=== PATIENT | female | born 1945 | race Caucasian/White ===

== ENCOUNTER 2023-07-07 13:54 | Outpatient (OUT) | payer MEDICARE, SELFPAY ==
--- NOTE | 2023-07-07 14:02 | CT_ITS ---
The [address] [address] Patient Name: DESTINEY TAN MRN: [id number] date: 1945 Sex: F Assigned Patient Location: CT Current Patient Location: CT Accession/Order Number: [id number] Exam Date: 07/07/2023 14:10 Report Date: 07/09/2023 14:25 At the request of: EMILY BERMEO Procedure: CT chest wo con Study: Unenhanced CT of the chest dated 07/07/2023 2:10 PM EST. Indication: Pulmonary nodule. Comparison: CT chest 07/06/2022 and 10/20/2021 . Technique: Axial CT of the chest was performed from the lung apices to the hemidiaphragms without intravenous contrast. 2-D reformats were obtained. Automatic exposure control radiation dose reduction technology was utilized. Findings: Chest: Lack of intravenous contrast limits assessment in the thorax. Stable 0.8 cm solid ovoid nodule in the superior segment right lower lobe (series 3, image 36). No new/enlarging or suspicious pulmonary nodules, areas of airspace disease, pleural effusions, pericardial effusions or enlarged lymph nodes in the thorax. No pneumothorax. No thoracic aortic aneurysm. Moderate coronary artery calcifications. Visualized portion of the upper abdomen is unremarkable. CT/CT chest wo con IMPRESSION: 1. Stable 0.8 cm discoid nodule in the superior segment right lower lobe, favored benign. Recommend additional follow-up noncontrast CT chest in 12 months. Electronically authenticated by: GEORGE AGARWAL Date: 07/09/2023 14:25
== END 2023-07-07 13:55 | disposition home or self-care (01) ==
PROVIDERS: Visit Provider Internal Medicine
DX: R91.1 Solitary pulmonary nodule (principal)
CPT/HCPCS: 71250

== ENCOUNTER 2023-07-27 13:03 | Outpatient (OUT) | payer MEDICARE, SELFPAY ==
--- OUTSIDE RECORDS SUMMARY | 2023-07-27 13:09 | XMS_ITS | CCD ---
Author Name Unknown Address [address] [facility] [address] [place] [address] Organization [facility] Care Team Providers Care Commercial Attorney Name Role Phone HARLANSA, EMILY Attending Unavailable ZIEBREMY, DR RAFAELA Hartman Consulting Unavailable SAMSA, EMILY Admitting Unavailable SAMSA, EMILY Consulting Unavailable AVERY, JOSE GUADALUPE Admitting Unavailable AVERY, JOSE GUADALUPE Attending Unavailable AVERY, JOSE GUADALUPE Consulting Unavailable SAMSA, EMILY Attending Unavailable ZIEBER, DR RAFAELA Hartman Consulting Unavailable SAMSA, EMILY Admitting Unavailable SAMSA, EMILY Consulting Unavailable AVERY, JOSE GUADALUPE Admitting Unavailable AVERY, JOSE GUADALUPE Attending Unavailable AVERY, JOSE GUADALUPE Consulting Unavailable AVERY, JOSE GUADALUPE Attending Unavailable MANDY MARQUEZ ROBERT F Referring ANTHONY Rowe Primary Care Unavailable Musa RAM, Karrie Torres Referring Anna Mckinley MD, Anthony Roth Primary Care Unavailab Lauren RAM, Giana Gutierrez Attending Sharron Arias III, MD Attending Efren Mckinley MD, Anthony Roth Primary Care Unavailab Lauren RAM, Giana Gutierrez Attending Unavailab Marilia SYKES, Anthony Roth Primary Care UnavailSharron Bateman III, MD Attending Efren Mckinley MD, Anthony Roth Primary Care Unavailab Marilia SYKES, Anthony Suarez Primary Care Provider Allergies Allergy Classification Reported Allergen(s) Allergy Type Date of Onset Reaction(s) Facility (1 source) No Known Medication Allergies; Translations: [No Known Medication Allergies] Propensity to adverse reactions to drug (disorder) [facility] Repository Medications Current Medications Medication Drug Class(es) Dates Sig (Normalized) Sig (Original) albuterol 0.83 mg/ml inhalation solution (2 sources) beta2-Adrenergic Agonist take 3 mL by inhalation four times daily albuterol (PROVENTIL,VENTOL IN) 2.5 mg /3 mL (0.083 %) nebulizer solution Inhale 3 mL (2.5 mg total) by nebulization 4 (four) times a day. 0 Active antiox.mv no.10/omeg3s/lut/alexandra (I-CAPS ORAL) (2 sources) antiox.mv no.10/omeg3s/lut/ laexandra (I-CAPS ORAL) Take by mouth daily. 0 Active apixaban 5 mg oral tablet (2 sources) Factor Xa Inhibitor Start: 11-09-2020 take 1 tablet by mouth twice daily apixaban (ELIQUIS) 5 mg tablet Take 1 tablet (5 mg total) by mouth 2 (two) times a day. 180 tablet 3 11/09/2020 Active aspirin 81 mg delayed release oral tablet (2 sources) Platelet Aggregation Inhibitor, Nonsteroidal Anti-inflammatory Drug take 1 tablet by mouth in the morning aspirin 81 mg Take 1 tablet (81 mg total) by mouth in the morning. 0 Active hydroCHLOROthiazide 12.5 mg / lisinopril 10 mg oral tablet (2 sources) Thiazide Diuretic, Angiotensin Converting Enzyme Inhibitor take 10-12.5 mg by mouth once in the morning lisinopril-hydroC HLOROthiazide (PRINZIDE,ZESTORE TIC) 10-12.5 mg per tablet Take 1 tablet by mouth in the morning. 0 Active metoprolol tartrate 25 mg oral tablet (2 sources) beta-Adrenergic Moni take 0.5 tablet by mouth twice daily METOPROLOL SUCCINATE ORAL Take 25 mg by mouth. HALF TAB BID 0 Active multivitamin capsule (2 sources) take 1 capsule by mouth in the morning multivitamin capsule Take 1 capsule by mouth in the morning. 0 Active omeprazole 20 mg delayed release oral capsule (2 sources) Proton Pump Inhibitor take 1 capsule by mouth in the morning omeprazole (PriLOSEC) 20 mg capsule Take 1 capsule (20 mg total) by mouth in the morning. 0 Active pravastatin sodium 40 mg oral tablet (2 sources) HMG-CoA Reductase Inhibitor take 1 tablet by mouth in the morning pravastatin (PRAVACHOL) 40 mg tablet Take 1 tablet (40 mg total) by mouth in the morning. 0 Active zolpidem tartrate 10 mg oral tablet (2 sources) gamma-Aminobutyri c Acid-ergic Agonist take 1 tablet by mouth in the morning zolpidem (AMBIEN) 10 mg tablet Take 1 tablet (10 mg total) by mouth in the morning. 0 Active Problems Active Problems Problem Classification Problem Date Documented Date Episodic/Chronic Cardiac dysrhythmias (10 sources) Unspecified atrial fibrillation; Translations: [Paroxysmal atrial fibrillation] Onset: 05-13-2018 Resolved: 12-06-2018 Chronic Coronary atherosclerosis and other heart disease (4 sources) Atherosclerotic heart disease of [place] coronary artery without angina pectoris; Translations: [Coronary arteriosclerosis] Onset: 01-15-2018 Chronic Disorders of lipid metabolism (2 sources) Dyslipidemia; Translations: [Hyperlipidemia, unspecified] Onset: 01-15-2018 01-15-2018 Chronic Esophageal disorders (2 sources) Gastroesophageal reflux disease; Translations: [Gastro-esophageal reflux disease without esophagitis] Onset: 01-15-2018 01-15-2018 Chronic Essential hypertension (4 sources) Essential (primary) hypertension; Translations: [Hypertensive disorder] Onset: 01-15-2018 Chronic Genitourinary symptoms and ill-defined conditions (1 source) Incontinence; Translations: [Mixed incontinence] 07-26-2023 Chronic Osteoarthritis (2 sources) Arthritis; Translations: [Unspecified osteoarthritis, unspecified site] Onset: 01-15-2018 01-15-2018 Chronic Other lower respiratory disease (4 sources) Solitary pulmonary nodule; Translations: [SOLITARY PULMONARY NODULE] Onset: 07-06-2022 Episodic Other nutritional; endocrine; and metabolic disorders (4 sources) Body mass index 30+ - obesity; Translations: [Obesity, unspecified] Onset: 11-09-2020 11-09-2020 Chronic Residual codes; unclassified (1 source) Asymptomatic menopausal state; Translations: [Asymptomatic menopausal state] Onset: 06-28-2023 Episodic Spondylosis; intervertebral disc disorders; other back problems (4 sources) Lumbar spondylosis; Translations: [Spondylosis without myelopathy or radiculopathy, lumbar region] Onset: 03-08-2023 04-17-2023 Chronic Unclassified (1 source) CONTACT W/AND (SUSP) EXPOS COVID-19; Translations: [CONTACT W/AND (SUSP) EXPOS COVID-19] Onset: 03-22-2022 Urinary tract infections (1 source) Recurrent urinary tract infection; Translations: [Urinary tract infection, site not specified] 07-26-2023 Episodic Past or Other Problems Problem Classification Problem Date Documented Da te Episodic/Chronic Other lower respiratory disease (4 sources) Other forms of dyspnea; Translations: [OTHER FORMS OF DYSPNEA] Onset: 10-08-2021 Episodic Residual codes; unclassified (2 sources) Insomnia; Translations: [Insomnia, unspecified] Onset: 01-15-2018 01-15-2018 Episodic Screening and history of mental health and substance abuse codes (4 sources) Personal history of nicotine dependence; Translations: [PERSONAL HISTORY OF NICOTINE DEPEND] Onset: 10-20-2021 Episodic Spondylosis; intervertebral disc disorders; other back problems (2 sources) Spinal stenosis of lumbar region; Translations: [Spinal stenosis, lumbar region with neurogenic claudication] Onset: 04-05-2023 04-17-2023 Episodic Results Test Name Value Interpretation Reference Range Facility Neurosurgery Office/Clinic N irinaon 07-05-2023 Neurosurgery Office/Clinic Note Objective Vitals & Measurements HR: 65 (Peripheral) BP: 155/73 HT: 155 cm WT: 95.4 kg WT: 95.4 kg (Dosing) BMI: 39.71 Additional Vitals BP Position/Location: Sitting, Left arm Lab Results No qualifying data available Microbiology - Current Encounter No qualifying data available. Medications Inpatient No active inpatient medications Assessment/Plan 1. Stroke 2. Hypertension 3. Hyperlipidemia 4. Low back pain Ordered: CT Spine Lumbar w/o Contrast 5. Lumbar degenerative disc disease Ordered: CT Spine Lumbar w/o Contrast 6. Atrial fibrillation 7. Spondylolisthesis, lumbar region Ordered: CT Spine Lumbar w/o Contrast 8. Claudication 9. COPD with emphysema Ordered: Referral to Pulmonology 10. Smoker 11. Chronic anticoagulation Orders: External Referral MRI Spine Cervical w/o Contrast Primary provider: anthony mckinley Referring provider: [] Other providers: [] Current history: 77-year-old patient with a multitude of medical difficulties including hypertension, stroke,morbid obesity with body mass index of 40 chronic nicotine abuse, hypercholesterolemia, COPD, atrial fibrillation with chronic anticoagulation who presents with greater than 1 year of low back pain without significant lower extremity syndrome. She states that she is relatively comfortable at rest but when she stands or mobilizes, she immediately begins to develop severe low back pain at the lumbosacral junction. She intermittently has neck pain and has had physical therapy in the past and has been told she has degenerative disc disease but denies cervical radicular syndrome or paresthesias in her hands. The patient intermittently notes paresthesias in her left leg. Denies bowel or bladder incontinence or saddle paresthesias. 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 States that she becomes short of breath cleaning her home.. The patient denies paresthesias or numbness in her toes as a general rule. Only intermittently develops pain into her hamstrings and gluteal region. For her pain, she has engaged chiropractic, physical therapy and pain management x 2 with no benefit, even transient. She states that something must be done . Indicates that she had to have cardiac clearance in order to have anesthetic for steroid injections Constitutional: [No fevers, chills, sweats] Eye: [No recent visual problems] ENMT: [No ear pain, nasal congestion, sore throat] Respiratory: [No shortness of breath, cough] Cardiovascular: [No Chest pain, palpitations, syncope] Gastrointestinal: [No nausea, vomiting, diarrhea] Genitourinary: [No hematuria] General: Pleasant and cooperative but has audible breathing with any exertion Straight leg raise: Negative Hip exam: Negative Fabere sign and López's sign Cervical range of motion: [] Shoulder exam: Negative Lumbar range of motion: Modestly restricted in extension Neuro: mental status: awake, alert, appropriate with normal mental status exam cranial nerves: No ophthalmoplegia, facial palsy or lower cranial neuropathy motor: 5/5 power all groups with normal tone Deep tendon reflexes: Hyperreflexic, particular in the upper extremities at 3-4+ with bilateral Jason's and 2 beats of clonus and equivocal Babinski gait: No spasticity or motor neuropathy identified with hunched posture Assessment/plan: Elderly female with an assembly edge of medical difficulties that challenge consideration of lumbar spinal surgery. That said, patient is quite debilitated by her low back pain and imaging reveals grade 1 lumbar spondylolisthesis which is degenerative in nature. She has undergone a bevy of workup which includes: Flexion extension radiographs which demonstrate instability at L4-5 and vacuum disc phenomenon at L5-S1 Bone density testing which has normal bone density for age Scoliosis flatplate Long cassette standing x-rays which revealed minimal levoscoliosis and approximately 5 cm of positive sagittal imbalance Sacroiliac imaging which reveals minimal sacroiliac disease The patient may benefit from surgical consideration given the failure of conservative management. That said, multiple further diagnostic tests are required including: CT scan lumbar spine for surgical planning to ensure adequate radicular anatomy as well as better assessment of pain generators such as vacuum disc phenomenon vacuum facet phenomenon for identifying how many levels may require intervention MRI cervical spine on behalf of hyperreflexia which could be indicative of cervical spondylotic myelopathy/cord compression Pulmonology assessment. 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 Normal [facility] Provider Letteron 07-05-2023 Provider Letter Anthony Mckinley MD [address] [place] [address] Re: Gretchen Tan Date of Visit: 07/04/2023 Dear Anthony Mckinley MD, Let me know if you have any questions or concerns. Sincerely, MANDY Monae MD C Providers: The following document(s) were included in the letter: July 05, 2023 16:28:59 EST - (07/05/2023) Neurosurgery Progress/SOAP Note Normal [facility] DEXA SCAN CENTRAL SKELETALon 06-29-2023 DEXA SCAN CENTRAL SKELETAL DEXA SCAN CENTRAL SKELETAL DEXA SCAN CENTRAL SKELETAL: 06/28/2023 1:46 PM CLINICAL: Post menopausal. Exam/Technique: DEXA Scan (Dual Energy X-ray Absorptiometry) Findings: PA Lumbar Spine: BMD: 1.299 g/cm2. T-score: 1.0 Left Femoral neck: BMD 1.034 g/cm2. T-score: 0 Right Femoral neck: BMD 0.951 g/cm2. T-score: -0.6 Fracture Risk: According to FRAX, 10 year probability of any major osteoporosis-related fracture is 8.1%, 10 year probability of hip fracture is 1.6 % IMPRESSION: * Normal exam. ___ PLEASE NOTE * T-score compares patient BMD to a reference of young normal controls. World Health Organization Classification: Osteoporosis: T-score=-2.5 or below. Osteopenia (low bone mass): T-score between -1.0 and -2.5. Normal: T-score -1.0 or above. Secondary causes of bone loss should be evaluated if clinically indicated since the etiology of low BMD cannot be determined by BMD measurement alone. Finalized by Francisco J Finney MD on 06/29/2023 6:[address] [facility] XR Sacroiliac Joints Minimum 3 Viewson 06-09-2023 XR Sacroiliac Joints Minimum 3 Views EXAM: XR Sacroiliac Joints Minimum 3 Views HISTORY: The patient is a 77-year-old female with Back pain COMPARISON: None. IMPRESSION: The sacroiliac joints are radiographically negative with no evidence of bony ankylosis, cortical erosions, or subcortical sclerosis. Final Dictated by: Carlos Ridley MD Dictated DT/TM: 06/09/2023 0:15 am Signed by: Carlos Ridley MD Signed (Electronic Signature): 06/09/2023 0:16 am (If Report Is Signed, Electronically Signed in Other Vendor System) Normal [facility] XR Scoliosis Study 2 or 3 Vi ewson 06-09-2023 XR Scoliosis Study 2 or 3 Views CLINICAL HISTORY: Scoliosis. Sagittal imbalance. EXAMINATION: Frontal and lateral images of the entire spine were obtained. FINDINGS: There is mild anterolisthesis of L4 with respect to L5. There is increased kyphosis in the thoracic spine. There is diffuse osseous demineralization. There is loss of disc space height with endplate bone spurring throughout the spine. There is no suspicious osseous lesion. There are 12 rib-bearing, thoracic type vertebral bodies. There are 5 nonrib-bearing, lumbar-type vertebral bodies. There is no hemivertebra or vertebral anomaly. There is approximately 12 degrees of levoscoliosis of the lumbar spine is measured from the superior endplate of L5 and superior endplate of T10. There is approximately 2 degrees pelvic tilt to the left. The lungs are clear. There is calcification in the aortic arch. There is a nonobstructive bowel gas pattern. There is no organomegaly, discrete soft tissue mass or pathologic calcification. IMPRESSION: Moderate degenerative change and mild levoscoliosis of the thoracolumbar spine as detailed above. Final Dictated by: Daniel Staton MD Dictated DT/TM: 06/09/2023 10:48 am Signed by: Daniel Staton MD Signed (Electronic Signature): 06/09/2023 10:50 am (If Report Is Signed, Electronically Signed in Other Vendor System) Normal [facility] XR Spine Lumbosacral Bending 2-3 Viewson 06-09-2023 XR Spine Lumbosacral Bending 2-3 Views EXAMINATION: XR Spine Lumbosacral Bending 2-3 Views, , 06/07/2023 4:29 PM EST INDICATION: Pain, lumbar HISTORY: Ordering Provider Reason for Exam: Technologist Note: Additional: COMPARISON: None. TECHNIQUE: Lumbar spine x-ray: 3 view(s). FINDINGS: BONES/DISCS: Vertebral bodies are normal in height. There is widespread disc space narrowing, most marked at L5-S1. FACETS: Facet arthropathy at L4-5 and L5-S1. There is an associated degenerative anterolisthesis of L4 on L5. Anterior offset measures 6 mm on neutral and extension views and 7 mm on the flexion view. PARASPINOUS: Aortoiliac calcification is noted. OTHER: Negative. IMPRESSION: Multilevel lumbar spondylosis. No acute fracture or traumatic malalignment. Final Dictated by: Alda Ortiz MD Dictated DT/TM: 06/09/2023 0:38 am Signed by: Alda Ortiz MD Signed (Electronic Signature): 06/09/2023 0:40 am (If Report Is Signed, Electronically Signed in Other Vendor System) Normal [facility] Neurosurgery Office/Clinic N oteon 06-07-2023 Neurosurgery Office/Clinic Note Chief Complaint Back consult History of Present Illness The patient is a pleasant 77-year-old right-handed female with history of hypertension, hyperlipidemia, prior CVA currently anticoagulated on Eliquis, prediabetes, coronary artery disease and obesity with BMI 39 who presents to the neurosurgical office on behalf of referral from Karrie Vigil PA-C (pain management) regarding chronic low back pain. The patient reports back pain initiating more significantly in May 2022 without specific trauma or injury. This is present constantly though increases with activity. She is generally comfortable when laying in bed and can get comfortable sitting for a short period though often times has to change positions due to low back pain. She finds that if she is shopping, a cart allows her to walk farther though ultimately her back pain is the main limiting factor. She denies any lower extremity radicular pain, numbness, paresthesia or overt weakness. She does report a recent fall last week landing on her left side which has led to not only midline low back pain but increased left-sided low back pain. She denies any other falls prior to this. She denies bowel or bladder incontinence; no saddle paresthesia. She denies cervicalgia or upper extremity radicular pain or weakness. She reports rare numbness in the bilateral hands typically at bedtime or if sitting in a certain position. She denies thoracic spine pain nor thoracic radicular symptoms. Conservative measures: Traditional physical therapy summer 2022 with aqua therapy in fall 2022 which did provide some temporary benefit. Pain management injection modalities including bilateral L4-5, L5-S1 DMR 03/24/2022 with approximately 1 week of benefit. Caudal epidural 05/05/2023 provided no benefit. Chiropractic manipulation without benefit. Oral Tylenol which does provide mild temporary benefit. Topical agents including heat and lidocaine patches with mild temporary benefit. Patient unable to take NSAIDs due to current use of Eliquis. Recent imaging (provider interpretation): MRI lumbar spine 02/02/2023 [facility] reveals multilevel degenerative disc disease. Anterior listhesis noted L4-5. Multilevel facet arthropathy, particularly left greater than right L4-5, L5-S1. L4-5 reveals broad-based disc bulge, ligamentum flavum hypertrophy, facet arthropathy and epidural lipomatosis leading to moderate central stenosis and left greater than right lateral recess constriction. No significant neuroforaminal stenosis. X-ray lumbar spine 09/22/2022 reveals diffuse photopenia. Mild levoscoliosis throughout the lumbar spine. There is anterior listhesis L4-5. Multilevel degenerative disc disease throughout with question of vacuum disc phenomenon L5-S1. Unfortunately these do not contain flexion/extension x-rays. PAST MEDICAL HISTORY: Nicotine use Hypertension Hyperlipidemia Insomnia History of CVA, currently on Eliquis GERD Prediabetes Coronary artery disease per chart review PAST SURGICAL HISTORY: Cyst resection from left thumb many years ago Cardiac catheterization with left ventricular puncture, 2016 ALLERGIES: No known drug allergies MEDICATIONS: See medication list SOCIAL HISTORY: The patient is . She has 3 children, 5 grandchildren and 1 great grandchild. She reports nicotine use of 1 pack/day. She reports rare alcohol use and denies recreational drug use or medical marijuana use. Patient states retired. 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 FAMILY HISTORY: Prostate cancer: Paternal grandfather Diabetes mellitus: Mother Hypertension: Mother Heart failure: Mother Breast cancer: Paternal aunt Review of Systems Constitutional: [No fevers, chills, sweats] Eye: [No recent visual problems] ENMT: [No ear pain, nasal congestion, sore throat] Respiratory: [No shortness of breath, cough] Cardiovascular: [No Chest pain, palpitations, syncope] Gastrointestinal: [No nausea, vomiting, diarrhea, bowel incontinence] Genitourinary: [No hematuria, bladder incontinence] Physical Exam Vitals & Measurements HR: 71 (Peripheral) BP: 127/70 HT: 155 cm WT: 95.3 kg WT: 95.3 kg (Dosing) BMI: 39.67 Additional Vitals BP Position/Location: Sitting, Right arm GENERAL PHYSICAL EXAM: GENERAL: well developed, well nourished, mild distress secondary to low back pain HEAD: normocephalic, atraumatic EYES: anicteric, atraumatic MUCOUS MEMBRANES: Moist, no evidence of dehydration NECK: supple, soimewhat limited range of motion without significant discomfort, no deformity noted; no cervical adenopathy; no carotid bruits; no tracheal deviation; no winging of the scapula; no drooping of the shoulder; no evidence of neurotension signs such as Lhermitte's or Spurling sign CHEST: clear CARDIAC: normal heart sounds no murmurs or extra sounds SHOULDER: Full range of motion on active and passive evaluation; no evidence of impingement or rotator cuff tendinopathy, negative empt (more content not included)... Normal [facility] Provider Letteron 06-07-2023 Provider Letter Karrie Vigil PA-C [address] [place] [address] Re: Gretchen Tan Date of Visit: 06/07/2023 Dear Karrie Vigil PA-C, This patient was recently seen in the neurosurgical office. Please see attached note for further details. Let me know if you have any questions or concerns. Sincerely, LEANNA Pederson Providers: Anthony Mckinley; Javi Weems-C The following document(s) were included in the letter: June 07, 2023 16:10:45 EST - (06/07/2023) Neurosurgery Office Visit Note Normal [facility] Office Visiton 04-14-2023 Follow-up visit [id number] Gretchen Tan 1945 F Date Provider Department Center 04/14/2023 JOSE GUADALUPE [facility]INSON [facility] Family History Problem Relation Age of Onset Diabetes Mother Stroke Mother Family Status - Relation Status Age at Mother Level of Service:[address] [place] OFFICE/OUTPATIENT ESTABLISHED MOD MDM 30-39 MIN Normal [facility] CT CHEST WO CONon 07-07-2022 CT CHEST WO CON EXAMINATION: CT CHES T WO CON HISTORY: Solitary nodule of lung , follow-up COMPARISON: CT chest 10/20/2021 TECHNIQUE: Axial, Coronal, and Sagittal images were created without the administration of IV contrast material. Dose reduction techniques were achieved by using automated exposure control and/or adjustment of mA and/or kV according to patient size and/or use of iterative reconstruction technique. FINDINGS: LUNGS: Stable 8 x 6 x 3 mm discoid opacity within lateral aspect of the right lower lobe superior segment. Mild emphysematous changes. PLEURA: No mass, effusion, or pneumothorax. VASCULATURE: No abnormality. CONNIE: No mass or adenopathy. MEDIASTINUM: No mass or adenopathy. CARDIAC: No enlargement or pericardial thickening. AORTA: No aneurysm or dissection. CHEST WALL: No mass or axillary adenopathy. BONES: No bone lesion or fracture. LIMITED ABDOMEN: No suspicious findings. Limited images of the upper abdomen. OTHER: Negative. IMPRESSION: 1. Stable thin discoid shaped density within right lower lobe superior segment; scarring versus nodule. If patient is at increased risk for lung cancer consider additional follow-up in one year to document stability over a two-year period. Electronically authenticated by: RAFAELA DSOUZA Date: 2022-07-07 07:32 Normal [facility] CBC AUTO DIFFon 03-18-2022 BASO # 0.0 103/ul Normal 0.0-0.1 [facility] Comment on above: Performed By: #### C BC #### [facility] [address] [place] [address] Dr. Marlene Walton Basophils/100 WBC (Bld) 0.4 % Normal 0.2-2.0 [facility] Comment on above: Performed By: #### C BC #### [facility] [address] [place] [address] Dr. Marlene Walton EO # 0.1 103/ul Normal 0.0-0.7 [facility] Comment on above: Performed By: #### C BC #### [facility] [address] [address] [address] Marlene Walton Eosinophils/100 WBC (Bld) 1.4 % Normal 0.9-7.0 [facility] Comment on above: Performed By: #### C BC #### [facility] [address] [place] [address] Dr. Marlene Walton Erythrocyte distribution width (RBC) [Ratio] 13.5 % Normal 11.0-15.0 [facility] Comment on above: Performed By: #### C BC #### [facility] [address] [place] [address] Dr. Marlene Walton Hematocrit (Bld) [Volume fraction] 39.1 % Normal 36.0-48.0 [facility] Comment on above: Performed By: #### C BC #### [facility] [address] [place] [address] Dr. Marlene Walton Hemoglobin (Bld) [Mass/Vol] 12.5 g/dL Normal 12.0-16.0 [facility] Comment on above: Performed By: #### C BC #### [facility] [address] [place] [address] Dr. Marlene Walton IG # 0.02 10e3/ul Normal 0.00-0.03 [facility] Comment on above: Performed By: #### C BC #### [facility] [address] [place] [address] Dr. Marlene Walton IG % 0.3 % Normal 0.0-0.5 [facility] Comment on above: Performed By: #### C BC #### [facility] [address] [place] [address] Dr. Marlene Walton LYMPH # 3.0 103/ul Normal 1.2-3.8 [facility] Comment on above: Performed By: #### C BC #### [facility] [address] [place] [address] Dr. Marlene Walton Lymphocytes/100 WBC (Bld) 38.2 % Normal 20.5-60.0 [facility] Comment on above: Performed By: #### C BC #### [facility] [address] [place] [address] Dr. Marlene Walton MANUAL DIFF REQ NO Normal [facility] Comment on above: Performed By: #### C BC #### [facility] [address] [place] [address] Dr. Marlene Walton MCH (RBC) [Entitic mass] 30.2 pg Normal 26.7-34.0 [facility] Comment on above: Performed By: #### C BC #### [facility] [address] [place] [address] Dr. Marlene Walton MCHC (RBC) [Mass/Vol] 32.0 g/dL Normal 29.9-35.2 [facility] Comment on above: Performed By: #### C BC #### [facility] [address] [place] [address] Dr. Marlene Walton MCV (RBC) [Entitic vol] 94.4 fL Normal 81.0-99.0 [facility] Comment on above: Performed By: #### C BC #### [facility] [address] [address] [address] Marlene Walton MONO # 1.0 103/ul Critically high 0.3-0.8 [facility] Comment on above: Performed By: #### C BC #### [facility] [address] [address] [address] Marlene Walton Monocytes/100 WBC (Bld) 13.3 % Critically high 1.7-12.0 [facility] Comment on above: Performed By: #### C BC #### [facility] [address] [place] [address] Dr. Marlene Walton NEUT # 3.6 103/ul Normal 1.4-6.5 [facility] Comment on above: Performed By: #### C BC #### [facility] [address] [place] [address] Dr. Marlene Walton Neutrophils/100 WBC (Bld) 46.4 % Normal 43.0-75.0 [facility] Comment on above: Performed By: #### C BC #### [facility] [address] [place] [address] Dr. Marlene Walton Platelet mean volume (Bld) [Entitic vol] 9.9 fL Normal 9.5-13.5 [facility] Comment on above: Performed By: #### C BC #### [facility] [address] [place] [address] Dr. Marlene Walton PLT 198 103/ul Normal 150-450 [facility] Comment on above: Performed By: #### C BC #### [facility] [address] [place] [address] Dr. Marlene Walton RBC 4.14 106/ul Critically low 4.20-5.40 [facility] Comment on above: Performed By: #### C BC #### [facility] [address] [place] [address] Dr. Marlene Walton WBC 7.8 103/ul Normal 4.0-11.0 [facility] Comment on above: Performed By: #### C BC #### [facility] [address] [place] [address] Dr. Marlene Walton Covid-19 PCR (CVDTB)on 02-25 SARS-CoV-2 (COVID-19) RNA DEBBI+probe Ql (Unsp spec) Not detected Normal NOT DETECTED [facility] Comment on above: Result Comment: This test is not yet approved or cleared by the [place] FDA. When there are no FDA-approved or cleared tests available, and other criteria are met, FDA can make tests available under an emergency access mechanism called an Emergency Use Authorization (EUA). The EUA for this test is supported by the [place] of Health and Human Service's (HHS's) declaration that circumstances exist to justify the emergency use of in vitro diagnostics for the detection and/or diagnosis of the virus that causes COVID-19. This EUA will remain in effect (meaning this test can be used) for the duration of the COVID-19 declaration justifying emergency of IVDs, unless it is terminated or revoked by FDA (after which the test may no longer be used). When diagnostic testing is negative, the possibility of a false negative should be considered in the context of a patient's recent exposures and the presence of clinical signs and symptoms consistent with SARS-CoV-2. Performed By: #### C VDTBH #### [facility] [address] [place] [address] Dr. Marlene Walton PROF CHEM 8 (BAS METB)on Anion gap [Moles/Vol] 8.1 mmol/L Normal [facility] Comment on above: Performed By: #### B MP #### [facility] [address] [place] [address] Dr. Marlene Walton Calcium [Mass/Vol] 9.1 mg/dL Normal 8.5-10.1 [facility] Comment on above: Performed By: #### B MP #### [facility] [address] [place] [address] Dr. Marlene Walton Chloride [Moles/Vol] 107 mmol/L Normal 98-107 [facility] Comment on above: Performed By: #### B MP #### [facility] [address] [place] [address] Dr. Marlene Walton CO2 [Moles/Vol] 30.1 mmol/L Normal 21.0-32.0 [facility] Comment on above: Performed By: #### B MP #### [facility] [address] [address] [address] Marlene Walton Creatinine [Mass/Vol] 0.80 mg/dL Normal 0.55-1.02 [facility] Comment on above: Performed By: #### B MP #### [facility] [address] [address] [address] Marlene Walton EGFR-AF [place] ISLANDER >60 Normal >=60 [facility] Comment on above: Performed By: #### B MP #### [facility] [address] [address] [address] Marlene Walton EGFR-NON AF [place]ER >60 Normal >=60 [facility] Comment on above: Performed By: #### B MP #### [facility] [address] [address] [address] Marlene Walton Glucose [Mass/Vol] 111 mg/dL Critically high 74-106 [facility] Comment on above: Performed By: #### B MP #### [facility] [address] [address] [address] Marlene Walton Potassium [Moles/Vol] 4.2 mmol/L Normal 3.5-5.1 [facility] Comment on above: Performed By: #### B MP #### [facility] [address] [address] [address] Marlene Walton Sodium [Moles/Vol] 141 mmol/L Normal 136-145 [facility] Comment on above: Performed By: #### B MP #### [facility] [address] [address] [address] Marlene Walton Urea nitrogen [Mass/Vol] 9.0 mg/dL Normal 7.0-18.0 [facility] Comment on above: Performed By: #### B MP #### [facility] [address] [address] [address] Marlene Walton Urea nitrogen/Creatinine [Mass ratio] 11.2 mg/mg Normal [facility] Comment on above: Performed By: #### B MP #### [facility] [address] [place], [place] [address] LUNG CANCER SCREENINGon 0 10-20-2021 CT LUNG CANCER SCREENING EXAMINATION: CT LUNG CANCER SCREENING HISTORY: Nicotine dependence COMPARISON: No relevant comparison available. TECHNIQUE: Axial, Coronal, and Sagittal images were created without the administration of IV contrast material. Dose reduction techniques were achieved by using automated exposure control and/or adjustment of mA and/or kV according to patient size and/or use of iterative reconstruction technique. FINDINGS: LUNGS: 8 x 6 x 3 mm discoid shaped density within the right lower lobe superior segment; nodule versus scarring. No acute infiltrates or significant chronic interstitial changes. PLEURA: No mass, effusion, or pneumothorax. VASCULATURE: No abnormality. CONNIE: No mass or pathologic adenopathy. MEDIASTINUM: No mass or pathologic adenopathy. CARDIAC: No enlargement or pericardial effusion. AORTA: No aneurysm or dissection. CHEST WALL: No mass or axillary adenopathy BONES: No bone lesion or fracture. LIMITED ABDOMEN: No suspicious findings. Limited images of the upper abdomen. OTHER: Negative. IMPRESSION: 1. LUNG SCREENING: Lung-RADS Category 3- Probably benign. Probably benign finding(s)- short term follow up suggested; includes nodules with a low likelihood of becoming a clinically active cancer. Six month LDCT. Electronically authenticated by: RAFAELA DSOUZA Date: 2021-10-20 09:28 Normal [facility] HEMOGLOBINon 10-08-2021 Hemoglobin (Bld) [Mass/Vol] 12.8 g/dL Normal 12.0-16.0 [facility] Comment on above: Performed By: #### H GB #### [facility] [address] [place] [address] [address] [address] Marlene Walton Dermatopathologyon 0 Dermatopathology [facility] [address] [place] [id number] DERMATOPATHOLOGY REPORT Name:GRETCHEN TANViri Dueñas. Rec #. [id number] Location: [facility] Date of Procedure: 05/04/2020 Race: Date Received: 05/06/2020 /Sex: 1945 (Age: 74) / F Date Reported: 05/07/2020 Other: Submitting Physician:DEMETRI SHELTON MD FINAL DIAGNOSIS SKIN, L UPPER ARM, 3MM PUNCH BIOPSY: ACTINIC DAMAGE WITH A MINIMAL SUPERFICIAL PERIVASCULAR LYMPHOCYTIC INFILTRATE, SEE NOTE. Note: Microscopic examination reveals a specimen that extends into the deep reticular dermis. There is mild epidermal atrophy and mild to moderate solar elastosis of the epidermis. There is a minimal superficial perivascular lymphocytic infiltrate. These findings are not specific. The findings of dermatomyositis are not present. Electronically Signed Out by STEFANIE TRIPP M.D. Electronically Signed Out By STEFANIE TRIPP MD/[facility] By the signature on this report, the individual or group listed as making the Final Interpretation/Diagno sis certifies that they have reviewed this case. Clinical History: Drug eruption vs. dermatomyositis vs. SCLE. 0.3 x 0.3 cm. 3 mm biopsy. Specimens Submitted As: A: SKIN, L UPPER ARM Gross Description: Received in formalin is a anderson-brown, cylindrical piece of skin measuring 3 x 3 x 3 mm. Inked and embedded in toto. mlz/05/06/2020 Normal [facility] Comment on above: Performed By: #### D #### Dermatopathology Vital Signs Date Time Vital Sign Value Performing Clinician Penny bhatt 07-26-2023 14:53-0500 Body height 157.5 cm Kiera HAYES Work Phone: [facility] 07-26-2023 14:53-0500 Body mass index (BMI) [Ratio] 38.96 kg/m2 Kiera HAYES Work Phone: [facility] 07-26-2023 14:53-0500 Body weight 96.62 kg Kiera HAYES Work Phone: [facility] [employer] [facility] 07-26-2023 14:53-0500 Diastolic blood pressure 67 mm[Hg] Kiera HAYES Work Phone: [facility] [employer] [facility] 07-26-2023 14:53-0500 Heart rate 55 /min Kiera HAYES Work Phone: [facility] [employer] [facility] 07-26-2023 14:53-0500 Systolic blood pressure 127 mm[Hg] Kiera HAYES Work Phone: [facility] Encounters Encounter Date Encounter Type Care Provider Facility Start: 07-26-2023 End: 07-26-2023 Office outpatient new 30 minutes Kiera HAYES Work Phone: [facility] Comment on above: Mixed incontinence ( Primary Dx); Frequent urinary tract infections Start: 07-14-2023 Telephone encounter Valarie LUDWIG [facility] Start: 07-05-2023 ambulatory Sharron Marquez III, MD Facility:[facility] Start: 07-05-2023 End: 07-06-2023 ambulatory Sharron Marquez III, MD [facility] Start: 06-28-2023 End: 06-29-[address] [facility] Start: 06-07-2023 End: 06-08-2023 ambulatory Giana De León PA-C Facility:[facility] Start: 04-14-2023 End: 04-14-2023 ambulatory [facility] Start: 04-14-2023 End: 04-14-2023 Encounter for other preprocedural examination [facility] Start: 07-06-2022 End: 07-07-2022 ambulatory [facility] Facility:[facility]1 Start: 03-18-2022 End: 03-19-2022 [facility] Start: 10-20-2021 End: 10-21-2021 ambulatory [facility] Facility:[facility] Start: 10-08-2021 End: 10-09-2021 [facility] Facility: Procedures Date Procedure Procedure Detail Performing Clinician Start: 02-15-2018 Colonoscopy Valarie LUDWIG Plan of Treatment Date Care Activity Detail Author Start: 04-26-2033 DTaP,Tdap and Td Vaccines (2 - Td or Tdap) DTaP,Tdap and Td Vaccines (2 - Td or Tdap) [facility] Start: 07-26-2024 Adult BMI Screening Adult BMI Screening [facility] Start: 07-26-2024 Tobacco Screening Tobacco Screening [facility] Start: 05-24-2024 Tobacco Screening Tobacco Screening [facility] Start: 03-08-2024 Adult BMI Screening Adult BMI Screening [facility] Start: 07-26-2023 End: 07-26-2023 Patient encounter procedure [facility] Start: 06-21-2023 Administration of varicella zoster vaccine Zoster (Shingles) Vaccine (2 of 2) [facility] Start: 02-15-2021 Screening for malignant neoplasm of colon Colonoscopy [facility] Start: 10-10-2012 Fall Risk Screening Fall Risk Screening [facility] Start: 10-10-1965 Adult BMI Follow Up Plan Adult BMI Follow Up Plan [facility] Start: 1959 Depression Screening Depression Screening [facility] Start: 1945 Medicare Annual Wellness Visit Medicare Annual Wellness Visit [facility] Start: 1945 Tobacco Counseling Tobacco Counseling [facility] Immunizations Immunization Date Immunization Notes Care Provider Fa cilidewey 04-26-2023 zoster vaccine, unspecified formulation Valarie HERNANDEZA [facility] Payers Date Payer Category Payer Unknown 2017 Medicare AN[employer]M MEDICARE [facility]AGE [id number] 2017-Present [phone] [address] [place] [address] [id number] 1959 Unknown [id number] 1945 Unknown [id number] 1945 Unknown [id number] 1945 Unknown [id number] 1945 Unknown [id number] 1945 Unknown [id number] 1945 Unknown [id number] 1945 Unknown [id number] 1945 Unknown [id number] 1945 Unknown [id number] Social History Date Type Detail Facility Start: 03-08-2023 Tobacco smoking stat [facility] Smokes tobacco daily [facility] History of tobacco use Cigarette Smoker P [facility] Start: 08-06-2020 End: 03-08-2023 Cigarettes smoked current (pack per day) - Reported 1 [facility] Start: 03-08-2023 Tobacco use and exposure Smoke less tobacco non-user [facility] Start: 05-24-2023 End: 07-26-2023 Alcohol intake Current drinker of alcohol (finding) [facility] Start: 08-06-2020 End: 05-24-2023 Tobacco use panel [facility] Housing Instability Unknown [facility] Start: 01-15-2018 Alcohol Comment OCCASIONAL [facility] Start: 1945 Sex Assigned At Not on file P [facility] Goals Date Patient Goal Desired Activity /State Personal health goal Comment on above: Formatting of this n ote might be different from the original. Evaluation of progress towards goal: discharge home with spouse's support. Clinical Notes 04-14-2023 to 07-26-2023 ABIGAIL Carey - 07/26/2023 3:00 PM ESTTelephone Encounter - Valarie Harmon, [facility] - 07/14/2023 2:43 PM ESTTelephone Encounter - Valarie Harmon, [facility] - 07/14/2023 2:43 PM EST Note Date & Type Note Facility 07-26-2023 History of Presen t illness Narrative Images from the original note were not included. [address] [place] [address] [address] [facility] [id number] Patient: Gretchen Tan Date of : 1945 Encounter Date: 07/26/2023 History of Present Illness: The patient is a 77 y.o. female, a new patient, and is here for frequent UTIs. She has a constant vaginal burning and itching. Recently her symptoms were worse. She saw her PCP I do not have her records, but it looks like she was treated for UTI and a yeast infection with Bactrim, Diflucan, and Nystatin. Her symptoms are somewhat improved but not completely resolved. She has also had issues with incontinence since forever. This appears to be mixed in nature. She goes through 3-4 pads a day. She thinks that the vaginal itching and burning would improve if she did not have to wear a pad. She has issues with back pain but states that the incontinence present prior to the pain. She denies any gross hematuria or fever. For further evaluation of her persistent symptoms and frequent Urinary tract infections, we discussed going forward with a renal/bladder ultrasound with PVR and cystoscopy. We could also consider urodynamics testing for the incontinence. She is not interested in pursuing additional diagnostics. We discussed trying an anticholinergic to see if it helps with her incontinence. She is not interested in that either. I told her that there are quite a few options able to help with incontinence. She said she does not think I will be able to help her. She does not want to return to the office. She will call if she changes her mind. She was not able to leave a urine specimen today. Urinalysis today: No results for input(s): EXTPOCURCO , EXTPOCURCH , EXTPOCAPP , EXTPOCURBS , EXTPOCURBIL , EXTPOCUKET , EXTPOCUSPG , EXTPOCUHGB , EXTPOCUPRO , EXTPOCUURO , EXTPOCULEU , EXTPOCUNIT , EXTPOCUWBC , EXTPOCUBLD , EXTPOCURBC , EXTPOCUCRY , EXTPOCUBAC , EXTPOCUTREP , EXTPOCUPH , EXTPOCULEE in the last 72 hours. Last BUN and creatinine: Lab Results Component Value Date BUN 14 05/16/2018 Lab Results Component Value Date CREATININE 0.89 05/16/2018 Past Medical, Family, and Social History Update: The following portions of the patient's history were reviewed and updated as appropriate: allergies, current medications, past family history, past medical history, past social history, past surgical history and problem list. Past Medical History: Diagnosis Date Arthritis Dyslipidemia GERD (gastroesophageal reflux disease) Hematuria Hyperlipidemia Hypertension Insomnia Low back pain Past Surgical History: Procedure Laterality Date CARDIAC CATHETERIZATION 2012 LEFT VENTRICULAR PUNCTURE COLONOSCOPY 2012 COLONOSCOPY N/A 02/15/2018 Performed by Mathew Alcazar DO at [facility] INJECTION BLOCK EPIDURAL CAUDAL STEROID N/A 05/05/2023 Performed by Sp Alonzo MD at [facility] INJECTION BLOCK NERVE MEDIAL BRANCH Bilat L 4,10/24 Bilateral 03/24/2023 Performed by Sp Alonzo MD at [facility] Family History Problem Relation Age of Onset Diabetes Mother Heart failure Mother Appendicitis Father Arthritis Sister Arthritis Sister Breast cancer Paternal Aunt 81 Mason Breast Cancer Neg Hx Current Outpatient Medications Medication Sig Dispense Refill albuterol (PROVENTIL,VENTOLIN) 2.5 mg /3 mL (0.083 %) nebulizer solution Inhale 3 mL (2.5 mg total) by nebulization 4 (four) times a day. antiox.mv no.10/omeg3s/lut/alexandra (I-CAPS ORAL) Take by mouth daily. apixaban (ELIQUIS) 5 mg tablet Take 1 tablet (5 mg total) by mouth 2 (two) times a day. 180 tablet 3 aspirin 81 mg Take 1 tablet (81 mg total) by mouth in the morning. lisinopril-hydroCHLOROthiazide (PRINZIDE,ZESTORETIC) 10-12.5 mg per tablet Take 1 tablet by mouth in the morning. METOPROLOL SUCCINATE ORAL Take 25 mg by mouth. HALF TAB BID multivitamin capsule Take 1 capsule by mouth in the morning. omeprazole (PriLOSEC) 20 mg capsule Take 1 capsule (20 mg total) by mouth in the morning. pravastatin (PRAVACHOL) 40 mg tablet Take 1 tablet (40 mg total) by mouth in the morning. zolpidem (AMBIEN) 10 mg tablet Take 1 tablet (10 mg total) by mouth in the morning. No current facility-administered medications for this visit. (All medications reviewed and updated by provider since last office visit or hospitalization) Allergies: Patient has no known allergies. Tobacco History: Social History Tobacco Use Smoking Status Every Day Packs/day: 1 Types: Cigarettes Smokeless Tobacco Never (If patient a smoker, smoking cessation counseling offered) Social History: Social History Substance and Sexual Activity Alcohol Use Yes Comment: OCCASIONAL Review of Systems: Constitutional: Normal activity and energy. Patient denies change in appetite, weight loss or gain, malaise (depression), chills, fever, or diaphoresis (sweating). Eyes: Patient denies vision changes or diplopia (double vision). Ears, Nose, Nose and Throat: Patient denies tinnitus (ringing in ears), hearing loss, epistaxis (nose bleed), hoarseness, and dysphagia (hard to swallow). Respiratory: Patient denies dyspnea (shortness of breath), cough, hemotypsis (blood in sputum), and wheezing. Cardiovascular: Patient denies chest pain, palpitations, and shortness of breath. Gastrointestinal: Patient denies abdominal pain, nausea, vomiting, bloating, diarrhea (chronic), constipation (chronic), melena (black stool), hematochezia (blood in stool). Musculoskeletal: Backache Neurologic: Patient denies weakness, dizziness, loss of consciousness, transient ischemic symptoms, and seizures. Integument: Patient denies rashes and non-healing lesions. Psychiatric: Patient denies increased nervousness, mood changes, or depression. Endocrine: Patient denies thyroid trouble, heat or cold intolerance, diabetes, excessive thirst, hunger, and excessive urination. Blood Disorders: Patient denies anemia, easy bruising, and easy bleeding. Physical Exam: BP 127/67 Pulse 55 Ht 157.5 cm (5' 2 ) Wt 96.6 kg (213 lb) BMI 38.96 kg/m Constitutional: She appears well-developed. No distress. HENT: Head: Atraumatic. Nose: Nose normal. Eyes: Conjunctivae are normal. Pulmonary/Chest: Effort normal. No respiratory distress. Neurological: She is alert and oriented for age. Gait normal. Psychiatric: She has a normal mood and affect. Her speech is normal. Nursing note and vitals reviewed. Assessment and Plan: Gretchen was seen today for recurring uti. Diagnoses and all orders for this visit: Mixed incontinence Frequent urinary tract infections Problem List None For further evaluation of her persistent symptoms and frequent Urinary tract infections, we discussed going forward with a renal/bladder ultrasound with PVR and cystoscopy. We could also consider urodynamics testing for the incontinence. She is not interested in pursuing additional diagnostics. We discussed trying an anticholinergic to see if it helps with her incontinence. She is not interested in that either. I told her that there are quite a few options able to help with incontinence. She said she does not think I will be able to help her. She does not want to return to the office. She will call if she changes her mind. She was not able to leave a urine specimen today. ABIGAIL CAREY This note was created with the assistance of a speech recognition program. While intending to generate a timely document that accurately reflects the content of the visit, no guarantee can be provided that every grammatical or spelling mistake has been or will be identified or corrected. Thank you for your understanding. ABIGAIL Carey 07/26/23 [id number] documented in this encounter Beeminder 07-14-2023 Miscellaneous Notes Called and spoke to patient in regards to needing information for patient assistance for Eliquis. We have not seen the patient since 01/08/2021. Patient states she sees cardiology in [place] not here. [facility]'s name was listed on the patient assistance application and patient was asked to contact them in regards to addressing the correct receiving distribution station operator from that group.OZIEL Morillo documented in this encounter [facility]em[facility] 07-14-2023 Telephone encounter Note Called and spoke to patient in regards to needing information for patient assistance for Eliquis. We have not seen the patient since 01/08/2021. Patient states she sees cardiology in [place] not here. RDG's name was listed on the patient assistance application and patient was asked to contact them in regards to addressing the correct receiving distribution station operator from that group.OZIEL Morillo [facility] 04-14-2023 Note [id number]= 5 Age, female, HTN, CAD continue eliquis anticoagulation and metoprolol 25 mg bid. Monitor for s/s of bleeding [facility] 04-14-2023 Note Hypertension is stab le. Continue lisinopriil, metoprolol [facility] 04-14-2023 Note Coronary artery dise ase is stable Continue GDMT- ASA, crestor, metoprolol andn lisinopril continue risk factor modifications- heart healthy diet, regular exercise as tolerated and continue all medications. [facility] 04-14-2023 Note RCRI= 1???points Cla ss II Risk 6.0???% 30-day risk of , [place], or cardiac arrest From a cardiac perspective pt may proceed with epidural injection, she is a low to moderate risk for a low risk procedure. She may hold eliquis for 2-3 days prior and resume post op, with the knowledge that there is a risk for stroke with holding anticoagulation. Please monitor hemodynamics carefully and prevent any major fluid shifts. [facility] 04-14-2023 Note [facility] CARDIOLOGY PROGR ESS NOTE HPI: Gretchen Tan is a 77 y.o. female here for pre op evaluation, Parox a fib, CAD. Patient here for 1 year follow up and surgery clearance. Pain Management at [facility] is requesting she hold Eliquis 2 days prior to epidural steroid injection. She denies chest pain, SOB, palpitations, lightheadedness/falls, and bleeding on Eliquis. Overall from a heart perspective she states she is doing ok. Denied lightheadedness/dizziness or syncope. Review of Systems Musculoskeletal: Positive for arthritis and back pain. All other systems reviewed and are negative. Visit Vitals BP 135/68 (BP Location: Right arm, Patient Position: Sitting) Pulse 53 Ht 1.575 m (5' 2 ) Wt 93.9 kg (207 lb) SpO2 98% BMI 37.86 kg/m??? OB Status Postmenopausal Smoking Status Former BSA 2.03 m??? No Known Allergies Medications: Current Outpatient Medications on File Prior to Visit Medication Sig Dispense Refill apixaban (Eliquis) 5 mg tablet Take 1 tablet (5 mg) by mouth in the morning and at bedtime. 14 tablet 0 aspirin 81 mg chewable tablet Chew 1 tablet every day by oral route. lisinopril 10 mg tablet Take 1 tablet by mouth in the morning. metoprolol tartrate (Lopressor) 25 mg tablet Take 25 mg by mouth in the morning and at bedtime. omeprazole (PriLOSEC) [address] capsule Take 1 capsule by mouth in the morning. rosuvastatin (Crestor) 10 mg tablet Take 1 tablet by mouth in the morning. zolpidem (Ambien) 10 mg tablet TAKE 1 TABLET BY MOUTH ONCE DAILY AT BEDTIME NEEDED No current facility-administered medications on file prior to visit. Physical Exam: Constitutional: Appearance: Normal appearance. Without apparent distress, obese HENT: Head: Normocephalic and atraumatic. Nose: Nose normal. Mouth/Throat: Mouth: Mucous membranes are moist. Eyes: Extraocular Movements: Extraocular movements intact. Conjunctiva/sclera: Conjunctivae normal. Neck: Vascular: No JVD. Cardiovascular: Rate and Rhythm: Bradycardia and regular rhythm. Pulses: Dorsalis pedis pulses are 3 on the right side and 3on the left side. Posterior tibial pulses are 3 on the right side and 3 on the left side. Heart sounds: Normal heart sounds, S1 normal and S2 normal. Pulmonary: Effort: Pulmonary effort is normal. Breath sounds: Normal breath sounds. Abdominal: General: Bowel sounds are normal. Palpations: Abdomen is soft. Musculoskeletal: General: Normal range of motion. Right lower leg: No edema. Left lower leg: No edema. Skin: General: Skin is warm and dry. Capillary Refill: Capillary refill takes less than 2 seconds. Neurological: General: No focal deficit present. Mental Status: She is alert and oriented to person, place, and time. Psychiatric: Mood and Affect: Mood normal. Behavior: Behavior normal. Thought Content: Thought content normal. Judgment: Judgment normal. Labs: Component 1 yr ago Sodium 141 Potassium, Bld 4.2 Chloride 107 Glucose, Bld 111 BUN, Bld 9 Creatinine 0.80 Last lab values have been reviewed CV Testin01/08/21 LVSF normal EF 60-65% Mild TV regurg Stress test: Lexiscan 01/08/21 No ischemia, LV function defect inferior - probable artificat EKG Coronary angiogram: @CATH@ Diagnostic Imaging: No images are attached to the encounter. CT of the chest showed 8 x 6 x 3 mm size nodule that was suggestive be likely benign in the right lower lobe in the superior aspect. 6-month follow-up suggested No echocardiogram results found for the past 12 months Assessment/Plan: Pre-operative cardiovascular examination RCRI= 1 points Class II Risk 6.0 % 30-day risk of , [place], or cardiac arrest From a cardiac perspective pt may proceed with epidural injection, she is a low to moderate risk for a low risk procedure. She may hold eliquis for 2-3 days prior and resume post op, with the knowledge that there is a risk for stroke with holding anticoagulation. Please monitor hemodynamics carefully and prevent any major fluid shifts. Coronary arteriosclerosis Coronary artery disease is stable Continue GDMT- ASA, crestor, metoprolol andn lisinopril continue risk factor modifications- heart healthy diet, regular exercise as tolerated and continue all medications. Hypertensive disorder Hypertension is stable. Continue lisinopriil, metoprolol Paroxysmal atrial fibrillation (CMS/HCC) [id number]= 5 Age, female, HTN, CAD continue eliquis anticoagulation and metoprolol 25 mg bid. Monitor for s/s of bleeding RTC 6 months [facility] 04-14-2023 Note Patient here for 1 y ear follow up and surgery clearance. Pain Management at [facility] is requesting she hold Eliquis 2 days prior to epidural steroid injection. She denies chest pain, SOB, palpitations, lightheadedness/falls, and bleeding on Eliquis. Review of Systems Musculoskeletal: Positive for arthritis and back pain. All other systems reviewed and are negative. [facility] Evaluation note Diagnosis Mixed incontinence- Primary Mixed incontinence urge and stress (male)(female) Frequent urinary tract infections documented in this encounter [facility] Health Outcomes Worldwide SystemInstructionsNot on filedocumented in this encounter [facility] Health Outcomes Worldwide SystemInstructionsNot on filedocumented in this encounter [facility] System Summary Purpose Family History No Family History Records FoundNo Family History Records FoundNo Family History Records FoundNo Family History Records FoundNo Family History Records Found Advance Directives No Advanced Directives Records FoundNo Advanced Directives Records FoundNo Advanced Directives Records FoundNo Advanced Directives Records FoundNo Advanced Directives Records Found Additional Source Comments INFORMATION SOURCE (unrecogn ized section and content) DATE CREATED AUTHOR 05/07/2020 [facility] DATE CREATED AUTHOR AUTHOR'S ORGANIZ ATION 07/09/2022 [facility] [place] [facility] DATE CREATED AUTHOR AUTHOR'S ORGANIZ ATION 04/16/2023 [facility] DATE CREATED AUTHOR AUTHOR'S ORGANIZ ATION 07/02/2023 [facility] DATE CREATED AUTHOR AUTHOR'S ORGANIZ ATION 07/11/2023 [facility] Care Teams (unrecognized sec tion and content) Commercial Attorney Relationship Specialty Start Date End Date Anthony Mckinley MD [address] [place] [id number] PCP - General Family Medicine 01/04/18 Commercial Attorney Relationship Specialty Start Date End Date Anthony Mckinley MD [address] [place] [address] [id number] PCP - General Family Medicine 01/04/18 Reason for Visit (unrecogniz ed section and content) Reason Comments Recurring UTI FOR RECORDS PERTAINING TO PATIENTS WHO ARE OR HAVE BEEN ENROLLED IN A CHEMICAL DEPENDENCY/SUBSTANCEABUSE PROGRAM, SOME INFORMATION MAY BE OMITTED. This clinical summary was aggregated from multiple sources. Caution should be exercised in using it in the provision of clinical care. This summary normalizes information from multiple sources, and as a consequence, information in this document may materially change the coding, format and clinical context of patient data. In addition, data may be omitted in some cases. CLINICAL DECISIONS SHOULD BE BASED ON THE PRIMARY CLINICAL RECORDS. [employer] provides no warranty or guarantee of the accuracy or completeness of information in this document.
[2023-07-27 13:22] LABS: Hemoglobin 12.9 g/dL (12.0-16.0)
--- NOTE | 2023-07-27 14:11 | RT_ITS ---
[facility] Test Date: 2023-07-27 Pat Name: DESTINEY TAN Department: Room: - Gender: Female Manager Of Housekeeping: Alan Neff RRT : 1945 Requested By: Satish Roa Order Number: [id number] Reading MD: Satish Roa Interpretive Statements Pulmonary function testing was completed according to ATS criteria. Findings were considered accurate and reproducible. Both pre- and post-bronchodilator values utilized for spirometry. Spirometry (based on pre-bronchodilator values): -FEV1/FVC: Normal @ 79% -FEV1: Low normal @ 83% -FVC: Mildly reduced @ 79% -There is no significant bronchodilator response. Lung volumes by plethysmography (based on pre-bronchodilator values): -RV: Normal @ 98% -TLC: Normal @ 89% Diffusion capacity: -DLCO: Very mild reduction @ 79% when corrected for Hb 12.9g/dL Flow-volume loop: -Mild restrictive pattern Impressions: -Though technically normal, spirometry trends towards mild restriction without bronchodilator response. No restrictive process is confirmed with normal lung volumes. Very mild diffusion impairment. This pattern can be seen in, but not restricted to, cardiopulmonary vascular disorders, early interstitial lung disease, early emphysema, or smoking prior to testing (from carbon monoxide). Clinical correlation required. Electronically Signed On 08-02-2023 17:11:22 EST by Satish Roa
[2023-07-27] MEDS: ALBUTEROL SULFATE 2.5 MG/3 ML VIAL NEB IH (14:23)
== END 2023-07-27 13:04 | disposition home or self-care (01) ==
LOC: CARD 13:03
PROVIDERS: Visit Provider Internal Medicine
DX: J43.2 Centrilobular emphysema (principal); Z01.811 Encounter for preprocedural respiratory examination
CPT/HCPCS: 36415; 85018; 94060; 94726; 94729; 99406

== ENCOUNTER 2024-09-16 13:19 | Outpatient (OUT) | payer MEDICARE, SELFPAY ==
[2024-09-16 13:41] LABS: Hemoglobin 12.5 g/dL (12.0-16.0)
[2024-09-16 13:51] LABS: pH ABG 7.411 (7.350-7.450)
[2024-09-16 13:52] LABS: ABG PCO2 42.6 mmHg (35.0-45.0); Allen Test POSITIVE (POSITIVE); Base Excess ABG 2.4 mmol/L (-2.0-2.0); Fractionated Inspired Oxygen 21 %; O2 Mode RA; Oxygen Saturation ABG 95.3 %; PO2 ABG 70.7 mmHg (80.0-100.0); Puncture Site RR
--- NOTE | 2024-09-16 14:27 | RT_ITS ---
[facility] Test Date: 2024-09-16 Pat Name: DESTINEY TAN Department: Room: - Gender: Female Professional Fee Coder: Alan Neff RRT : 1945 Requested By: [id number] Order Number: [id number] Reading MD: Satish Roa Interpretive Statements Pulmonary function testing was completed according to ATS criteria. Findings were considered accurate and reproducible. Both pre- and post-bronchodilator values utilized for spirometry. Spirometry (based on pre-bronchodilator values): -FEV1/FVC: Normal @ 80% -FEV1: Normal @ 90% -FVC: Normal @ 83% -There is no significant bronchodilator response. Lung volumes by plethysmography: -RV: Normal @ 100% -TLC: Normal @ 97% Diffusion capacity: -DLCO: Normal @ 86% when corrected for Hb 12.5g/dL Impressions: -Essentially normal PFT. Clinical correlation required. Electronically Signed On 09-17-2024 8:49:49 EDT by Satish Roa
[2024-09-16] MEDS: ALBUTEROL SULFATE 2.5 MG/3 ML VIAL NEB IH (14:29)
== END 2024-09-16 13:20 | disposition home or self-care (01) ==
LOC: CARD 13:21
PROVIDERS: PCP Family Medicine; Visit Provider Nurse Practitioner
DX: J44.9 Chronic obstructive pulmonary disease, unspecified (principal); R06.02 Shortness of breath
CPT/HCPCS: 36415; 82805; 85018; 94060; 94726; 94729

== ENCOUNTER 2024-09-17 10:35 | Outpatient (OUT) | payer MEDICARE, SELFPAY ==
[2024-09-17 10:53] LABS: Bilirubin Urine NEGATIVE (NEGATIVE); Blood Urine SMALL (NEGATIVE); Clarity Urine CLEAR (CLEAR); Color Urine YELLOW (YELLOW); Glucose Urine UA NEGATIVE (NEGATIVE); Ketones Urine NEGATIVE (NEGATIVE); Leukocyte Esterase Urine NEGATIVE (NEGATIVE); Nitrite Urine NEGATIVE (NEGATIVE); Protein Urine TRACE mg/dL (NEG/TRACE); Urobilinogen Urine 0.2 EU/dL (0.2-1.0)
--- OUTSIDE RECORDS SUMMARY | 2024-09-17 10:53 | XMS_ITS | CCD ---
Author Organization [facility] CliniSyil Care Team Providers Care Masonry Inspector Name Role Phone CLARA BERMEOHAN Attending Unavailable DR RAFAELA DSOUZA Consulting Unavailable SAMSA, EMILY Admitting Unavailable SAMSA, EMILY Consulting Unavailable AVERY, JOSE GUADALUPE Admitting Unavailable AVERY, JOSE GUADALUPE Attending Unavailable AVERY, JOSE GUADALUPE Consulting Unavailable SAMSA, EMILY Attending Unavailable ZIEBER, DR RAFAELA Hartman Consulting Unavailable SAMSA, EMILY Admitting Unavailable SAMSA, EMILY Consulting Unavailable AVERY, JOSE GUADALUPE Admitting Unavailable AVERY, JOSE GUADALUPE Attending Unavailable AVERY, JOSE GUADALUPE Consulting Unavailable MARQUEZ, III, SHARRON Mujica Referring Unavailabl e MCKINLEY, ANTHONY L Primary Care Unavailable MENDY, SHAYY Referring Unavailable MCKINLEY, ANTHONY L Primary Care Unavailable MENDY, SHAYY L Attending Unavailable MCKINLEY, ANTHONY L Referring Unavailable MCKINLEY, ANTHONY L Primary Care Unavailable MENDY, SHAYY L Attending Unavailable MCKINLEY, ANTHONY L Referring Unavailable MCKINLEY, ANTHONY L Primary Care Unavailable MENDY, SHAYY L Attending Unavailable MCKINLEY, ANTHONY L Referring Unavailable MCKINLEY, ANTHONY L Primary Care Unavailable MENDY, SHAYY L Attending Unavailable MCKINLEY, ANTHONY L Referring Unavailable MCKINLEY, ANTHONY L Primary Care Unavailable MARQUIS GREENE I Attending Unavailable MCKINLEY, ANTHONY L Referring Unavailable MCKINLEY, ANTHONY L Primary Care Unavailable MARQUEZ, III, SHARRON Mujica Referring Unavailabl e MCKINLEY, ANTHONY L Primary Care Unavailable MENDY, SHAYY L Referring Unavailable MCKINLEY, ANTHONY L Primary Care Unavailable MARQUEZ, III, SHARRON Mujica Referring Unavailabl e MCKINLEY, ANTHONY L Primary Care Unavailable MCKINLEY, ANTHONY L Primary Care Unavailable LANE MCLAIN Attending Unavaila ble LANE MCLAIN Attending Unavaila ble LANE MCLAIN Referring Unavaila ble MCKINLEY, ANTHONY L Primary Care Unavailable LANE MCLAIN Attending Unavaila LANE Rojas Referring Unavaila ble MCKINLEY, ANTHONY L Primary Care Unavailable [place], III, SHARRON Mujica Referring Unavailabl e MCKINLEY, ANTHONY L Primary Care Unavailable MARQUEZ, III, SHARRON Mujica Referring Unavailabl e MCKINLEY, ANTHONY L Primary Care Unavailable KAREN VIGIL Attending Unavailable ARLEN, ANTHONY Suarez Referring Unavailable MCKINLEY, ANTHONY L Primary Care Unavailable Jimmy GALVAN MD, Sharron Fox Attending U royce Mckinley MD, Anthony Roth Primary Care Unavailab kimberlyn Marquez III, MD, Sharron Fox Attending U royce Mckinley MD, Anthony Roth Primary Care Unavailab le Sarthak PA-C, Giana Gutierrez Attending Unavailab kimberlyn Mckinley MD, Anthony Roth Primary Care Unavailab kimberlyn Marquez III, MD, Sharron Fox Admitting U royce Marquez III, MD, Sharron Fox Attending U royce Mckinley MD, Anthony Roth Primary Care Unavailab kimberlyn Marquez III, MD, Sharron Fox Attending U Anthony Woods MD Primary Care Unavailab le Sarthak PA-C, Giana Gutierrez Attending Unavailab kimberlyn Mckinley MD, Anthony Roth Primary Care Unavailab le Sarthak PA-C, Giana Gutierrez Attending Unavailab kimberlyn Mckinley MD, Anthony Roth Primary Care Unavailab kimberlyn Marquez III, MD, Sharron Fox Attending U royce Mckinley MD, Anthony Roth Primary Care Unavailab kimberlyn Marquez III, MD, Sharron Fox Attending U royce Mckinley MD, Anthony Roth Primary Care Unavailab kimberlyn Mckinley MD, Anthony Roth Primary Care Unavailab le Sarthak PA-C, Giana Gutierrez Attending Unavailab le Verhoff PA-CKaren Referring Unava ilable Jimmy GALVAN MD, Sharron Fox Attending U royce Mckinley MD, Anthony Roth Primary Care Unavailab le Sarthak PA-C, Giana Gutierrez Attending Unavailab kimberlyn Mckinley MD, Anthony Roth Primary Care Unavailab le Sarthak PA-C, Giana Gutierrez Attending Unavailab kimberlyn Mckinley MD, Anthony Roth Primary Care Unavailab kimberlyn Marquez III, MD, Sharron Fox Attending U royce Mckinley MD, Anthony Ira Primary Care Unavailab Danilo GALVAN MD, Sharron Fox Attending U royce Mckinley MD, Anthony Ira Primary Care Unavailab kimberlyn Marquez III, MD, Sharron Fox Attending U royce Mckinley MD, Anthony [facility] Unavailab kimberlyn Marquez III, MD, Sharron Fox Attending U royce Mckinley MD, [facility] Unavailab Marilia SYKES, [facility] Primary [facility] Unavailab kimberlyn Marquez III, MD, Sharron Fox Attending U royce Marquez III, MD, Sharron Fox Attending U royce Mckinley MD, Anthony Ira Primary Care Unavailab le Sarthak PABaljinderC, Giana Gutierrez Attending Unavailab kimberlyn Mckinley MD, [facility] Primary Care Unavailab le Sarthak PABaljinderC, Giana Gutierrez Attending Unavailab Marilia SYKES, [facility] Unavailab le Sarthak LEANNA, Giana Gutierrez Attending Unavailab Marilia SYKES, [facility] Unavailab kimberlyn Marquez III, MD, Sharron Fox Attending U royce Mckinley MD, [facility] Unavailab le Unavailable Primary Care Provider Unavailmarques Mckinley MD, Anthony Suarez Primary Care Provider MARK KAHN Attending Unavailable MARK KAHN Attending Unavailable MARK KAHN Attending Unavailable MARK KAHN Attending Unavailable LORI SELLERS Referring UnavailJF Tony Referring Unavailable ANASTASIYA LANDA Referring Unavailable LOY BRUNER Admitting Unavailable LOY BRUNER Attending Unavailable LORI SELLERS Referring Unavailabl LORI Gonzalez Referring Unavailabl JOSE GUADALUPE Oropeza Attending Unavailable VLADMIIR SAINI Referring Unavailable ANASTASIYA LANDA Attending Unavailable LORI SELLERS Referring Unavailabl RITO Mccall Referring Unavailable Allergies Allergy Classification Reported Allergen(s) Allergy Type Date of Onset Reaction(s) Facility (11 sources) nickel; Translations: [Nickel] Drug Allergy 4 Rash [facility] Repository (1 source) No Known Medication Allergies; Translations: [No Known Medication Allergies] Propensity to adverse reactions to drug (disorder) [facility] Rep[facility] Medications Current Medications Medication Drug Class(es) Dates Sig (Normalized) Sig (Original) albuterol 0.83 mg/ml inhalation solution (15 sources) beta2-Adrenergic Agonist Start: 08-27-2024 End: 09-26-2024 albuterol (2.5 MG/3ML) 0.083% nebulizer solution Indications: Chronic obstructive pulmonary disease with acute exacerbation (CMS/HCC) Take 3 mL by nebulization every 4 (four) hours if needed for wheezing 450 mL 08/27/2024 09/26/2024 Active End: 08-05-2024 albuterol (2.5 MG/3ML) 0.083 % nebulizer solution Inhale 2.5 mg in the morning and 2.5 mg at noon and 2.5 mg in the evening and 2.5 mg before bedtime. 08/05/2024 Discontinued (Therapy completed) take 3 mL by inhalat ion four times daily albuterol (PROVENTIL,VENTOLIN) 2.5 mg /3 mL (0.083 %) nebulizer solution Inhale 3 mL (2.5 mg total) by nebulization 4 (four) times a day. Active antiox.mv no.10/omeg3s/lut/z ea (I-CAPS ORAL) (8 sources) antiox.mv no.10/ omeg3s/lut/alexandra (I-CAPS ORAL) Take by mouth daily. Active antiox.mv no.10/ omeg3s/lut/alexandra (I-CAPS ORAL) Take by mouth daily. 0 Active apixaban 5 mg oral tablet (17 sources) Factor Xa Inhibitor Start: 03-21-2024 take 1 tablet by mouth in the morning apixaban (Eliquis) 5 MG tablet Take 5 mg by mouth in the morning and 5 mg before bedtime. 03/21/2024 Active Start: 11-09-2020 take 1 tablet by zoe th twice daily apixaban (ELIQUIS) 5 mg tablet Take 1 tablet (5 mg total) by mouth 2 (two) times a day. 180 tablet 3 11/09/2020 Active ascorbic acid 500 mg chewable tablet (9 sources) Vitamin C Start: 10-21-2023 ascorbic acid (Vitamin C) 500 MG chewable tablet Chew 1 tablet Daily 10/21/2023 Active aspirin 81 mg delayed release oral tablet (17 sources) Platelet Aggregation Inhibitor, Nonsteroidal Anti-inflammatory Drug take 1 tablet by mouth once daily aspirin 81 MG EC tablet Take 81 mg by mouth Daily Active benzonatate 200 mg oral capsule (2 sources) Non-narcotic Antitussive Start: 08-05-2024 End: 08-12-2024 take 1 capsule by mouth three times daily as needed for cough benzonatate (Tessalon) 200 MG capsule Indications: Cough Take 1 capsule (200 mg) by mouth 3 (three) times a day as needed for cough for up to 7 days Do not crush or chew. 21 capsule 08/05/2024 08/12/2024 Active clobetasol propionate 0.5 mg/ml topical cream (6 sources) Corticosteroid Start: 12-19-2023 clobetasoL (TEMOVATE) 0.05 % cream Indications: Vaginitis and vulvovaginitis APPLY CREAM TOPICALLY TWICE DAILY ( MORNING AND BEFORE BEDTIME) 30 g 12/19/2023 Active Start: 11-23-2023 End: 12-19-2023 clobetasoL (TEMOVATE) 0.05 % cream Indications: Vaginitis and vulvovaginitis Apply 1 Application topically in the morning and 1 Application before bedtime. 30 g 11/23/2023 12/19/2023 Discontinued estradiol 0.1 mg/ml vaginal cream (1 source) Estrogen Start: 02-05-2024 estradioL (ESTRACE) 0.01 % (0.1 mg/gram) vaginal cream Insert 1 g into the vagina in the morning. 42.5 g 1 02/05/2024 Active hydroCHLOROthiazide 12.5 mg / lisinopril 10 mg oral tablet (8 sources) Thiazide Diuretic, Angiotensin Converting Enzyme Inhibitor take 10-12.5 mg by mouth once in the morning lisinopril-hydr oCHLOROthiazide (PRINZIDE,ZESTO RETIC) 10-12.5 mg per tablet Take 1 tablet by mouth in the morning. Active lisinopril 10 mg oral tablet (9 sources) Angiotensin Converting Enzyme Inhibitor Start: 05-13-2024 take 1 tablet by mouth once daily lisinopril 10 MG tablet Take 10 mg by mouth Daily 05/13/2024 Active metoprolol tartrate 25 mg oral tablet (17 sources) beta-Adrenergic Moni take 1 tablet by mouth in the morning metoprolol tartrate (Lopressor) 25 MG tablet Take 25 mg by mouth in the morning and 25 mg before bedtime. Active take 0.5 tablet by mouth twice d aily METOPROLOL SUCCINATE ORAL Take 25 mg by mouth. HALF TAB BID Active Multiple Vitamin (multivitamin) capsule (9 sources) take 1 capsule by mouth in the morning Multiple Vitamin (multivitamin) capsule Take 1 capsule by mouth in the morning. Active multivitamin capsule (8 sources) take 1 capsule by mouth in the morning multivitamin capsule Take 1 capsule by mouth in the morning. Active take 1 capsule by mouth in the m orning multivitamin capsule Take 1 capsule by mouth in the morning. 0 Active omeprazole 20 mg delayed release oral capsule (17 sources) Proton Pump Inhibitor take 1 capsule by mouth before mealtime omeprazole (PriLOSEC) [address] capsule Take 20 mg by mouth in the morning. Take before meals. Active pravastatin sodium 40 mg oral tablet (8 sources) HMG-CoA Reductase Inhibitor take 1 tablet by mouth in the morning pravastatin (PRAVACHOL) 40 mg tablet Take 1 tablet (40 mg total) by mouth in the morning. Active predniSONE 10 mg oral tablet (2 sources) Start: 5 predniSONE (Deltasone) 10 MG tablet Indications: Chronic obstructive pulmonary disease with acute exacerbation (CMS/HCC) Every 2 day tapering dose; 5,5,4,4,3,3,2,2,1,1, 0.5,0.5 31 tablet 08/27/2024 Active rosuvastatin calcium 10 mg oral tablet (10 sources) HMG-CoA Reductase Inhibitor Start: 5 End: 5 take 1 tablet by mouth in the evening rosuvastatin (Crestor) 10 MG tablet Indications: Dyslipidemia (CMS/HCC) Take 1 tablet (10 mg) by mouth in the evening 90 tablet 08/13/2024 11/11/2024 Active zolpidem tartrate 10 mg oral tablet (19 sources) gamma-Aminobutyric Acid-ergic Agonist Start: 4 End: 5 take 1 tablet by mouth once daily zolpidem (Ambien) 10 MG tablet Indications: Primary insomnia Take 1 tablet (10 mg) by mouth 1 (one) time each day at the same time 30 tablet 5 08/05/2024 02/01/2025 Active take 1 tablet by mouth in the mo rning zolpidem (AMBIEN) 10 mg tablet Take 1 tablet (10 mg total) by mouth in the morning. Active Completed/Discontinued Medications Medication Drug Class(es) Dates Sig (Normalized) Sig (Original) nystatin [id number] unt/ml topical cream (4 sources) Polyene Antifungal Start: 10-27-2023 End: 12-18-2023 nystatin (MYCOSTATIN) cream APPLY TO UPPER THIGH AND GROIN AREA TWICE DAILY FOR 7 DAYS 10/27/2023 12/18/2023 Discontinued Problems Active Problems Problem Classification Problem Date Documented Date Episodic/Chronic Administrative/social admission (2 sources) Advance directive discussed with patient; Translations: [Other specified counseling] 06-03-2024 Episodic Cardiac dysrhythmias (20 sources) Unspecified atrial fibrillation; Translations: [Paroxysmal atrial fibrillation] Onset: 05-13-2018 Resolved: 12-06-2018 Chronic Chronic obstructive pulmonary disease and bronchiectasis (12 sources) Centriacinar emphysema; Translations: [Centrilobular emphysema] Onset: 09-15-2023 06-03-2024 Chronic Conduction disorders (10 sources) Right bundle branch block; Translations: [Unspecified right bundle-branch block] Onset: 09-13-2021 06-03-2024 Chronic Coronary atherosclerosis and other heart disease (20 sources) Coronary arteriosclerosis; Translations: [Atherosclerotic heart disease of [place] coronary artery without angina pectoris] Onset: 01-15-2018 06-03-2024 Chronic Disorders of lipid metabolism (20 sources) Dyslipidemia; Translations: [Hyperlipidemia, unspecified] Onset: 01-15-2018 06-03-2024 Chronic Esophageal disorders (18 sources) Gastroesophageal reflux disease; Translations: [Gastro-esophageal reflux disease without esophagitis] Onset: 01-15-2018 06-03-2024 Chronic Essential hypertension (20 sources) Hypertensive disorder; Translations: [Essential (primary) hypertension] Onset: 01-15-2018 06-03-2024 Chronic Genitourinary symptoms and ill-defined conditions (12 sources) Mixed incontinence; Translations: [Urinary incontinence] Onset: 07-26-2023 06-03-2024 Chronic Inflammatory diseases of female pelvic organs (6 sources) Acute vaginitis; Translations: [Vaginitis] Onset: 11-14-2023 11-14-2023 Episodic Menopausal disorders (2 sources) Postmenopausal atrophic vaginitis; Translations: [Atrophic vaginitis] Onset: 02-05-2024 02-05-2024 Chronic Miscellaneous mental health disorders (2 sources) Primary insomnia; Translations: [Primary insomnia] 08-05-2024 Chronic Nonspecific chest pain (2 sources) Other chest pain; Translations: [Other chest pain] Onset: 09-09-2024 Episodic Osteoarthritis (8 sources) Arthritis; Translations: [Unspecified osteoarthritis, unspecified site] Onset: 01-15-2018 01-15-2018 Chronic Other aftercare (2 sources) Drug therapy finding; Translations: [Other long term care administrator (current) drug therapy] 08-05-2024 Episodic Other connective tissue disease (1 source) Pain in right leg; Translations: [Pain in right leg] Onset: 02-02-2024 Episodic Other connective tissue disease (1 source) Pain in lower limb Onset: 02-02-2024 Episodic Other connective tissue disease (1 source) Arthrodesis status; Translations: [Arthrodesis status] Onset: 01-16-2024 Episodic Other female genital disorders (2 sources) Other specified noninflammatory disorders of vulva and perineum; Translations: [Other specified noninflammatory disorders of vulva and perineum] Onset: 12-04-2023 Episodic Other lower respiratory disease (4 sources) Solitary pulmonary nodule; Translations: [SOLITARY PULMONARY NODULE] Onset: 07-06-2022 Episodic Other lower respiratory disease (2 sources) Cough; Translations: [Acute cough] 08-05-2024 Episodic Other nutritional; endocrine; and metabolic disorders (1 source) Morbid (severe) obesity due to excess calories; Translations: [Morbid (severe) obesity due to excess calories] Onset: 01-16-2024 Chronic Other nutritional; endocrine; and metabolic disorders (16 sources) Body mass index 30+ - obesity; Translations: [Obesity, unspecified] Onset: 11-09-2020 11-09-2020 Chronic Other screening for suspected conditions (not mental disorders or infectious disease) (6 sources) Patient encounter status; Translations: [Encounter for screening for other disorder] Onset: 09-13-2024 06-03-2024 Episodic Other skin disorders (3 sources) Lichen sclerosus et atrophicus; Translations: [Circumscribed scleroderma] Onset: 12-18-2023 12-18-2023 Chronic Residual codes; unclassified (1 source) Asymptomatic menopausal state; Translations: [Asymptomatic menopausal state] Onset: 06-28-2023 Episodic Screening and history of mental health and substance abuse codes (6 sources) Personal history of nicotine dependence; Translations: [Patient encounter status] Onset: 10-20-2021 Episodic Spondylosis; intervertebral disc disorders; other back problems (20 sources) Other intervertebral disc degeneration, lumbar region; Translations: [Lumbar spondylosis] Onset: 03-08-2023 06-03-2024 Chronic Substance-related disorders (20 sources) Tobacco dependence caused by cigarettes; Translations: [Nicotine dependence, cigarettes, with unspecified nicotine-induced disorders] Onset: 09-13-2021 Resolved: 06-14-2024 06-03-2024 Chronic Unclassified (1 source) CONTACT W/AND (SUSP) EXPOS COVID-19; Translations: [CONTACT W/AND (SUSP) EXPOS COVID-19] Onset: 03-22-2022 Unclassified (1 source) Results Onset: 12-18-2023 Unclassified (1 source) right leg pain since monday Onset: 02-02-2024 Unclassified (1 source) Low back pain, unspecified; Translations: [Low back pain, unspecified] Onset: 07-26-2023 Past or Other Problems Problem Classification Problem Date Documented Date Episodic/Chronic Mood disorders (9 sources) Mood disorders Onset: 06-04-2024 06-04-2024 Other female genital disorders (2 sources) Vulval irritation; Translations: [Other specified noninflammatory disorders of vulva and perineum] 12-04-2023 Episodic Other lower respiratory disease (4 sources) Other forms of dyspnea; Translations: [OTHER FORMS OF DYSPNEA] Onset: 10-08-2021 Episodic Other lower respiratory disease (10 sources) Dyspnea; Translations: [Dyspnea, unspecified] Onset: 09-13-2021 06-03-2024 Episodic Other lower respiratory disease (10 sources) Solitary nodule of lung; Translations: [Solitary pulmonary nodule] Onset: 09-15-2023 06-03-2024 Episodic Other nervous system disorders (1 source) Abnormal reflex; Translations: [Abnormal reflex] Onset: 10-17-2023 Episodic Residual codes; unclassified (18 sources) Insomnia; Translations: [Insomnia, unspecified] Onset: 01-15-2018 06-03-2024 Episodic Spondylosis; intervertebral disc disorders; other back problems (19 sources) Spinal instabilities, lumbar region; Translations: [Spinal stenosis of lumbar region] Onset: 04-05-2023 06-03-2024 Episodic Urinary tract infections (2 sources) Urinary tract infection, site not specified; Translations: [Recurrent urinary tract infection] Onset: 07-26-2023 07-26-2023 Episodic Results Test Name Value Interpretation Reference Range Facility 36on 09-16-2024 36 Called patient with pre -op instructions: PFT & Repeat UA 09/16/24 (Orders faxed to [facility] at patients request) CHG bath as instructed (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, stop taking Lisinopril 09/16/24. No medications to be taken the morning of surgery. Arrival Time: 09/18/24 @ 0630 surgery @ 0830. Check in at registration desk lobby of [facility] then check in on second floor at surgical waiting room desk. Patient had no further questions or concerns at this time. Normal [facility] 36 Called and spoke with patient's Fernando as patient was still sleeping and asked him to have her stop taking prescribed Lisinopril starting today . Fernando wrote down instructions for patient and had no further questions or concerns at this time. I also let Fernando know that I will call back in a few hours and go over detailed pre op instructions with them. Normal [facility] ALL HEMOGLOBINon 09-16-2024 Hemoglobin (Bld) [Mass/Vol] 12.5 g/dL 12.0 - 16.0 g/dL [facility] Healthcare [facility] Healthcare Telephoneon 09-16-2024 Telephone [id number] Grethcen Tan 1945 F Date Provider Department Center 09/16/2024 Leticia-[facility] Family History Problem Relation Age of Onset Diabetes Mother Stroke Mother Family Status - Relation Status Age at Mother Reason for Visit and Comments: Pre-op Instructions [Other] [facility] 36on 09-13-2024 36 Called patient with appointment details for Pulmonary Function Test to be completed at [facility] 09/16/24 at 1:30 pm 1:15 pm arrival. 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 [facility] Abstracton 09-13-2024 Abstract [id number] SheylaGretchen C 1945 F Date Provider Department Center 09/13/2024 2020-[facility] Family History Problem Relation Age of Onset Diabetes Mother Stroke Mother Family Status - Relation Status Age at Mother [facility] Orders Onlyon 09-13-2024 Orders Only [id number] Fenton,Gretchen C 1945 Date Provider Department Center 09/13/2024 2020-[facility] Family History Problem Relation Age of Onset Diabetes Mother Stroke Mother Family Status - Relation Status Age at Mother [facility] Orders Only [id number] Fenton,Gretchen C 1945 Date Provider Department Center 09/13/[address] [facility] SICU None Family History Problem Relation Age of Onset Diabetes Mother Stroke Mother Family Status - Relation Status Age at Mother [facility] 30on 09-12-2024 30 The patient is Moderately Stable - Low risk of patient condition declining or worsening The patient's goals for the shift include rest/sleep The clinical goals for the shift include VSS/no pain Over the shift, the patient did not make progress toward the following goals. Barriers to progression include. Recommendations to address these barriers include. Normal [facility] 30 The patient is Moderately Stable - Low risk of patient condition declining or worsening The patient's goals for the shift include rest/sleep The clinical goals for the shift include VSS/no pain Pt having some heaviness in chest- no actual pain. Work-up for CABG continues. On heparin for a-fib. Normal [facility] ANTI-XA (HEPARIN LEVEL)on HEPARIN UNFRACTIONATED (U/ML ) IN PPP BY CHROMOGENIC METHOD 0.70 IU/mL Normal 0.3-0.7 [facility] Comment on above: Result Comment: Saritha roxaban and Apixaban will interfere with the anti Xa assay used to monitor UFH and LMWH. Performed By: #### L [id number] ####[facility] ([facility])[address] [place] [address] HEPARIN UNFRACTIONATED (U/ML ) IN PPP BY CHROMOGENIC METHOD 0.57 IU/mL Normal 0.3-0.7 [facility] Comment on above: Result Comment: [place] roxaban and Apixaban will interfere with the anti Xa assay used to monitor UFH and LMWH. Performed By: #### L [id number] ####[facility] ([facility])[address] [place] [address] CBCon 09-12-2024 Erythrocyte distribution width (RBC) [Ratio] 14.1 % Normal 11.5-15.0 [facility] Comment on above: Performed By: #### L [id number] #### [facility] ([facility]) [address] [place] [address] ERYTHROCYTE MEAN CORPUSCULAR HEMOGLOBIN CONCENTRATION (G/DL) BY AUTOMATED 32.0 g/dL Normal 32.0-35.0 [facility] Comment on above: Performed By: #### L [id number] #### [facility] ([facility]) [address] [place] [address] Hematocrit (Bld) [Volume fraction] 39.4 % Normal 36.0-45.0 [facility] Comment on above: Performed By: #### L [id number] #### [facility] ([facility]) [address] [place] [address] Hemoglobin (Bld) [Mass/Vol] 12.6 g/dL Normal 12.0-15. 0 [facility] Comment on above: Performed By: #### L [id number] #### [facility] ([facility]) [address] [place] [address] MCH (RBC) [Entitic mass] 30.5 pg Normal 27.0-33.0 [facility] Comment on above: Performed By: #### L [id number] #### [facility] ([facility]) [address] [place] [address] MCV (RBC) [Entitic vol] 95.4 fL Normal 82.0-98.0 [facility] Comment on above: Performed By: #### L [id number] #### [facility] ([facility]) [address] [place] [address] PLATELETS (10*3/UL) IN BLOOD AUTOMATED COUNT 204 10*3/uL Normal 150-400 [facility] Comment on above: Performed By: #### L [id number] #### [facility] ([facility]) [address] [place] [address] RBC (Bld) [#/Vol] 4.13 10*6/uL Normal 3.80-5.00 [facility] Comment on above: Performed By: #### L [id number] #### [facility] ([facility]) [address] [place] [address] WBC (Bld) [#/Vol] 8.51 10*3/uL Normal 4.00-10.60 [facility] Comment on above: Performed By: #### L [id number] #### [facility] ([facility]) [address] [place] [address] HIGH SENSITIVITY TROPONIN Io n 09-12-2024 HS TROPONIN I (NG/L) 10 ng/L Normal <15 [facility] Comment on above: Order Comment: Lab n o longer running Troponin level. Test has been upgraded to High Sensitivity Troponin Performed By: #### L [id number] ####[facility] ([facility])[address] [place] [address] HS TROPONIN I (NG/L) 10 ng/L Normal <15 [facility] Comment on above: Performed By: #### L [id number] #### [facility] ([facility]) [address] [place] [address] Orders Onlyon 09-12-2024 Orders Only [id number] SheylaGretchen Alexander 1945 F Date Provider Department Center 09/12/2024 [facility] Family History Problem Relation Age of Onset Diabetes Mother Stroke Mother Family Status - Relation Status Age at Mother Normal [facility] 30on 09-11-2024 30 The patient is Moderately Stable - Low risk of patient condition declining or worsening The patient's goals for the shift include comfort/rest The clinical goals for the shift include VSS, post cath checks Over the shift, the patient did not make progress toward the following goals. Barriers to progression include. Recommendations to address these barriers include. Normal [facility] ANTI-XA (HEPARIN LEVEL)on HEPARIN UNFRACTIONATED (U/ML ) IN PPP BY CHROMOGENIC METHOD 0.11 IU/mL Invalid Interpretation Code 0.3-0.7 [facility] Comment on above: Result Comment: Saritha roxaban and Apixaban will interfere with the anti Xa assay used to monitor UFH and LMWH. Performed By: #### L [id number] ####[facility] ([facility])[address] [place] [address] APTTon 09-11-2024 ACTIVATED PARTIAL THROMBOPLASTIN TIME IN PPP BY COAGULATION ASSAY 36.8 Seconds High 25.0-35.0 [facility] Comment on above: Order Comment: Basel ine aPTT before initiating heparin infusion. Result Comment: Clin ical significance of the APTT is questionable in the presence of heparin. Performed By: #### L [id number] #### [facility] ([facility]) [address] [place] [address] CONSULTon 09-11-2024 CONSULT Inpatient consult to Cardiothoracic Surgery Consult performed by: Lori Sellers CNP Consult ordered by: Anastasiya Landa MD Reason for consult: Severe Multi Vessel Disease, Maze Cardiothoracic Surgery Consultation Note 09/11/2024 Room: [address] [place] [address] Reason For Consult CABG Referring Provider: Anastasiya Landa MD History Of Present Illness Gretchen Tan is a 78 y.o. female with PMH of HTN, Paroxsymal Atrial Fibrillation, Smoker, GERD, HLD who has been experiencing episodes of chest heaviness with pressure radiating to her left shoulder blade and down her left arm for the past two weeks. She was evaluated by Cardiology in [place] for unstable angina, it was decided for patient to undergo cardiac catherization. Cardiac cath performed 09/10/[address] Landa showed severe multivessel disease. She underwent echocardiogram 09/09/2024 that showed EF 65% with no valvular abnormality. She was admitted to the hospital. CT surgery was consulted for surgical evaluation. Patient seen bedside. Resting comfortably in bed. Endorse she has dustin experiencing more intermittent episodes of chest heaviness. Currently denies chest heaviness or SOB. Hemodynamically stable per ECG monitor. States she stopped smoking about a month ago. Her last dose of Eliquis was Monday09/09/2024. Assessment: Principal Problem: CAD, multiple vessel Active Problems: Dyslipidemia Gastroesophageal reflux disease Paroxysmal atrial fibrillation (CMS/HCC) Centrilobular emphysema (CMS/HCC) Nicotine dependence, cigarettes, with unspecified nicotine-induced disorders Unstable angina (CMS/HCC) Primary hypertension Plan : -Patient seen and evaluated by Cardiothoracic Team. Dr. Vladimir Saini personally examined and reviewed The Cardiac Catherization, Echocardiogram, CXR, and Other Diagnostic Testing. Findings discussed with biosolids management technician Dr. Landa and patient. Explained current disease process and reviewed treatment options. -CT Surgery Recommendation: Coronary Artery Bypass Grafting, Maze, Left Atrial Appendage Amputation. -STS Score for this surgery is: Procedure Type: Isolated CABG Perioperative Outcome Estimate % Operative Mortality 2.71% Morbidity & Mortality 9.85% Stroke 1.11% Renal Failure 1.56% Reoperation 1.92% Prolonged Ventilation 5.97% Deep Sternal Wound Infection 0.393% Long Hospital Stay (>14 days) 7.02% Short Hospital Stay (<6 days)* 24.8% Clinical Summary Planned Surgery: Isolated CABG, Urgent, First cardiovascular surgery Demographics: 78 year old, White, female, 90.7kg, 157.5cm, BMI: 36.6 kg/m??? Lab Values: Creatinine: 0.7 mg/dL, Hematocrit: 36.7%, WBC Count: 9.68 10???/?L, Platelet Count: 120379 cells/?L Substance Abuse: Former smoker Risk Factors / Comorbidities: Hypertension Cardiac Status: Ejection Fraction = 65% Coronary Artery Disease: 3 vessels diseased, Proximal LAD Stenosis >= 70%, Unstable Angina Arrhythmia: Recent A-fib, Paroxysmal -Pre-Op Testing needed for this surgery: Bilateral Carotid US, Doppler US of bilateral lower extremities, CT of Chest/ABD/Pelvis, PFTs (bedside spirometry), Labs, Urinalysis. -Continue to hold Eliquis, last dose 09/09/2024. -Contact CT Surgery if patient has any episodes of chest pain. -CT Surgery will continue to follow. Past Medical History She has no past medical history on file. Surgical History She has a past surgical history that includes Cardiac catheterization. Family History Family History Problem Relation Name Age of Onset Diabetes Mother Stroke Mother Social History She reports that she has quit smoking. Her smoking use included cigarettes. She has never used smokeless tobacco. She reports current alcohol use. She reports that she does not use drugs. Allergies Patient has no known allergies. Medications Medications Prior to Admission Medication Sig Dispense Refill Last Dose albuterol 2.5 mg /3 mL (0.083 %) nebulizer solution 3 mL every 4 (four) hours if needed. 09/08/2024 apixaban (Eliquis) 5 mg tablet TAKE 1 TABLET BY MOUTH IN THE MORNING AND AT BEDTIME 14 tablet 3 09/09/2024 aspirin 81 mg chewable tablet Chew 1 tablet every day by oral route. 09/08/2024 lisinopril 10 mg tablet TAKE 1 TABLET BY MOUTH ONCE DAILY DIRECTED 90 tablet 0 09/09/2024 metoprolol tartrate (Lopressor) 25 mg tablet Take 25 mg by mouth in the morning and at bedtime. 09/09/2024 omeprazole (PriLOSEC) [address] capsule Take 1 capsule by mouth in the morning. 09/09/2024 rosuvastatin (Crestor) 10 mg tablet Take 10 mg by mouth at bedtime. 09/08/2024 zolpidem (Ambien) 10 mg tablet TAKE 1 TABLET BY MOUTH ONCE DAILY AT BEDTIME NEEDED 09/08/2024 Active Hospital Medications Medication Dose Route Frequency Last Admin acetaminophen 650 mg oral q6h PRN 650 mg at 09/10/24 2314 albuterol 3 mL nebulization q4h PRN aspirin 81 mg oral Daily 81 mg at 09/10/24 1022 atorvastatin 40 mg oral Nightly 40 mg at 09/10/24 (more content not included)... Normal [facility] HIGH SENSITIVITY TROPONIN Io n 09-11-2024 HS TROPONIN I (NG/L) 15 ng/L High <15 [facility] Comment on above: Performed By: #### L [id number] #### [facility] ([facility]) [address] [place] [address] TROPONIN Ion 09-11-2024 Troponin I.cardiac [Mass/Vol] 0.01 ng/mL Normal 0.00-0 .04 [facility] Comment on above: Performed By: #### L [id number] #### [facility] ([facility]) [address] [place] [address] Troponin I.cardiac [Mass/Vol] 0.01 ng/mL Normal 0.00-0 .04 [facility] Comment on above: Performed By: #### L [id number] #### [facility] ([facility]) [address] [place] [address] URINALYSISon 09-11-2024 BILIRUBIN, TOTAL PRESENCE IN URINE Negative Normal Negative [facility] Comment on above: Performed By: #### L [id number] #### [facility] ([facility]) [address] [place] [address] Clarity (U) Cloudy Abnormal Clear [facility] Comment on above: Performed By: #### L [id number] #### [facility] ([facility]) [address] [place] [address] Color (U) Yellow Normal Colorless, Yellow, Light-Barber ow [facility] Comment on above: Performed By: #### L [id number] #### [facility] ([facility]) [address] [place] [address] GLUCOSE (MG/DL) IN URINE Normal Normal Normal [facility] Comment on above: Performed By: #### L [id number] #### [facility] ([facility]) [address] [place] [address] HEMOGLOBIN PRESENCE IN URINE Negative Normal Negativ e [facility] Comment on above: Performed By: #### L [id number] #### [facility] ([facility]) [address] [place] [address] Ketones Ql (U) Negative Normal Negative [facility] Comment on above: Performed By: #### L [id number] #### [facility] ([facility]) [address] [place] [address] LEUKOCYTE ESTERASE PRESENCE IN URINE BY TEST STRIP Large Abnormal Negative [facility] Comment on above: Performed By: #### L [id number] #### [facility] ([facility]) [address] [place] [address] NITRITE PRESENCE IN URINE Positive Abnormal Negative [facility] Comment on above: Performed By: #### L [id number] #### [facility] ([facility]) [address] [place] [address] pH (U) 6.0 [pH] Normal 5.0-8.0 [facility] Comment on above: Performed By: #### L [id number] #### [facility] ([facility]) [address] [place] [address] Protein (U) [Mass/Vol] Negative Normal Negative [facility] Comment on above: Performed By: #### L [id number] #### [facility] ([facility]) [address] [place] [address] Specific gravity (U) [Rel density] 1.020 Normal 1.010-1.03 0 [facility] Comment on above: Performed By: #### L [id number] #### [facility] ([facility]) [address] [place] [address] UROBILINOGEN (MG/DL) IN URINE Normal Normal Normal [facility] Comment on above: Performed By: #### L [id number] #### [facility] ([facility]) [address] [place] [address] URINALYSIS MICROSCOPICon RBC (#/HPF) IN URINE SEDIMENT 0-2 Normal None Seen, 0-2 [facility] Comment on above: Performed By: #### L [id number] ####[facility] ([facility])[address] [place] [address] SQUAMOUS EPITHELIAL CELLS (#/LPF) IN URINE SEDIMENT None Seen Normal None Seen, Occasional , Few [facility] Comment on above: Performed By: #### L [id number] ####[facility] ([facility])[address] [place] [address] WBC (LEUKOCYTE) (#/HPF) IN URINE SEDIMENT >50 Abnormal None Seen, 0-2 [facility] Comment on above: Performed By: #### L [id number] ####[facility] ([facility])[address] [place] [address] URINE CULTURE, ROUTINEon Amoxicillin+Clavulanate [Susc] <=4/2 Susceptible [facility] Comment on above: Performed By: #### L [id number] ####[facility] ([facility])[address] [place] [address] Ampicillin [Susc] <=4 Susceptible [facility] Comment on above: Performed By: #### L [id number] ####[facility] ([facility])[address] [place] [address] Ampicillin+Sulbactam [Susc] 4/2 Susceptible [facility] Comment on above: Performed By: #### L [id number] ####[facility] ([facility])[address] [place] [address] Beta lactamase.extended spectrum [Susc] Negative Invalid Interpretation Code [facility] Comment on above: Performed By: #### L [id number] ####[facility] ([facility])[address] [place] [address] ceFAZolin [Susc] Susceptible [facility] Comment on above: Performed By: #### L [id number] ####[facility] ([facility])[address] [place] [address] cefTRIAXone [Susc] <=1 [facility]ceptible [facility] Comment on above: Performed By: #### L [id number] ####[facility] ([facility])[address] [place] [address] Ciprofloxacin [Susc] <=0.25 Susceptible [facility] Comment on above: Performed By: #### L [id number] ####[facility] ([facility])[address] [place] [address] Gentamicin [Susc] <=2 Susceptible [facility] Comment on above: Performed By: #### L [id number] ####[facility] ([facility])[address] [place] [address] Nitrofurantoin [Susc] <=16 [facility] Comment on above: Performed By: #### L [id number] ####[facility] ([facility])[address] [place] [address] Tobramycin [Susc] <=2 Susceptible [facility] Comment on above: Performed By: #### L [id number] ####[facility] ([facility])[address] [place] [address] Trimethoprim+Sulfamethoxazol e [Susc] <=0.5/9.5 Susceptible [facility] Comment on above: Performed By: #### L [id number] ####[facility] ([facility])[address] [place] [address] 30on 09-10-2024 30 Bench Press Operator went bedside to go over BLUM Document with patient. Bench Press Operator was unable to do so at this time due to patient being down in cath lab manager. Will need to follow up. Patient back up to the floor, Bench Press Operator went over BLUM Document with patient. Copy given. Normal [facility] 30 The patient is Moderately Stable - Low risk of patient condition declining or worsening The patient's goals for the shift include comfort, rest The clinical goals for the shift include stable vitals, comfort Problem: Pain - Adult Goal: Verbalizes/displays adequate comfort level or baseline comfort level Outcome: Progressing Problem: Safety - Adult Goal: Free from fall injury Outcome: Progressing Problem: Chronic Conditions and Co-morbidities Goal: Patient's chronic conditions and co-morbidity symptoms are monitored and maintained or improved Outcome: Progressing Normal [facility] BASIC METABOLIC PANELon 08-24 Anion gap [Moles/Vol] 9 mmol/L Normal 7-20 [facility] Comment on above: Performed By: #### L [id number] ####[facility] ([facility])[address] [place] [address] Calcium [Mass/Vol] 9.1 mg/dL Normal 8.6-10.3 [facility] Comment on above: Performed By: #### L [id number] ####[facility] ([facility])[address] [place] [address] Chloride [Moles/Vol] 105 mmol/L Normal 98-107 [facility] Comment on above: Performed By: #### L [id number] ####[facility] ([facility])[address] [place] [address] CO2 [Moles/Vol] 27 mmol/L Normal 21-31 [facility] Comment on above: Performed By: #### L [id number] ####[facility] ([facility])[address] [place] [address] Creatinine [Mass/Vol] 0.70 mg/dL Normal 0.60-1.20 [facility] Comment on above: Performed By: #### L [id number] ####[facility] ([facility])[address] [place] [address] GLOMERULAR FILTRATION RATE ML/MIN/1.73 SQ M.PREDICTED 89.6 mL/min/1.73m*2 Normal >60.0 [facility] Comment on above: Result Comment: The [facility]???s estimated glomerular filtration rate (eGFR) will no longer include consideration of race in its calculation. The National Kidney Foundation???s eGFR Task Force developed new recommendations for the estimation of the glomerular filtration rate in the [place] They recommend immediate implementation of the new equation refit without the race variable in all laboratories because the calculation does not include race. In addition to not including race in the calculation and reporting, it included diversity in its development, and has acceptable performance characteristics and potential consequences that do not disproportionately affect any one group of individuals. Performed By: #### L [id number] ####[facility] ([facility])[address] [place] [address] Glucose [Mass/Vol] 84 mg/dL Normal 70-100 [facility] Comment on above: Performed By: #### L [id number] ####[facility] ([facility])[address] [facility] [place] [address] Potassium [Moles/Vol] 4.2 mmol/L Normal 3.5-5.1 [facility] Comment on above: Performed By: #### L [id number] ####[facility] ([facility])[address] [place] [address] Sodium [Moles/Vol] 137 mmol/L Normal 136-145 [facility] Comment on above: Performed By: #### L [id number] ####[facility] ([facility])[address] [place] [address] Urea nitrogen [Mass/Vol] 9 mg/dL Normal 7-25 [facility] Comment on above: Performed By: #### L [id number] ####[facility] ([facility])[address] [place] [address] UREA NITROGEN/CREATININE (MASS RATIO) IN SER/PLAS 12.9 Normal [facility] Comment on above: Performed By: #### L [id number] ####[facility] ([facility])[address] [place] [address] CBCon 09-10-2024 Erythrocyte distribution width (RBC) [Ratio] 14.2 % Normal 11.5-15.0 [facility] Comment on above: Performed By: #### L [id number] #### [facility] ([facility]) [address] [place] [address] ERYTHROCYTE MEAN CORPUSCULAR HEMOGLOBIN CONCENTRATION (G/DL) BY AUTOMATED 32.2 g/dL Normal 32.0-35.0 [facility] Comment on above: Performed By: #### L [id number] #### [facility] ([facility]) [address] [place] [address] Hematocrit (Bld) [Volume fraction] 36.7 % Normal 36.0-45.0 [facility] Comment on above: Performed By: #### L [id number] #### [facility] ([facility]) [address] [place] [address] Hemoglobin (Bld) [Mass/Vol] 11.8 g/dL Low 12.0-15. 0 [facility] Comment on above: Performed By: #### L [id number] #### [facility] ([facility]) [address] [place] [address] MCH (RBC) [Entitic mass] 30.5 pg Normal 27.0-33.0 [facility] Comment on above: Performed By: #### L [id number] #### [facility] ([facility]) [address] [place] [address] MCV (RBC) [Entitic vol] 94.8 fL Normal 82.0-98.0 [facility] Comment on above: Performed By: #### L [id number] #### [facility] ([facility]) [address] [place] [address] PLATELETS (10*3/UL) IN BLOOD AUTOMATED COUNT 191 10*3/uL Normal 150-400 [facility] Comment on above: Performed By: #### L [id number] #### [facility] ([facility]) [address] [place] [address] RBC (Bld) [#/Vol] 3.87 10*6/uL Normal 3.80-5.00 [facility] Comment on above: Performed By: #### L [id number] #### [facility] ([facility]) [address] [place] [address] WBC (Bld) [#/Vol] 9.68 10*3/uL Normal 4.00-10.60 [facility] Comment on above: Performed By: #### L [id number] #### [facility] ([facility]) [address] [place] [address] HPon 09-10-2024 HP H&P reviewed. The patient was examined and there are no changes to the H&P. I will proceed with cardiac cath as planned. Normal [facility] TROPONIN Ion 09-10-2024 Troponin I.cardiac [Mass/Vol] 0.01 ng/mL Normal 0.00-0 .04 [facility] Comment on above: Performed By: #### L [id number] ####[facility] ([facility])[address] [place] [address] Performed By: #### L [id number] #### [facility] ([facility]) [address] [place] [address] Troponin I.cardiac [Mass/Vol] 0.00 ng/mL Normal 0.00-0 .04 [facility] Comment on above: Performed By: #### L [id number] ####[facility] ([facility])[address] [place] [address] Troponin I.cardiac [Mass/Vol] 0.00 ng/mL Normal 0.00-0 .04 [facility] Comment on above: Performed By: #### L [id number] #### [facility] ([facility]) [address] [place] [address] 30on 09-09-2024 30 The patient is Moderately Stable - Low risk of patient condition declining or worsening The patient's goals for the shift include Comfort/Rest The clinical goals for the shift include Stable vital signs Normal [facility] BASIC METABOLIC PANELon 08-24 Anion gap [Moles/Vol] 12 mmol/L Normal 7-20 [facility] Comment on above: Performed By: #### L [id number] #### [facility] ([facility]) [address] [place] [address] Calcium [Mass/Vol] 9.3 mg/dL Normal 8.6-10.3 [facility] Comment on above: Performed By: #### L [id number] #### [facility] ([facility]) [address] [place] [address] Chloride [Moles/Vol] 104 mmol/L Normal 98-107 [facility] Comment on above: Performed By: #### L [id number] #### [facility] ([facility]) [address] [place] [address] CO2 [Moles/Vol] 25 mmol/L Normal 21-31 [facility] Comment on above: Performed By: #### L [id number] #### [facility] ([facility]) [address] [place] [address] Creatinine [Mass/Vol] 0.72 mg/dL Normal 0.60-1.20 [facility] Comment on above: Performed By: #### L [id number] #### [facility] ([facility]) [address] [place] [address] GLOMERULAR FILTRATION RATE ML/MIN/1.73 SQ M.PREDICTED 86.6 mL/min/1.73m*2 Normal >60.0 [facility] Comment on above: Result Comment: The [facility]???s estimated glomerular filtration rate (eGFR) will no longer include consideration of race in its calculation. The National Kidney Foundation???s eGFR Task Force developed new recommendations for the estimation of the glomerular filtration rate in the [place] They recommend immediate implementation of the new equation refit without the race variable in all laboratories because the calculation does not include race. In addition to not including race in the calculation and reporting, it included diversity in its development, and has acceptable performance characteristics and potential consequences that do not disproportionately affect any one group of individuals. Performed By: #### L [id number] #### [facility] ([facility]) [address] [place] [address] Glucose [Mass/Vol] 97 mg/dL Normal 70-100 [facility] Comment on above: Performed By: #### L [id number] #### [facility] ([facility]) [address] [place] [address] Potassium [Moles/Vol] 4.2 mmol/L Normal 3.5-5.1 [facility] Comment on above: Performed By: #### L [id number] #### [facility] ([facility]) [address] [place] [address] Sodium [Moles/Vol] 137 mmol/L Normal 136-145 [facility] Comment on above: Performed By: #### L [id number] #### [facility] ([facility]) [address] [place] [address] Urea nitrogen [Mass/Vol] 11 mg/dL Normal 7-25 [facility] Comment on above: Performed By: #### L [id number] #### [facility] ([facility]) [address] [place] [address] UREA NITROGEN/CREATININE (MASS RATIO) IN SER/PLAS 15.3 Normal [facility] Comment on above: Performed By: #### L [id number] #### [facility] ([facility]) [address] [place] [address] CBC WITH AUTO DIFFERENTIALon 09-09-2024 Basophils (Bld) [#/Vol] 0.03 10*3/uL Normal 0.00-0.20 [facility] Comment on above: Performed By: #### L [id number] #### [facility] ([facility]) [address] [place] [address] Basophils/100 WBC (Bld) 0.3 % Normal 0.0-1.0 [facility] Comment on above: Performed By: #### L [id number] #### [facility] ([facility]) [address] [place] [address] Eosinophils (Bld) [#/Vol] 0.05 10*3/uL Normal 0.00-0.5 0 [facility] Comment on above: Performed By: #### L [id number] #### [facility] ([facility]) [address] [place] [address] Eosinophils/100 WBC (Bld) 0.4 % Normal 0.0-6.0 [facility] Comment on above: Performed By: #### L [id number] #### [facility] ([facility]) [address] [place] [address] Erythrocyte distribution width (RBC) [Ratio] 14.1 % Normal 11.5-15.0 [facility] Comment on above: Performed By: #### L [id number] #### [facility] ([facility]) [address] [place] [address] ERYTHROCYTE MEAN CORPUSCULAR HEMOGLOBIN CONCENTRATION (G/DL) BY AUTOMATED 31.7 g/dL Low 32.0-35.0 [facility] Comment on above: Performed By: #### L [id number] #### [facility] ([facility]) [address] [place] [address] Hematocrit (Bld) [Volume fraction] 39.4 % Normal 36.0-45.0 [facility] Comment on above: Performed By: #### L [id number] #### [facility] ([facility]) [address] [place] [address] Hemoglobin (Bld) [Mass/Vol] 12.5 g/dL Normal 12.0-15. 0 [facility] Comment on above: Performed By: #### L [id number] #### [facility] ([facility]) [address] [place] [address] Immature granulocytes (Bld) [#/Vol] 0.03 10*3/uL Normal 0.00-0.20 [facility] Comment on above: Performed By: #### L [id number] #### [facility] ([facility]) [address] [place] [address] Immature granulocytes/100 WB C (Bld) 0.3 % Normal 0.0-1.0 [facility] Comment on above: Performed By: #### L [id number] #### [facility] ([facility]) [address] [place] [address] Lymphocytes (Bld) [#/Vol] 2.83 10*3/uL Normal 1.20-4.0 0 [facility] Comment on above: Performed By: #### L [id number] #### [facility] ([facility]) [address] [place] [address] Lymphocytes/100 WBC (Bld) 25.3 % Normal 20.0-45.0 [facility] Comment on above: Performed By: #### L [id number] #### [facility] ([facility]) [address] [place] [address] MCH (RBC) [Entitic mass] 30.7 pg Normal 27.0-33.0 [facility] Comment on above: Performed By: #### L [id number] #### [facility] ([facility]) [address] [place] [address] MCV (RBC) [Entitic vol] 96.8 fL Normal 82.0-98.0 [facility] Comment on above: Performed By: #### L [id number] #### [facility] ([facility]) [address] [place] [address] Monocytes (Bld) [#/Vol] 1.32 10*3/uL High 0.10-1.00 [facility] Comment on above: Performed By: #### L [id number] #### [facility] ([facility]) [address] [place] [address] Monocytes/100 WBC (Bld) 11.8 % Normal 5.0-12.0 [facility] Comment on above: Performed By: #### L [id number] #### [facility] ([facility]) [address] [place] [address] Neutrophils (Bld) [#/Vol] 6.93 10*3/uL Normal 1.60-7.6 0 [facility] Comment on above: Performed By: #### L [id number] #### [facility] ([facility]) [address] [place] [address] Neutrophils/100 WBC (Bld) 61.9 % Normal 40.0-72.0 [facility] Comment on above: Performed By: #### L [id number] #### [facility] ([facility]) [address] [place] [address] NRBC (PER 100 WBCS) BY AUTOMATED COUNT 0.0 % Normal 0 [facility] Comment on above: Performed By: #### L [id number] #### [facility] ([facility]) [address] [address] PLATELETS (10*3/UL) IN BLOOD AUTOMATED COUNT 226 10*3/uL Normal 150-400 [facility] Comment on above: Performed By: #### L [id number] #### [facility] ([facility]) [address] [place] [address] RBC (Bld) [#/Vol] 4.07 10*6/uL Normal 3.80-5.00 [facility] Comment on above: Performed By: #### L [id number] #### [facility] ([facility]) [address] [address] WBC (Bld) [#/Vol] 11.19 10*3/uL High 4.00-10.60 [facility] Comment on above: Performed By: #### L [id number] #### [facility] ([facility]) [address] [place] [address] CONSULTon 09-09-2024 CONSULT Attestation signed by Rito Brown MD at 09/10/2024 3:51 PM 09/10/24 By using the attestations below, the signing clinician agrees that I have read and verify that the documentation has been personally reviewed by me and ensure that the documentation accurately reflects the encounter. GC: I personally saw this patient on the day of the encounter, performed the morrison portion(s) of the service and participated in the management and confirm the resident's documentation. Please note there may be an additional personal documentation from me. My additional comments are as follows: As discussed in the other attestation of mine also, patient is a 78-year-old female with multiple medical and cardiovascular problems most notably primary hypertension, mixed hyperlipidemia, paroxysmal atrial fibrillation on apixaban, coronary artery disease who presented with worsening chest pain and is now being planned for cardiac angiogram. Considering that she has had prior occluded left circumflex along with moderate coronary artery disease overall, and noninvasive testing in her case would not be particularly informative. Rito Brown MD, ScM, MSc Cardiac Dispensing Audiologist Email: [email or web address] Cardiology Consult Note Reason for Consult: [place] transfer for unstable angina HPI: Gretchen Tan is a 78 y.o. female with past history remarkable for primary hypertension, mixed hyperlipidemia, paroxysmal atrial fibrillation on Eliquis, coronary artery disease who presented to [facility] after she was transferred from cardiology clinic for worsening chest pain over the last week. Patient reported retrosternal chest pain, episodic in frequency, moderate in intensity with radiation to her left arm over the last 7 days. She noted that she had a recent viral illness over the last 3 weeks. Her symptoms have been associated with slight shortness of breath, no palpitations or lower leg swelling. Her symptoms are not related to exertion. Of note, patient reported that she had a remote cardiac catheterization with occluded left circumflex, moderate CAD. Patient was admitted under internal medicine team. Cardiology team consulted for further evaluation and management. Cardiology ROS: Review of Systems Constitutional: Negative for activity change and appetite change. Respiratory: Negative for chest tightness, shortness of breath and wheezing. Cardiovascular: Positive for chest pain. Negative for palpitations and leg swelling. Gastrointestinal: Negative for abdominal pain, nausea and vomiting. Neurological: Negative for dizziness and light-headedness. Past Medical History She has no past medical history on file. Surgical History She has a past surgical history that includes Cardiac catheterization. Social History She reports that she has quit smoking. Her smoking use included cigarettes. She has never used smokeless tobacco. She reports current alcohol use. She reports that she does not use drugs. Family History Family History Problem Relation Name Age of Onset Diabetes Mother Stroke Mother Allergies Patient has no known allergies. Medications Current Outpatient Medications Medication Instructions albuterol 2.5 mg /3 mL (0.083 %) nebulizer solution 3 mL, Every 4 hours PRN apixaban (Eliquis) 5 mg tablet TAKE 1 TABLET BY MOUTH IN THE MORNING AND AT BEDTIME aspirin 81 mg chewable tablet Chew 1 tablet every day by oral route. lisinopril 10 mg, oral, Daily, as directed metoprolol tartrate (LOPRESSOR) 25 mg, oral, 2 times daily omeprazole (PriLOSEC) [address] capsule 1 capsule, oral, Daily rosuvastatin (CRESTOR) 10 mg, oral, Nightly zolpidem (Ambien) 10 mg tablet TAKE 1 TABLET BY MOUTH ONCE DAILY AT BEDTIME NEEDED Medications Prior to Admission Medication Sig Dispense Refill Last Dose albuterol 2.5 mg /3 mL (0.083 %) nebulizer solution 3 mL every 4 (four) hours if needed. 09/08/2024 apixaban (Eliquis) 5 mg tablet TAKE 1 TABLET BY MOUTH IN THE MORNING AND AT BEDTIME 14 tablet 3 09/09/2024 aspirin 81 mg chewable tablet Chew 1 tablet every day by oral route. 09/08/2024 lisinopril 10 mg tablet TAKE 1 TABLET BY MOUTH ONCE DAILY DIRECTED 90 tablet 0 09/09/2024 metoprolol tartrate (Lopressor) 25 mg tablet Take 25 mg by mouth in the morning and at bedtime. 09/09/2024 omeprazole (PriLOSEC) [address] capsule Take 1 capsule by mouth in the morning. 09/09/2024 rosuvastatin (Crestor) 10 mg tablet Take 10 mg by mouth at bedtime. 09/08/2024 zolpidem (Ambien) 10 mg tablet TAKE 1 TABLET BY MOUTH ONCE DAILY AT BEDTIME NEEDED 09/08/2024 Last Recorded Vitals Patient Vitals for the past 24 hrs: BP Temp Temp src Pulse Resp SpO2 Height Weight 09/09/24 1453 -- -- -- -- -- 96 % -- 94.8 kg (208 lb 15.9 oz) 09/09/24 1433 158/87 (more content not included)... Normal [facility] HEMOGLOBIN A1Con 09-09-2024 Glucose [Mass/Vol] 120 mg/dL Normal [facility] Comment on above: Performed By: #### L [id number] #### [facility] ([facility]) [address] [place] [address] HbA1c (Bld) [Mass fraction] 5.8 % Normal 4.0-6.0 [facility] Comment on above: Performed By: #### L [id number] #### [facility] ([facility]) [address] [place] [address] HPon 09-09-2024 [facility] Cardiology [facility] Subjective Gretchen Tan is a 78 y.o. year old female patient being seen for 6 mo follow up CAD, hypertension, and PAF. Says she had the flu or Covid a few weeks ago and still hasn't fully recovered. She's had chest heaviness since then. Also feeling pain in her left shoulder, radiating half way down the arm. Denies SOB, palpitations, and lightheadedness/sync ope. Denies bleeding on Eliquis and aspirin. No recent labs/imaging. Patient Active Problem List Diagnosis Arthritis Coronary arteriosclerosis Dyslipidemia Dyspnea Gastroesophageal reflux disease Hypertensive disorder Insomnia Obesity Paroxysmal atrial fibrillation (CMS/HCC) Right bundle branch block Smoker Lumbar spondylosis Lumbosacral spondylosis without myelopathy Spinal stenosis of lumbar region with neurogenic claudication Pre-operative cardiovascular examination Centrilobular emphysema (CMS/HCC) History of COVID-19 Nicotine dependence, cigarettes, with unspecified nicotine-induced disorders Solitary pulmonary nodule Urinary incontinence in female Family History Problem Relation Name Age of Onset Diabetes Mother Stroke Mother Social History Tobacco Use Smoking status: Former Types: Cigarettes Smokeless tobacco: Never Substance Use Topics Alcohol use: Yes Comment: occasional Drug use: Never HPI Gretchen is seen in follow-up. She is a 78-year-old woman with prior history of coronary artery disease with cardiac catheterization done many years ago showing occluded circumflex and moderate disease elsewhere, paroxysmal atrial fibrillation maintained on Eliquis, hypertension maintained on lisinopril as well as hyperlipidemia on rosuvastatin. Today she is seen in the office because she has been having symptoms of chest pain on and off repeatedly with radiation to the left shoulder and elbow. Those can happen at rest or with mild exertion. She has no significant shortness of breath and no palpitations. No leg edema. Review of Systems Constitutional: Positive for diaphoresis ( hot flashes ). Cardiovascular: Positive for chest pain ( heavniess ). Musculoskeletal: Positive for back pain. Objective Visit Vitals BP 130/58 (BP Location: Right arm, Patient Position: Sitting) Pulse 50 Ht 1.575 m (5' 2 ) Wt 93.9 kg (207 lb) SpO2 98% BMI 37.86 kg/m??? OB Status Postmenopausal Smoking Status Former BSA 2.03 m??? Physical Exam Constitutional: Appearance: She is well-developed. She is obese. She is not ill-appearing. HENT: Head: Normocephalic and atraumatic. Nose: Nose normal. Eyes: General: No scleral icterus. Pupils: Pupils are equal, round, and reactive to light. Neck: Thyroid: No thyromegaly. Vascular: No JVD. Cardiovascular: Rate and Rhythm: Normal rate and regular rhythm. Pulses: Radial pulses are 2+ on the right side and 2+ on the left side. Heart sounds: Normal heart sounds. No murmur heard. No friction rub. No gallop. Pulmonary: Effort: Pulmonary effort is normal. No respiratory distress. Breath sounds: Normal breath sounds. No wheezing or rales. Chest: Chest wall: No tenderness. Abdominal: General: Bowel sounds are normal. There is no distension. Palpations: Abdomen is soft. Tenderness: There is no abdominal tenderness. Musculoskeletal: General: No swelling. Cervical back: Neck supple. Skin: General: Skin is warm and dry. Neurological: General: No focal deficit present. Mental Status: She is alert and oriented to person, place, and time. Psychiatric: Mood and Affect: Mood normal. Behavior: Behavior is cooperative. Judgment: Judgment normal. Allergies No Known Allergies Medications Current Outpatient Medications: albuterol 2.5 mg /3 mL (0.083 %) nebulizer solution, 3 mL every 4 (four) hours if needed., Disp: , Rfl: apixaban (Eliquis) 5 mg tablet, TAKE 1 TABLET BY MOUTH IN THE MORNING AND AT BEDTIME, Disp: 14 tablet, Rfl: 3 aspirin 81 mg chewable tablet, Chew 1 tablet every day by oral route., Disp: , Rfl: lisinopril 10 mg tablet, TAKE 1 TABLET BY MOUTH ONCE DAILY DIRECTED, Disp: 90 tablet, Rfl: 0 metoprolol tartrate (Lopressor) 25 mg tablet, Take 25 mg by mouth in the morning and at bedtime., Disp: , Rfl: omeprazole (PriLOSEC) [address] capsule, Take 1 capsule by mouth in the morning., Disp: , Rfl: rosuvastatin (Crestor) 10 mg tablet, Take 1 tablet by mouth in the morning., Disp: , Rfl: zolpidem (Ambien) 10 mg tablet, TAKE 1 TABLET BY MOUTH ONCE DAILY AT BEDTIME NEEDED, Disp: , Rfl: Recent Labs No visits with results within 6 Month(s) from this visit. Latest known visit with results is: Hospital Outpatient Visit on 03/22/2022 Component Date Value WBC 03/18/2022 7.8 Hemoglobin, Serum 03/18/2022 12.5 Hematocrit 03/18/2022 39.1 Platelets 03/18/2022 198 Sodium 03/18/2022 141 Potassium, Bld 03/18/2022 4.2 Chloride 03/18/2022 107 Glucose, Bld (more content not included)... Normal [facility] LIPID PANELon 09-09-2024 CHOL/HDL 3.0 mg/dL Normal [facility] Comment on above: Performed By: #### L [id number] #### [facility] ([facility]) [address] [place] [address] Cholesterol [Mass/Vol] 170 mg/dL Normal 120-200 [facility] Comment on above: Performed By: #### L [id number] #### [facility] ([facility]) [address] [place] [address] Magnesium [Mass/Vol] 260 mg/dL High <150 [facility] Comment on above: Result Comment: TRIG LYCERIDE REFERENCE RANGE: 20 YEARS AND OLDER CARDIOVASCULAR RISK LESS THAN 150 mg/dL LOW RISK 150 TO 199 mg/dL BORDERLINE RISK 200 mg/dL AND GREATER HIGH RISK Performed By: #### L [id number] #### [facility]) [address] [facility] [place] [address] Magnesium [Mass/Vol] 62 mg/dL Normal 0-160 [facility] Comment on above: Performed By: #### L [id number] #### [facility] ([facility]) [address] [place] [address] Magnesium [Mass/Vol] 56 mg/dL Normal 23-92 [facility] Comment on above: Performed By: #### L [id number] #### [facility] ([facility]) [address] [place] [address] NON HDL CHOL. (LDL+VLDL) 114 Normal [facility] Comment on above: Performed By: #### L [id number] #### [facility] ([facility]) [address] [place] [address] TOTAL VLDL-C 52 mg/dL High 0-40 [facility] Comment on above: Performed By: #### L [id number] #### [facility] ([facility]) [address] [place] [address] MAGNESIUMon 09-09-2024 Magnesium [Mass/Vol] 1.9 mg/dL Normal 1.9-2.7 [facility] Comment on above: Performed By: #### L [id number] #### [facility] ([facility]) [address] [place] [address] Office Visiton 09-09-2024 Follow-up visit [id number] Gretchen Tan 1945 F Date Provider Department Center 09/09/2024 ANASTASIYA PICHARDO [facility] Family History Problem Relation Age of Onset Diabetes Mother Stroke Mother Family Status - Relation Status Age at Mother Level of Service:[address] UT OFFICE/OUTPATIENT ESTABLISHED HIGH MDM 40 MIN Normal [facility] TROPONIN Ion 09-09-2024 Troponin I.cardiac [Mass/Vol] 0.01 ng/mL Normal 0.00-0 .04 [facility] Comment on above: Performed By: #### L [id number] #### [facility] ([facility]) [address] [place] [address] Troponin I.cardiac [Mass/Vol] 0.01 ng/mL Normal 0.00-0 .04 [facility] Comment on above: Performed By: #### L [id number] #### [facility] ([facility]) [address] [place] [address] Troponin I.cardiac [Mass/Vol] 0.00 ng/mL Normal 0.00-0 .04 [facility] Comment on above: Performed By: #### L [id number] #### [facility] ([facility]) [address] [place] [address] Drugs of abuse panel Screen (U)on 08-05-2024 Amphetamines Ql (U) Negative [facility] Barbiturates Ql (U) Negative [facility] Benzodiazepines Ql (U) Negative [facility] Benzoylecgonine Ql (U) Negative [facility] Carboxy tetrahydrocannabinol (Mec) [Mass/Mass] Negative [facility] Interpretation and review of laboratory results Normal [facility] Methadone (U) [Mass/Vol] Negative [facility] Methylenedioxymethamphetamin e Screen Ql (U) Negative [facility] Morphine (U) [Mass/Vol] Negative [facility] Opiates Ql (U) Negative [facility] oxyCODONE Ql (U) Negative [facility] Phencyclidine Ql (U) Negative [facility] Reference Lab Test ID Negative [facility] Tricyclic antidepressants [Mass/Vol] Negative [facility] Provider Letteron 05-08-2024 Provider Letter Anthony Mckinley MD [address] [facility] [address] [place] [id number] Re: Gretchen Sheyla Date of Visit: 05/07/2024 Dear Anhtony Mckinley MD, This patient was recently seen in the neurosurgical office. Please see attached note for further details. Let me know if you have any questions or concerns. Sincerely, LEANNA Pederson Providers: The following document(s) were included in the letter: May 07, 2024 15:02:27 EST - (05/07/2024) Neurosurgery Office Visit Note Normal [facility] Neurosurgery Office/Clinic N eric 05-07-2024 Neurosurgery Office/Clinic Note Chief Complaint back follow up-review CT History of Present Illness The patient is a pleasant 78-year-old female with history of hypertension, stroke, obesity with body mass index of 39, nicotine abuse, hypercholesterolemia , COPD and atrial fibrillation with chronic anticoagulation who returns to the neurosurgical office currently 7 months status post L4-5 decompression and posterior spinal fusion with instrumentation and use of bone morphogenetic protein. Surgery was completed by Dr. Marquez 10/18/2023 secondary to lumbar spondylolisthesis with instability leading to severe spinal stenosis L4-5. She returns to the neurosurgical office today having undergone updated CT of the lumbar spine. Results detailed below. Currently, she notes ongoing lumbar pain which is intermittent in nature and varies dependent upon activity. She notes that the longer she sits, the more discomfort she experiences in the low back. Standing and walking actually seems to improve her pain however, longer walking distances also add to low back discomfort. She is able to walk around a long grocery store with use of a grocery cart. She notes an occasional radiation into the lower extremities though this is short-lived. She denies any persistent lower extremity radicular pain, numbness or paresthesia. She denies any lower extremity weakness; no stumbles or falls. She denies catching of her toes or slapping of her feet with walking. She denies any changes to bowel or bladder habits; no saddle paresthesia. She continues to walk and complete physical therapy type stretches/exercises at the local [facility] twice weekly. She is not currently taking any tramadol or narcotic medication. Patient does continue to smoke cigarettes. Recent imaging (provider interpretation): CT lumbar spine 04/29/2024 reveals evidence of L4-5 decompression and posterior spinal fusion with instrumentation. No evidence of hardware haloing, pullout, fracture or other abnormality. There is fixed anterior listhesis L4-5. There appears to be a moderate amount of bony consolidation of the posterior lateral arthrodesis. This does appear more consolidated than 12/2023 imaging. Vacuum disc phenomenon noted L4-5, L5-S1, T12-L1. There is also vacuum joint phenomenon of the bilateral sacroiliac joints. It is of note that radiology noted atherosclerosis of the aorta, with fusiform ectasia measuring up to 3.3 x 3.5 cm. X-rays lumbar spine including flexion/extension views 03/22/2024 reveal evidence of L4-5 posterior spinal fusion with instrumentation. No evidence of hardware haloing, fracture or pullout. Fixed anterolisthesis at this level. There is levoscoliosis of the lumbar spine measuring approximately 12 degrees. Multilevel degenerative disc disease above and below her fusion level. Slight retrolisthesis L1-2, L2-3, L3-4. No dynamic instability. Review of Systems Constitutional: [No fevers, chills, sweats] Eye: [No recent visual problems] ENMT: [No ear pain, nasal congestion, sore throat] Respiratory: [No shortness of breath, cough] Cardiovascular: [No Chest pain, palpitations, syncope] Gastrointestinal: [No nausea, vomiting, diarrhea, bowel incontinence] Genitourinary: [No hematuria, bladder incontinence] Physical Exam Vitals & Measurements HR: 60 (Peripheral) BP: 126/62 HT: 157 cm WT: 93.8 kg WT: 93.8 kg (Dosing) BMI: 38.05 Additional Vitals BP Position/Location: Sitting, Left arm The patient is pleasant, conversing, answering questions and following commands easily. Alert and oriented. Speech and manner are appropriate The patient demonstrates normal respiratory effort Lumbar incision appears well healed. Patient appears to have tenderness to palpation throughout the bilateral sacroiliac joints. No specific tenderness to palpation of the midline lumbosacral spine or incisional area. No tenderness to palpation throughout the gluteal muscles or lateral hips bilaterally. Lower extremity motor exam reveals 5/5 strength, symmetric bilaterally. Lower extremity deep tendon reflexes 2+ at the patella, 1+ at the Achilles, symmetric bilaterally. No clonus noted bilaterally. The patient reports intact light touch sensation throughout the lower extremities, symmetric bilaterally. Negative bilateral straight leg raise and reverse straight leg raise No redness, warmth, swelling or tenderness to palpation of the bilateral calves. Gait reveals some hunched posture and slight forward flexion at the waist. Reasonable venice and stride length. No spasticity or motor neuropathy. Assessment/Plan 1. S/P lumbar fusion Ordered: CT Spine Lumbar w/o Contrast 2. Low back pain 3. Lumbar degenerative disc disease 4. Spinal instability, lumbar 5. Spondylolisthesis, lumbar region 6. Nicotine use Ordered: CT Spine Lumbar w/o Contrast The patient is a pleasant 78-year-old female with history of hypertension, stroke, obesity with body mass index of 39, nicotine abuse, hypercholesterolemia , COPD and atrial fibrillat (more content not included)... [facility] CT Spine Lumbar w/o Contrast on 05-01-2024 CT Spine Lumbar w/o Contrast EXAM: CT Sp ine Lumbar w/o Contrast HISTORY: Post-Op fusion status lumbar. Patient with history of fusion September 2023. Possible spinal instability, spondylolisthesis. COMPARISON: January 09, 2024. TECHNIQUE: Axial CT scans of the lumbar spine are also reviewed in the reconstructed coronal and sagittal planes. FINDINGS: There is 6 mm spondylolisthesis L4 on L5, with normal alignment of the otherwise intact vertebral segments. Degenerative disc disease again noted T12-L1, L1-L2, L4-L5 and lumbosacral levels with interspace narrowing and vacuum disc phenomenon. There is endplate spurring posteriorly at L1-L2. Intact appearing pedicle screw and posterior mahesh stabilization hardware is again noted at L4-L5. Posterior decompression laminectomy also noted at this level. There is posterior lateral intertransverse fusion bone also present, which appears solid in distribution at this time. Axial scans show that there is a prominently degenerated disc T12-L1 with endplate spurring and broad-based extraforaminal protrusion and spurring favoring the right, not contacting the thecal sac or exiting T12 root. At L1-L2, L2-L3 levels there is mild annular bulging without canal, recess, or foraminal stenosis. At L3-L4 there is slightly more prominent annular bulge with mild flattening of the ventral thecal sac. No lateralized disc protrusion identified. No canal stenosis at the L4-L5 surgical level. At the lumbosacral level no new disc contour abnormality identified. Prominent disc vacuum phenomenon, degenerated facets noted. There is mild bilateral foraminal narrowing primarily reflecting interspace narrowing. The included paraspinal and retroperitoneal soft tissues did show extensive atherosclerotic calcification of the abdominal aorta with fusiform ectasia at the L3-L4 level measuring approximately 3.3 x 3.5 cm. In addition there is normal appearance of the included sacrum. Some mild degenerative changes of the bilateral sacroiliac joints with vacuum phenomenon of the articular space noted. IMPRESSION: Interval posterior decompression, pedicle screw and mahesh stabilization of the L4 and L5 levels, with apparent developing solid posterior lateral intertransverse fusion bone. No hardware complication or failure. Multilevel degenerative changes of the interspace discs T12-S1 as discussed above similar in appearance to previous. No high-grade canal, recess, or foraminal stenosis identified on these studies. Atherosclerosis of the aorta, with fusiform ectasia measuring up to 3.3 x 3.5 cm. Vacuum phenomenon of the articular space of the bilateral sacroiliac joints. Radiation Dose Estimate: CTDI(mGy):0.416433 / / / kVp:120.301640 / mAs:0.999225 / / / DLP(mGy-cm):3.371612 Body Part: CTDI(mGy):40.453382 / / / kVp:140.346415 / mAs:278.115223 / / / DLP(mGy-cm):884.8300 17Body Part: Final Dictated by: Lyle Mcbride DO Dictated DT/TM: 05.01.2024 7:52 am Signed by: Lyle Mcbride DO Signed (Electronic Signature): 05.01.2024 9:52 am Transcribed DT/TM: 05.01.2024 8:42 am (If Report Is Signed, Electronically Signed in Other Vendor System) [facility] Provider Letteron 05-01-2024 Provider Letter Anthony Bowden [address] [facility] [address] [place] [id number] Re: Gretchen Sheyla Date of Visit: 04/29/2024 Dear Anthony Mckinley MD, Please see attached results on this mutual patient you have with [facility] Result Name Current Result CT Spine Lumbar w/o Contrast 04/29/2024 Let me know if you have any questions or concerns. Sincerely, Kaylyn Bolaños [facility] [employer] C C Providers: [facility] Neurosurgery Office/Clinic Carol reyes 04-04-2024 Neurosurgery Office/Clinic Note Chief Complaint back follow up History of Present Illness The patient is a pleasant 78-year-old female with history of hypertension, stroke, obesity with body mass index of 39, nicotine abuse, hypercholesterolemia , COPD and atrial fibrillation with chronic anticoagulation who returns to the neurosurgical office currently 4 months status post L4-5 decompression and posterior spinal fusion with instrumentation and use of bone morphogenetic protein. Surgery was completed by Dr. Marquez 10/18/2023 secondary to lumbar spondylolisthesis with instability leading to severe spinal stenosis L4-5. She is nearly 6 months postoperative and returns to the neurosurgical clinic today having undergone updated flexion/extension x-rays of the lumbar spine. Results detailed below. The patient had contacted the neurosurgical office in mid January due to acute onset of right lower extremity sciatic type pain which was severe enough to cause trouble sleeping and completing activities of daily life. She underwent evaluation at [facility] emergency department 02/05/2020 for ruling out [address] Dr. Marquez provided a prescription for tramadol which the patient found beneficial. By the time of her last visit 02/20/2024, she noted significant improvement in pain though still some residual right sided gluteal discomfort. Currently, the patient notes resolution of that particular pain though notes aching in the lumbosacral area, particularly with activity such as standing and walking though can still be present with sitting down. She is generally comfortable laying down. She notes occasional discomfort in the right lower extremity pretibial region and anterior thigh though this is rather muted. She denies any left lower extremity pain. She denies lower extremity numbness, paresthesia or weakness. She is ambulating reasonably well, particularly with shorter distances than still stressed this concern regarding longer distances. She gives example that she would like to walk around a craft show her antique fair but would be concerned to do so due to onset of low back pain. She denies any changes to bowel or bladder habits; no saddle paresthesia. She continues to walk and complete physical therapy type stretches/exercises at the local [facility]/[employer] twice weekly. She is not currently taking any tramadol or narcotic medication. Patient does continue to smoke cigarettes. Recent imaging (provider interpretation): X-rays lumbar spine including flexion/extension views 03/22/2024 reveal evidence of L4-5 posterior spinal fusion with instrumentation. No evidence of hardware haloing, fracture or pullout. Fixed anterolisthesis at this level. There is levoscoliosis of the lumbar spine measuring approximately 12 degrees. Multilevel degenerative disc disease above and below her fusion level. Slight retrolisthesis L1-2, L2-3, L3-4. No dynamic instability. Review of Systems Constitutional: [No fevers, chills, sweats] Eye: [No recent visual problems] ENMT: [No ear pain, nasal congestion, sore throat] Respiratory: [No shortness of breath, cough] Cardiovascular: [No Chest pain, palpitations, syncope] Gastrointestinal: [No nausea, vomiting, diarrhea, bowel incontinence] Genitourinary: [No hematuria, bladder incontinence] Physical Exam Vitals & Measurements HR: 60 (Peripheral) BP: 124/62 SpO2: 98 HT: 157.5 cm WT: 93.1 kg WT: 93.1 kg (Dosing) BMI: 37.53 Additional Vitals BP Position/Location: Sitting, Right arm The patient is pleasant, conversing, answering questions and following commands easily. Alert and oriented. Speech and manner are appropriate. She is accompanied to today's visit by her . The patient demonstrates normal respiratory effort Lumbar incision appears well healed. Patient appears to have tenderness to palpation throughout the bilateral sacroiliac joints. No specific tenderness to palpation of the midline lumbosacral spine or incisional area. No tenderness to palpation throughout the gluteal muscles or lateral hips bilaterally. Lower extremity motor exam reveals 5/5 strength, symmetric bilaterally. Lower extremity deep tendon reflexes 2+ at the patella, 1+ at the Achilles, symmetric bilaterally. No clonus noted bilaterally. The patient reports intact light touch sensation throughout the lower extremities, symmetric bilaterally. Right sided straight leg raise leads to slight increased pain in the right lumbosacral area but no overt radicular syndrome. Negative left-sided straight leg raise and reverse straight leg raise. Negative López?s test bilaterally. No redness, warmth, swelling or tenderness to palpation of the bilateral calves. Gait reveals some hunched posture and slight forward flexion at the waist. Mildly decreased venice and stride length. No spasticity or motor neuropathy. Assessment/Plan 1. S/P lumbar fusion Ordered: CT Spine Lumbar w/o Contrast 2. Spinal instability, lumbar Ordered: CT Spine Lumbar w/o Contrast 3. Spondylolisthesis, lumbar region Or (more content not included)... [facility] Provider Letteron 03-27-2024 Provider Letter Anthony Bowden [address] [place] [address] Re: Gretchen Tan Date of Visit: 03/22/2024 Dear Anthony Mckinley MD, Please see attached results on this mutual patient you have with [facility] Result Name Current Result XR Spine Lumbosacral 2/3 Views w/Bending 03/22/2024 Let me know if you have any questions or concerns. Sincerely, Kaylyn Bolaños [facility] [employer] C C Providers: [facility] XR Spine Lumbosacral 2/3 Vie ws w/Bendingon 03-25-2024 XR Spine Lumbosacral 2/3 Views w/Bending EXAM: XR Spine Lumbosacral 2/3 Views w/Bending HISTORY: Other (please specify), s/p lumbar fusion COMPARISON: 01/09/2024 TECHNIQUE: 4 images were obtained of the lumbar spine including lateral flexion and extension views. FINDINGS: There are 5 nonrib-bearing lumbar type vertebrae. There is curvature of the thoracolumbar spine with convexity left. There are postoperative changes of posterior spinal fusion at L4-5 without evidence of hardware complication. There is grade 1 anterolisthesis of L4 on L5 which is not significant changed in flexion or extension. There is minimal retrolisthesis of L1 on L2 which is unchanged in flexion and extension. There is loss of disc space at L5-S1. There is multilevel degenerative endplate spurring. There is calcification of the aorta with aneurysm of the abdominal aorta again noted with maximal dimension of 3.9 cm. IMPRESSION: 1. Stable postoperative changes of lumbar fusion at L4-5. 2. Similar anterolisthesis of L4 on L5 which is unchanged in flexion and extension. 3. Spondylosis of the lumbar spine. 4. Calcified aneurysm of the abdominal aorta. Final Dictated by: Juan Mckenzie DO Dictated DT/TM: 03/25/2024 11:34 am Signed by: Juan Mckenzie DO Signed (Electronic Signature): 03/25/2024 11:39 am (If Report Is Signed, Electronically Signed in Other Vendor System) [facility] Office Visiton 03-08-2024 Follow-up visit [id number] Gretchen Tan 1945 F Date Provider Department Center 03/08/2024 ANGELITAJOSE GUADALUPE Montaño SY [place] Family History Problem Relation Age of Onset Diabetes Mother Stroke Mother Family Status - Relation Status Age at Mother Level of Service:86328 UT OFFICE/OUTPATIENT ESTABLISHED LOW MDM 20 MIN Normal [facility] Provider Letteron 02-22-2024 Provider Letter Anthony Mckinley MD [address] [place] [address] Re: Gretchen Tan Date of Visit: 02/20/2024 Dear Anthony Mckinley MD, This patient was recently seen in the neurosurgical office. Please see attached note for further details. Let me know if you have any questions or concerns. Sincerely, LEANNA Pederson Providers: The following document(s) were included in the letter: February 20, 2024 17:23:28 EDT - (02/20/2024) Neurosurgery Office Visit Note [facility] Neurosurgery Office/Clinic N oteon 02-20-2024 Neurosurgery Office/Clinic Note Chief Complaint Back follow up History of Present Illness The patient is a pleasant 78-year-old female with history of hypertension, stroke, obesity with body mass index of 39, nicotine abuse, hypercholesterolemia , COPD and atrial fibrillation with chronic anticoagulation who returns to the neurosurgical office currently 4 months status post L4-5 decompression and posterior spinal fusion with instrumentation and use of bone morphogenetic protein. Surgery was completed by Dr. Marquez 10/18/2023 secondary to lumbar spondylolisthesis with instability leading to severe spinal stenosis L4-5. The surgery was uncomplicated and she was able to be discharged home in an appropriate time. The patient was last seen in the neurosurgical office 01/11/2024 and returns today having initiated a course of postoperative physical therapy. Review of [facility] outpatient PT note 01/25/2024 through 04/23/2024. The patient notes that she initially visited in order to create a home exercise program as each therapy session would cost her a $40 co-pay which she cannot afford. She currently presents the [facility]/[employer] twice per week in order to complete therapy recommended exercises. The patient contacted the neurosurgical office approximately 2 weeks ago due to acute onset of right lower extremity sciatic type pain which was severe enough that she had trouble sleeping and completing activities of daily life for a few days. She states that this began without trauma or injury affecting the right gluteal area with radiation into the right anterior leg. She visited the emergency department in [facility] 02/05/2024 ruling out DVT. She was provided a prescription of tramadol by Dr. Marquez which did provide some benefit. The patient notes that this pain has significantly improved though she continues to note right sided gluteal pain as well as mild discomfort in the right proximal anterolateral lower leg. She denies any left lower extremity pain. She denies any lower extremity numbness, paresthesia or weakness. She denies significant low back pain. She is ambulating reasonably well at this time. She notes some ongoing constipation from use of the tramadol even though she discontinued this approximately 1 week ago. She denies any changes to bladder habits, no saddle paresthesia. She denies any recurrence of preoperative pain symptoms. Review of Systems Constitutional: [No fevers, chills, sweats] Eye: [No recent visual problems] ENMT: [No ear pain, nasal congestion, sore throat] Respiratory: [No shortness of breath, cough] Cardiovascular: [No Chest pain, palpitations, syncope] Gastrointestinal: [No nausea, vomiting, diarrhea, bowel incontinence] Genitourinary: [No hematuria, bladder incontinence] Physical Exam Vitals & Measurements HR: 68 (Peripheral) BP: 130/60 HT: 157.5 cm WT: 92.0 kg WT: 92.0 kg (Dosing) BMI: 37.09 Additional Vitals BP Position/Location: Sitting, Left arm The patient is pleasant, conversing, answering questions and following commands easily. Alert and oriented. Speech and manner are appropriate. She is accompanied to today's visit by her . The patient demonstrates normal respiratory effort Lumbar incision appears well healed. No significant tenderness to palpation throughout the agustin-incisional area, lumbosacral spine or paraspinal musculature. Mild tenderness to palpation throughout the right gluteal area. Lower extremity motor exam reveals 5/5 strength, symmetric bilaterally. Lower extremity deep tendon reflexes 2+ at the patella, 1+ at the Achilles, symmetric bilaterally. No clonus noted bilaterally. The patient reports intact light touch sensation throughout the lower extremities, symmetric bilaterally. Negative bilateral straight leg raise and reverse straight leg raise. Negative López?s test bilaterally. No tenderness to palpation throughout the right proximal anterolateral lower leg where she continues to report mild pain. No evidence of superficial phlebitis. No redness, warmth, swelling or tenderness to palpation of the bilateral calves. Gait reveals some hunched posture and slight forward flexion at the waist. Mildly decreased venice and stride length. No spasticity or motor neuropathy. Assessment/Plan 1. S/P lumbar fusion 2. Spinal instability, lumbar 3. Lower extremity pain, right The patient is a pleasant 78-year-old female with history of hypertension, stroke, obesity with body mass index of 39, nicotine abuse, hypercholesterolemia , COPD and atrial fibrillation with chronic anticoagulation who returns to the neurosurgical office currently 4 months status post L4-5 decompression and posterior spinal fusion with instrumentation and use of bone morphogenetic protein. Surgery was completed by Dr. Marquez 10/18/2023 secondary to lumbar spondylolisthesis with instability leading to severe spinal stenosis L4-5. The patient has done well postoperatively currently completing a PT guided home exercise program (patient unable to afford $40 copay for (more content not included)... [facility] CT Spine Lumbar w/o Contrast on 01-12-2024 CT Spine Lumbar w/o Contrast EXAM TYPE: CT Spine Lumbar w/o Contrast EXAM DATE AND TIME: 01/09/2024 3:46 PM EDT INDICATION: 78 years old Female with back pain COMPARISON: Radiographs 11/29/2023, prior CT scan 07/26/2023 TECHNIQUE: CT imaging of the lumbar spine was obtained without contrast. Dose reduction techniques were achieved by using automated exposure control and/or adjustment of mA and/or kV according to patient size and/or use of iterative reconstruction technique. FINDINGS: The bones are osteopenic, limiting detection of subtle, nondisplaced fracture. 5 nonrib-bearing lumbar vertebrae. Unchanged alignment of the lumbar spine with mild anterolisthesis of L4-L5. There are surgical changes from L4-L5 posterior fusion. Hardware appears intact. No acute osseous fracture is evident. Mild to moderate degenerative disc disease is present the nonsurgical levels. No CT evidence of focal large central disc herniation or severe spinal canal stenosis. Broad-based disc bulge results in [id number] spinal canal stenosis at the L3-L4 level. The visualized bony pelvis is congruent with mild joint space narrowing of the sacroiliac joints. Limited evaluation of the abdominopelvic viscera is unremarkable. IMPRESSION: Postsurgical and degenerative changes without acute osseous abnormality. Radiation Dose Estimate: CTDI(mGy):0.389636 / / / kVp:120.632046 / mAs:0.467656 / / / DLP(mGy-cm):2.890690 Body Part: CTDI(mGy):38.377170 / / / kVp:140.761557 / mAs:264.403651 / / / DLP(mGy-cm):998.9600 22Body Part: Final Dictated by: Sanya Harrison MD Dictated DT/TM: 01.12.2024 1:44 pm Signed by: Sanya Harrison MD Signed (Electronic Signature): 01.12.2024 1:46 pm (If Report Is Signed, Electronically Signed in Other Vendor System) [facility] XR Spine Lumbosacral Bending 2-3 Viewson 01-12-2024 XR Spine Lumbosacral Bending 2-3 Views EXAM: XR Spine Lumbosacral Bending 2-3 Views CLINICAL INDICATION: Other (please specify), Spinal instabilities, lumbar region COMPARISON: 11/29/2023 TECHNIQUE: 4 views of the lumbar spine obtained FINDINGS: There are likely 5 nonrib-bearing lumbar-type vertebra. Redemonstration of posterior spinal fusion change at L4-L5 without overt complication. Vertebral body heights are maintained without evidence for acute fracture. Grade 1 anterolisthesis of L4 on L5, similar to prior. Alignment is not significantly changed with flexion and extension. Mild to moderate multilevel degenerative changes of the lumbar spine. IMPRESSION: Postoperative and multilevel degenerative changes of the lumbar spine without evidence for complication or acute fracture or dynamic instability. Final Dictated by: James Armijo MD Dictated DT/TM: 01/11/2024 9:43 am Signed by: James Armijo MD Signed (Electronic Signature): 01/12/2024 6:45 am (If Report Is Signed, Electronically Signed in Other Vendor System) Normal [facility] Neurosurgery Office/Clinic N oteon 07-18-2024 Neurosurgery Office/Clinic Note Physical Exam Vitals & Measurements HR: 64 (Peripheral) BP: 145/74 HT: 157 cm WT: 93.6 kg WT: 93.6 kg (Dosing) BMI: 37.97 Additional Vitals BP Position/Location: Sitting, Left arm Assessment/Plan 1. Lumbar degenerative disc disease Ordered: Referral to Physical Therapy 2. S/P lumbar fusion Ordered: Referral to Physical Therapy 3. Morbid obesity with BMI of 40.0-44.9, adult Ordered: Referral to Physical Therapy 4. Spinal instability, lumbar Ordered: Referral to Physical Therapy Orders: External Referral Primary provider: anthony mckinley Referring provider: [] Other providers: emily bermeo (pulmonology) Current history: 77-year-old patient with a multitude of medical difficulties including hypertension, stroke,morbid obesity with body mass index of 40 chronic nicotine abuse, hypercholesterolemia , COPD, atrial fibrillation with chronic anticoagulation who [...] order to have anesthetic for steroid injections Today's visit: Patient returns to the neurosurgery clinic 12 weeks following L4-5 posterior spinal fusion (October 22, 2023) with the use of bone morphogenetic protein. The surgery was uncomplicated and she was able to be discharged home in an appropriate time. Patient indicates that she has been having increasing back pain without radiation to either her gluteal region or lower extremities. She notes that preoperative pain syndrome has resolved but she has back pain, particularly with range of motion. No radicular pain and no paresthesias or numbness. No urinary incontinence. Confesses to smoking 4 to 5 cigarettes a day in spite of untold number of warnings/admonishmen t by this surgeon Constitutional: [No fevers, chills, sweats] Eye: [No [...] range of motion: Modestly restricted in extension Incision well-healed Neuro: mental status: awake, alert, appropriate with [...] hunched posture Assessment/plan: Elderly female with an assemblage of medical difficulties that challenge consideration of [...] Sacroiliac imaging which reveals minimal sacroiliac disease CT scan lumbar spine for surgical planning to ensure adequate radicular anatomy as well as better assessment of pain generators such as vacuum disc phenomenon vacuum facet phenomenon for identifying how many levels may require intervention. This has been completed and reveals multilevel degenerative disc disease with facet arthropathy at L4-5 which is quite prominent and sagittally oriented facets at L4-5; modest amount of (more content not included)... [facility] Provider Letteron 01-11-2024 Provider Letter Emily Bermeo D.O. [address] [place] [phone] Re: Gretchen Tan Date of Visit: 01/11/2024 Dear Emily Bermeo D.O., Let me know if you have any questions or concerns. Sincerely, MANDY Monae MD Providers: Anthony Mckinley The following document(s) were included in the letter: January 11, 2024 15:51:33 EDT - (01/11/2024) Neurosurgery Office Visit Note [facility] Surgical Pathologyon [address] [facility] Comment on above: Result Comment: [facility] [address] [place] [address] Surgical Pathology Consultation Patient Name:GRETCHEN TAN:1945 (Age: 78)Gender:FTaken:4Reported:12/08/2023hysician(s) :Shayy Brooke M.D. ([phone])Copy To: Rec. #:[id number]: #[id number] Final Pathologic Diagnosis Right labia, biopsy: Lichen sclerosus with mild chronic inflammation. Report Electronically Signed Out gr/12/08/2023Lukas Hermosillo MD Interpretation performed at [facility], [address] [place] [address], License number: [id number]. Clinical History Vulvar irritation N90.89. Gross Description Received in formalin labeled Devan TAN labia is a pale-anderson epithelial-lined punch, 0.3 x 0.3 x 0.2 cm. No lesion or area of discoloration is definitively identified. The resection margin is inked green. The specimen is entirely intact and submitted in a single cassette. (1, ns, [id number],m6) DM. dm/12/05/2023NXK Specimen(s) Received Right labia Fee Codes(s): 1; 40567 Neurosurgery Office/Clinic N eric 11-29-2023 Neurosurgery Office/Clinic Note Chief Complaint 6 week post op Physical Exam Vitals & Measurements HR: 67 (Peripheral) BP: 118/69 SpO2: 99 HT: 155 cm WT: 94.2 kg WT: 94.2 kg (Dosing) BMI: 39.21 Additional Vitals BP Position/Location: Sitting, Right arm Assessment/Plan 1. Spinal instability, lumbar Ordered: CT Spine Lumbar w/o Contrast XR Spine Lumbosacral 2 or 3 Views XR Spine Lumbosacral Bending 2-3 Views 2. Spondylolisthesis, lumbar region Ordered: CT Spine Lumbar w/o Contrast XR Spine Lumbosacral 2 or 3 Views XR Spine Lumbosacral Bending 2-3 Views Primary provider: anthony mckinley Referring provider: [] Other providers: emily bermeo (pulmonology) Current history: 77-year-old patient with a multitude of medical difficulties including hypertension, stroke,morbid obesity with body mass index of 40 chronic nicotine abuse, hypercholesterolemia , COPD, atrial fibrillation with chronic anticoagulation who [...] order to have anesthetic for steroid injections Today's visit: Patient returns to the neurosurgery clinic 6 weeks following L4-5 posterior spinal fusion (October 22, 2023) with the use of bone morphogenetic protein. The surgery was uncomplicated and she was able to be discharged home in an appropriate time. Patient indicates that she has been having increasing back pain without radiation to either her gluteal region or lower extremities. She notes that preoperative pain syndrome has resolved but she has a fair amount of back pain when she mobilizes over the last week such as she has resumed taking Tylenol. She has avoided other NSAIDs. She has no paresthesias or numbness. No bowel or bladder incontinence. Her syndrome resolves with sitting in a reclining chair or lying down/recumbency and becomes more problematic when she has been standing for prolonged period of time or walking. The pain is isolated to the low back in the incisional area and she states that she feels as if the hardware is poking out of me . No bowel or bladder incontinence or saddle paresthesias Constitutional: [No fevers, chills, sweats] Eye: [No [...] range of motion: Modestly restricted in extension Incision well-healed Neuro: mental status: awake, alert, appropriate with [...] hunched posture Assessment/plan: Elderly female with an assemblage of medical difficulties that challenge consideration of [...] Sacroiliac imaging which reveals minimal sacroiliac disease CT scan lumbar spine for surgical planning to ensure adequate radicular anato (more content not included)... [facility] Provider Letteron 11-29-2023 Provider Letter Anthony Mckinley MD [address] [facility] [address] [place] [id number] Re: Gretchen Tan Date of Visit: 11/29/2023 Dear Anthony Mckinley MD, Let me know if you have any questions or concerns. Sincerely, MANDY Monae MD C Providers: The following document(s) were included in the letter: November 29, 2023 14:57:39 EDT - (11/29/2023) Neurosurgery Office Visit Note [facility] XR Spine Lumbosacral 2 or 3 Viewson 11-29-2023 XR Spine Lumbosacral 2 or 3 Views EXAM: XR Spine Lumbosacral 2 or 3 Views CLINICAL INDICATION: Other (please specify), postop COMPARISON: 10/31/2023 TECHNIQUE: 2 views of the lumbar spine obtained FINDINGS: There are 5 nonrib-bearing lumbar-type vertebra. Redemonstration of posterior spinal fusion change at L4-L5 without overt complication. Mild levoconvex curvature of the lumbar spine. Vertebral body heights are maintained without evidence for acute fracture. Grade 1 anterolisthesis of L4 on L5, similar to prior. Mild multilevel degenerative changes of the lumbar spine. IMPRESSION: Postoperative and multilevel degenerative changes of the lumbar spine without evidence for complication or acute fracture Final Dictated by: James Armijo MD Dictated DT/TM: 11/29/2023 9:12 pm Signed by: James Armijo MD Signed (Electronic Signature): 11/29/2023 9:13 pm (If Report Is Signed, Electronically Signed in Other Vendor System) [facility] VAGINITIS PANEL PCRon 2023 VAGINITIS PANEL PCR BACT. VAGINOSIS DNA Not detected (qualifier value) Qualitative results are reported based on detection and quantitation of targeted organism markers which include: Lactobacillus spp. (L. crispatus and L. jensenii), Gardnerella vaginalis, Atopobium vaginae, Bacterial Vaginosis Associated Bacteria-2 (BVAB-2) and Megasphaera-1 VALERIE SPECIES DNA Not detected (qualifier value) Valerie species not detected include: C. albicans, C. tropicalis, C. parapsilosis or C. dubliniensis VALERIE KRUSEI DNA Not detected (qualifier value) No Valerie krusei detected VALERIE GLABRATA DNA Not detected (qualifier value) No Valerie glabrata detected TRICHOMONAS VAG DNA Not detected (qualifier value) No Trichomonas vaginalis detected NOTE BD MAX Vaginal Panel has not been evaluated for patients under 18 years old. Results for these patients should be reviewed and assessed in accordance with clinical presentation to determine patient diagnosis. Normal [facility] Comment on above: Performed By: #### V PPCR #### [facility] ([id number]) [address] [place] [address], [address] [place] [address] XR Spine Lumbosacral 2 or 3 Viewson 11-05-2023 XR Spine Lumbosacral 2 or 3 Views EXAMINATION: XR Spine Lumbosacral 2 or 3 Views HISTORY: Other (please specify), postop COMPARISON: 06/07/2023, 10/18/2023 FINDINGS: BONES: Posterior decompression bilateral transpedicular fusion L4-L5. Normal alignment with no acute fracture or spondylolisthesis. No mechanical failure. Moderate spondylosis and facet osteoarthropathy DISC SPACES: Normal. No significant disc height narrowing, subluxation, or endplate abnormality. PARASPINOUS: Negative. No paraspinous abnormality is seen. OTHER: Wires project over the L4 vertebral body. Fusiform aneurysm of the distal aorta measuring 4 cm on the lateral projection IMPRESSION: L4-5 fusion 4 cm aortic aneurysm Final Dictated by: Jose Ho MD Dictated DT/TM: 11/05/2023 6:57 am Signed by: Jose Ho MD Signed (Electronic Signature): 11/05/2023 6:59 am (If Report Is Signed, Electronically Signed in Other Vendor System) Normal [facility] Neurosurgery Office/Clinic N oteon 10-31-2023 Neurosurgery Office/Clinic Note Chief Complaint 2 week post op - L4-5 [place], PSF, TLIF Physical Exam Additional Vitals No qualifying data available. Assessment/Plan 1. COPD with emphysema Ordered: XR Spine Lumbosacral 2 or 3 Views 2. Spondylolisthesis, lumbar region Ordered: XR Spine Lumbosacral 2 or 3 Views 3. Spinal instability, lumbar Ordered: XR Spine Lumbosacral 2 or 3 Views 4. S/P lumbar fusion Ordered: XR Spine Lumbosacral 2 or 3 Views Primary provider: anthony mckinley Referring provider: [] Other providers: emily bermeo (pulmonology) Current history: 77-year-old patient with a multitude of medical difficulties including hypertension, stroke,morbid obesity with body mass index of 40 chronic nicotine abuse, hypercholesterolemia , COPD, atrial fibrillation with chronic anticoagulation who [...] order to have anesthetic for steroid injections Today's visit: Patient returns to the neurosurgery clinic 2 weeks following L4-5 posterior spinal fusion (October 22, 2023) with the use of bone morphogenetic protein. The surgery was uncomplicated and she was able to be discharged home in an appropriate time. She indicates that she was doing well until Monday when she attempted to clean herself after a bowel movement and noted onset of predominantly left-sided gluteal pain which is gradually improved. Overall, she believes that the surgery has been beneficial and that her preoperative pain has resolved and she has only been left with this pain in her gluteal region that is gradually improving. Denies any paresthesias or numbness. No radicular pain. Denies any fevers or chills. Eating well. Continues to smoke twice a day due to her moves Constitutional: [No fevers, chills, sweats] Eye: [No [...] range of motion: Modestly restricted in extension Incision clean, dry, intact. No evidence of erythema, induration or drainage. [place] were removed without incident and fresh dressing applied Neuro: mental status: awake, alert, appropriate with [...] hunched posture Assessment/plan: Elderly female with an assemblage of medical difficulties that challenge consideration of [...] Sacroiliac imaging which reveals minimal sacroiliac disease CT scan lumbar spine for surgical planning to ensure adequate radicular anatomy as well as better assessment of pain generators such as vacuum disc phenomenon vacuum facet phenomenon for identifying how many levels may require intervention. This has been completed and reveals multilevel degenerat (more content not included)... [facility] Provider Letteron 10-31-2023 Provider Letter Anthony Mckinley MD [address] [address] Re: Gretchen Tan Date of Visit: 10/31/2023 Dear Anthony Mckinley MD, Let me know if you have any questions or concerns. Sincerely, MANDY Monae MD Providers: Emily Bermeo D.O. The following document(s) were included in the letter: October 31, 2023 16:20:01 EDT - (10/31/2023) Neurosurgery Office Visit Note [facility] Inpatient Clinical Summaryon 10-20-2023 Inpatient Clinical Summary [facility] [address] [place] [address] [address] Clinical Summary Person Information Name: Gretchen Tan Age: 78 Years : 1945 Sex: Female PCP: Arlen SYKES, Anthony Roth Marital Status: Phone: PCP: Race: White Ethnicity: Not or Language: Marshallese Visit Id: Visit Reason: Speciality: Acuity: Enc Type: Inpatient Med Service: Surgery Arrival: 10/18/2023 06:10:09 Discharge: Dispo Type: Address: [address] [place] [id number] Diagnosis: 1:Atrial fibrillation; 2:COPD with emphysema; 3:Morbid obesity with BMI of 40.0-44.9, adult; 4:Spondylolisthesis, lumbar region; 5:Spinal instability, lumbar; S/P lumbar fusion Discharged To: Home Treatments: Devices/Equipment: Professional Skilled Services: Special Services and Community Resources: Mode of Discharge Transportation: Discharge Orders Allergies No Known Medication Allergies Nickel (Blisters) (Itching all over) Functional Status: Sensory Deficits: None History of Falls: None Mobility Assistance Prior to Admission: ADLs: Minimal assistance Gait: Steady, Slow Ambulation Assist: Assistive Device: Gait belt, Walker Special Orthopedic Devices: Current Level of Assistance for Self-Care/Mobility: Cognitive Status: Orientation: Orientation Assessment Oriented x 4 Level of Consciousness: Alert Characteristics of Speech: Clear Aspiration Risk: None Affect/Behavior: Appropriate, Calm, Cooperative Laboratory or Other Results This Visit (last charted value for your 10/18/2023 visit) Hematology 10/19/2023 3:40 AM WBC: 14.0 x10 RBC: 3.71 x10 Neutro Auto: 83.9 % -- Normal range between ( 47.2 and 70.8 ) Lymph Auto: 10.5 % -- Normal range between ( 27.2 and 40.8 ) Parker Auto: 5.5 % -- Normal range between ( 3.7 and 11.9 ) Eos Auto: 0.0 % -- Normal range between ( 0.0 and 5.4 ) Basophil Auto: 0.1 % -- Normal range between ( 0.0 and 1.5 ) Baso Absolute: 0.0 x10 MCV: 94.1 fL -- Normal range between ( 80.0 and 100.0 ) MCHC: 32.3 % -- Normal range between ( 31.0 and 37.0 ) Lymph Absolute: 1.5 x10 Hct: 34.9 % -- Normal range between ( 36.0 and 46.0 ) Parker Absolute: 0.8 x10 MCH: 30.4 pg -- Normal range between ( 27.0 and 35.0 ) Neutro Absolute: 11.7 x10 Hgb: 11.3 g/dL -- Normal range between ( 12.0 and 16.0 ) Mean Platelet Volume: 8.0 fL -- Normal range between ( 6.7 and 10.6 ) Platelet: 222 x10 Eos Absolute: 0.0 x10 RDW: 13.4 % -- Normal range between ( 11.6 and 14.8 ) Chemistry 10/19/2023 3:40 AM Creatinine Lvl: 0.91 mg/dL -- Normal range between ( 0.44 and 1.03 ) BUN: 15 mg/dL -- Normal range between ( 8 and 26 ) Glucose Lvl: 130 mg/dL -- Normal range between ( 70 and 99 ) Potassium Lvl: 4.7 mmol/L -- Normal range between ( 3.4 and 4.8 ) Sodium Lvl: 134 mmol/L -- Normal range between ( 133 and 142 ) Calcium Lvl: 8.8 mg/dL -- Normal range between ( 8.5 and 10.3 ) Chloride: 106 mmol/L -- Normal range between ( 98 and 110 ) CO2: 21 mmol/L -- Normal range between ( 22 and 32 ) Anion Gap: 7 -- Normal range between ( 4 and 12 ) Estimated GFR: >60 mL/min/1.73m? BUN Crea Ratio: 16.5 -- Normal range between ( 10.0 and 20.0 ) Blood Bank 09/29/2023 9:17 AM ABO/Rh: AB POS Antibody Screen: Negative ABSC Diagnostic Radiology 10/18/2023 11:50 AM XR Spine Lumbosacral 4 Views + in OR: XR Spine Lumbosacral 4 Views + in OR Measurements: Height: Weight: Blood Pressure: 117 mmHg / BMI: Respiratory: Respirations: Unlabored Respiratory Symptoms: Cough Cardiovascular: Heart Sounds: Heart Rhythm: Regular Gastrointestinal: GI Symptoms: Bowel Sounds: Present Vital Signs: Temp Axillary: Temp Temporal Artery: 36.6 degC Temp Oral: 36.6 degC Temp Rectal: Apical Heart Rate: Peripheral Pulse Rate: 54 bpm Heart Rate: 62 bpm Respiratory Rate: 16 br/min Diet Diet: Feeding Tolerance: Appetite: Good Malik Assessment: 20 Procedures Colonoscopy (2018) Cardiac catheterization, left heart (2016) Immunizations No Immunizations Documented This Visit HERE ARE THE MEDICATION CHANGES THAT OCCURRED DURING YOUR HOSPITAL STAY New Medications [facility], [address] [place], [place] [id number], [phone] ascorbic acid (ascorbic acid 500 mg oral tablet, chewable) 1 Tabs Oral (given by mouth) every 8 hours for 90 Days. Refills: 0. Last Dose: baclofen (baclofen 5 mg oral tablet) 1 Tabs Oral (given by mouth) every 8 hours standard times for 7 Days. Refills: 0. Last Dose: cephalexin (Keflex 500 mg oral capsule) 1 Capsules Oral (given by mouth) every 6 hours for 3 Days. Refills: 0. Last Dose: docusate (docusate sodium 100 mg oral capsule) 1 Capsules Oral (given by mouth) 2 times a day for 7 Days. Refills: 0. Last Dose:__ (more content not included)... [facility] Neurosurgery Progress Noteon 10-20-2023 Neurosurgery Progress Note Objective Vitals & Measurements T: 36.7 ?C (Oral) HR: 64 (Peripheral) RR: 16 BP: 118/74 SpO2: 98% HT: 158 cm WT: 104.1 kg BMI: 38.46 Additional Vitals No qualifying data available. Lab Results Labs (Last four charted values) WBC H 14.0 (OCT 18) Hgb L 11.3 (OCT 18) Hct L 34.9 (OCT 18) Plt 222 (OCT 18) Na 134 (OCT 18) K 4.7 (OCT 18) CO2 L 21 (OCT 18) Cl 106 (OCT 18) Cr 0.91 (OCT 18) BUN 15 (OCT 18) Microbiology - Current Encounter No qualifying data available. Diagnostic Results Diagnostic Radiology XR Spine Lumbosacral 4 Views + in OR 10/18/23 17:31:52 IMPRESSION: Intraprocedural/intr aoperative fluoroscopy was performed. Correlate with procedural note for additional information. Signed By: Dion Silva MD Medications Inpatient ascorbic acid, 500 mg, Oral, q8hr baclofen, 5 mg, Oral, x5wk-[id number] Times bisacodyl, 10 mg= 1 supp, Rectal, Daily, PRN ceFAZolin, 2 g= 50 mL, IV Piggyback, q8hr docusate sodium, 100 mg, Oral, BID ferrous sulfate, 325 mg, Oral, BID hydrALAZINE, 10 mg= 0.5 mL, IV Push, q10min, PRN labetalol, 10 mg= 2 mL, IV Push, q10min, PRN lisinopril, 10 mg, Oral, Daily magnesium oxide, 400 mg, Oral, BID metoprolol tartrate, 25 mg, Oral, BID multivitamin with minerals, 1 tabs, Oral, Daily nystatin 100,000 units/g topical cream, 1 za, Topical, BID, PRN omeprazole, 20 mg, Oral, Daily ondansetron, 4 mg= 2 mL, IV Push, q6hr, PRN oxyCODONE-acetaminop hen 5 mg-325 mg oral tablet, 1 tabs, Oral, q4hr, PRN oxyCODONE-acetaminop hen 5 mg-325 mg oral tablet, 2 tabs, Oral, q4hr, PRN rosuvastatin, 10 mg, Oral, Daily sodium chloride 0.9% injectable solution, 10 mL, IV Push, As Indicated, PRN Assessment/Plan 1. Atrial fibrillation 2. COPD with emphysema 3. Morbid obesity with BMI of 40.0-44.9, adult 4. Spondylolisthesis, lumbar region 5. Spinal instability, lumbar Subjective: Patient states that she had episode of significant low back pain last evening and with repositioning, pain resolved No radicular pain and denies paresthesias or numbness States that she is walking about without difficulty Still no bowel movement Eating well Denies headache, nausea, vomiting, chest pain, shortness of breath, GI distress Objective: General: Pleasant and cooperative, jovial lungs: clear; performs deep nasal breathing exercises well abdomen: soft, nontender, protuberant but normal active bowel sounds incision: dressed, dry; Hemovac drain output 40 mL / 4 hours Neuro: mental status: awake, alert, appropriate with normal mental status exam cranial nerves: No ophthalmoplegia, equal facies, no evident lower cranial neuropathy motor: 5/5 power all groups gait: [] Assessment/plan: Postoperative day 2 status post decompression and stabilization L4-5 for lumbar spondylolisthesis, lumbar spinal instability, stenosis with intractable radiculopathy and back pain Patient appears to be doing well Continue with standard postoperative management mobilization with physical therapy and occupational therapy with goal of discharge to home later this afternoon or tomorrow morning Hep-Lock; dietary intake good oral pain regimen provides effective pain control Continue DVT prophylaxis through external devices-patient not eligible for chemoprophylaxis secondary to risk of bleeding Continue IV antibiotics until surgical drains removed for prophylaxis Vitamins and oxygen for wound healing Bowel program for postoperative narcotic-induced ileus-no bowel movement as yet; repeat suppository this a.m. Incentive spirometry educated and encouraged for postoperative atelectasis If patient has bowel movement this morning and is cleared by therapy modalities and she believes she is ready for home-going, can likely discharge home this afternoon provided she also has sufficiently small output from her surgical drains-surgeon will reassess this afternoon Electronically signed by Sharron Marquez III, MD 10/20/23 05:35 EDT Patient is interested in going home Her only complaint is that she has not had a bowel movement today Otherwise, patient believes she has good pain control No radiculopathy or paresthesias Eating well Surgical drain output 40 mL / 4 hours. The surgical dressing is removed and incision is clean, dry, intact. Surgical drain removed without incident and fresh dressing applied Patient will receive suppository now and then be given 1 to 2 hours in order to have bowel movement. If no bowel movement, she may still discharge to home and if she has not had bowel movement by Monday, can use enema obtained [id number] at her pharmacy. Patient is agreeable to this Home-going instruction provided verbally and computer-generated education form-patient grateful and all questions answered to her satisfaction Electronically signed by Jimmy GALVAN MD, Sharron Mora (more content not included)... Normal [facility] .eGFRon 10-19-2023 GFR/1.73 sq M.predicted MDRD (S/P/Bld) [Vol rate/Area] mL/min/{1.73_m2} Normal >=60 [facility] Comment on above: Result Comment: [facility] have implemented the eGFR calculation approach that does not have a coefficient for race and that conforms to the NKF-ASN Task Force Recommendations. Stages of Chronic Kidney Disease GFR Stage 3a Mild to moderate loss of kidney function 59 to 45 Stage 3b Moderate to severe loss of kidney function 44 to 33 Stage 4 Severe loss of kidney function 29 to 15 Stage 5 Kidney failure Less than 15 GFR calculated using the CKD-Epi Creatinine Equation (2020): eGFR = 142 X min(SCr/?, 1)? X max(SCr /?, 1)-1.200 X 0.9938Age X 1.012 [if female] Abbreviations/Units: eGFR (estimated glomerular filtration rate) = mL/min/1.73 m2 SCr (standardized serum creatinine) = mg/dL ? = 0.7 (females) or 0.9 (males) ? = -0.241 (females) or -0.302 (males) min = indicates the minimum of SCr/? or 1 max = indicates the maximum of SCr/? or 1 Age = years Performed By: #### E GFR #### [address] [address] Basic Metabolic Profileon Anion gap [Moles/Vol] 7 mmol/L Normal 4-12 [facility] Comment on above: Performed By: #### C OMP #### [address] [address] Calcium [Mass/Vol] 8.8 mg/dL Normal 8.5-10.3 [facility] Comment on above: Performed By: #### C OMP #### [address] [address] Chloride [Moles/Vol] 106 mmol/L Normal 98-110 [facility] Comment on above: Performed By: #### C OMP #### [address] [address] CO2 [Moles/Vol] 21 mmol/L Low 22-32 [facility] Comment on above: Performed By: #### C OMP #### [address] [address] Creatinine [Mass/Vol] 0.91 mg/dL Normal 0.44-1.03 [facility] Comment on above: Performed By: #### C OMP #### [address] [address] Glucose [Mass/Vol] 130 mg/dL High 70-99 [facility] Comment on above: Performed By: #### C OMP #### [address] [address] Potassium [Moles/Vol] 4.7 mmol/L Normal 3.4-4.8 [facility] Comment on above: Performed By: #### C OMP #### [address] [address] Sodium [Moles/Vol] 134 mmol/L Normal 133-142 [facility] Comment on above: Performed By: #### C OMP #### [address] [address] Urea nitrogen [Mass/Vol] 15 mg/dL Normal 8-26 [facility] Comment on above: Performed By: #### C OMP #### [address] [address] Urea nitrogen/Creatinine [Mass ratio] 16.5 mg/mg Normal 10.0-20.0 [facility] Comment on above: Performed By: #### C OMP #### [address] [address] CBC w/ Diffon 10-19-2023 Erythrocyte distribution width (RBC) [Ratio] 13.4 % Normal 11.6-14.8 [facility] Comment on above: Performed By: #### C BC ####[address] [address] Hematocrit (Bld) [Volume fraction] 34.9 % Low 36.0-46.0 [facility] Comment on above: Performed By: #### C BC ####[address] [address] Hemoglobin (Bld) [Mass/Vol] 11.3 g/dL Low 12.0-16. 0 [facility] Comment on above: Performed By: #### C BC ####[address] [address] MCH (RBC) [Entitic mass] 30.4 pg Normal 27.0-35.0 [facility] Comment on above: Performed By: #### C BC ####[address] [address] MCHC 32.3 % Normal 31.0-37.0 [facility] Comment on above: Performed By: #### C BC ####[address] [address] MCV (RBC) [Entitic vol] 94.1 fL Normal 80.0-100.0 [facility] Comment on above: Performed By: #### C BC ####[address] [address] Platelet 222 x10*3/mcL Normal 150-450 [facility] Comment on above: Performed By: #### C BC ####[address] [address] Platelet mean volume (Bld) [Entitic vol] 8.0 fL Normal 6.7-10.6 [facility] Comment on above: Performed By: #### C BC ####[address] [address] RBC 3.71 x10*6/mcL Low 3.80-5.20 [facility] Comment on above: Performed By: #### C BC ####[address] [address] WBC 14.0 x10*3/mcL High 4.5-11.0 [facility] Comment on above: Performed By: #### C BC ####[address] [id number] Diff Autoon 10-19-2023 Baso Absolute 0.0 x10*3/mcL Normal 0.0-0.2 [facility] Comment on above: Performed By: #### E GFR #### [address] [address] Basophils/100 WBC (Bld) 0.1 % Normal 0.0-1.5 [facility] Comment on above: Performed By: #### E GFR #### [address] [address] Eos Absolute 0.0 x10*3/mcL Normal 0.0-0.4 [facility] Comment on above: Performed By: #### E GFR #### [address] [address] Eosinophils/100 WBC (Bld) 0.0 % Normal 0.0-5.4 [facility] Comment on above: Performed By: #### E GFR #### [address] [address] Lymph Absolute 1.5 x10*3/mcL Normal 1.0-4.8 [facility] Comment on above: Performed By: #### E GFR #### [address] [address] Lymphocytes/100 WBC (Bld) 10.5 % Low 27.2-40.8 [facility] Comment on above: Performed By: #### E GFR #### [address] [address] Parker Absolute 0.8 x10*3/mcL Normal 0.1-1.1 [facility] Comment on above: Performed By: #### E GFR #### [address] [address] Monocytes/100 WBC (Bld) 5.5 % Normal 3.7-11.9 [facility] Comment on above: Performed By: #### E GFR #### [address] [address] Neutro Absolute 11.7 x10*3/mcL High 1.8-7.7 [facility] Comment on above: Performed By: #### E GFR #### [address] [address] Neutro Auto 83.9 % High 47.2-70.8 [facility] Comment on above: Performed By: #### E GFR #### [address] [address] Neurosurgery Progress Noteon 10-19-2023 Neurosurgery Progress Note Objective Vitals & Measurements T: 36.8 ?C (Oral) HR: 62 (Monitored) RR: 16 BP: 126/67 SpO2: 97% HT: 158 cm WT: 96.3 kg (Dosing) WT: 96 kg BMI: 38.46 Additional Vitals No qualifying data available. Lab Results Labs (Last four charted values) WBC H 14.0 (OCT 18) Hgb L 11.3 (OCT 18) Hct L 34.9 (OCT 18) Plt 222 (OCT 18) Na 134 (OCT 18) K 4.7 (OCT 18) CO2 L 21 (OCT 18) Cl 106 (OCT 18) Cr 0.91 (OCT 18) BUN 15 (OCT 18) Microbiology - Current Encounter No qualifying data available. Diagnostic Results Diagnostic Radiology XR Spine Lumbosacral 4 Views + in OR 10/18/23 17:31:52 IMPRESSION: Intraprocedural/intr aoperative fluoroscopy was performed. Correlate with procedural note for additional information. Signed By: Ricardo SYKES, Dion Snowden Medications Inpatient ascorbic acid, 500 mg, Oral, q8hr baclofen, 5 mg, Oral, [id number] Times bisacodyl, 10 mg= 1 supp, Rectal, Daily, PRN ceFAZolin, 2 g= 50 mL, IV Piggyback, q8hr docusate sodium, 100 mg, Oral, BID Dulcolax Laxative, 10 mg= 1 supp, Rectal, Once ferrous sulfate, 325 mg, Oral, BID hydrALAZINE, 10 mg= 0.5 mL, IV Push, q10min, PRN labetalol, 10 mg= 2 mL, IV Push, q10min, PRN lisinopril, 10 mg, Oral, Daily magnesium oxide, 400 mg, Oral, BID metoprolol tartrate, 25 mg, Oral, BID multivitamin with minerals, 1 tabs, Oral, Daily nystatin 100,000 units/g topical cream, 1 za, Topical, BID, PRN omeprazole, 20 mg, Oral, Daily ondansetron, 4 mg= 2 mL, IV Push, q6hr, PRN oxyCODONE-acetaminop hen 5 mg-325 mg oral tablet, 1 tabs, Oral, q4hr, PRN oxyCODONE-acetaminop hen 5 mg-325 mg oral tablet, 2 tabs, Oral, q4hr, PRN rosuvastatin, 10 mg, Oral, Daily sodium chloride 0.9% injectable solution, 10 mL, IV Push, As Indicated, PRN Assessment/Plan 1. Atrial fibrillation 2. COPD with emphysema 3. Morbid obesity with BMI of 40.0-44.9, adult 4. Spondylolisthesis, lumbar region 5. Spinal instability, lumbar Orders: ascorbic acid, 500 mg, Oral, Tab-Chew, q8hr, First Dose: 10/18/23 13:00:00 EDT, Dispense From Location: [address], 10/18/23 12:51:00 EDT baclofen, 5 mg, Oral, Tab, [id number] Times, First Dose: 10/18/23 14:00:00 EDT, Dispense From Location: [address], 10/18/23 12:51:00 EDT bisacodyl, 10 mg, Rectal, Supp, Daily, PRN constipation, First Dose: 10/18/23 12:51:00 EDT, Dispense From Location: [address], 10/18/23 12:51:00 EDT bisacodyl, 10 mg, Rectal, Supp, Once, First Dose: 10/19/23 5:09:00 EDT, Stop Date: 10/19/23 5:09:00 EDT, Dispense From Location: [address], 10/19/23 5:09:00 EDT ceFAZolin, 2 g, IV Piggyback, Soln-IV, q8hr, infuse over 30 minutes, First Dose: 10/18/23 12:51:00 EDT, Dispense From Location: [address], Prophylaxis- Pre/Post-Op, 10/18/23 12:51:00 EDT docusate, 100 mg, Oral, Cap, BID, First Dose: 10/18/23 21:00:00 EDT, Dispense From Location: [address], 10/18/23 12:51:00 EDT ferrous sulfate, 325 mg, Oral, Tab, BID, First Dose: 10/18/23 21:00:00 EDT, Dispense From Location: [address], 10/18/23 12:51:00 EDT hydrALAZINE, 10 mg, IV Push, Injection, q10min, PRN hypertension, First Dose: 10/18/23 12:51:00 EDT, Dispense From Location: [address], 10/18/23 12:51:00 EDT labetalol, 10 mg, IV Push, Injection, q10min, PRN hypertension, First Dose: 10/18/23 12:51:00 EDT, Dispense From Location: [address], 10/18/23 12:51:00 EDT lisinopril, 10 mg, Oral, Tab, Daily, First Dose: 10/18/23 9:00:00 EDT, Dispense From Location: Main OR ([facility]), 10/18/23 7:15:00 EDT magnesium oxide, 400 mg, Oral, Tab, BID, First Dose: 10/19/23 9:00:00 EDT, Dispense From Location: [address], 10/19/23 5:17:00 EDT metoprolol, 25 mg, Oral, Tab, BID, First Dose: 10/18/23 9:00:00 EDT, Dispense From Location: Main OR ([facility]), 10/18/23 7:16:00 EDT multivitamin with minerals, 1 tabs, Oral, Tab, Daily, First Dose: 10/19/23 9:00:00 EDT, Dispense From Location: [address], 10/18/23 12:51:00 EDT nystatin topical, 1 za, Topical, Cream, BID, PRN other (see comment), First Dose: 10/18/23 7:25:00 EDT, Dispense From Location: [facility], 10/18/23 6:15:00 EDT omeprazole, 20 mg, Oral, Cap-DR, Daily, First Dose: 10/19/23 7:00:00 EDT, Dispense From Location: Main OR (), 10/18/23 7:17:00 EDT ondansetron, 4 mg, IV Push, Injection, q6hr, PRN nausea/vomiting, First Dose: 10/18/23 12:51:00 EDT, Dispense From Location: [address], 10/18/23 12:51:00 EDT oxyCODONE-acetaminop hen, 2 tabs, Oral, Tab, q4hr, PRN severe pain [7-10 on pain scale], First Dose: 10/18/23 12:51:00 EDT, Dispense From Location: [id number], 10/18/23 12:51:00 EDT oxyCODONE-acetaminop hen, 1 tabs, Oral, Tab, q4hr, PRN moderate pain [4-6 on pain scale], First Dose: 10/18/23 12:51:00 EDT, Dispense From Location: [id number], 10/18/23 12:51:00 EDT rosuvastatin, 10 mg, Oral, Tab, Daily, First Dose: 10/18/23 9:00:00 EDT, Dispense From Location: Main OR ([facility]), 10/18/23 7:18:00 EDT sodium chloride, 10 mL, IV Push, Injection, As Indicated, PRN flush, Fir (more content not included)... Normal [facility] Neurosurgery Progress Noteon 10-18-2023 Neurosurgery Progress Note Subjective Patient POD#0 s/p L4-5 decompression and posterior spinal fusion with instrumentation (Medtronic Osteogrip) and use of bone morphogenetic protein (small kit). Surgery completed by Dr. Marquez secondary to lumbar spondylolisthesis L4-5 with associated lumbar instability leading to severe lumbar spinal stenosis causing intractable neurogenic claudication and lumbar radiculopathy. The patient notes some pain in her back and though finds that preoperative pain was worse than what she is currently experiencing. She denies lower extremity radicular pain, numbness, paresthesia. No headache or vision change. No nausea or vomiting. Review of Systems Constitutional: [No fevers, chills, sweats] Eye: [No recent visual problems] ENMT: [No ear pain, nasal congestion, sore throat] Respiratory: [No shortness of breath, cough] Cardiovascular: [No Chest pain, palpitations, syncope] Gastrointestinal: [No nausea, vomiting, diarrhea, bowel incontinence] Genitourinary: [No hematuria, bladder incontinence] Objective Vitals & Measurements T: 36.6 ?C (Oral) HR: 58 (Peripheral) RR: 16 BP: 122/70 SpO2: 94% HT: 158 cm WT: 96.3 kg (Dosing) WT: 96 kg BMI: 38.46 Additional Vitals No qualifying data available. Lab Results No qualifying data available Microbiology - Current Encounter No qualifying data available. Physical Exam The patient is pleasant, conversing, answering questions and following commands easily. Alert and oriented. Speech and manner are appropriate. Family at bedside The patient demonstrates normal respiratory effort. Nasal cannula in place. Patient instructed on deep breathing exercises and performed this for Dr. Marquez and this provider x 3. Upper extremity motor exam reveals 5/5/strength, symmetric bilaterally. Lower extremity motor exam reveals 5/5 strength, symmetric bilaterally. Bilateral lower extremity EPC cuffs in place Surgical drain in place with minimal output. In bed upon exam. Gait not tested. Medications Inpatient ascorbic acid, 500 mg, Oral, q8hr baclofen, 5 mg, Oral, [id number] Times bisacodyl, 10 mg= 1 supp, Rectal, Daily, PRN ceFAZolin, 2 g= 50 mL, IV Piggyback, q8hr diphenhydrAMINE, 25 mg= 0.5 mL, IV Push, q6hr, PRN docusate sodium, 100 mg, Oral, BID fentaNYL MYCOLOGY TEACHER, 300 mcg= 30 mL, IV MYCOLOGY TEACHER, [id number] Times, PRN ferrous sulfate, 325 mg, Oral, BID hydrALAZINE, 10 mg= 0.5 mL, IV Push, q10min, PRN labetalol, 10 mg= 2 mL, IV Push, q10min, PRN lisinopril, 10 mg, Oral, Daily magnesium hydroxide 8% oral suspension, 30 mL, Oral, TID metoprolol tartrate, 25 mg, Oral, BID multivitamin with minerals, 1 tabs, Oral, Daily nalbuphine, 2.5 mg= 0.25 mL, IV Push, q6hr, PRN nystatin 100,000 units/g topical cream, 1 za, Topical, BID, PRN omeprazole, 20 mg, Oral, Daily ondansetron, 4 mg= 2 mL, IV Push, q6hr, PRN oxyCODONE-acetaminop hen 5 mg-325 mg oral tablet, 1 tabs, Oral, q4hr, PRN oxyCODONE-acetaminop hen 5 mg-325 mg oral tablet, 2 tabs, Oral, q4hr, PRN rosuvastatin, 10 mg, Oral, Daily sodium chloride 0.9% injectable solution, 10 mL, IV Push, As Indicated, PRN Sodium Chloride 0.9% with KCl 20 mEq/L intravenous solution 1,000 mL, 1000 mL, IV Assessment/Plan 1. Atrial fibrillation 2. COPD with emphysema 3. Morbid obesity with BMI of 40.0-44.9, adult 4. Spondylolisthesis, lumbar region 5. Spinal instability, lumbar Patient POD#0 s/p L4-5 decompression and posterior spinal fusion with instrumentation (Medtronic Osteogrip) and use of bone morphogenetic protein (small kit). Surgery completed by Dr. Marquez secondary to lumbar spondylolisthesis L4-5 with associated lumbar instability leading to severe lumbar spinal stenosis causing intractable neurogenic claudication and lumbar radiculopathy. Advance diet as tolerated EPC cuffs in place while in bed. Ambulate with nursing later today and physical therapy to visit tomorrow. Pain control per orders. Initiate bowel program Neurosurgery to revisit tomorrow. Patient seen alongside Dr. Marquez and was in agreement with the above-mentioned plan of care. Electronically signed by Giana De León PA-C 10/18/23 13:54 EDT Agree Patient instructed and performs well deep nasal breathing exercises and family instructed to prompt patient to perform these Continue with standard postoperative management Reassess in a.m. Electronically signed by Jimmy GALVAN MD, Sharron Fox 10/18/23 13:58 EDT Normal [facility] Operative Reporton 4 Operative Report Indication for Surgery Intractable neurogenic claudication and lumbar radiculopathy; lumbar spondylolisthesis L4-5 with associated lumbar instability; severe lumbar spinal stenosis Preoperative Diagnosis SEVER SPINAL STENOSIS; LUMBSAR SPONDYLOLISTHESIS, INSTABILITY Postoperative Diagnosis Same Operation L4-5 bilateral decompressive laminal foraminotomies with posterior lateral arthrodesis using intertransverse technique L4-5 bilaterally with locally harvested autograft from decompression as well as Medtronic infuse small kit due to high risk of pseudoarthrosis in the light of chronic nicotine abuse; instrumentation L4-5 using Medtronic Osteogrip screws 6.5 mm in diameter; frameless stereotactic navigation for hardware placement using [employer] O-arm Surgeon(s) Jimmy GALVAN MD, Sharron Fox (Surgeon - Primary) Mva Reactor Operator Giana De León PA-C (Incident Response Consultant) Anesthesia General Geoffrey SYKES, Ly Dorsey (Cardroom Worker) Melissa Sterling (Provider) Estimated Blood Loss 300.0 mL Urine Output 230.0 mL Findings Stable SSEP and EMG monitoring and stable MEP monitoring Specimen(s) None-grossly normal posterior elements Complications None Technique History: Elderly female with an assemblage of medical difficulties that challenge consideration of [...] Sacroiliac imaging which reveals minimal sacroiliac disease CT scan lumbar spine for surgical planning to ensure adequate radicular anatomy as well as better assessment of pain generators such as vacuum disc phenomenon vacuum facet phenomenon for identifying how many levels may require intervention. This has been completed and reveals multilevel degenerative disc disease with facet arthropathy at L4-5 which is quite prominent and sagittally oriented facets at L4-5; modest amount of vacuum disc phenomenon at L5-S1 with considerable facet arthropathy at that level as well. No vacuum facet phenomenon or vacuum disc phenomenon at cephalad levels and no evidence of spondylolysis MRI cervical spine on behalf of hyperreflexia which could be indicative of cervical spondylotic myelopathy/cord compression. Completed but unavailable for review by surgeon Pulmonology assessment. 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 This has been completed and repeat PFTs are pending Patient continues to have pain that has been submitted to essentially all opportunities of conservative management including pain management. As such, surgical consideration is reasonable. That said, there is no question that the patient is escalated risk of intervention due to her COPD, continued nicotine use through cigarette smoking though this has reduced considerably, and obesity. The patient is educated that at this time, surgeon would consider L4-5 arthrodesis to control the most overall of her spinal disease which would not only ensure widely patent spinal canal but control mechanical pain such as facet mediated pain. Patient is educated regarding the surgical technique and estimated length of stay in the hospital 3 days. She is also made aware of the postoperative recovery and expected convalescence over 4 and half months. She is educated regarding the risk of procedure including the risk of procedure including infection, bleeding, CSF leak, neurologic injury, neuropathic pain syndrome, peridural fibrosis, failure for improvement, incomplete benefit, new neurologic deficit, spinal instability, coma, , paralysis, deep venous thrombosis, pulmonary embolism as well as pseudoarthrosis, adjacent segment disease, hardware failure or pullout, ischemic optic neuropathy with permanent blindness, reoperation either delayed or acute. It is particular highlighted the possibility of wound infection, incomplete benefit or no benefit, as well as medical complications attendant to her COPD or relative hypercoagulable state during the perioperative period which would lead to DVT/pulmonary embolus. The possibility of myocardial infarction or stroke is also pointed out. She is made aware of the possibility of reop (more content not included)... Normal [facility] Provider Letteron 10-18-2023 Provider Letter Anthony Mckinley MD [address] [facility] [address] [place] [address] Re: Gretchen Sheyla Date of Visit: 10/18/2023 Dear Anthony Mckinley MD, Let me know if you have any questions or concerns. Sincerely, MANDY Monae MD Providers: The following document(s) were included in the letter: October 18, 2023 12:05:17 EDT - (10/18/2023) Neurosurgery operative note Normal [facility] XR Spine Lumbosacral 4 Views + in ORon 10-18-2023 XR Spine Lumbosacral 4 Views + in OR XR Spine Lumbosacral 4 Views + in OR TECHNIQUE : Intraoperative fluoroscopy was performed without a radiologist present. HISTORY: posterior lumbar spine fusion with navigation in OR FINDINGS: Fluoroscopy and coned beam CT was performed without a radiologist present. Cumulative dose: 13.49 mGy. Total fluoroscopic time: 4.97 seconds. IMPRESSION: Intraprocedural/intr aoperative fluoroscopy was performed. Correlate with procedural note for additional information. Final Dictated by: Dion Silva MD Dictated DT/TM: 10/18/2023 5:31 pm Signed by: Dion Silva MD Signed (Electronic Signature): 10/18/2023 5:31 pm (If Report Is Signed, Electronically Signed in Other Vendor System) Normal [facility] MR CERVICAL SPINE WO CONTon 10-17-2023 MR CERVICAL SPINE WO CONT MR CERVICAL SP INE WO CONT CLINICAL INFORMATION: Hyperreflexia TECHNIQUE: MR CERVICAL SPINE WO CONT The sequence multiplanar imaging of the cervical spine was obtained. There is no cervical malalignment or compression deformity. Endplates appear intact. Inversion recovery images show normal bone marrow signal without edema, contusion, fracture. Facets are aligned. Cerebellar tonsils are normal position. The C2-3 and C3-4 levels are unremarkable. Degenerative changes produce mild neural foraminal narrowing at C4-C5. At the C5-6 level there is broad-based disc osteophyte complex which produces moderate to severe central canal stenosis and bilateral neural foraminal narrowing. At the C6-7 level broad-based disc osteophyte complex again produces moderate to severe central canal stenosis and bilateral neural foraminal narrowing. C7-T1 level is unremarkable. No upper thoracic abnormality appreciated. Chronic ischemic changes noted within the prema. IMPRESSION: Disc osteophyte complex produces moderate to severe central canal stenosis and bilateral neural foraminal narrowing at C5-6 and C6-7. Finalized by Miller Paez MD on 10/17/2023 11:52 AM Normal [facility] Neurosurgery Office/Clinic N oteon 10-12-2023 Neurosurgery Office/Clinic Note Chief Complaint re-up for L4-5 History of Present Illness The patient is a pleasant 77-year-old female with history of hypertension, stroke, obesity with body mass index of 39, nicotine abuse, hypercholesterolemia , COPD and atrial fibrillation with chronic anticoagulation who returns to the neurosurgical office for a preoperative visit. She is currently scheduled for an L4-5 decompression and posterior spinal fusion with instrumentation and possible TLIF by Dr. Marquez 10/18/2023. She has received pulmonary clearance 09/27/[address] Emily Bermeo, medical clearance 10/03/[address] Charlotte Ribeiro and cardiac clearance by Dr. Simon 09/15/2023. The patient has completed preoperative lab work 09/29/2023 within normal limits and hemoglobin A1c 6.0. Preoperative chest x-ray 09/29/2023 reveals no acute cardiopulmonary process. EKG 09/29/2023 reveals sinus bradycardia. The patient has discontinued her 81 mg ASA. She took her Eliquis this morning though will discontinue following as cardiology recommended discontinuation of Eliquis 5 days prior to surgery. The patient has attempted to discontinue nicotine though is still currently smoking approximately 2 to 3 cigarettes/day. She has been made aware by both this office and pulmonology of the risks of ongoing nicotine use both for general health as well as in the preoperative state which can lead to increased risk of PR, CVA, DVT as well as risk of poor wound healing and pseudoarthrosis. She will continue to decrease nicotine use with ultimate cessation. Patient denies any significant change in symptom profile since the time of her last visit. She notes chronic lumbosacral pain which is worse with activity including standing and walking. She cannot walk greater than a block due to back pain though is able to walk further distance within the grocery store by leaning on a cart. She denies lower extremity radicular pain, numbness, paresthesia or overt weakness. She denies cervicalgia though does note an odd sensation in the upper arms bilaterally only when sitting playing games on her tablet. She denies any upper extremity radicular pain, numbness, paresthesia or weakness. She denies any difficulty with fine motor skills of the hands. She denies changes to bowel or bladder habits; no saddle paresthesia. Previous imaging: Flexion extension radiographs which demonstrate instability at L4-5 and vacuum disc phenomenon at L5-S1 Bone density testing which has normal bone density for age Scoliosis flatplate Long cassette standing x-rays which revealed minimal levoscoliosis and approximately 5 cm of positive sagittal imbalance Sacroiliac imaging which reveals minimal sacroiliac disease CT scan lumbar spine for surgical planning to ensure adequate radicular anatomy as well as better assessment of pain generators such as vacuum disc phenomenon vacuum facet phenomenon for identifying how many levels may require intervention. This has been completed and reveals multilevel degenerative disc disease with facet arthropathy at L4-5 which is quite prominent and sagittally oriented facets at L4-5; modest amount of vacuum disc phenomenon at L5-S1 with considerable facet arthropathy at that level as well. No vacuum facet phenomenon or vacuum disc phenomenon at cephalad levels and no evidence of spondylolysis MRI cervical spine on behalf of hyperreflexia which could be indicative of cervical spondylotic myelopathy/cord compression. Completed but unavailable for review by surgeon [1] Review of Systems Constitutional: [No fevers, chills, sweats] Eye: [No recent visual problems] ENMT: [No ear pain, nasal congestion, sore throat] Respiratory: [No shortness of breath, cough] Cardiovascular: [No Chest pain, palpitations, syncope] Gastrointestinal: [No nausea, vomiting, diarrhea, bowel incontinence] Genitourinary: [No hematuria, bladder incontinence] Physical Exam Vitals & Measurements HR: 54 (Peripheral) BP: 122/64 HT: 157.5 cm WT: 96.4 kg WT: 96.4 kg (Dosing) BMI: 38.86 Additional Vitals BP Position/Location: Sitting, Left arm The patient is pleasant, conversing, answering questions and following commands easily. Alert and oriented. Speech and manner are appropriate. Chest exam reveals heart sounds S1, S2 regular rate and rhythm without murmurs, clicks, rubs or gallops. The patient demonstrates normal respiratory effort and lungs clear to auscultation bilaterally without adventitious sounds. No tenderness to palpation throughout the dorsal cervical spine, paraspinal musculature, gluteal muscles or trapezial angles bilaterally. Upper extremity motor exam reveals 5/5 strength symmetric bilaterally Upper extremity deep tendon reflexes 2+ to subtly hyperreflexic. No obvious Jason sign or pectoral reflex. The patient has tenderness to palpation throughout the mid to lower lumbar spine and paraspinal musculature. Lower extremity motor exam reveals 5/5 strength, symmetric bilaterally. Lower extremity deep tendon reflexes 2+ at the pat (more content not included)... Normal [facility] Provider Letteron 04-18-2024 Provider Letter Anthony Mckinley MD [address] [facility] [address] [place] [address] Re: Gretchen Tan Date of Visit: 10/12/2023 Dear Anthony Mckinley MD, This patient was recently seen in the neurosurgical office and is planned for upcoming surgical intervention. Please see attached note for further details. Let me know if you have any questions or concerns. Sincerely, LEANNA Pederson Providers: Emily Bermeo D.O.; Gloria Mccormack M.D. The following document(s) were included in the letter: October 12, 2023 17:16:26 EDT - (10/12/2023) Neurosurgery Office Visit Note Normal [facility] .UA Microscp Aon 09-29-2023 UA Mucus Present Normal Absent [facility] Comment on above: Performed By: #### . Urinalysis Microscopic Auto #### [place] [id number] UA RBC Quant 0 /HPF Normal 0-5 [facility] Comment on above: Performed By: #### . Urinalysis Microscopic Auto #### [address] [address] UA Squepi Cells Quant 1 /HPF Normal 0-29 [facility] Comment on above: Performed By: #### . Urinalysis Microscopic Auto #### [address] [address] UA WBC Quant 0 /HPF Normal 0-5 [facility] Comment on above: Performed By: #### . Urinalysis Microscopic Auto #### [address] [address] .eGFRon 09-29-2023 GFR/1.73 sq M.predicted MDRD (S/P/Bld) [Vol rate/Area] mL/min/{1.73_m2} Normal >=60 [facility] Comment on above: Result Comment: [facility] have implemented the eGFR calculation approach that does not have a coefficient for race and that conforms to the NKF-ASN Task Force Recommendations. Stages of Chronic Kidney Disease GFR Stage 3a Mild to moderate loss of kidney function 59 to 45 Stage 3b Moderate to severe loss of kidney function 44 to 33 Stage 4 Severe loss of kidney function 29 to 15 Stage 5 Kidney failure Less than 15 GFR calculated using the CKD-Epi Creatinine Equation (2020): eGFR = 142 X min(SCr/?, 1)? X max(SCr /?, 1)-1.200 X 0.9938Age X 1.012 [if female] Abbreviations/Units: eGFR (estimated glomerular filtration rate) = mL/min/1.73 m2 SCr (standardized serum creatinine) = mg/dL ? = 0.7 (females) or 0.9 (males) ? = -0.241 (females) or -0.302 (males) min = indicates the minimum of SCr/? or 1 max = indicates the maximum of SCr/? or 1 Age = years Performed By: #### E GFR #### [place] [id number] ABO/Rhon 09-29-2023 ABO/Rh ABO/Rh: AB POS Normal [facility] Comment on above: Performed By: #### C OMP #### [address] [address] ABSC Autoon 09-29-2023 ABSC Auto Negative Normal [facility] Comment on above: Performed By: #### A SA ####[address] [address] CBC w/ Diffon 09-29-2023 Erythrocyte distribution width (RBC) [Ratio] 13.4 % Normal 11.6-14.8 [facility] Comment on above: Performed By: #### E GFR #### [address] [address] Hematocrit (Bld) [Volume fraction] 41.4 % Normal 36.0-46.0 [facility] Comment on above: Performed By: #### E GFR #### [address] [address] Hemoglobin (Bld) [Mass/Vol] 13.4 g/dL Normal 12.0-16. 0 [facility] Comment on above: Performed By: #### E GFR #### [address] [address] MCH (RBC) [Entitic mass] 30.5 pg Normal 27.0-35.0 [facility] Comment on above: Performed By: #### E GFR #### [address] [address] MCHC 32.5 % Normal 31.0-37.0 [facility] Comment on above: Performed By: #### E GFR #### [address] [address] MCV (RBC) [Entitic vol] 93.9 fL Normal 80.0-100.0 B [facility] Comment on above: Performed By: #### E GFR #### [address] [address] Platelet 238 x10*3/mcL Normal 150-450 [facility] Comment on above: Performed By: #### E GFR #### [address] [address] Platelet mean volume (Bld) [Entitic vol] 8.3 fL Normal 6.7-10.6 [facility] Comment on above: Performed By: #### E GFR #### [address] [address] RBC 4.41 x10*6/mcL Normal 3.80-5.20 [facility] Comment on above: Performed By: #### E GFR #### [address] [address] WBC 8.4 x10*3/mcL Normal 4.5-11.0 [facility] Comment on above: Performed By: #### E GFR #### [address] [address] CMPon 09-29-2023 Albumin [Mass/Vol] 4.0 g/dL Normal 3.2-4.9 [facility] Comment on above: Performed By: #### C OMP #### [address] [place] [address] Albumin/Globulin [Mass ratio] 1.2 {ratio} Normal 1.1-2 .2 [facility] Comment on above: Performed By: #### C OMP #### [address] [address] Alk Phos 67 IU/L Normal 32-91 [facility] Comment on above: Performed By: #### C OMP #### [address] [address] ALT [Catalytic activity/Vol] 14 U/L Normal 14-54 [facility] Comment on above: Performed By: #### C OMP #### [address] [address] Anion gap [Moles/Vol] 6 mmol/L Normal 4-12 [facility] Comment on above: Performed By: #### C OMP #### [address] [address] AST [Catalytic activity/Vol] 19 U/L Normal 15-41 [facility] Comment on above: Performed By: #### C OMP #### [address] [address] Bili Total 0.5 mg/dL Normal 0.3-1.2 [facility] Comment on above: Performed By: #### C OMP #### [address] [address] Calcium [Mass/Vol] 9.8 mg/dL Normal 8.5-10.3 [facility] Comment on above: Performed By: #### C OMP #### [address] [address] Chloride [Moles/Vol] 103 mmol/L Normal 98-110 [facility] Comment on above: Performed By: #### C OMP #### [address] [address] CO2 [Moles/Vol] 29 mmol/L Normal 22-32 [facility] Comment on above: Performed By: #### C OMP #### [address] [address] Creatinine [Mass/Vol] 0.84 mg/dL Normal 0.44-1.03 [facility] Comment on above: Performed By: #### C OMP #### [address] [address] Glucose [Mass/Vol] 102 mg/dL High 70-99 [facility] Comment on above: Performed By: #### C OMP #### [address] [address] Potassium [Moles/Vol] 4.2 mmol/L Normal 3.4-4.8 [facility] Comment on above: Performed By: #### C OMP #### [address] [address] Protein [Mass/Vol] 7.2 g/dL Normal 6.5-8.1 [facility] Comment on above: Performed By: #### C OMP #### [address] [address] Sodium [Moles/Vol] 138 mmol/L Normal 133-142 [facility] Comment on above: Performed By: #### C OMP #### [address] [address] Urea nitrogen [Mass/Vol] 14 mg/dL Normal 8-26 [facility] Comment on above: Performed By: #### C OMP #### [address] [address] Urea nitrogen/Creatinine [Mass ratio] 16.7 mg/mg Normal 10.0-20.0 [facility] Comment on above: Performed By: #### C OMP #### [address] [address] Diff Autoon 09-29-2023 Baso Absolute 0.0 x10*3/mcL Normal 0.0-0.2 [facility] Comment on above: Performed By: #### C OMP #### [address] [address] Basophils/100 WBC (Bld) 0.3 % Normal 0.0-1.5 [facility] Comment on above: Performed By: #### C OMP #### [address] [address] Eos Absolute 0.1 x10*3/mcL Normal 0.0-0.4 [facility] Comment on above: Performed By: #### C OMP #### [address] [address] Eosinophils/100 WBC (Bld) 1.2 % Normal 0.0-5.4 [facility] Comment on above: Performed By: #### C OMP #### [address] [address] Lymph Absolute 3.0 x10*3/mcL Normal 1.0-4.8 [facility] Comment on above: Performed By: #### C OMP #### [address] [address] Lymphocytes/100 WBC (Bld) 35.8 % Normal 27.2-40.8 [facility] Comment on above: Performed By: #### C OMP #### [address] [address] Parker Absolute 1.0 x10*3/mcL Normal 0.1-1.1 [facility] Comment on above: Performed By: #### C OMP #### [address] [address] Monocytes/100 WBC (Bld) 12.0 % High 3.7-11.9 [facility] Comment on above: Performed By: #### C OMP #### [address] [address] Neutro Absolute 4.3 x10*3/mcL Normal 1.8-7.7 [facility] Comment on above: Performed By: #### C OMP #### [address] [address] Neutro Auto 50.7 % Normal 47.2-70.8 [facility] Comment on above: Performed By: #### C OMP #### [address] [address] Hgb A1con 09-29-2023 Glucose [Mass/Vol] 126 mg/dL High 68-114 [facility] Comment on above: Result Comment: Math ematical Calc approx. The mean gluc equivalency of A1c Performed By: #### H BA1C #### [address] [address] Hgb A1c 6.0 % A1c High 4.0-5.6 [facility] Comment on above: Result Comment: Refe rence Range: 4.0 - 5.6 % Normal 5.7 - 6.4 % Pre-Diabetes > 6.5 % Diabetes Performed By: #### H BA1C #### [address] [address] PTon 09-29-2023 INR Coag (PPP) [Relative time] 1.0 {INR} Normal <=3.5 [facility] Comment on above: Result Comment: INR has no normal range. INR Therapeutic range is: 2.0-3.0 (AF, CVA, TIAs, DVT prophylaxis, acute DVT) 2.5-3.5 [facility]/emboli[facility] Performed By: #### P TINR #### [address] [address] PT Coag (PPP) [Time] 10.8 s Normal 9.2-12.0 [facility] Comment on above: Performed By: #### P TINR #### [address] [address] PTTon 09-29-2023 aPTT Coag (Bld) [Time] 25.0 s Normal 19.5-28.2 [facility] Comment on above: Performed By: #### E GFR #### [address] [address] UA w Culture if Indon 2023 Color (U) Yellow Normal Yellow [facility] Comment on above: Performed By: #### U CI #### [facility] [address] [place] [address] Ketones Ql (U) Negative Normal Negative [facility] Comment on above: Performed By: #### U CI #### [facility] [address] [place] [address] UA Blood Negative Normal Negative [facility] Comment on above: Performed By: #### U CI #### [facility] [address] [place] [address], [place] [address] UA Clarity Clear Normal Clear [facility] Comment on above: Performed By: #### U CI #### [facility] [address] [place] [address], [place] [address] UA Glucose Normal Normal Negative [facility] Comment on above: Performed By: #### U CI #### [facility] [address] [place] [address], [place] [address] UA Leukocyte Esterase Negative Normal Negative [facility] Comment on above: Performed By: #### U CI #### [facility] [address] [place] [address], [place] [address] UA Nitrite Negative Normal Negative [facility] Comment on above: Performed By: #### U CI #### [facility] [address] [place] [address], [place] [address] UA pH 5.5 Normal 4.5 - 7.8 [facility] Comment on above: Performed By: #### U CI #### [facility] [address] [place] [address] UA Protein Negative Normal Negative [facility] Comment on above: Performed By: #### U CI #### [facility] [address] [place] [address], [place] [address] UA Source Clean Catch Normal [facility] Comment on above: Performed By: #### U CI #### [facility] [address] [place] [address], [place] [address] UA Spec Grav 1.010 Normal 1.003-1.03 5 [facility] Comment on above: Performed By: #### U CI #### [address] [place] [address] UA Urobilinogen Normal Normal 0.2 - 1.0 [facility] Comment on above: Performed By: #### U CI #### [facility] [address] [place] [address] Urobilinogen (U) [Mass/Vol] Negative Normal Negative [facility] Comment on above: Performed By: #### U CI #### [facility] [address] [place] [address] XR Chest 2 Viewson XR Chest 2 Views EXAM: XR Chest 2 Views HISTORY: Other (please specify), Surgical Clearance COMPARISON: Chest radiograph dated 02/20/2016. TECHNIQUE: PA and lateral views of the chest performed. FINDINGS: The trachea is unremarkable. Stable mild prominence of the cardiac silhouette. Stable mild prominence of the pulmonary trunk. Stable moderate atheromatous calcification at the aortic arch. There is also atheromatous calcification along the abdominal aorta. There is no consolidation, pleural effusion or pulmonary vascular congestion. There is no pneumothorax. The bony structures are osteopenic. There is stable mild kyphosis of the thoracic spine. There are stable discogenic degenerative changes throughout the spine. IMPRESSION: There is no acute cardiopulmonary process. Final Dictated by: Jaime Vallecillo MD Dictated DT/TM: 09/29/2023 6:40 pm Signed by: Jaime Vallecillo MD Signed (Electronic Signature): 09/29/2023 6:42 pm (If Report Is Signed, Electronically Signed in Other Vendor System) Normal [facility] Neurosurgery Office/Clinic N oteon 09-06-2023 Neurosurgery Office/Clinic Note Physical Exam Vitals & Measurements HR: 60 (Peripheral) BP: 155/75 HT: 152 cm WT: 97.4 kg WT: 97.4 kg (Dosing) BMI: 42.16 Additional Vitals BP Position/Location: Sitting, Left arm Assessment/Plan 1. Spondylolisthesis, lumbar region 2. Lumbar degenerative disc disease 3. Smoker 4. Morbid obesity with BMI of 40.0-44.9, adult Primary provider: anthony mckinley Referring provider: [] Other providers: emily bermeo (pulmonology) Current history: 77-year-old patient with a multitude of medical difficulties including hypertension, stroke,morbid obesity with body mass index of 40 chronic nicotine abuse, hypercholesterolemia , COPD, atrial fibrillation with chronic anticoagulation who [...] order to have anesthetic for steroid injections Today's visit: No appreciable changes in status other than that she reports that she has had a few relapses of abstinence with regards to nicotine but reports that for her, she is doing much better with regards to nicotine use via smoking. Otherwise, the patient continues to complain of severe low back pain. She has no symptoms in her lower extremities. Constitutional: [No fevers, chills, sweats] Eye: [No [...] hunched posture Assessment/plan: Elderly female with an assemblage of medical difficulties that challenge consideration of [...] Sacroiliac imaging which reveals minimal sacroiliac disease CT scan lumbar spine for surgical planning to ensure adequate radicular anatomy as well as better assessment of pain generators such as vacuum disc phenomenon vacuum facet phenomenon for identifying how many levels may require intervention. This has been completed and reveals multilevel degenerative disc disease with facet arthropathy at L4-5 which is quite prominent and sagittally oriented facets at L4-5; modest amount of vacuum disc phenomenon at L5-S1 with considerable facet arthropathy at that level as well. No vacuum facet phenomenon or vacuum disc phenomenon at cephalad levels and no evidence of spondylolysis MRI cervical spine on behalf of hyperreflexia which could be indicative of cervical spondylotic myelopathy/cord compression. Completed but unavailable for review by surgeon Pulmonology assessment. 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 Normal [facility] Provider Letteron 09-06-2023 Provider Letter Emily Bermeo D.O. [address] [place] [address] Re: Gretchen Tan Date of Visit: 09/06/2023 Dear Emily Bermeo D.O., Let me know if you have any questions or concerns. Sincerely, MANDY Monae MD Providers: Anthony Mckinley The following document(s) were included in the letter: September 06, 2023 16:55:25 EDT - (09/06/2023) Neurosurgery Office Visit Note Normal [facility] Neurosurgery Office/Clinic N eric 08-17-2023 Neurosurgery Office/Clinic Note Chief Complaint Back follow up-imaging Physical Exam Additional Vitals No qualifying data available. Assessment/Plan 1. Low back pain 2. Lumbar degenerative disc disease 3. Spondylolisthesis, lumbar region Primary provider: anthony mckinley Referring provider: [] Other providers: emily bermeo (pulmonology) Current history: 77-year-old patient with a multitude of medical difficulties including hypertension, stroke,morbid obesity with body mass index of 40 chronic nicotine abuse, hypercholesterolemia , COPD, atrial fibrillation with chronic anticoagulation who [...] order to have anesthetic for steroid injections Today's visit: No appreciable changes in status other than that she reports that she has not smoked in 2 weeks. She is adamant that she is not violated her abstinence and that time. She is using no nicotine products as replacement such as nicotine gum or patches. The patient did visit with pulmonology who recommended a repeat PFTs-they note that if this is unchanged, would be acceptable for surgical consideration as proposed by the surgeon. Patient did have MRI at [facility] in [place]-films not available; had CT scan at [facility] which is available for review Constitutional: [No fevers, chills, sweats] Eye: [No [...] for identifying how many levels may require intervention. This has been completed and reveals multilevel degenerative disc disease with facet arthropathy at L4-5 which is quite prominent and sagittally oriented facets at L4-5; modest amount of vacuum disc phenomenon at L5-S1 with considerable facet arthropathy at that level as well. No vacuum facet phenomenon or vacuum disc phenomenon at cephalad levels and no evidence of spondylolysis MRI cervical spine on behalf of hyperreflexia which could be indicative of cervica (more content not included)... Normal [facility] Provider Letteron 08-17-2023 Provider Letter Anthony Mckinley MD [address] [facility] [address] [place] [address] Re: Gretchen Tan Date of Visit: 08/17/2023 Dear Anthony Mckinley MD, Let me know if you have any questions or concerns. Sincerely, MANDY Monae MD Providers: Emily Bermeo D.O. The following document(s) were included in the letter: August 17, 2023 13:16:12 EST - (08/17/2023) Neurosurgery Office Visit Note Normal [facility] CT LUMBAR SPINE WO CONTon CT LUMBAR SPINE WO CONT CT LUMBAR SPINE WO CONT History: Low back pain Technique: Thin axial images through the lumbar spine were obtained. The study was supplemented by sagittal and coronal reconstructed images. Automated exposure control was utilized. Comparison: Comparison made to an MRI lumbar spine dated 02/02/2023 Findings: Disc space narrowing at L5-S1 and T12-L1.. There is a slight anterolisthesis at L4-5 is unchanged since the prior study. Multilevel facet arthropathy is seen, most severe at L4-5 and L5-S1. There is no evidence for an acute osseous abnormality. Although it cannot be fully evaluated without intrathecal contrast, there appears be stable spinal stenosis at L4-5. Impression: * Multilevel disc space narrowing and facet arthropathy as described above * Anterolisthesis at L4-5, unchanged since the prior study. * Probable spinal stenosis at L4-5 Finalized by Jose Trotter MD on 07/26/2023 2:25 PM Normal [facility] Neurosurgery Office/Clinic N oteon 07-05-2023 Neurosurgery Office/Clinic Note Objective Vitals & [...] mass index of 40 chronic nicotine abuse, hypercholesterolemia , COPD, atrial fibrillation with chronic anticoagulation who [...] Pulmonology assessment. 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 Normal [facility] Provider Letteron 07-05-2023 Provider Letter Anthony Mckinley MD [address] [address] Re: Gretchen Tan Date of Visit: 07/04/2023 Dear Anthony Mckinley MD, Let me know if you have any questions or concerns. Sincerely, MANDY Monae MD Providers: The following document(s) were included in the letter: July 05, 2023 16:28:59 EST - (07/05/2023) Neurosurgery Progress/SOAP Note Normal [facility] DEXA SCAN CENTRAL SKELETALon 06-29-2023 DEXA SCAN CENTRAL SKELETAL DEXA SCAN [facility] TRA SKELETAL DEXA SCAN CENTRAL SKELETAL: 06/28/2023 1:46 [...] is 1.6 % IMPRESSION: * Normal exam. PLEASE NOTE * T-score compares patient BMD [...] Finney MD on 06/29/2023 6:07 PM Normal [facility] XR Sacroiliac Joints Minimum 3 Viewson 06-09-2023 [...] Electronically Signed in Other Vendor System) Normal [facility] XR Scoliosis Study 2 or 3 [...] Electronically Signed in Other Vendor System) Normal [facility] XR Spine Lumbosacral Bending 2-3 Viewson [...] Electronically Signed in Other Vendor System) Normal [facility] Neurosurgery Office/Clinic N eric 06-07-2023 Neurosurgery Office/Clinic Note Chief Complaint Back consult History of Present Illness The patient is a pleasant 77-year-old right-handed female with history of hypertension, hyperlipidemia, prior CVA currently anticoagulated on Eliquis, prediabetes, coronary artery disease and obesity with BMI 39 who presents to the neurosurgical office on behalf of referral from Karen Vigil PA-C (pain management) regarding chronic low [...] (provider interpretation): MRI lumbar spine 02/02/2023 at [facility] reveals multilevel degenerative disc disease. [...] Patient states retired. 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 FAMILY HISTORY: Prostate cancer: Paternal grandfather Diabetes [...] negative empt (more content not included)... Normal [facility] Provider Letteron 06-07-2023 Provider Letter Karen Vigil PA-C [address] [place] [phone] Re: Gretchen Sheyla Date of Visit: 06/07/2023 Dear Karen Vigil PA-C, This patient was recently seen in the neurosurgical office. Please see attached note for further details. Let me know if you have any questions or concerns. Sincerely, LEANNA Pederson Providers: Anthony Mckinley; Javi Weems [employer]-C The following document(s) were included in the letter: June 07, 2023 16:10:45 EST - (06/07/2023) Neurosurgery Office Visit Note Normal [facility] CT CHEST WO CONon 07-07-2022 CT CHEST WO CON EXAMINATION: CT CHEST WO CON HISTORY: Solitary nodule of lung [...] RAFAELA DSOUZA Date: 2022-07-07 07:32 Normal [facility] CBC AUTO DIFFon 03-18-2022 BASO # 0.0 103/ul Normal 0.0-0.1 [facility] Comment on above: Performed By: #### C BC #### [facility] [address] [place] [address] Dr. Marlene Walton Basophils/100 WBC (Bld) 0.4 % Normal 0.2-2.0 [facility] Comment on above: Performed By: #### C BC #### [facility] [address] [place] [address] Dr. Marlene Walton EO # 0.1 103/ul Normal 0.0-0.7 [facility] Comment on above: Performed By: #### C BC #### [facility] [address] [place] [address] Dr. Marlene Walton Eosinophils/100 WBC (Bld) 1.4 % Normal 0.9-7.0 [facility] Comment on above: Performed By: #### C BC #### [facility] [address] [place] [address] Dr. Marlene Walton Erythrocyte distribution width (RBC) [Ratio] 13.5 % Normal 11.0-15.0 [facility] Comment on above: Performed By: #### C BC #### [facility] [address] [place] [address] Dr. Marlene Walton Hematocrit (Bld) [Volume fraction] 39.1 % Normal 36.0-48.0 [facility] Comment on above: Performed By: #### C BC #### [facility] [address] [place] [address] Dr. Marlene Walton Hemoglobin (Bld) [Mass/Vol] 12.5 g/dL Normal 12.0-16. 0 [facility] Comment on above: Performed By: #### C BC #### [facility] [address] [place] [address] Dr. Marlene Walotn IG # 0.02 10e3/ul Normal 0.00-0.03 [facility] Comment on above: Performed By: #### C BC #### [facility] [address] [place] [address] Dr. Marlene Walton IG % 0.3 % Normal 0.0-0.5 [facility] Comment on above: Performed By: #### C BC #### [facility] [address] [place] [address] Dr. Marlene Walton LYMPH # 3.0 103/ul Normal 1.2-3.8 [facility] Comment on above: Performed By: #### C BC #### [facility] [address] [place] [address] Dr. Marlene Walton Lymphocytes/100 WBC (Bld) 38.2 % Normal 20.5-60.0 [facility] Comment on above: Performed By: #### C BC #### [facility] [address] [place] [address] Dr. Marlene Walton MANUAL DIFF REQ NO Normal [facility] Comment on above: Performed By: #### C BC #### [facility] [address] [place] [address] Dr. Marlene Walton MCH (RBC) [Entitic mass] 30.2 pg Normal 26.7-34.0 [facility] Comment on above: Performed By: #### C BC #### [facility] [address] [place] [address] Dr. Marlene Walton MCHC (RBC) [Mass/Vol] 32.0 g/dL Normal 29.9-35.2 [facility] Comment on above: Performed By: #### C BC #### [facility] [facility] [address] [place] [address] Dr. Marlene Walton MCV (RBC) [Entitic vol] 94.4 fL Normal 81.0-99.0 [facility] Comment on above: Performed By: #### C BC #### [facility] [address] [place] [address] Dr. Marlene Walton MONO # 1.0 103/ul Critically high 0.3-0.8 [facility] Comment on above: Performed By: #### C BC #### [facility] [address] [place] [address] Dr. Marlene Walton Monocytes/100 WBC (Bld) 13.3 % Critically high 1.7-12. 0 [facility] Comment on above: Performed By: #### C BC #### [facility] [address] [place] [address] Dr. Marlene Walton NEUT # 3.6 103/ul Normal 1.4-6.5 [facility] Comment on above: Performed By: #### C BC #### [facility] [address] [place] [address] Dr. Marlene Walton Neutrophils/100 WBC (Bld) 46.4 % Normal 43.0-75.0 [facility] Comment on above: Performed By: #### C BC #### [facility] [address] [place] [address] Dr. Marlene Walton Platelet mean volume (Bld) [Entitic vol] 9.9 fL Normal 9.5-13.5 [facility] Comment on above: Performed By: #### C BC #### [facility] [address] [place] [address] Dr. Marlene Walton PLT 198 103/ul Normal 150-450 [facility] Comment on above: Performed By: #### C BC #### [facility] [address] [place] [address] Dr. Marlene Walton RBC 4.14 106/ul Critically low 4.20-5.40 [facility] Comment on above: Performed By: #### C BC #### [facility] [address] [place] [address] Dr. Marlene Walton WBC 7.8 103/ul Normal 4.0-11.0 [facility] Comment on above: Performed By: #### C BC #### [facility] [address] [place] [address] Dr. Marlene Walton Covid-19 PCR ([facility])on 02-25 SARS-CoV-2 (COVID-19) RNA DEBBI+probe Ql (Unsp spec) Not detected Normal NOT DETECTED [facility] Comment on above: Result Comment: This test is not yet approved or cleared by the [place] FDA. When there are no FDA-approved or cleared tests available, and other criteria are met, FDA can make tests available under an emergency access mechanism called an Emergency Use Authorization (EUA). The EUA for this test is supported by the [place] of Health and Human Service's (HHS's) declaration [...] SARS-CoV-2. Performed By: #### C VDTBH #### [facility] [address] [place] [address] Dr. Marlene Walton PROF CHEM 8 (BAS METB)on Anion gap [Moles/Vol] 8.1 mmol/L Normal [facility] Comment on above: Performed By: #### B MP #### [facility] [address] [place] [address] Dr. Marlene Walton Calcium [Mass/Vol] 9.1 mg/dL Normal 8.5-10.1 [facility] Comment on above: Performed By: #### B MP #### [facility] [address] [address] [address] Marlene Walton Chloride [Moles/Vol] 107 mmol/L Normal 98-107 [facility] Comment on above: Performed By: #### B MP #### [facility] [address] [address] [address] Marlene Walton CO2 [Moles/Vol] 30.1 mmol/L Normal 21.0-32.0 [facility] Comment on above: Performed By: #### B MP #### [facility] [address] [address] [address] Marlene Walton Creatinine [Mass/Vol] 0.80 mg/dL Normal 0.55-1.02 [facility] Comment on above: Performed By: #### B MP #### [facility] [address] [place] [address] Dr. Marlene Walton EGFR-AF COLOMBIAN >60 Normal >=60 [facility] Comment on above: Performed By: #### B MP #### [facility] [address] [place] [address] Dr. Marlene Walton EGFR-NON AF COLOMBIAN >60 Normal >=60 [facility] Comment on above: Performed By: #### B MP #### [facility] [address] [place] [address] Dr. Marlene Walton Glucose [Mass/Vol] 111 mg/dL Critically high 74-106 [facility] Comment on above: Performed By: #### B MP #### [facility] [address] [place] [address] Dr. Marlene Walton Potassium [Moles/Vol] 4.2 mmol/L Normal 3.5-5.1 [facility] Comment on above: Performed By: #### B MP #### [facility] [address] [place] [address] Dr. Marlene Walton Sodium [Moles/Vol] 141 mmol/L Normal 136-145 [facility] Comment on above: Performed By: #### B MP #### [facility] [address] [place] [address] Dr. Marlene Walton Urea nitrogen [Mass/Vol] 9.0 mg/dL Normal 7.0-18.0 [facility] Comment on above: Performed By: #### B MP #### [facility] [address] [address] [address] Marlene Walton Urea nitrogen/Creatinine [Mass ratio] 11.2 mg/mg Normal [facility] Comment on above: Performed By: #### B MP #### [facility] [address] LUNG CANCER SCREENINGon [...] RAFAELA DSOUZA Date: 2021-10-20 09:28 Normal [facility] HEMOGLOBINon 10-08-2021 Hemoglobin (Bld) [Mass/Vol] 12.8 g/dL Normal 12.0-16. 0 [facility] Comment on above: Performed By: #### H GB #### [facility] [address] [address] [address] Marlene Walton Dermatopathologyon 11-09-202 0 Dermatopathology [facility] D[facility] [address] [place] [id number] DERMATOPATHOLOGY REPORT Name:GRETCHEN TAN Rec #. [id number] Location: [facility] Date of Procedure: 05/04/2020 Race: Date Received: [...] M.D. Electronically Signed Out By STEFANIE TRIPP MD/[facility] By the signature on this report, the individual or group listed as making the Final Interpretation/Diagn osis certifies that they have reviewed this case. Clinical History: Drug eruption vs. dermatomyositis vs. SCLE. 0.3 x 0.3 cm. 3 mm biopsy. Specimens Submitted As: A: SKIN, L UPPER ARM Gross Description: Received in formalin is a anderson-brown, cylindrical piece of skin measuring 3 x 3 x 3 mm. Inked and embedded in toto. mlz/05/06/2020 Normal [facility] Comment on above: Performed By: #### D #### Dermatopathology Vital Signs Date Time Vital Sign Value Performing Clinician Faci lity 08-05-2024 11:08-0500 Body height 154.9 cm Mark Kahn MD Work Phone: [facility] 08-05-2024 11:08-0500 Body mass index (BMI) [Ratio] 39.11 kg/m2 Mark Kahn MD Work Phone: [facility] 08-05-2024 11:08-0500 Body weight 93.89 kg Mark Kahn MD Work Phone: [facility] 06-04-2024 11:14-0500 Body height 154.9 cm Mark Kahn MD Work Phone: [facility] 06-04-2024 11:14-0500 Body mass index (BMI) [Ratio] 39.26 kg/m2 Mark Kahn MD Work Phone: [facility] 06-04-2024 11:14-0500 Body weight 94.26 kg Mark Kahn MD Work Phone: [facility] 06-04-2024 11:14-0500 Diastolic blood pressure 78 mm[Hg] Mark Kahn MD Work Phone: [facility] 06-04-2024 11:14-0500 Heart rate 66 /min Mark Kahn MD Work Phone: [facility] 06-04-2024 11:14-0500 SaO2% (BldA) [Mass fraction] 96 % Mark Kahn MD Work Phone: [facility] 06-04-2024 11:14-0500 Systolic blood pressure 128 mm[Hg] Mark Kahn MD Work Phone: [facility] 02-05-2024 11:50-0400 Body height 157.5 cm Shayy Brooke MD Work Phone: [facility] 02-05-2024 11:50-0400 Body mass index (BMI) [Ratio] 37.9 kg/m2 Shayy Brooke MD Work Phone: [facility] 02-05-2024 11:50-0400 Body weight 93.98 kg Shayy Brooke MD Work Phone: [facility] 02-05-2024 11:50-0400 Diastolic blood pressure 74 mm[Hg] Shayy Brooke MD Work Phone: [facility] 02-05-2024 11:50-0400 Systolic blood pressure 132 mm[Hg] Shayy Brooke MD Work Phone: [facility] 12-18-2023 11:41-0400 Body height 157.5 cm Shayy Brooke MD Work Phone: [facility] 12-18-2023 11:41-0400 Body mass index (BMI) [Ratio] 37.07 kg/m2 Shayy Brooke MD Work Phone: [facility] 12-18-2023 11:41-0400 Body weight 91.94 kg Shayy Brooke MD Work Phone: [facility] 12-04-2023 11:35-0400 Body mass index (BMI) [Ratio] 38.01 kg/m2 Shayy Brooke MD Work Phone: [facility] 12-04-2023 11:35-0400 Body weight 94.26 kg Shayy Brooke MD Work Phone: [facility] 12-04-2023 11:35-0400 Diastolic blood pressure 66 mm[Hg] Shayy Brooke MD Work Phone: [facility] 12-04-2023 11:35-0400 Systolic blood pressure 118 mm[Hg] Shayy Brooke MD Work Phone: [facility] 11-14-2023 10:43-0400 Body height 157.5 cm Shayy Brooke MD Work Phone: [facility] 11-14-2023 10:43-0400 Body mass index (BMI) [Ratio] 38.41 kg/m2 Shayy Brooke MD Work Phone: [facility] 11-14-2023 10:43-0400 Body weight 95.25 kg Shayy Brooke MD Work Phone: [facility] 11-14-2023 10:43-0400 Diastolic blood pressure 84 mm[Hg] Shayy Brooke MD Work Phone: [facility] 11-14-2023 10:43-0400 Systolic blood pressure 132 mm[Hg] [facility] 07-26-2023 14:53-0500 Body height 157.5 cm Marquis HAYES [facility] 07-26-2023 14:53-0500 Body mass index (BMI) [Ratio] 38.96 kg/m2 Marquis HAYES [facility] 07-26-2023 14:53-0500 Body weight 96.62 kg Marquis HAYES [facility] 07-26-2023 14:53-0500 Diastolic blood pressure 67 mm[Hg] Marquis HAYES [facility] 07-26-2023 14:53-0500 Heart rate 55 /min Marquis HAYES [facility] 07-26-2023 14:53-0500 Systolic blood pressure 127 mm[Hg] Marquis HAYES Work Phone: [facility] gDine Encounters Encounter Date Encounter Type Care Provider Facility Start: 09-16-2024 End: 09-16-2024 Clinisync Result Encounter Generic External Data Provider [facility] External Department Unsolicited Start: 09-16-2024 End: 09-16-2024 Clinisync Result Encounter Generic External Data Provider [facility] External Department Unsolicited Start: 09-13-2024 End: 09-13-[address] [facility] Start: 09-12-2024 Evaluation and manag ement of inpatient LORI Sahu [facility] Start: 09-11-2024 Evaluation and manag ement of inpatient LORI Sahu [facility] Start: 09-11-2024 Evaluation and manag ement of inpatient LORI Sahu [facility] Start: 09-09-2024 Evaluation and manag ement of inpatient RITO JAYLAN [facility] Start: 09-09-2024 End: 09-12-2024 Evaluation and management of inpatient [facility] Start: 09-09-2024 End: 09-09-2024 ambulatory [facility] Start: 08-29-2024 End: 08-29-2024 Bamboo taya Kahn MD Work Phone: [facility] Start: 08-29-2024 End: 08-29-2024 Bamboo flowskyra Kahn MD Work Phone: [facility] Start: 08-29-2024 End: 08-29-2024 ambulatory MARK KAHN Not Available Start: 08-27-2024 End: 08-27-2024 Bamboo flowskyra Kahn MD Work Phone: [facility] Start: 08-27-2024 End: 08-27-2024 Bamboo flowskyra Kahn MD Work Phone: [facility] Start: 08-27-2024 End: 08-27-2024 ambulatory MARK KAHN Not Available Start: 08-13-2024 End: 08-13-2024 Telephone encounter Mark Kahn MD Work Phone: [facility] Start: 08-05-2024 End: 08-05-2024 Bamboo flowskyra Kahn MD Work Phone: [facility] Start: 08-05-2024 End: 08-05-2024 Bamboo flowskyra Kahn MD Work Phone: [facility] Start: 08-05-2024 End: 08-05-2024 Office outpatient visit 25 minutes Mark Kahn MD Work Phone: [facility] Comment on above: Primary insomnia (Pr imary Dx); Nicotine dependence, cigarettes, with unspecified nicotine-induced disorders; Controlled substance agreement signed; Medication monitoring encounter; Acute cough Start: 08-05-2024 End: 08-05-2024 ambulatory MARK KAHN Not Available Start: 06-04-2024 End: 06-04-2024 Bamboo flowsheet Mark Kahn MD Work Phone: [facility] Start: 06-04-2024 End: 06-04-2024 Bamboo flowsheet aMrk Kahn MD Work Phone: [facility] Start: 06-04-2024 End: 06-04-2024 Patient encounter procedure Mark Kahn MD Work Phone: [facility] Comment on above: Encounter for Medica re annual wellness exam (Primary Dx); Advance directive discussed with patient; Encounter for screening for other disorder; Screening for alcohol problem; Nicotine dependence, cigarettes, with unspecified nicotine-induced disorders; Centrilobular emphysema (CMS/HCC); Arteriosclerosis of coronary artery (CMS/HCC); Primary hypertension (CMS/HCC); Paroxysmal atrial fibrillation (CMS/HCC); Dyslipidemia (CMS/HCC) Start: 06-04-2024 End: 06-04-2024 ambulatory MARK KAHN Not Available Start: 05-07-2024 End: 05-07-2024 [facility] Start: 04-29-2024 End: 04-29-20[facility] Start: 04-04-2024 End: 04-04-2024 ambulatory [facility] ABIGAILBenjamin Facility:[facility]urg [facility] Start: 03-22-2024 End: 03-22-2024 ambulatory [facility] Facility:[facility] Start: 03-08-2024 End: 03-08-2024 ambulatory [facility] Start: 02-27-2024 ambulatory SHARRON GALVAN [facility] Start: 02-22-2024 ambulatory Sharron Marquez III, MD Facility:[facility]urg[facility] Start: 02-20-2024 End: 02-20-2024 ambulatory Giana De León PA-C Facility:[facility]urg [facility] Start: 02-05-2024 End: 02-05-2024 ambulatory [facility] Start: 02-05-2024 End: 02-05-2024 Office outpatient visit 15 minutes Shayy Brooke MD Work Phone: [facility] Comment on above: Lichen sclerosus (Pr imary Dx); Atrophic vaginitis Start: 02-02-2024 End: 02-03-2024 Emergency department patient visit [facility] Start: 02-02-2024 End: 02-03-2024 Emergency department patient visit [facility] Start: 01-16-2024 End: 02-25-2024 ambulatory SHARRON GALVAN MARQUEZ [facility] Start: 01-11-2024 End: 01-11-2024 ambulatory [facility] III[facility] MD [facility] Start: 01-09-2024 End: 01-09-2024 ambulatory Sharron Marquez III, MD Facility:[facility] Start: 12-18-2023 End: 12-18-2023 Office outpatient visit 15 minutes Shayy Brooke MD Work Phone: [facility] Comment on above: Lichen sclerosus (Pr imary Dx); Vulvar irritation Start: 12-18-2023 End: 12-18-2023 ambulatory [facility] Start: 12-17-2023 End: 12-19-2023 Refill Shyla Bush DO Work Phone: [facility] Comment on above: Vaginitis and vulvov aginitis Start: 12-04-2023 End: 12-04-2023 ambulatory [facility] Start: 12-04-2023 End: 12-04-2023 Patient encounter procedure Shayy Brooke MD Work Phone: [facility] Comment on above: Vulvar irritation (P rimary Dx) Start: 12-04-2023 End: 12-04-2023 ambulatory [facility] Start: 11-29-2023 End: 11-29-2023 ambulatory Sharron Marquez III, MD Facility:[facility] Start: 11-23-2023 End: 11-23-2023 Telephone encounter Shyla Bush DO Work Phone: [facility] Start: 11-14-2023 End: 11-15-2023 ambulatory [facility] Start: 11-14-2023 End: 11-14-2023 Office outpatient new 30 minutes Shayy Brooke MD Work Phone: [facility] Comment on above: Vaginitis and vulvov aginitis (Primary Dx) Start: 11-14-2023 End: 11-14-2023 ambulatory [facility] Start: 10-31-2023 End: 10-31-2023 ambulatory Sharron Marquez III, MD Facility:[facility] Start: 10-18-2023 End: 10-20-2023 Evaluation and management of inpatient Sharron Marquez III, MD Facility:[facility] Start: 10-17-2023 End: 10-17-2023 ambulatory SHARRON GALVAN MARQUEZ [facility] Start: 10-12-2023 End: 10-12-2023 ambulatory Giana De León PA-C Facility:[facility] Start: 10-09-2023 End: 10-09-2023 ambulatory Sharron Marquez III, MD Facility:[facility] Start: 09-29-2023 End: 09-29-2023 ambulatory Sharron Marquez III, MD Facility:[facility] Start: 09-21-2023 ambulatory Anthony Mckinley MD F acility:[facility] Start: 09-06-2023 End: 09-06-2023 ambulatory Sharron Marquez III, MD Facility:[facility] Start: 08-17-2023 End: 08-17-2023 ambulatory Sharron Marquez III, MD Facility:[facility] Start: 07-26-2023 End: 07-26-2023 Office outpatient new 30 minutes Marquis HAYES [facility] Comment on above: Mixed incontinence ( Primary Dx); Frequent urinary tract infections Start: 07-26-2023 ambulatory MARQUIS GREENE [facility] Start: 07-26-2023 End: 07-26-2023 ambulatory [facility] Start: 07-26-2023 End: 07-27-2023 ambulatory KAREN [facility] Start: 07-14-2023 Telephone encounter Valarie mayer Luli [facility] Start: 07-05-2023 End: 07-05-2023 ambulatory Sharron Marquez III, MD [facility] Start: 06-28-2023 End: 06-29-2023 ambulatory [facility] Start: 06-07-2023 End: 06-07-2023 ambulatory Giana De León PA-C Facility:[facility] Start: 07-06-2022 End: 07-07-2022 ambulatory [facility] Facility:[facility] Start: 03-18-2022 End: 03-19-2022 ambulatory [facility] Facility:[facility] Start: 10-20-2021 End: 10-21-2021 ambulatory [facility] Facility:[facility] Start: 10-08-2021 End: 10-09-2021 ambulatory [facility] Facility:[facility] Procedures Date Procedure Procedure Detail Performing Clinician Start: 09-16-2024 ALL HEMOGLOBIN Generic External Data Provider Start: 08-05-2024 Drug test prsmv read direct optical obs pr date Mark Kahn MD Work Phone: Start: 02-05-2024 Follow-up visit Follow-up SHAYY BROOKE Start: 12-04-2023 Biopsy Biopsy SHAYY ROSA Start: 02-15-2018 Colonoscopy Valarie LUDWIG Plan of Treatment Date Care Activity Detail Author Start: 04-26-2033 DTaP,Tdap and Td Vac cines (2 - Td or Tdap) DTaP,Tdap and Td Vaccines (2 - Td or Tdap) [facility] Start: 02-01-2025 Adult BMI Screening Adult BMI Screen ing [facility] Start: 12-17-2024 Adult BMI Screening Adult BMI Screen ing [facility] Start: 12-17-2024 Tobacco Screening Tobacco Screening [facility] Start: 12-03-2024 Adult BMI Screening Adult BMI Screen ing [facility] Start: 12-03-2024 Tobacco Screening Tobacco Screening [facility] Start: 11-13-2024 Adult BMI Screening Adult BMI Screen ing [facility] Start: 11-13-2024 Tobacco Screening Tobacco Screening [facility] Start: 10-28-2024 End: 10-28-2024 Patient encounter procedure 10/28/2024 11:30 AM EDT Office Visit [facility] [address] [place] [address] Mark Kahn MD [address] [place] [address] (Fax) [facility] Start: 08-05-2024 End: 08-05-2024 Patient encounter procedure [facility] Comment on above: Primary insomnia; Nicotine dependence, cigarettes, with unspecified nicotine-induced disorders Start: 07-26-2024 Adult BMI Screening Adult BMI Screen ing [facility] Start: 07-26-2024 Tobacco Screening Tobacco Screening [facility] Start: 06-04-2024 End: 06-04-2024 Patient encounter procedure 06/04/2024 11:00 AM EST Office Visit [facility] [address] [place] [address] Mark Kahn MD [address] [place] [address] (Fax) Encounter for Medicare annual wellness exam; Advance directive discussed with patient; Encounter for screening for other disorder; Screening for alcohol problem; Smoker; Nicotine dependence, cigarettes, with unspecified nicotine-induced disorders [facility] Comment on above: [facility]; Advance directive discussed with patient; Encounter for screening for other disorder; Screening for alcohol problem; Smoker; Nicotine dependence, cigarettes, with unspecified nicotine-induced disorders Start: 05-24-2024 Tobacco Screening Tobacco Screening [facility] Start: 03-08-2024 Adult BMI Screening Adult BMI Screen ing [facility] Start: 02-25-2024 Influenza vaccination Influenza Vacc ine [facility] Start: 02-05-2024 End: 02-05-2024 Patient encounter procedure 02/05/2024 11:45 AM EDT Office Visit [facility] [place] [phone] Shayy Brooke MD [address] [place] [address] [facility] Start: 12-18-2023 End: 12-18-2023 Patient encounter procedure 12/18/2023 11:30 AM EDT Office Visit [facility] [place] [place] [phone] Shayy Brooke MD [address] [place] [address] [facility] Start: 12-04-2023 End: 12-04-2023 Patient encounter procedure 12/04/2023 11:30 AM EDT Procedure visit [facility] [place] [phone] Shayy Brooke MD [address] [place] [address] [facility] Start: 11-14-2023 End: 11-13-2024 Vaginitis Panel PCR [facility] Work Phone: Comment on above: Expected: 11/14/2023 (Approximate), Expires: 11/13/2024 Start: 08-25-2023 COVID-19 Vaccine ( season) COVID-19 Vaccine ( season) [facility] Start: 07-26-2023 End: 07-26-2023 Patient encounter procedure [facility] Start: 06-21-2023 Administration of varicella zoster vaccine Zoster (Shingles) Vaccine (2 of 2) [facility] Start: 02-15-2021 Screening for malign ant neoplasm of colon Colonoscopy [facility] Start: 10-10-2012 Fall Risk Screening Fall Risk Screen ing [facility] Start: 10-10-1965 Adult BMI Follow Up Plan Adult BMI Follow Up Plan [facility] Start: 1959 Depression Screening Depression Scre ening [facility] Start: 1945 Medicare Annual Well ness Visit Medicare Annual Wellness Visit [facility] Start: 1945 Tobacco Counseling Tobacco Counselin g [facility] End: 12-03-2024 Surgical Pathology Surgical Pathology Pathology and Cytology Routine Vulvar irritation 1 Occurrences starting 12/04/2023 until 12/03/2024 [facility] Work Phone: Comment on above: 1 Occurrences starti ng 12/04/2023 until 12/03/2024 Immunizations Immunization Date Immunization Notes Care Provider [facility] 03-07-2024 influenza, high dose seasonal, preservative-free Mark Kahn MD Work Phone: [facility] 03-07-2024 zoster vaccine recombinant Mark Kahn MD Work Phone: [facility] 04-26-2023 Influenza, High-dose Seasonal, Quadrivalent, Preservative Free Mark Kahn MD Work Phone: [facility] 04-26-2023 tetanus toxoid, redu sarah diphtheria toxoid, and acellular pertussis vaccine, adsorbed Mark Kahn MD Work Phone: [facility] 04-26-2023 zoster vaccine recombinant Mark Kahn MD Work Phone: [facility] 04-26-2023 influenza virus vacc ine, unspecified formulation Shayy Brooke MD Work Phone: [facility] 04-26-2023 zoster vaccine, unspecified formulation Valarie Harmon [facility] 04-06-2022 Influenza, High-dose Seasonal, Quadrivalent, Preservative Free Mark Kahn MD Work Phone: [facility] 04-06-2022 Pneumococcal Conjuga te PCV 20 Mark Kahn MD Work Phone: [facility] 05-12-2021 Influenza, High-dose Seasonal, Quadrivalent, Preservative Free Mark Kahn MD Work Phone: [facility] 04-01-2020 Seasonal, quadrivale nt, recombinant, injectable influenza vaccine, preservative free Mark Kahn MD Work Phone: [facility] 02-12-2020 pneumococcal polysaccharide vaccine, 23 valent Mark Kahn MD Work Phone: [facility] Payers Date Payer Category Payer Medicare (Managed Care) [facility] AD[facility] Member Subscriber Plan / Payer (Effective 2023-Present) Name: Gretchen Tan Relation to Subscriber: Self Name: Gretchen Tan Payer ID: Not on file Group ID: [id number] Type: Not on file Address: [address] [id number] 2022 Unknown 2017 Medicare ANTHEM MEDICARE ANTHEM MEDICARE ADVANTAGE [id number] 2017-Present [phone] [address] [place] [address] [id number] 1959 Unknown [id number] 1947 Unknown [id number] 2.16.840.1.085377.3.579. 2.593 1947 Unknown [id number] 2..840.1.807655.3.579. 2.593 1947 Unknown [id number] 2.16.840.1.898700.3.579. 2.593 1947 Unknown [id number] 2..840.1.357112.3.579. 2. 1947 Unknown [id number] 2..840.1.822151.3.579. 2.1285 1947 Unknown [id number] 2.840.1.968536.3.579. 2.1285 1947 Unknown [id number] 2.840.1.843947.3.579. 2.1285 1947 Unknown [id number] 2.840.1.771535.3.579. 2.1285 1947 Unknown [id number] 2.840.1.811064.3.579. 2.1285 1947 Unknown [id number] 2.840.1.837025.3.579. 2.1285 1947 Unknown [id number] 2.840.1.501546.3.579. 2.1285 1947 Unknown [id number] 2.840.1.170868.3.579. 2.1285 1947 Unknown [id number] 2.840.1.207203.3.579. 2.1285 1947 Unknown [id number] 2.840.1.786463.3.579. 2.1285 1947 Unknown [id number] 2.840.1.729728.3.579. 2.1285 1947 Unknown [id number] 2.840.1.712123.3.579. 2.1285 1947 Unknown [id number] 2.16.840.1.634310.3.579. 2.1285 1947 Unknown [id number] 2.16.840.1.841633.3.579. 2.1285 1947 Unknown [id number] 2.840.1.449488.3.579. 2.1285 1947 Unknown [id number] 2..840.1.138820.3.579. 2.1285 1947 Unknown [id number] 2.840.1.835527.3.579. 2. 1947 Unknown [id number] 2.840.1.304473.3.579. 2. 1947 Unknown [id number] 2.840.1.495432.3.579. 2. 1947 Unknown [id number] 2.840.1.044455.3.579. 2. 1947 Unknown [id number] 2.840.1.492334.3.579. 2. 1947 Unknown [id number] 2.840.1.400493.3.579. 2. 1945 Unknown [id number] 840.1.457745.3.579. 2. 1945 Unknown [id number] 2.840.1.852459.3.579. 2. 1947 Unknown [id number] 2.840.1.117808.3.579. 2. 1947 Unknown [id number] 2..840.1.274819.3.579. 2. 1947 Unknown [id number] 2.840.1.290188.3.579. 2. 1945 Unknown [id number] 2.16.840.1.609359.3.579. 2.196 1947 Unknown [id number] 2.16.840.1.270723.3.579. 2. 1947 Unknown [id number] 2.16.840.1.875813.3.579. 2. 1947 Unknown [id number] 2.16.840.1.971895.3.579. 2. 1947 Unknown [id number] 2.16.840.1.967801.3.579. 2. 1945 Unknown [id number] 2..840.1.449659.3.579. 2. 1945 Unknown [id number] 2..840.1.901942.3.579. 2. 1945 Unknown [id number] 2.840.1.259219.3.579. 2. 1947 Unknown [id number] 2..840.1.746255.3.579. 2. 1945 Unknown [id number] 2..840.1.858146.3.579. 2. 1945 Unknown [id number] 2.16.840.1.215428.3.579. 2. 1947 Unknown [id number] 2.840.1.228311.3.579. 2. 1947 Unknown [id number] 2..840.1.311563.3.579. 2.1259 1947 Unknown [id number] 2.16.840.1.313047.3.579. 2.1259 1947 Unknown [id number] 2.16.840.1.617674.3.579. 2.1259 1947 Unknown [id number] 2.16.840.1.257027.3.579. 2.1259 Social History Date Type Detail Facility Start: 11-14-2023 End: 06-03-2024 Tobacco smoking status NHIS Smokes tobacco daily [facility] History of tobacco use Cigarette Smoker P [facility] Start: 06-03-2024 End: 08-28-2024 Cigarettes smoked current (pack per day) - Reported 0.5 [facility] Start: 11-14-2023 End: 06-03-2024 Tobacco use and exposure Smokeless tobacco non-user [facility] Start: 06-03-2024 End: 08-27-2024 Alcoholic beverage intake Ex-drinker (finding) [facility] Start: 06-03-2024 End: 08-28-2024 Tobacco use panel [facility] Start: 1945 Sex assigned at Not on file P [facility] Start: 05-24-2023 End: 07-26-2023 Alcohol intake Current drinker of alcohol (finding) [facility] Housing Instability Unknown [facility] Start: 01-15-2018 Alcohol Comment [facility] Goals Date Patient Goal Desired Activity /State Personal health goal Comment on above: Formatting of this n ote might be different from the original. Evaluation of progress towards goal: discharge home with spouse's support. Clinical Notes 07-14-2023 to 09-12-2024 Telephone Encounter - Lisha Trinh - 08/13/2024 11:50 AM ESTTelephone Encounter - Lisha [facility] - 08/13/2024 11:50 AM Saima Kahn MD - 08/05/2024 11:30 AM EST Note Date & Type Note Facility 09-12-2024 Note Cardiothoracic Surge ry Progress Note 09/12/2024 Room: [address] [place] [address] Gretchen Tan is a 78 y.o. female with PMH of HTN, Paroxsymal Atrial Fibrillation, Smoker, GERD, HLD who has been experiencing episodes of chest heaviness with pressure radiating to her left shoulder blade and down her left arm for the past two weeks. She was evaluated by Cardiology in [place] for unstable angina, it was decided for patient to undergo cardiac catherization. Cardiac cath performed 09/10/[address] Moukarbel showed severe multivessel disease. She underwent echocardiogram 09/09/2024 that showed EF 65% with no valvular abnormality. She was admitted to the hospital. CT surgery was consulted for surgical evaluation. Patient was seen today at bedside with and daughter. States feeling well. No events overnight. Remains in atrial fibrillation on monitor. Denies nausea, abdominal pain. No peripheral swelling or neurological changes. Patient and family are very anxious about going home. States that she doesn't want to stay in hospital for the next few days to await surgery. Explained that she has to be off anticoagulation/Eliquis for at least 4-5 days. Last dose was 09/09/24. Patient asking to be discharged home. Objective Patient Vitals for the past 24 hrs: BP Temp Temp src Pulse Resp SpO2 Weight 09/12/24 1255 96/54 36.2 ???C (97.2 ???F) Temporal 101 15 96 % -- 09/12/24 0955 -- -- -- (!) 121 -- -- -- 09/12/24 0747 114/67 36.2 ???C (97.2 ???F) Temporal (!) 111 16 97 % -- 09/12/24 0642 101/59 -- -- 105 16 98 % -- 09/12/24 0500 -- -- -- -- -- -- 90.8 kg (200 lb 3.2 oz) 09/11/242005 130/70 36.2 ???C (97.2 ???F) Temporal (!) 122 17 -- -- 09/11/24 1627 98/80 36.3 ???C (97.3 ???F) Temporal (!) 123 22 97 % -- Physical Exam Constitutional: Appearance: Normal appearance. Eyes: Extraocular Movements: Extraocular movements intact. Conjunctiva/sclera: Conjunctivae normal. Cardiovascular: Rate and Rhythm: Normal rate. Rhythm irregular. Pulses: Normal pulses. Pulmonary: Effort: Pulmonary effort is normal. Breath sounds: Normal breath sounds. No wheezing or rales. Abdominal: General: Abdomen is flat. Palpations: Abdomen is soft. Tenderness: There is no abdominal tenderness. There is no guarding. Musculoskeletal: General: No swelling. Right lower leg: No edema. Left lower leg: No edema. Comments: 2+ posterior tibial and dorsalis pedis arteries. Skin: General: Skin is warm and dry. Neurological: General: No focal deficit present. Mental Status: She is alert and oriented to person, place, and time. Mental status is at baseline. Psychiatric: Mood and Affect: Mood normal. Behavior: Behavior normal. Thought Content: Thought content normal. Judgment: Judgment normal. Lab Results Component Value Date NA 137 09/10/2024 K 4.2 09/10/2024 CL 105 09/10/2024 ANIONGAP 9 09/10/2024 BUN 9 09/10/2024 CREATININE 0.70 09/10/2024 CALCIUM 9.1 09/10/2024 MG 1.9 09/09/2024 No results found for: BILITOT , BILIDIR , ALKPHOS , AST , ALT , PROT , ALBUMIN Lab Results Component Value Date WBC 8.51 09/12/2024 RBC 4.13 09/12/2024 HGB 12.6 09/12/2024 HCT 39.4 09/12/2024 PLT 204 09/12/2024 NRBC 0.0 09/09/2024 === Imaging Orders, Last 24 Hours === CT ABDOMEN PELVIS W IV CONTRAST - Impression - 1. Diffuse atherosclerotic disease of the abdominal aorta, iliac arteries and mesenteric vessels. 2. Infrarenal abdominal aortic aneurysm measuring 3.3 cm. 3. Moderate narrowing of the SMA origin. Electronically signed: SAYRA DORSEY MD. CT CHEST W IV CONTRAST - Impression - 1. Mild left ventricular intraoperatively. 2. Prominence of the pulmonary artery measuring 4.2 cm. Coronary angiography: This is a left-dominant circulation. Left Main: This arises from the left coronary cusp. It bifurcates into left anterior descending and circumflex vessels. This has mild distal disease but no obstructive lesions. Left anterior descending: There is a heavily calcified 70% stenosis in the ostial to proximal LAD. The distal vessel has mild disease. The first diagonal branch has mild disease. iFR assessment of the LAD was 0.76 indicating a highly significant stenosis in the proximal LAD. Pullback across the LAD showed the pressure drop to come mostly from the ostial to proximal segment. Circumflex: This is a dominant vessel. It gives rise to multiple obtuse marginal branches. The proximal segment has a calcific 60% stenosis. The mid segment has a 80% diffuse complex stenosis. The distal segment before the left-sided PDA has a 90% stenosis. Right coronary artery: This arises from the right coronary cusp. It is a non-dominant vessel. the ostium has a calcified 80% stenosis. The rest of the vessel has mildly calcified (more content not included)... [facility] 09-12-2024 Note Hospital Medicine Discharge Summary Final Discharge Diagnosis: Unstable angina/multivessel coronary artery disease Centrilobular emphysema Paroxysmal atrial fibrillation Primary hypertension Mixed hyperlipidemia, LDL 62 Prediabetes, A1c 5.8% Admission Diagnosis: Unstable angina (CMS/[facility]) [I20.0] Hospital course: Gretchen Tan is a 78 y.o. female with past history remarkable for primary hypertension, mixed hyperlipidemia, paroxysmal atrial fibrillation on Eliquis, coronary artery disease who presented to [facility] after she was transferred from cardiology clinic for worsening chest pain over the last week. Patient reported retrosternal chest pain, episodic in frequency, moderate in intensity with radiation to her left arm. Her symptoms have been associated with slight shortness of breath, no palpitations or lower leg swelling. Of note, patient reported that she had a remote cardiac catheterization with occluded left circumflex, moderate CAD. Initially EKG showed nonspecific ST-T wave changes with negative troponins. Patient TTE YOLY showed EF 65% and cardiac cath was done on 09/10 and showed: Severe three-vessel disease with normal filling pressures and cardiothoracic surgery were consulted. Part of the bypass workup CT of the chest that was done and read as: Mild left ventricular intraoperatively. Prominence of the pulmonary artery measuring 4.[address] abdomen pelvis: Diffuse atherosclerotic disease of the abdominal aorta, iliac arteries and mesenteric vessels. Infrarenal abdominal aortic aneurysm measuring 3.3 cm. Moderate narrowing of the SMA origin. Ultrasound venous mapping bilateral: Bilateral: Right: Superficial veins compressed and presented with no wall thickenesses. Great and small saphenous vein appeared greater than 0.20 cm - 0.25 cm of entire leg. Left: Superficial veins compressed and presented with no wall thickenesses. Great and small saphenous vein appeared greater than 0.20 cm - 0.25 cm of entire leg. Conclusions: No evidence of thrombosis of both legs. Ultrasound carotid Doppler was done and showed 50-69% bilateral internal carotid arteries. Patient also had PFTs done inpatient. Per cardiothoracic team, patient can be discharged today home and plan for CABG on 09/18 and Eliquis to be held on discharge Surgical, Invasive or Diagnostic Procedures Done During Admission: Cardiac Cath Consultations During Admission: Cardiology/CTS Dear MD Kahn Sylvia is advised to follow up with you within 1-2 weeks. Items to follow up in ambulatory setting: None Follow-up with: CT Surgery Scheduled appointments: No future appointments. Your medication list CONTINUE taking these medications Instructions Last Dose Given Next Dose Due albuterol 2.5 mg /3 mL (0.083 %) nebulizer solution apixaban 5 mg tablet Commonly known as: Eliquis TAKE 1 TABLET BY MOUTH IN THE MORNING AND AT BEDTIME aspirin 81 mg chewable tablet lisinopril 10 mg tablet TAKE 1 TABLET BY MOUTH ONCE DAILY DIRECTED metoprolol tartrate 25 mg tablet Commonly known as: Lopressor omeprazole [address] capsule Commonly known as: PriLOSEC rosuvastatin 10 mg tablet Commonly known as: Crestor zolpidem 10 mg tablet Commonly known as: Kathy Godinez has No Known Allergies. Disposition: Home or Self Care () Discharge Condition: Stable Code Status: Full Code Diagnostic Results Hematology: Results from last 7 days Lab Units 09/12/24 0356 09/10/24 0414 WBC AUTO 10*3/uL 8.51 9.68 HEMOGLOBIN g/dL 12.6 11.8* HEMATOCRIT % 39.4 36.7 MCV fL 95.4 94.8 PLATELETS AUTO 10*3/uL 204 191 Chemistry: Results from last 7 days Lab Units 09/10/24 0414 09/09/24 1506 SODIUM mmol/L 137 137 POTASSIUM mmol/L 4.2 4.2 CHLORIDE mmol/L 105 104 CO2 mmol/L 27 25 BUN mg/dL 9 11 CREATININE mg/dL 0.70 0.72 GLUCOSE mg/dL 84 97 MAGNESIUM mg/dL -- 1.9 CALCIUM mg/dL 9.1 9.3 Diet at the time of discharge: regular diet and cardiac diet Activity: Normal activity as tolerated Objective Blood pressure 96/54, pulse 101, temperature 36.2 ???C (97.2 ???F), temperature source Temporal, resp. rate 15, height 1.575 m (5' 2.01 ), weight 90.8 kg (200 lb 3.2 oz), SpO2 96%. General: Alert and oriented x3. Cardiology: Normal rate, regular rhythm. Lungs: Clear to auscultation, no wheezes, rales or rhonchi, symmetric air entry. Abdomen: Soft, non tender, non distended. Extremities: No pitting edema. Neurology: No focal neuro deficit noted. Total time for discharge - review of data, exam, discussion with providers and care-team, med-rec and orders, arranging follow up, counseling of patient and/or family and documentation was 60 minutes. Signed Loy Bruner MD Hospital Medicine 09/12/2024 1:57 PM CC: MD Melissa [facility] 09-12-[address] CHEST W IV CONTRA ST 09/12/2024 9:11 AM CLINICAL INDICATIONS: Preop evaluation for coronary artery bypass graft, coronary artery disease PROTOCOL: An unenhanced CT of the chest CONTRAST: 100 mL of Omnipaque 350 TECHNIQUE: Multidetector CT axial slices of the chest were obtained with IV contrast. Multiplanar reformats were performed and viewed on a separate workstation and reviewed to further define anatomy and possible pathology. All CT scans at this facility use dose modulation, iterative reconstruction, and/or weight based dosing when appropriate to reduce radiation dose to as low as reasonably achievable. COMPARISON: None. FINDINGS: The heart is normal in size; there is mild left ventricular hypertrophy. Mild coronary artery calcifications. No pleural or pericardial effusions. The ascending aorta measures 3.3 cm, and the main pulmonary artery is prominent measuring 4.2 cm, correlate with pulmonary hypertension. Mild atelectatic changes at the lung bases, the rest of the lungs are clear. Right hilar lymph node measuring 10 mm. IMPRESSION: 1. Mild left ventricular intraoperatively. 2. Prominence of the pulmonary artery measuring 4.2 cm. Electronically signed: SAYRA DORSEY MD. [facility] 09-12-[address] of the abdomen an d pelvis with contrast INDICATION: Coronary artery disease, preop evaluation for coronary artery bypass graft, 78-year-old. PROCEDURE:: Automatic radiation exposure lowering techniques were utilized. All CT scans in this facility use dose modulation, iterative reconstruction, and/or weight based dosing when appropriate to reduce radiation dose to as low as reasonably achievable. Following the intravenous injection of 100 mL of Omnipaque 350, a CT of the abdomen and pelvis and sagittal and coronal reformats obtained. FINDINGS: No comparisons available. No focal lesion seen in the liver, spleen, adrenal glands, pancreas, or gallbladder. 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 Atherosclerotic disease of the abdominal aorta and iliac arteries, with mild aneurysmal dilatation of the infrarenal aorta measuring 3.3 cm. Diverticulosis of the sigmoid. No free fluid or dilated bowel loops. Postsurgical changes in the lower lumbar spine. There is moderate narrowing at the origin of the SMA and mild narrowing at the origin of the celiac artery. The ANSELMO is patent. IMPRESSION: 1. Diffuse atherosclerotic disease of the abdominal aorta, iliac arteries and mesenteric vessels. 2. Infrarenal abdominal aortic aneurysm measuring 3.3 cm. 3. Moderate narrowing of the SMA origin. Electronically signed: SAYRA DORSEY MD. [facility] 09-11-2024 Note - TTE showed EF of 6 5% - A1c 5.8 -Cardiac cath was done on 09/10 and showed severe three-vessel disease with normal filling pressures -Thoracic surgery team were consulted for bypass -Continue heparin drip -CABG workup including CT abdomen and pelvis, CT chest, PFTs vascular Doppler ultrasound lower extremity and carotid Doppler ordered [facility] 09-11-2024 Note - albuterol nebs as needed [facility] 09-11-2024 Note - Continue lisinopri l 10 mg daily and Lopressor 25 twice daily [facility] 09-11-2024 Note - Continue protonix 40 mg daily [facility] 09-11-2024 Note - on aspirin, Lipitor, lisinopri l [facility] 09-11-2024 Note -Eliquis on hold con tinue heparin drip [facility] 09-11-2024 Note - Continue nicotine patch [facility] 09-11-2024 Note - Elevated triglycer ides of 260 and VLDL of 52 - Continue Lipitor [facility] 09-11-2024 Note Hospital Medicine Daily Progress Note - 09/11/2024 12:47 PM; Room: [address] [place] [address] Admission: 09/09/2024 1:49 PM; Length of stay: 1 days THE HOSPITALIST TEAM PREFERS TO USE [employer] FOR NON-URGENT COMMUNICATION 7AM-7PM. IF I DO NOT RESPOND WITHIN 20 MINUTES OR URGENT MATTERS, PLEASE CALL THROUGH THE CHART SNATCHER. FROM 7PM-7AM, PLEASE PAGE [phone](COVR). Code Status: Full Code Barriers to Discharge: Cardiac cath Expected Discharge Date: Tomorrow Discharge Destination: home Overview Patient is seen for evaluation and management of worsening chest pain over the past week. Subjective Seen today in her room, complaining of shortness of breath with minimal exertion but denies chest pain Physical Exam Visit Vitals BP 114/60 (BP Location: Left arm, Patient Position: Lying) Pulse (!) 113 Temp 36.3 ???C (97.3 ???F) (Temporal) Resp 18 Intake/Output Summary (Last 24 hours) at 09/11/2024 1247 Last data filed at 09/10/2024 1642 Gross per 24 hour Intake -- Output 10 ml Net -10 ml Physical Exam Constitutional: Appearance: Normal appearance. HENT: Head: Normocephalic. Nose: Nose normal. Mouth/Throat: Mouth: Mucous membranes are moist. Eyes: Pupils: Pupils are equal, round, and reactive to light. Cardiovascular: Rate and Rhythm: Normal rate and regular rhythm. Heart sounds: Normal heart sounds. Pulmonary: Effort: Pulmonary effort is normal. Breath sounds: Normal breath sounds. Abdominal: General: Abdomen is flat. Palpations: Abdomen is soft. Musculoskeletal: Right lower leg: No edema. Left lower leg: No edema. Skin: General: Skin is warm. Neurological: General: No focal deficit present. Mental Status: She is alert and oriented to person, place, and time. Psychiatric: Mood and Affect: Mood normal. Behavior: Behavior normal. Estimated body mass index is 36.57 kg/m??? as calculated from the following: Height as of this encounter: 1.575 m (5' 2.01 ). Weight as of this encounter: 90.7 kg (200 lb). Assessment and Plan Assessment & Plan Unstable angina ([facility]/HCC) - TTE showed EF of 65% - A1c 5.8 -Cardiac cath was done on 09/10 and showed severe three-vessel disease with normal filling pressures -Thoracic surgery team were consulted for bypass -Continue heparin drip -CABG workup including CT abdomen and pelvis, CT chest, PFTs vascular Doppler ultrasound lower extremity and carotid Doppler ordered Centrilobular emphysema (CMS/HCC) - albuterol nebs as needed CAD, multiple vessel - on aspirin, Lipitor, lisinopril Paroxysmal atrial fibrillation (CMS/HCC) -Eliquis on hold continue heparin drip Nicotine dependence, cigarettes, with unspecified nicotine-induced disorders - Continue nicotine patch Dyslipidemia - Elevated triglycerides of 260 and VLDL of 52 - Continue Lipitor Gastroesophageal reflux disease - Continue protonix 40 mg daily Primary hypertension - Continue lisinopril 10 mg daily and Lopressor 25 twice daily VTE Prophylaxis: Heparin drip Scheduled Meds aspirin, 81 mg, oral, Daily atorvastatin, 40 mg, oral, Nightly lisinopril, 10 mg, oral, Daily metoprolol tartrate, 25 mg, oral, BID pantoprazole, 40 mg, oral, Daily heparin, 0-28 Units/kg/hr, Last Rate: 15 Units/kg/hr (09/11/24 1231) Pertinent Investigations Hematology: Results from last 7 days Lab Units 09/10/24 0414 09/09/24 1506 WBC AUTO 10*3/uL 9.68 11.19* HEMOGLOBIN g/dL 11.8* 12.5 HEMATOCRIT % 36.7 39.4 MCV fL 94.8 96.8 PLATELETS AUTO 10*3/uL 191 226 Chemistry: Results from last 7 days Lab Units 09/10/24 0414 09/09/24 1506 SODIUM mmol/L 137 137 POTASSIUM mmol/L 4.2 4.2 CHLORIDE mmol/L 105 104 CO2 mmol/L 27 25 BUN mg/dL 9 11 CREATININE mg/dL 0.70 0.72 GLUCOSE mg/dL 84 97 MAGNESIUM mg/dL -- 1.9 CALCIUM mg/dL 9.1 9.3 No lab exists for component: AFIO2 , APHT , APCOT , APOT , ATCO2 , CK , ALB , IBILI Historical Values: (Includes values prior to this admission) Lab Results Component Value Date HDL 56 09/09/2024 LDL 114 09/09/2024 No results found for: [id number] , IRON , TIBC , C3 , C4 , SEAN , CANCA , ASO , PSA , CEA , CA125 , CA199 , AFP , CA153 Imaging Pulmonary function testing Marline Vaughan RRT 09/11/2024 12:02 PM Bedside Spirometry uploaded into [employer]. Vascular US lower extremity vein mapping bilateral Narrative: Procedure: The greater saphenous vein and small saphenous vein was evaluated in its entirety. It was examined for compressibility and measured in the transverse view. Impression: Bilateral: Right: Superficial veins compressed and presented with no wall thickenesses. Great and small saphenous vein appeared greater than 0.20 cm - 0.25 cm of entire leg. Left: Superficial veins compressed and presented with no wall thickenesses. Great and small saphenous vein appeared greater than 0.20 cm - 0.25 cm of entire leg. Vascular US carotid artery duplex bilateral Kaveh (more content not included)... [facility] 09-11-2024 Note Bedside Spirometry u ploaded into Transport Engineer. [facility] 09-11-2024 Note Attestation signed by Rito Brown MD at 09/11/2024 5:40 PM 09/11/24 By using the attestations below, the signing clinician agrees that I have read and verify that the documentation has been personally reviewed by me and ensure that the documentation accurately reflects the encounter. GC: I personally saw this patient on the day of the encounter, performed the morrison portion(s) of the service and participated in the management and confirm the resident's documentation. Please note there may be an additional personal documentation from me. My additional comments are as follows: We reviewed the cardiac angiogram which showed severe multivessel coronary artery disease. In the context of her overall history, we will consider evaluation by cardiac surgery for consideration of coronary artery bypass grafting. In the interim, we will continue the medical therapy Rito Brown MD, ScM, MSc Cardiac Dispensing Audiologist Email: [email or web address] Cardiology Progress Note Subjective Subjective: Patient was seen and examined. Reported feeling okay. Had slight chest pain, no shortness of breath. No abdominal pain, nausea, or vomiting. No orthopnea or paroxysmal nocturnal dyspnea. No lower leg swelling. No acute events overnight. Objective Current Facility-Administered Medications: acetaminophen (Tylenol) tablet 650 mg, 650 mg, oral, q6h PRN, Collin Velázquez MD, 650 mg at 09/10/24 2314 albuterol 2.5 mg /3 mL (0.083 %) nebulizer solution 3 mL, 3 mL, nebulization, q4h PRN, Collin Velázquez MD aspirin chewable tablet 81 mg, 81 mg, oral, Daily, Collin Velázquez MD, 81 mg at 09/10/24 1022 atorvastatin (Lipitor) tablet 40 mg, 40 mg, oral, Nightly, Collin Veálzquez MD, 40 mg at 09/10/24 2313 lisinopril tablet 10 mg, 10 mg, oral, Daily, Collin Velázquez MD, 10 mg at 09/10/24 1022 melatonin tablet 5 mg, 5 mg, oral, Nightly PRN, Collin Velázquez MD metoprolol tartrate (Lopressor) tablet 25 mg, 25 mg, oral, BID, Tj Terry MD, 25 mg at 09/11/24 0430 ondansetron ODT (Zofran-ODT) disintegrating tablet 4 mg, 4 mg, oral, q8h PRN OR ondansetron HCl (PF) (Zofran) injection 4 mg, 4 mg, intravenous, q6h PRN, Collin Velázquez MD pantoprazole (ProtoNix) EC tablet 40 mg, 40 mg, oral, Daily, Collin Velázquez MD, 40 mg at 09/11/24 0638 Insert peripheral IV, , , Once AND Saline lock IV, , , Once AND sodium chloride flush 10 mL, 10 mL, intravenous, q8h PRN, Collin Velázquez MD zolpidem (Ambien) tablet 10 mg, 10 mg, oral, Nightly PRN, Collin Velázquez MD, 10 mg at 09/10/24 2313 Objective: Patient Vitals for the past 24 hrs: BP Temp Temp src Pulse Resp SpO2 Weight 09/11/24 0819 114/60 36.3 ???C (97.3 ???F) Temporal (!) 113 18 96 % -- 09/11/24 0457 -- -- -- -- -- -- 90.7 kg (200 lb) 09/11/24 0340 134/76 36.3 ???C (97.3 ???F) -- 109 17 98 % -- 09/11/24 0000 124/66 36.4 ???C (97.5 ???F) -- 75 18 96 % -- 09/10/24 2314 103/65 -- -- 82 16 -- -- 09/10/24 2300 -- -- -- 74 20 93 % -- 09/10/24 2200 -- -- -- 88 19 94 % -- 09/10/24 2100 127/72 -- -- 85 14 95 % -- 09/10/241999 123/67 36.5 ???C (97.7 ???F) -- 67 21 95 % -- 09/10/24 1900 126/71 -- -- 83 21 -- -- 09/10/24 1830 99/50 -- -- 76 20 -- -- 09/10/24 1800 116/53 -- -- 61 12 -- -- 09/10/24 1745 131/56 -- -- 63 14 -- -- 09/10/24 1730 131/63 -- -- 60 12 -- -- 09/10/24 1715 143/54 -- -- 61 15 -- -- 09/10/24 1700 122/55 -- -- 64 19 -- -- 09/10/24 1643 115/59 -- -- 63 12 100 % -- 09/10/24 1533 -- -- -- -- -- 100 % -- 09/10/24 1529 (!) 140/49 -- -- 62 13 100 % -- 09/10/24 1204 (!) 116/43 -- -- 59 13 100 % -- Physical Examination: Physical Exam Constitutional: General: She is not in acute distress. Appearance: Normal appearance. She is not ill-appearing. HENT: Head: Normocephalic and atraumatic. Cardiovascular: Rate and Rhythm: Normal rate and regular rhythm. Heart sounds: Normal heart sounds. No murmur heard. Pulmonary: Breath sounds: Normal breath sounds. No wheezing or rales. Abdominal: Palpations: Abdomen is soft. Tenderness: There is no abdominal tenderness. Musculoskeletal: Right lower leg: No edema. Left lower leg: No edema. Skin: General: Skin is warm and dry. Findings: No erythema or rash. Neurological: Mental Status: She is alert and oriented to person, place, and time. Mental status is at baseline. Relevant Lab Results Encounter Date: 09/09/24 ECG 12 lead Result Value Ventricular Rate 55 Atrial Rate 55 UT Interval 178 QRS DURATION 96 QT Interval 400 QTC CALCULATION(BAZETT) 382 P [place] 47 R-[place]allas -13 T Wave [place] 43 Impression Sinus bradycardia Otherwise normal ECG Confirmed by Shawn Jordan ([id number]) on 09/09/2024 5:56:50 PM Lab Results Component Value Date TROPONINI 0.01 09/11/2024 Complete Echo (TTE) w/wo Imaging Agen (more content not included)... [facility] 09-10-2024 Note Case was discussed w ith the ZA on 09/09/2024. I physically saw and evaluated the patient on the day of the encounter, performed the morrison portion(s) of the service and participated in the management. Physical Exam: Constitutional: General: She is not in acute distress. HENT: Head: Normocephalic and atraumatic. Cardiovascular: Rate and Rhythm: Normal rate and regular rhythm. Heart sounds: Normal heart sounds. No murmur heard. Pulmonary: Breath sounds: Normal breath sounds. No wheezing or rales. Abdominal: Palpations: Abdomen is soft. Tenderness: There is no abdominal tenderness. Loy Bruner MD [facility] 09-10-2024 Note Patient: Gretchen Jacome tt Procedure Information Date/Time: 09/10/24 1800 Procedure: Coronary angiography Location: [facility] DENTURE [facility] 3 / [facility]ULAR [facility] (Cath) Providers: Anastasiya Landa MD Clinical information reviewed: Allergies Meds Physical Exam Airway Mallampati: III TM distance: >3 FB Neck ROM: full Cardiovascular Rhythm: regular Rate: normal Dental Pulmonary Breath sounds clear to auscultation Abdominal Anesthesia Plan ASA 3 other (Conscious sedation.) Anesthetic plan and risks discussed with patient. Use of blood products discussed with patient who consented to blood products. Additional Equipment Requests [facility] 09-10-2024 Note - Continue to trend trops - TTE showed EF of 65% - A1c 5.8 - NPO today for cath at 1800 [facility] 09-10-2024 Note - Continue nicotine patch [facility] 09-10-2024 Note - Continue protonix 40 mg daily [facility] 09-10-2024 Note - Continue lisinopri l 10 mg daily - Hold metoprolol 25 BID as pressures are soft [facility] 09-10-2024 Note - on aspirin/crestor 40mg [facility] 09-10-2024 Note - Elevated triglycer ides of 260 and VLDL of 52 - Continue crestor [facility] 09-10-2024 Note - albuterol nebs as needed [facility] 09-10-2024 Note - On eliquis at home , heparin held for cath today [facility] 09-10-2024 Note Hospital Medicine Daily Progress Note - 09/10/2024 12:13 PM; Room: [id number]- Admission: 09/09/2024 1:49 PM; Length of stay: 1 days THE HOSPITALIST TEAM PREFERS TO USE [employer] FOR NON-URGENT COMMUNICATION 7AM-7PM. IF I DO NOT RESPOND WITHIN 20 MINUTES OR URGENT MATTERS, PLEASE CALL THROUGH THE CHART SNATCHER. FROM 7PM-7AM, PLEASE PAGE [phone](COVR). Code Status: Full Code Barriers to Discharge: Cardiac cath Expected Discharge Date: Tomorrow Discharge Destination: home Overview Patient is seen for evaluation and management of worsening chest pain over the past week. Subjective Patient was examined at bedside. Patient states that she only has occasional pain . She denies dyspnea. Physical Exam Visit Vitals BP (!) 116/43 (BP Location: Left arm, Patient Position: Lying) Pulse 59 Temp 36.3 ???C (97.3 ???F) (Temporal) Resp 13 Intake/Output Summary (Last 24 hours) at 09/10/2024 1213 Last data filed at 09/10/2024 1100 Gross per 24 hour Intake 510 ml Output -- Net 510 ml Physical Exam Constitutional: Appearance: Normal appearance. HENT: Head: Normocephalic. Nose: Nose normal. Mouth/Throat: Mouth: Mucous membranes are moist. Eyes: Pupils: Pupils are equal, round, and reactive to light. Cardiovascular: Rate and Rhythm: Normal rate and regular rhythm. Heart sounds: Normal heart sounds. Pulmonary: Effort: Pulmonary effort is normal. Breath sounds: Normal breath sounds. Abdominal: General: Abdomen is flat. Palpations: Abdomen is soft. Musculoskeletal: Right lower leg: No edema. Left lower leg: No edema. Skin: General: Skin is warm. Neurological: General: No focal deficit present. Mental Status: She is alert and oriented to person, place, and time. Psychiatric: Mood and Affect: Mood normal. Behavior: Behavior normal. Estimated body mass index is 37.23 kg/m??? as calculated from the following: Height as of this encounter: 1.575 m (5' 2.01 ). Weight as of this encounter: 92.4 kg (203 lb 9.6 oz). Assessment and Plan Assessment & Plan Unstable angina (CMS/HCC) - Continue to trend trops - TTE showed EF of 65% - A1c 5.8 - NPO today for cath at 1800 Centrilobular emphysema (CMS/HCC) - albuterol nebs as needed Coronary arteriosclerosis - on aspirin/crestor 40mg Paroxysmal atrial fibrillation (CMS/HCC) - On eliquis at home, heparin held for cath today Nicotine dependence, cigarettes, with unspecified nicotine-induced disorders - Continue nicotine patch Dyslipidemia - Elevated triglycerides of 260 and VLDL of 52 - Continue crestor Gastroesophageal reflux disease - Continue protonix 40 mg daily Primary hypertension - Continue lisinopril 10 mg daily - Hold metoprolol 25 BID as pressures are soft Nutrition Screen: Malnutrition Attestation: No dietitian assessment is available at this time. VTE Prophylaxis: SCD Scheduled Meds aspirin, 81 mg, oral, Daily atorvastatin, 40 mg, oral, Nightly lisinopril, 10 mg, oral, Daily [Held by provider] metoprolol tartrate, 25 mg, oral, BID pantoprazole, 40 mg, oral, Daily Pertinent Investigations Hematology: Results from last 7 days Lab Units 09/10/24 0414 09/09/24 1506 WBC AUTO 10*3/uL 9.68 11.19* HEMOGLOBIN g/dL 11.8* 12.5 HEMATOCRIT % 36.7 39.4 MCV fL 94.8 96.8 PLATELETS AUTO 10*3/uL 191 226 Chemistry: Results from last 7 days Lab Units 09/10/24 0414 09/09/24 1506 SODIUM mmol/L 137 137 POTASSIUM mmol/L 4.2 4.2 CHLORIDE mmol/L 105 104 CO2 mmol/L 27 25 BUN mg/dL 9 11 CREATININE mg/dL 0.70 0.72 GLUCOSE mg/dL 84 97 MAGNESIUM mg/dL -- 1.9 CALCIUM mg/dL 9.1 9.3 No lab exists for component: AFIO2 , APHT , APCOT , APOT , ATCO2 , CK , ALB , IBILI Historical Values: (Includes values prior to this admission) Lab Results Component Value Date HDL 56 09/09/2024 LDL 114 09/09/2024 No results found for: [id number] , IRON , TIBC , C3 , C4 , SEAN , CANCA , ASO , PSA , CEA , CA125 , CA199 , AFP , CA153 Imaging ECG 12 lead Sinus bradycardia Otherwise normal ECG Confirmed by Shawn Jordan ([id number]) on 09/09/2024 5:56:50 PM Complete Echo (TTE) w/wo Imaging Agent, Strain, 3D, Bubble Study 1 [facility] Heart Station [address] [place] [address] [phone] (fax) Echocardiogram-[facility] Name: GRETCHEN TAN Study Date: 09/09/2024 03:22 PM B/P: 150 mmHg/57 mmHg HR: Date of : 1945 Location: [facility] Height: 62 in. Age: 78 year(s) Patient Room: 312 Weight: 207 lb. Gender: Female Patient Status: OutPt BSA: 1.94 m2 Indication: Unstable angina pectoris Examination: Echocardiogram (Complete) Image Quality: Technically Difficult study Patient Consent: Procedure explained to patient Conclusions Left Ventricle: The left ventricle is normal size. Global left ventricular systolic function is normal. The EF is 65 % visually. Left ventricular wall thic (more content not included)... [facility] 09-10-2024 Note Attestation signed by Rito Brown MD at 09/10/2024 1:11 PM 09/10/24 By using the attestations below, the signing clinician agrees that I have read and verify that the documentation has been personally reviewed by me and ensure that the documentation accurately reflects the encounter. GC: I personally saw this patient on the day of the encounter, performed the morrison portion(s) of the service and participated in the management and confirm the resident's documentation. Please note there may be an additional personal documentation from me. My additional comments are as follows: Plan for cardiac catheterization. Continue Aspirin and Crestor. iRto Brown MD, ScM, MSc Cardiac Dispensing Audiologist Email: [email or web address] Cardiology Progress Note Subjective Subjective: Patient was seen and examined. Reported feeling okay. Had slight chest pain, no shortness of breath. No abdominal pain, nausea, or vomiting. No orthopnea or paroxysmal nocturnal dyspnea. No lower leg swelling. No acute events overnight. Objective Current Facility-Administered Medications: acetaminophen (Tylenol) tablet 650 mg, 650 mg, oral, q6h PRN, Jf Walters PA-C, 650 mg at 09/09/24 2346 albuterol 2.5 mg /3 mL (0.083 %) nebulizer solution 3 mL, 3 mL, nebulization, q4h PRN, Jf Walters PA-C aspirin chewable tablet 81 mg, 81 mg, oral, Daily, Srini Boothe MD, 81 mg at 09/09/24 1547 atorvastatin (Lipitor) tablet 40 mg, 40 mg, oral, Nightly, Srini Boothe MD, 40 mg at 09/09/24 2218 lisinopril tablet 10 mg, 10 mg, oral, Daily, Jf Walters PA-C melatonin tablet 5 mg, 5 mg, oral, Nightly PRN, Jf Walters PA-C [Held by provider] metoprolol tartrate (Lopressor) tablet 25 mg, 25 mg, oral, BID, Jf Walters PA-C ondansetron ODT (Zofran-ODT) disintegrating tablet 4 mg, 4 mg, oral, q8h PRN OR ondansetron HCl (PF) (Zofran) injection 4 mg, 4 mg, intravenous, q6h PRN, Jf Walters PA-C pantoprazole (ProtoNix) EC tablet 40 mg, 40 mg, oral, Daily, Jf Walters PA-C, 40 mg at 09/10/24 0611 Insert peripheral IV, , , Once AND Saline lock IV, , , Once AND sodium chloride flush 10 mL, 10 mL, intravenous, q8h PRN, Jf Walters PA-C zolpidem (Ambien) tablet 10 mg, 10 mg, oral, Nightly PRN, Jf Walters PA-C, 10 mg at 09/09/24 2346 Objective: Patient Vitals for the past 24 hrs: BP Temp Temp src Pulse Resp SpO2 Height Weight 09/10/24 0800 131/55 36.3 ???C (97.3 ???F) Temporal 65 14 96 % -- -- 09/10/24 0450 -- -- -- -- -- -- -- 92.4 kg (203 lb 9.6 oz) 09/10/24 0415 132/53 36.7 ???C (98.1 ???F) Temporal 63 18 96 % -- -- 09/10/24 0410 (!) 105/39 -- -- 64 18 95 % -- -- 09/09/24 2350 134/71 36.7 ???C (98 ???F) Temporal 69 16 96 % -- -- 09/09/24 2025 123/76 36.4 ???C (97.5 ???F) Temporal 62 17 97 % -- -- 09/09/24 1600 146/57 37 ???C (98.6 ???F) Temporal 57 11 95 % -- -- 09/09/24 1453 -- -- -- -- -- 96 % -- 94.8 kg (208 lb 15.9 oz) 09/09/24 1433 158/87 36.9 ???C (98.4 ???F) Temporal 64 19 -- -- -- 09/09/24 1419 -- -- -- -- -- -- 1.575 m (5' 2.01 ) -- Physical Examination: Physical Exam Constitutional: General: She is not in acute distress. Appearance: Normal appearance. She is not ill-appearing. HENT: Head: Normocephalic and atraumatic. Cardiovascular: Rate and Rhythm: Normal rate and regular rhythm. Heart sounds: Normal heart sounds. No murmur heard. Pulmonary: Breath sounds: Normal breath sounds. No wheezing or rales. Abdominal: Palpations: Abdomen is soft. Tenderness: There is no abdominal tenderness. Musculoskeletal: Right lower leg: No edema. Left lower leg: No edema. Skin: General: Skin is warm and dry. Findings: No erythema or rash. Neurological: Mental Status: She is alert and oriented to person, place, and time. Mental status is at baseline. Relevant Lab Results Encounter Date: 09/09/24 ECG 12 lead Result Value Ventricular Rate 55 Atrial Rate 55 UT Interval 178 QRS DURATION 96 QT Interval 400 QTC CALCULATION(BAZETT) 382 P [place] 47 R-[place] -13 T Wave [place] 43 Impression Sinus bradycardia Otherwise normal ECG Confirmed by Shawn Jordan ([id number]) on 09/09/2024 5:56:50 PM Lab Results Component Value Date TROPONINI 0.00 09/10/2024 Complete Echo (TTE) w/wo Imaging Agent, Strain, 3D, Bubble Study Result Date: 09/09/2024 1 1 [facility] Heart Station [address] [place] [address] [phone] (fax) Echocardiogram-[facility] Name: GRETCHEN TAN Study Date: 09/09/2024 03:22 PM B/P: 150 mmHg/57 mmHg HR: Date of : 1945 Location: [facility] Height: 62 in. Age: 78 year(s) Patient Room: 3123 Weight: 207 lb. Gender: Female Patient Status: OutPt BSA: 1.94 m2 Indication: Unstable angina pectoris Examination: Echo (more content not included)... [facility] 09-09-2024 Note - Trend trops/EKGS - heparin infusion - Follow up TTE - A1c/lipids pending - NPO at midnight for cath in AM [facility] 09-09-2024 Note - [facility] - Continue crestor [facility] 09-09-2024 Note - on aspirin/crestor 20mg [facility] 09-09-2024 Note - On eliquis at home , started on heparin infusion here [facility] 09-09-2024 Note - nicotine patch [facility] 09-09-2024 Note Hospital Medicine History and Physical 09/09/2024 2:37 PM THE HOSPITALIST TEAM PREFERS TO USE [employer] FOR NON-URGENT COMMUNICATION 7AM-7PM. IF I DO NOT RESPOND WITHIN 20 MINUTES OR URGENT MATTERS, PLEASE CALL THROUGH THE CHART SNATCHER. FROM 7PM-7AM, PLEASE PAGE [phone](COVR). Chief Complaint No chief complaint on file. History of Present Illness Gretchen Tan is an 78 y.o. female with a past medical history of paroxysmal atrial fibrillation on Eliquis, hyperlipidemia and hypertension who came as a direct admit from cardiology clinic with Dr. Mcqueen for worsening chest pain over the past week. Patient reports that her chest pain is retrosternal, intermittent and occasionally radiates to her left arm. She does endorse that her symptoms are associated with some shortness of breath. Given her symptoms, decision was made for cardiac cath tomorrow with our cardiology team. Heparin drip was started. Patient was started on aspirin and Crestor as well. Patient's reportedly had a remote cardiac catheterization with an occluded left circumflex and overall moderate CAD. TTE pending. Review of System and Physical Exam Heart Rate: [50] 50 BP: (130)/(58) 130/58 Physical Exam Vitals and nursing note reviewed. Constitutional: General: She is not in acute distress. Appearance: Normal appearance. She is obese. She is not ill-appearing. HENT: Head: Normocephalic. Mouth/Throat: Mouth: Mucous membranes are moist. Eyes: Conjunctiva/sclera: Conjunctivae normal. Cardiovascular: Rate and Rhythm: Normal rate and regular rhythm. Pulses: Normal pulses. Heart sounds: Normal heart sounds. No murmur heard. No friction rub. No gallop. Pulmonary: Effort: Pulmonary effort is normal. No respiratory distress. Breath sounds: Normal breath sounds. No wheezing, rhonchi or rales. Abdominal: General: Abdomen is flat. Bowel sounds are normal. There is no distension. Palpations: Abdomen is soft. There is no mass. Tenderness: There is no abdominal tenderness. There is no guarding. Musculoskeletal: General: No swelling, tenderness or deformity. Normal range of motion. Right lower leg: No edema. Left lower leg: No edema. Skin: General: Skin is warm. Capillary Refill: Capillary refill takes less than 2 seconds. Coloration: Skin is not jaundiced. Findings: No erythema, lesion or rash. Neurological: General: No focal deficit present. Mental Status: She is alert and oriented to person, place, and time. Mental status is at baseline. Cranial Nerves: No cranial nerve deficit. Sensory: No sensory deficit. Motor: No weakness. Psychiatric: Mood and Affect: Mood normal. Behavior: Behavior normal. Thought Content: Thought content normal. Judgment: Judgment normal. Review of Systems Constitutional: Negative for chills, diaphoresis, fatigue and fever. HENT: Negative for trouble swallowing. Eyes: Negative for visual disturbance. Respiratory: Positive for shortness of breath. Negative for cough. Cardiovascular: Positive for chest pain. Negative for leg swelling. Gastrointestinal: Negative for abdominal distention, abdominal pain, blood in stool, constipation, diarrhea, nausea and vomiting. Musculoskeletal: Negative for arthralgias and joint swelling. Skin: Negative for rash. Neurological: Negative for dizziness, tremors, syncope and numbness. All other systems reviewed and are negative. Assessment and Plan Assessment & Plan Unstable angina ([facility]) - Trend trops/EKGS - heparin infusion - Follow up TTE - A1c/lipids pending - NPO at midnight for cath in AM Centrilobular emphysema ([facility]) - albuterol nebs as needed Coronary arteriosclerosis - on aspirin/crestor 20mg Paroxysmal atrial fibrillation ([facility]) - On eliquis at home, started on heparin infusion here Nicotine dependence, cigarettes, with unspecified nicotine-induced disorders - nicotine patch Dyslipidemia - Continue crestor Gastroesophageal reflux disease VTE Prophylaxis: IV heparin ----- Focus of this inpatient stay will remain on problems that need acute care setting for care. We will review available studies and will order additional labs, imaging and other studies as appropriate. As needed medicines are ordered as appropriate. VTE Prophylaxis will be ordered as appropriate. Please see above for management plan for individual hospital problems. Home medications are reviewed and will be continued as appropriate. Patient will be continued to be followed during this hospital stay by a member of [facility]. Past Medical History No past medical history on file. Past Surgical History Past Surgical History: Procedure Laterality Date CARDIAC CATHETERIZATION Social History Social History Socioeconomic History Marital status: Spouse name: Not on file Number of children: Not on file Years of education: Not on file Highest education level: Not on file (more content not included)... [facility] 09-09-2024 Note [place] [facility] - [facility] Subjective Gretchen Tan is a 78 y.o. year old female patient being seen for 6 mo follow up CAD, hypertension, and PAF. Says she had the flu or Covid a few weeks ago and still hasn't fully recovered. She's had chest heaviness since then. Also feeling pain in her left shoulder, radiating half way down the arm. Denies SOB, palpitations, and lightheadedness/syncope. Denies bleeding on Eliquis and aspirin. No recent labs/imaging. Patient Active Problem List Diagnosis Arthritis Coronary arteriosclerosis Dyslipidemia Dyspnea Gastroesophageal reflux disease Hypertensive disorder Insomnia Obesity Paroxysmal atrial fibrillation (CMS/HCC) Right bundle branch block Smoker Lumbar spondylosis Lumbosacral spondylosis without myelopathy Spinal stenosis of lumbar region with neurogenic claudication Pre-operative cardiovascular examination Centrilobular emphysema (CMS/HCC) History of COVID-19 Nicotine dependence, cigarettes, with unspecified nicotine-induced disorders Solitary pulmonary nodule Urinary incontinence in female Family History Problem Relation Name Age of Onset Diabetes Mother Stroke Mother Social History Tobacco Use Smoking status: Former Types: Cigarettes Smokeless tobacco: Never Substance Use Topics Alcohol use: Yes Comment: occasional Drug use: Never TRELL Gretchen is seen in follow-up. She is a 78-year-old woman with prior history of coronary artery disease with cardiac catheterization done many years ago showing occluded circumflex and moderate disease elsewhere, paroxysmal atrial fibrillation maintained on Eliquis, hypertension maintained on lisinopril as well as hyperlipidemia on rosuvastatin. Today she is seen in the office because she has been having symptoms of chest pain on and off repeatedly with radiation to the left shoulder and elbow. Those can happen at rest or with mild exertion. She has no significant shortness of breath and no palpitations. No leg edema. Review of Systems Constitutional: Positive for diaphoresis ( hot flashes ). Cardiovascular: Positive for chest pain ( heavniess ). Musculoskeletal: Positive for back pain. Objective Visit Vitals BP 130/58 (BP Location: Right arm, Patient Position: Sitting) Pulse 50 Ht 1.575 m (5' 2 ) Wt 93.9 kg (207 lb) SpO2 98% BMI 37.86 kg/m??? OB Status Postmenopausal Smoking Status Former BSA 2.03 m??? Physical Exam Constitutional: Appearance: She is well-developed. She is obese. She is not ill-appearing. HENT: Head: Normocephalic and atraumatic. Nose: Nose normal. Eyes: General: No scleral icterus. Pupils: Pupils are equal, round, and reactive to light. Neck: Thyroid: No thyromegaly. Vascular: No JVD. Cardiovascular: Rate and Rhythm: Normal rate and regular rhythm. Pulses: Radial pulses are 2+ on the right side and 2+ on the left side. Heart sounds: Normal heart sounds. No murmur heard. No friction rub. No gallop. Pulmonary: Effort: Pulmonary effort is normal. No respiratory distress. Breath sounds: Normal breath sounds. No wheezing or rales. Chest: Chest wall: No tenderness. Abdominal: General: Bowel sounds are normal. There is no distension. Palpations: Abdomen is soft. Tenderness: There is no abdominal tenderness. Musculoskeletal: General: No swelling. Cervical back: Neck supple. Skin: General: Skin is warm and dry. Neurological: General: No focal deficit present. Mental Status: She is alert and oriented to person, place, and time. Psychiatric: Mood and Affect: Mood normal. Behavior: Behavior is cooperative. Judgment: Judgment normal. Allergies No Known Allergies Medications Current Outpatient Medications: albuterol 2.5 mg /3 mL (0.083 %) nebulizer solution, 3 mL every 4 (four) hours if needed., Disp: , Rfl: apixaban (Eliquis) 5 mg tablet, TAKE 1 TABLET BY MOUTH IN THE MORNING AND AT BEDTIME, Disp: 14 tablet, Rfl: 3 aspirin 81 mg chewable tablet, Chew 1 tablet every day by oral route., Disp: , Rfl: lisinopril 10 mg tablet, TAKE 1 TABLET BY MOUTH ONCE DAILY DIRECTED, Disp: 90 tablet, Rfl: 0 metoprolol tartrate (Lopressor) 25 mg tablet, Take 25 mg by mouth in the morning and at bedtime., Disp: , Rfl: omeprazole (PriLOSEC) [address] capsule, Take 1 capsule by mouth in the morning., Disp: , Rfl: rosuvastatin (Crestor) 10 mg tablet, Take 1 tablet by mouth in the morning., Disp: , Rfl: zolpidem (Ambien) 10 mg tablet, TAKE 1 TABLET BY MOUTH ONCE DAILY AT BEDTIME NEEDED, Disp: , Rfl: Recent Labs No visits with results within 6 Month(s) from this visit. Latest known visit with results is: Hospital Outpatient Visit on 03/22/2022 Component Date Value WBC 03/18/2022 7.8 Hemoglobin, Serum 03/18/2022 12.5 Hematocrit 03/18/2022 39.1 Platelets 03/18/2022 198 Sodium 03/18/2022 141 Potassium, Bld 03/18/2022 4.2 Chloride 03/18/2022 107 Glucose, Bld 09/ (more content not included)... [facility] 08-13-2024 Miscellaneous Notes Gretchen called requesting a refill on her Rosuvastatin to [facility] . She stated she has prescriptions on her other meds but not that one. documented in this encounter [facility] 08-13-2024 Telephone encounter Note Gretchen called requesting a refill on her Rosuvastatin to [facility] . She stated she has prescriptions on her other meds but not that one. [facility] 08-05-2024 History of Present illness Narrative Images from the original note were not included. Patient ID: Gretchen Tan is a 78 y.o. female who presents for: Sleep Disorder: Onset of symptoms has been several years. How many hours of sleep is patient getting on average night: at least 8 How long does it take patient to get to sleep each night: 15-20 minutes Does he/she have trouble falling asleep: no Does he/she have trouble maintaining sleep: no Does patient have good sleep hygiene: yes Review of Systems Constitutional: Negative for appetite change and fatigue. Psychiatric/Behavioral: Positive for sleep disturbance. Negative for agitation, behavioral problems and suicidal ideas. The patient is not nervous/anxious. The patient is also complaining that other family members are sick with a URI symptoms. She is complaining of the nasal congestion in the cough. No specific shortness of breath, no fever or chills. Objective In general the patient is pleasant and in no acute distress. Bilateral nares demonstrate inflamed mucosa. Oropharynx has moist mucosa there is no specific evidence of thrush. There is mild erythema of the pharynx. Shoddy bilateral anterior cervical adenopathy. No signs of respiratory distress. She does have a nonproductive dry hacking type of cough intermittently during the office visit. Patient is speaking full sentences. There are Diffusely decreased but symmetrical breath sounds. No rhonchi or rales are appreciated. No wheezes. Skin is warm and dry Appropriate affect. Visit Vitals Ht 5' 1 Wt 207 lb BMI 39.11 kg/m OB Status Postmenopausal Smoking Status Every Day BSA 2.01 m PDMP reviewed, Mark Kahn MD on 08/05/2024 11:29 AM Appears as expected. COMM reviewed Office Visit on 08/05/2024 Component Date Value Ref Range Status AMPHETAMINES 08/05/2024 Negative Final BARBITURATES 08/05/2024 Negative Final BUPRENORPHINE 08/05/2024 Negative Final BENZODIAZEPINES 08/05/2024 Negative Final COCAINE METABOLITE 08/05/2024 Negative Final ECSTASY 08/05/2024 Negative Final METHADONE 08/05/2024 Negative Final OPIATES 08/05/2024 Negative Final OXYCODONE 08/05/2024 Negative Final PHENCYCLIDINE 08/05/2024 Negative Final TRICYCLICS 08/05/2024 Negative Final THC 08/05/2024 Negative Final MORPHINE 08/05/2024 Negative Final Allergies Allergen Reactions Nickel Rash Current Outpatient Medications on File Prior to Visit Medication Sig Dispense Refill apixaban (Eliquis) 5 MG tablet Take 5 mg by mouth in the morning and 5 mg before bedtime. ascorbic acid (Vitamin C) 500 MG chewable tablet Chew 1 tablet Daily aspirin 81 MG EC tablet Take 81 mg by mouth Daily lisinopril 10 MG tablet Take 10 mg by mouth Daily metoprolol tartrate (Lopressor) 25 MG tablet Take 25 mg by mouth in the morning and 25 mg before bedtime. Multiple Vitamin (multivitamin) capsule Take 1 capsule by mouth in the morning. omeprazole (PriLOSEC) [address] capsule Take 20 mg by mouth in the morning. Take before meals. rosuvastatin (Crestor) 10 MG tablet Take 10 mg by mouth Daily zolpidem (Ambien) 10 MG tablet Take 10 mg by mouth 1 (one) time each day at the same time [DISCONTINUED] albuterol (2.5 MG/3ML) 0.083% nebulizer solution Inhale 2.5 mg in the morning and 2.5 mg at noon and 2.5 mg in the evening and 2.5 mg before bedtime. No current facility-administered medications on file prior to visit. 1. Primary insomnia (Primary) Chronic problem that has been going on for years. Previous physician prescribed but new nurse practitioner would not continue to prescribe. She has presented to the office. We discussed multiple options. We have previously discussed sleep hygiene and she does not half way good job at it. She does note specifically that she believes the zolpidem continues to help her with sleep. She has 1-2 awakenings during the night and that is usually to go to the bathroom and can not fall back asleep. She denies feeling impaired or falling. She denies other side effects. I specifically note the patient has one or more high risk medications that is a chronic problem that specifically increases complexity of decision making and complicates all prescribing including prescription renewal consistent with a moderate or complex degree of decision making. A high-risk medicine is one that may cause serious health problems if not taken the correct way, or taken with another drug or food item that it may interact with. If the high-risk medication includes a controlled or reportable substance, The OARRS and NARX scores were reviewed and seem to be consistent with their prescribing pattern. The Current Opioid Misuse Measure (COMM) is reviewed and there is no evidence of aberrant behavior or abuse. Treatment regimens are increasingly complex and potentially harmful, and people with high risk medications need regular review and prescribing optimization. - Rapid drug screen, urine - zolpidem (Ambien) 10 MG tablet; Take 1 tablet (10 mg) by mouth 1 (one) time each day at the same time Dispense: 30 tablet; Refill: 5 2. Nicotine dependence, cigarettes, with unspecified nicotine-induced disorders Chronic problem that is unstable. The patient continues to use tobacco products or nicotine. She continues to use them even with this bronchitis that she has. Your goal is to quit using tobacco or vapor, as it significantly worsens health risks and complicates treatments. The patient was given a chance to ask questions and they declined medical intervention. 3. Controlled substance agreement signed See the scanned document - Rapid drug screen, urine 4. Medication monitoring encounter - Rapid drug screen, urine 5. Acute cough I do suspect this is viral in nature. We discussed benzoate and I will send that prescription in. We did discuss aerosolized saline 4 times daily which she somewhat cringe dad that we discussed how we did not want to affect any further the medication she was taking by additional polypharmacy. I showed her when I used and we discussed how to use it properly. In prescribing a new medication consideration of the following encompasses moderate decision making: the current prescriptions and supplements, the current allergies and medication intolerances, the current medical conditions, and potential drug interactions. Risks, benefits, and reason for starting their medication were discussed. The patient was given a chance to ask questions today and all questions were answered. The patient is to contact us if any other questions arise or if any problems occur with the adjustment in their medication. - benzonatate (Tessalon) 200 MG capsule; Take 1 capsule (200 mg) by mouth 3 (three) times a day as needed for cough for up to 7 days Do not crush or chew. Dispense: 21 capsule; Refill: 0 Chronic problem The patient meets the criteria for polypharmacy; 5 or more prescriptions or multi-morbidity defined as 5 or more diagnoses. Polypharmacy can significantly increase the risk of preventable adverse drug events and negatively impact adherence. Consideration of diverse factors such as clinician agreement, patient perspective, and de-prescribing, as appropriate can improve patient outcomes while simplifying care. This requires longitudinal monitoring as there is at least a moderate risk of morbidity and requires at least a moderate degree of evaluation and management. documented in this encounter [facility] 06-04-2024 History of Present illness Narrative Images from the original note were not included. Subjective : Chief Complaint: Gretchen Tan is an 78 y.o. female here for an annual wellness visit, and is a new patient for me. I have reviewed and reconciled the history and medication list with the patient today. Current Outpatient Medications Medication Sig Dispense Refill albuterol (2.5 MG/3ML) 0.083% nebulizer solution Inhale 2.5 mg in the morning and 2.5 mg at noon and 2.5 mg in the evening and 2.5 mg before bedtime. apixaban (Eliquis) 5 MG tablet Take 5 mg by mouth in the morning and 5 mg before bedtime. ascorbic acid (Vitamin C) 500 MG chewable tablet Chew 1 tablet Daily aspirin 81 MG EC tablet Take 81 mg by mouth Daily lisinopril 10 MG tablet Take 10 mg by mouth Daily metoprolol tartrate (Lopressor) 25 MG tablet Take 25 mg by mouth in the morning and 25 mg before bedtime. Multiple Vitamin (multivitamin) capsule Take 1 capsule by mouth in the morning. omeprazole (PriLOSEC) [address] capsule Take 20 mg by mouth in the morning. Take before meals. rosuvastatin (Crestor) 10 MG tablet Take 10 mg by mouth Daily zolpidem (Ambien) 10 MG tablet Take 10 mg by mouth 1 (one) time each day at the same time No current facility-administered medications for this visit. Review of Systems Unremarkable except as mentioned List of current healthcare providers: Cardiology [facility] pulmonology [facility] banjo repairer [facility] (Dr. Zapien) Medicare Annual Visit Over the past 2 weeks, how often have you been bothered by any of the following problems? Little interest or pleasure in doing things: Not at all Feeling down, depressed, or hopeless: More than half the days Patient Health Questionnaire-2 Score: 2 Over the past 2 weeks, how often have you been bothered by any of the following problems? Trouble falling or staying asleep, or sleeping too much: Nearly every day Feeling tired or having little energy: Not at all Poor appetite or overeating: Several days Feeling bad about yourself - or that you are a failure or have let yourself or your family down: More than half the days Trouble concentrating on things, such as reading the newspaper or watching television: Not at all Moving or speaking so slowly that other people could have noticed? Or the opposite - being so fidgety or restless that you have been moving around a lot more than usual.: Not at all Thoughts that you would be better off or hurting yourself in some way: Not at all Patient Health Questionnaire-9 Score: 8 Health Risk Assessment Form Do you need help eating, bathing, using the toilet, dressing, or getting around your home?: No Can you prepare your own meals?: Yes Can you do your own housework without help?: Yes Can you shop for groceries or clothes without help?: Yes Do you exercise for about 20 minutes 3 or more days a week?: Yes Can you mange your money, credit cards and accounts, pay bills and taxes?: Yes Vision Screening: Yes, 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 Physical Exam The patient is pleasant and in no acute distress. The head is normocephalic and atraumatic. Both eyes appear grossly normal without obvious lid pathology or icterus. Both ears hearing is grossly intact. The neck is supple and trachea is midline. No masses are appreciated. The anterior cervical lymphatics demonstrates shoddy bilateral nontender lymphadenopathy. There is no supraclavicular lymphadenopathy. The heart is regular rate and rhythm without S3, S4. No murmur. The patient has normal respiratory pattern. The breath sounds are Diffusely decreased but symmetrical without evidence of rhonchi or rales. No wheezing. The skin is warm and dry. The lower extremities have trace edema. Neurologic screening exam is nonfocal. The patient is alert. There is no overt gross evidence of cognitive impairment The patient has good eye contact and speech is clear. Appropriate affect. Assessment/Plan : The following health maintenance schedule was reviewed with the patient and provided in printed form in the after visit summary: Health Maintenance Topic Date Due Influenza Vaccine Completed Pneumococcal Vaccine: 65+ Years Completed No orders of the defined types were placed in this encounter. Electronically signed by Mark Kahn MD on June 14, 2024 1. Encounter for Medicare annual wellness exam (Primary) He is utilizing this visit for both her wellness and to establish care with me. The patient is here for their Annual Medicare Wellness visit. Demographics were updated. Self-assessment was completed and reviewed. Past medical, family, and social history were updated. The medication list updated and reviewed by the doctor. A list of other current medical providers is established and updated. Time was spent discussing health maintenance issues, ordering testing as appropriate, and a schedule was reviewed regarding recommended screening. We discussed safety issues and fall risk. Depression screening was completed and addressed as appropriate. Fall screening was completed and addressed. Cognitive function was assessed by direct observation, cognitive screening as indicated, and assessment of ability to perform ADL's. The BMI and discussed. Major risk factors for chronic disease including family history were discussed. An after visit summary is made available to the patient 2. Advance directive discussed with patient Patient voluntarily agreed to discuss advance care planning at today's wellness visit. We discussed that an advance directive is a legal document that only goes into effect if the patient is incapacitated and unable to speak for themselves. This would help us to decide what care the patient would want. We discussed emergency treatments to keep the patient alive such as CPR, ventilator use and concept of comfort. We discussed how patients could make their wishes known through a living will, durable power of commercial attorney for healthcare, or other advanced directives. We discussed telling [place] people about their advance and a copy will be kept in the EHR. I discussed that they should also make me an emergency contact in their cell phone, and/or notify their POA that I have a copy of the advanced directives. 3. Encounter for screening for other disorder Clinically insignificant depression screening 4. Screening for alcohol problem Negative alcohol screening 5. Nicotine dependence, cigarettes, with unspecified nicotine-induced disorders Chronic problem that is unstable. The patient continues to use tobacco products or nicotine. Your goal is to quit using tobacco or vapor, as it significantly worsens health risks and complicates treatments. The patient was given a chance to ask questions and they declined medical intervention. 6. Centrilobular emphysema (CMS/HCC) Chronic problem, stable, a component of her shortness of breath. Will be comanaged with pulmonology. 7. Arteriosclerosis of coronary artery (CMS/HCC) Chronic problem, stable, currently no evidence of angina or anginal equivalents. We will be comanaged with Cardiology. 8. Primary hypertension (CMS/HCC) Chronic problem, stable. Blood pressure to goal. We will be comanaged with Cardiology. 9. Paroxysmal atrial fibrillation (CMS/HCC) Chronic problem, stable. We will be comanaged with Cardiology. 10. Dyslipidemia (CMS/HCC) Chronic problem, stable. We will be comanaged with Cardiology. documented in this encounter [facility] 03-08-2024 Note Continue Crestor 10 mg daily Staff to obtain recent labs from PCP hopefully there is liver function and lipid panel [facility] 03-08-2024 Note Coronary artery dise ase is stable Continue GDMT aspirin, metoprolol, Crestor and lisinopril She recently had labs at her PCP staff to obtain recent results. She states no concerns on labs per her primary care physician. She denies any activity limiting symptoms of shortness of breath or chest pain her only activity limiting symptoms are related to her back pain and nerve pain down her right leg. continue risk factor modifications- heart healthy diet, regular exercise as tolerated and continue all medications. [facility] 03-08-2024 Note Hypertension is curr ently well-controlled 119/62 Continue metoprolol, lisinopril no concerning symptoms today. Renal function stable [facility] 03-08-2024 Note [id number]= 5 Age, female, HTN, CAD Remains on Eliquis anticoagulation and denies any bleeding tendencies Per assessment she is in rhythm continue metoprolol 25 mg twice daily [facility] 03-08-2024 Note Pt is here for a six month follow up. Pt denies chest pain, palpatation, and sob. Pt is having problems with her back. She is having pain down her right leg. Review of Systems Musculoskeletal: Positive for arthritis and back pain. All other systems reviewed and are negative. [facility] 03-08-2024 Note [facility] CARDIOLOGY PROGR ESS NOTE HPI: Gretchen Tan is a 78 y.o. female here for routine F/U HPI Pt is here for a six month follow up. Pt denies chest pain, palpatation, and sob. Pt is having problems with her back. She is having pain down her right leg. 78 yo y.o. female here for Parox a fib, CAD. Review of Systems Musculoskeletal: Positive for arthritis and back pain. All other systems reviewed and are negative. Review of Systems Visit Vitals BP 119/62 (BP Location: Right wrist, Patient Position: Sitting) Pulse 66 Ht 1.575 m (5' 2 ) Wt 92.1 kg (203 lb) SpO2 95% BMI 37.13 kg/m??? OB Status Postmenopausal Smoking Status Former BSA 2.01 m??? No Known Allergies Medications: Current Outpatient Medications on File Prior to Visit Medication Sig Dispense Refill apixaban (Eliquis) 5 mg tablet TAKE 1 TABLET BY MOUTH IN THE MORNING AND AT BEDTIME 60 tablet 11 aspirin 81 mg chewable tablet Chew 1 tablet every day by oral route. lisinopril 10 mg tablet Take 1 tablet (10 mg) by mouth once daily as directed. 90 tablet 3 metoprolol tartrate (Lopressor) 25 mg tablet Take [...] Constitutional: Appearance: Normal appearance. Without apparent distress, obese, chronically ill HENT: Head: Normocephalic and atraumatic. Nose: Nose normal. Mouth/Throat: Mouth: Mucous membranes are moist. Eyes: Extraocular Movements: Extraocular movements intact. Conjunctiva/sclera: Conjunctivae normal. Neck: Vascular: No JVD. Cardiovascular: Rate and Rhythm: Normal rate and regular rhythm. Pulses: Dorsalis pedis pulses [...] normal. Palpations: Abdomen is soft. Musculoskeletal: General: Chronic back pain Right lower leg: No edema. Left lower leg: No edema. Skin: General: Skin is warm and dry. Capillary Refill: Capillary refill takes less than 2 seconds. Neurological: General: No focal deficit present. Mental Status: She is alert and oriented to person, place, and time. Psychiatric: Mood and Affect: Mood normal. Behavior: Behavior normal. Thought Content: Thought content normal. Judgment: Judgment normal. Labs: Renal function was normal potassium normal Component 1 yr ago Sodium 141 Potassium, Bld 4.2 Chloride 107 Glucose, Bld 111 BUN, Bld 9 Creatinine 0.80 Last lab values have been reviewed CV Testin01/08/21 LVSF normal EF 60-65% Mild TV regurg Stress test: Lexiscan 01/08/21 No ischemia, LV function defect inferior - probable artificat Diagnostic Imaging: CT of the chest showed 8 x 6 x 3 mm size nodule that was suggestive be likely benign in the right lower lobe in the superior aspect. 6-month follow-up suggested Assessment/Plan: Paroxysmal atrial fibrillation (CMS/HCC) [id number]= 5 Age, female, HTN, CAD Remains on Eliquis anticoagulation and denies any bleeding tendencies Per assessment she is in rhythm continue metoprolol 25 mg twice daily Hypertensive disorder Hypertension is currently well-controlled 119/62 Continue metoprolol, lisinopril no concerning symptoms today. Renal function stable Coronary arteriosclerosis Coronary artery disease is stable Continue GDMT aspirin, metoprolol, Crestor and lisinopril She recently had labs at her PCP staff to obtain recent results. She states no concerns on labs per her primary care physician. She denies any activity limiting symptoms of shortness of breath or chest pain her only activity limiting symptoms are related to her back pain and nerve pain down her right leg. continue risk factor modifications- heart healthy diet, regular exercise as tolerated and continue all medications. Dyslipidemia Continue Crestor 10 mg daily Staff to obtain recent labs from PCP hopefully there is liver function and lipid panel Return to clinic 1 year or earlier if needed [facility] 02-05-2024 History of Present illness Narrative Gretchen Tan is a 78 y.o.female. No LMP recorded. Patient is postmenopausal.. She presents for follow up of Lichen Sclerosis. OB History 3 Para 3 Term 3 AB Living SAB IAB Ectopic Multiple Live Births MEDICAL HX Past Medical History: Diagnosis Date Arthritis Dyslipidemia GERD (gastroesophageal reflux disease) Hematuria Hyperlipidemia Hypertension Insomnia Low back pain SURGICAL HX Past Surgical History: Procedure Laterality Date ANTERIOR CERVICAL DISCECTOMY W/ FUSION 10/24/2023 CARDIAC CATHETERIZATION 2012 LEFT VENTRICULAR PUNCTURE COLONOSCOPY 2012 COLONOSCOPY N/A 02/15/[address] Alcazar DO at [facility] INJECTION BLOCK EPIDURAL CAUDAL STEROID N/A 05/05/2023 Performed by Sp Alonzo MD at [facility] INJECTION BLOCK NERVE MEDIAL BRANCH Bilat L 4/5,5 Bilateral 03/24/2023 Performed by Sp Alonzo MD at [facility] FAMILY HX Family History Problem Relation Age of Onset Diabetes Mother Heart failure Mother Appendicitis Father Arthritis Sister Arthritis Sister Breast cancer Paternal Aunt 81 Mason Breast Cancer Neg Hx MEDS Current Outpatient Medications Medication Sig Dispense Refill [...] mg total) by mouth in the morning. clobetasoL (TEMOVATE) 0.05 % cream APPLY CREAM TOPICALLY TWICE DAILY ( MORNING AND BEFORE BEDTIME) 30 g 0 lisinopril-hydroCHLOROthiazide (PRINZIDE,ZESTORETIC) 10-12.5 mg per tablet Take [...] No current facility-administered medications for this visit. ALLERGIES No Known Allergies Review of Systems Review of Systems Objective There were no vitals taken for this visit. Physical Exam BP 132/74 Ht 157.5 cm (5' 2 ) Wt 94 kg (207 lb 3.2 oz) BMI 37.90 kg/m Physical Exam GEN AAOX3, NAD HEENT UNREMARKABLE HEART RRR LUNGS CTAB ABD BENIGN, OBESE, NTND PELVIS: EG APPROP FOR AGE, NO LESIONS VAGINA APPROP FOR AGE, NO LESIONS BIMANUAL NO MASSES OR TENDERNESS RECTAL DEFERRED EXTREM NO CCE, NO CALF TENDERNESS Assessment/Plan: LICHEN SCLEROSIS IMPROVED WITH CLOBETASOL ATROPHIC VAGINITIS ESTRACE CREAM ENCOURAGED MAINTENANCE RETURN TO OFFICE FOR WW E MD JOHN PAUL PERDUE, SAIL LAY OUT WORKER documented in this encounter [facility] 12-18-2023 History of Present illness Narrative Gretchen Tan is a 78 y.o.female. No LMP recorded. Patient is postmenopausal.. She presents for results of vulvar biopsy d/t vulvar irritation. Results are as follows: Final Pathologic Diagnosis Right labia, biopsy: Lichen sclerosus with mild chronic inflammation. OB History 3 Para 3 Term 3 AB Living SAB IAB Ectopic Multiple Live Births MEDICAL HX Past Medical History: Diagnosis Date Arthritis Dyslipidemia GERD (gastroesophageal reflux disease) Hematuria Hyperlipidemia Hypertension Insomnia Low back pain SURGICAL HX Past Surgical History: Procedure Laterality Date ANTERIOR CERVICAL DISCECTOMY W/ FUSION 10/24/2023 CARDIAC CATHETERIZATION 2012 LEFT VENTRICULAR PUNCTURE COLONOSCOPY 2012 COLONOSCOPY N/A 02/15/[address] Alcazar DO at [facility] INJECTION BLOCK EPIDURAL CAUDAL STEROID N/A 05/05/2023 Performed by Sp Alonzo MD at [facility] INJECTION BLOCK NERVE MEDIAL BRANCH Bilat L 4,10/24 Bilateral 03/24/2023 Performed by Sp Alonzo MD at [facility] FAMILY HX Family History Problem Relation Age of Onset Diabetes Mother Heart failure Mother Appendicitis Father Arthritis Sister Arthritis Sister Breast cancer Paternal Aunt 81 Mason Breast Cancer Neg Hx MEDS Current Outpatient Medications Medication Sig Dispense Refill [...] mg total) by mouth in the morning. clobetasoL (TEMOVATE) 0.05 % cream Apply 1 Application topically in the morning and 1 Application before bedtime. 30 g 0 lisinopril-hydroCHLOROthiazide (PRINZIDE,ZESTORETIC) 10-12.5 mg per tablet Take 1 tablet by mouth in the morning. METOPROLOL SUCCINATE ORAL Take 25 mg by mouth. HALF TAB BID multivitamin capsule Take 1 capsule by mouth in the morning. nystatin (MYCOSTATIN) cream APPLY TO UPPER THIGH AND GROIN AREA TWICE DAILY FOR 7 DAYS (Patient not taking: Reported on 12/04/2023) omeprazole (PriLOSEC) 20 mg capsule Take 1 capsule (20 mg total) by mouth in the morning. pravastatin (PRAVACHOL) 40 mg tablet Take 1 tablet (40 mg total) by mouth in the morning. zolpidem (AMBIEN) 10 mg tablet Take 1 tablet (10 mg total) by mouth in the morning. No current facility-administered medications for this visit. ALLERGIES No Known Allergies Review of Systems Review of Systems Objective There were no vitals taken for this visit. Physical Exam Ht 157.5 cm (5' 2 ) Wt 91.9 kg (202 lb 11.2 oz) BMI 37.07 kg/m Assessment/Plan: LICHEN SCLEROSUS CHRONIC VULVAR INFLAMMATION CLOBETASOL CREAM RETURN TO OFFICE IN 3 MONTHS PLAN FOR LOCAL ESTROGEN CREAM AT THAT TIME INSTRUCTIONS EXPLAINED EXTENSIVELY MD JOHN PAUL PERDUE, SAIL LAY OUT WORKER documented in this encounter [facility] 12-04-2023 History of Present illness Narrative Vulcoscopy Procedure Note Indications: CHRONIC VULVOVAGINAL IRRITATION. Procedure Details The risks and benefits of the procedure and Written informed consent obtained. Speculum placed in vagina and excellent visualization of cervix achieved, cervix swabbed x 3 with acetic acid solution. Findings: Cervix: ; NOT DONE. Vaginal inspection: vaginal colposcopy not performed. Vulvar colposcopy: acetic acid applied o vulvar tissue, lesion(s) noted at 7 o'clock, skin prepped with Betadine and local 1% lidocaine, 4 mm punch biopsies taken at 7 o'clock, and hemostasis achieved by silver nitrate. Specimens: RT LABIAL BX @ 7:00 Complications: none. Plan: Specimens labelled and sent to Pathology. Will base further treatment on Pathology findings. Post biopsy instructions given to patient. Return to discuss Pathology results in 2 weeks. SHAYY BROOKE MD documented in this encounter [facility] 11-23-2023 Miscellaneous Notes Patient states her burning & itching is becoming unbearable. Patient states the dermaplast spray & sitz baths are not helping. As Dr. Brooke is not back in the Office until Monday, will you please advise. Thank you Advised Patient RX was sent. Advised if Patient does not see any improvement in symptoms in 3-5 days to call Office for appointment. documented in this encounter [facility] 11-23-2023 Telephone encounter Note Patient states her burning & itching is becoming unbearable. Patient states the dermaplast spray & sitz baths are not helping. As Dr. Brooke is not back in the Office until Monday, will you please advise. Thank you [facility] 11-23-2023 Telephone encounter Note Advised Patient RX was sent. Advised if Patient does not see any improvement in symptoms in 3-5 days to call Office for appointment. [facility] 11-14-2023 History of Present illness Narrative Gretchen Tan is a 78 y.o.female. No LMP recorded. Patient is postmenopausal.. She presents with recurrent vaginitis. Pt reports she had a really bad and painful yeast infection around [place] last year and then again about a month ago. Pt reports she had back surgery 4 weeks ago and was on antibiotics, and PCP believed the yeast infection was due to them. Pt was treated with Diflucan and Nystatin cream. Pt reports symptoms of itching and burning are better but not completely gone. OB History 3 Para 3 Term 3 AB Living SAB IAB Ectopic Multiple Live Births MEDICAL HX Past Medical History: Diagnosis Date Arthritis Dyslipidemia GERD (gastroesophageal reflux disease) Hematuria Hyperlipidemia Hypertension Insomnia Low back pain SURGICAL HX Past Surgical History: Procedure Laterality Date CARDIAC CATHETERIZATION 2012 LEFT VENTRICULAR PUNCTURE COLONOSCOPY 2012 COLONOSCOPY N/A 02/15/[address] Alcazar DO at [facility] INJECTION BLOCK EPIDURAL CAUDAL STEROID N/A 05/05/2023 Performed by Sp Alonzo MD at [facility] INJECTION BLOCK NERVE MEDIAL BRANCH Bilat L 09/28,10/24 Bilateral 03/24/2023 Performed by Sp Alonzo MD at [facility] FAMILY HX Family History Problem Relation Age of Onset Diabetes Mother Heart failure Mother Appendicitis Father Arthritis Sister Arthritis Sister Breast cancer Paternal Aunt 81 Mason Breast Cancer Neg Hx MEDS Current Outpatient Medications Medication Sig Dispense Refill [...] No current facility-administered medications for this visit. ALLERGIES No Known Allergies Review of Systems Review of Systems Objective There were no vitals taken for this visit. Physical Exam BP 132/84 Ht 157.5 cm (5' 2 ) Wt 95.3 kg (210 lb) BMI 38.41 kg/m Physical Exam GEN AAOX3, NAD HEENT UNREMARKABLE HEART RRR LUNGS CTAB ABD BENIGN, OBESE, NTND PELVIS: EG APPROP FOR AGE, ATROPHIC AND EXTENSIVE LICHENOUS CHANGE AND CHRONIC IRRITATION OF EG VAGINA APPROP FOR AGE, NO LESIONS BIMANUAL NO MASSES OR TENDERNESS RECTAL DEFERRED EXTREM NO CCE, NO CALF TENDERNESS Assessment/Plan: Gretchen was seen today for vaginitis. Diagnoses and all orders for this visit: Vaginitis and vulvovaginitis VAGINAL CULTURES DONE HSV CULTURE DONE DERMOPLAST AND SITZ BATHS RECOMMENDED RETURN TO OFFICE FOR VULVOSCOPY AND BIOPSY MD JOHN PAUL PERDUE CMA documented in this encounter [facility] 11-14-2023 Miscellaneous Notes Addended by: JOHN PAUL ENRIQUEZ on: 11/14/2023 12:09 PM Modules accepted: Orders documented in this encounter [facility] 11-14-2023 Note Addended by: JOHN PAUL ENRIQUEZ on: 11/14/2023 12:09 PM Modules accepted: Orders [facility] 10-20-2023 Note Admission Informatio n 78-year-old female with a history of COPD related to chronic nicotine abuse, Eliquis use secondary to atrial fibrillation, hypertension and morbid obesity presented to the neurosurgery outpatient clinic with intractable low back pain and neurogenic claudication related to 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 Given the failure of conservative management, the patient was deemed appropriate for consideration of surgical intervention. Patient was in strong agreement and patient was admitted to [facility] on 10/18/2023 and underwent uncomplicated decompression and stabilization L4-5. Postoperatively, patient was admitted to the floor where she was hemodynamically stable and had early tolerance of atelectasis control measures including incentive spirometry. She also has early tolerant of diet. Bowel program was initiated with initially small results. Patient mobilized with therapy modalities and did quite well. She had decreasing amount from her surgical drains. Postoperative laboratories revealed only mild anemia of expected perioperative losses and intraoperative losses as well as hemodilution and required no transfusion. By postoperative day 2 surgical drain was sufficiently low and output that it was discontinued and patient deemed appropriate for home-going Disposition: Home with Condition: Good Diet: Regular Education: [facility] neurosurgery education form Follow-up: As scheduled preoperatively-call [phone] to confirm appointment to be seen in the neurosurgery clinic approximately 2 weeks after surgery Procedures while admitted: L4-5 bilateral decompressive laminal foraminotomies with posterior lateral arthrodesis using intertransverse technique L4-5 bilaterally with locally harvested autograft from decompression as well as Medtronic infuse small kit due to high risk of pseudoarthrosis in the light of chronic nicotine abuse; instrumentation L4-5 using [employer] Osteogrip screws 6.5 mm in diameter; frameless stereotactic navigation for hardware placement using [employer] station [facility] Course Medications Home albuterol 2.5 mg/3 mL (0.083%) inhalation solution, Still taking, not as prescribed: pt reports not having taken this for probably 6 months or so aspirin 81 mg oral capsule, 81 mg= 1 caps, Oral, Daily Eliquis 5 mg oral tablet I-Sense OccuShield oral capsule, 1 caps, Oral, Daily lisinopril 10 mg oral tablet Metoprolol Tartrate 25 mg oral tablet multivitamin, 1 tabs, Oral, Daily nystatin 100,000 units/g topical cream omeprazole 20 mg oral delayed release capsule rosuvastatin 10 mg oral tablet zolpidem 10 mg oral tablet Prescriptions ascorbic acid 500 mg oral tablet, chewable, 500 mg= 1 tabs, Oral, q8hr baclofen 5 mg oral tablet, 5 mg= 1 tabs, Oral, [id number]-[id number] Times docusate sodium 100 mg oral capsule, 100 mg= 1 caps, Oral, BID ferrous sulfate 325 mg (65 mg elemental iron) oral tablet, 325 mg= 1 tabs, Oral, BID Keflex 500 mg oral capsule, 500 mg= 1 caps, Oral, q6hr magnesium oxide 400 mg (241.3 mg elemental magnesium) oral tablet, 400 mg= 1 tabs, Oral, BID oxyCODONE-acetaminophen 5 mg-325 mg oral tablet, 2 tabs, Oral, q4hr, PRN Physical Exam Vitals & Measurements T: 36.6 ?C (Oral) HR: 54 (Peripheral) RR: 16 BP: 117/61 SpO2: 96% HT: 158 cm WT: 103.0 kg BMI: 38.46 Additional Vitals No qualifying data available. Discharge Plan 1. Atrial fibrillation Ordered: Discharge Patient 2. COPD with emphysema Ordered: Discharge Patient 3. Morbid obesity with BMI of 40.0-44.9, adult Ordered: Discharge Patient 4. Spondylolisthesis, lumbar region Ordered: Discharge Patient 5. Spinal instability, lumbar Ordered: oxyCODONE-acetaminophen, 2 tabs, Oral, q4hr, PRN, 1-2 abs po q4hr prn pain, X 7 days, # 30 tabs, 0 Refill(s), 10/27/23 14:13:00 EDT, Pharmacy: [facility] Discharge Patient Orders: ascorbic acid, 1 tabs, Oral, q8hr, # 270 tabs, 0 Refill(s), Pharmacy: [facility] baclofen, 1 tabs, Oral, f8ka-Pgserdvs Times, # 21 tabs, 0 Refill(s), Pharmacy: [facility] bisacodyl, 10 mg, Rectal, Supp, Once, First Dose: 10/20/23 14:07:00 EDT, Stop Date: 10/20/23 14:07:00 EDT, Dispense From Location: [address], 10/20/23 14:07:00 EDT cephalexin, 1 caps, Oral, q6hr, X 3 days, # 12 caps, 0 Refill(s), 10/23/23 14:13:00 EDT, Pharmacy: [facility] cephalexin, 500 mg, Oral, Cap, q6hr for 12 doses, First Dose: 10/20/23 15:00:00 EDT, Stop Date: 10/23/23 14:59:00 EDT, Dispense From Location: [address], Prophylaxis- Pre/Post-Op, 10/20/23 14:07:00 EDT docusate, 1 caps, Oral, BID, # 14 caps, 0 Refill(s), Pharmacy: [facility] ferrous sulfate, 1 tabs, Oral, BID, # 60 tabs, 0 Refill(s), Pharmacy: [facility] magnesium oxide, 1 tabs, Oral, BID, X 7 days, # 14 tabs, 0 Refill(s), 10/27/23 14:13:00 EDT, Pharmacy: [facility] 1429 Patient Di (more content not included)... [facility] 07-26-2023 History of Present illness Narrative Images from the original note were not included. [address] [place] [address] [facility] [address] Patient: Gretchen Tan Date of : 1945 [...] COLONOSCOPY 2012 COLONOSCOPY N/A 02/15/[address]cazar DO at [facility] INJECTION BLOCK EPIDURAL CAUDAL STEROID N/A 05/05/2023 Performed by Sp Alonzo MD at [facility] INJECTION BLOCK NERVE MEDIAL BRANCH Bilat L 4/5,5/ Bilateral 03/24/2023 Performed by Sp Alonzo MD at [facility] Family History Problem Relation Age of Onset [...] to leave a urine specimen today. ABIGAIL MARINELLI This note was created with the assistance of a speech recognition program. While intending to generate a timely document that accurately reflects the content of the visit, no guarantee can be provided that every grammatical or spelling mistake has been or will be identified or corrected. Thank you for your understanding. ABGIAIL Marinelli 07/26/23 2182 documented in this encounter [employer] 07-14-2023 Miscellaneous Notes Called and spoke to patient in regards to needing information [facility] We have not seen the patient since 01/08/2021. Patient states she sees cardiology in [place] not here. [facility]'s name was listed on the patient assistance application and patient was asked to contact them in regards to addressing the correct biosolids management technician from that group.OZIEL Morillo documented in this encounter [facility] 07-14-2023 Telephone encounter Note Called and spoke to patient in regards to needing information for patient assistance for [facility]. We have not seen the patient since 01/08/2021. Patient states she sees cardiology in [place] not here. [facility]G's name was listed on the patient assistance application and patient was asked to contact them in regards to addressing the correct biosolids management technician from that group.OZIEL Morillo [facility] Evaluation note Diagnosis Encounter for Medicare annual wellness exam- Primary Advance directive discussed with patient Encounter for screening for other disorder Screening for alcohol problem Screening for alcoholism Nicotine dependence, cigarettes, with unspecified nicotine-induced disorders Centrilobular emphysema (CMS/HCC) Arteriosclerosis of coronary artery (CMS/HCC) Primary hypertension (CMS/HCC) Unspecified essential hypertension Paroxysmal atrial fibrillation (CMS/HCC) Atrial fibrillation Dyslipidemia (CMS/HCC) Other and unspecified hyperlipidemia documented in this encounter [facility] HealthcareEvaluation note* Diagnosis Primary insomnia- Primary Persistent disorder of initiating or maintaining sleep Nicotine dependence, cigarettes, with unspecified nicotine-induced disorders Controlled substance agreement signed Medication monitoring encounter Encounter for therapeutic drug monitoring Acute cough documented in this encounter [facility] HealthcareEvaluation note* Diagnosis Vulvar irritation- Primary [facility] Diagnosis Vaginitis and vulvovaginitis- Primary [facility] Diagnosis Mixed incontinence- Primary Mixed incontinence urge and stress (male)(female) Frequent urinary tract infections [facility] Diagnosis Vaginitis and vulvovaginitis- Primary [facility]* Diagnosis Lichen sclerosus- Primary Circumscribed scleroderma Vulvar irritation [facility]* Diagnosis Vaginitis and vulvovaginitis [facility]* Diagnosis 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 Postmenopausal atrophic vaginitis [facility]* Diagnosis Dyslipidemia (CMS/HCC)- Primary Other and unspecified hyperlipidemia documented in this encounter [facility] HealthcareInstructionsNot on filedocumented in this encounter[facility] SystemInstructionsNot on filedocumented in this encounterPro[facility] SystemInstructionsNot on filedocumented in this encounterProMediSal[facility] SystemInstructionsNot on filedocumented in this encounterProNationwide Children'[facility] InstructionsNot on filedocumented in this encounterProNationwide Children'S Hospital System Summary Purpose Family History No Family History Records FoundNo Family History Records FoundNo Family History Records FoundNo Family History Records FoundNo Family History Records FoundNo Family History Records FoundNo Family History Records FoundNo Family History Records FoundNo Family History Records Found Advance Directives No Advanced Directives Records FoundDocuments on File Type Date Recorded Patient Operating Room Tech Expl anation Power of General Maintenance Helper 08/05/2024 11:49 AM 2024 Power Of General Maintenance Helper Additional Source Comments INFORMATION SOURCE (unrecogn ized section and content) DATE CREATED AUTHOR 05/07/2020 [facility] DATE CREATED AUTHOR AUTHOR'S ORGANIZ ATION 07/09/2022 [facility] DATE CREATED AUTHOR AUTHOR'S ORGANIZ ATION 07/02/2023 [facility] DATE CREATED AUTHOR AUTHOR'S ORGANIZ ATION 11/17/2023 [facility] DATE CREATED AUTHOR AUTHOR'S ORGANIZ ATION 02/06/2024 [facility] DATE CREATED AUTHOR AUTHOR'S ORGANIZ ATION 02/28/2024 [facility] DATE CREATED AUTHOR AUTHOR'S ORGANIZ ATION 05/09/2024 [facility] DATE CREATED AUTHOR AUTHOR'S ORGANIZ ATION 08/31/2024 [facility] DATE CREATED AUTHOR AUTHOR'S ORGANIZ ATION 09/16/2024 [facility] Reason for Visit (unrecogniz ed section and content) Reason Comments Annual Exam Reason Comments Sleeping Problem Reason Comments Biopsy Vulvoscopy Reason Comments Vaginitis Reason Comments Recurring UTI Reason Comments Results Reason Comments Med Refill Reason Comments Follow-up Care Teams (unrecognized sec tion and content) Masonry Inspector Relationship Specialty [place] [address] [place] [id number] PCP - [facility] 01/04/18 Masonry Inspector Relationship Specialty Start [place] [address] [place] [id number] PCP - [facility] 01/04/18 Masonry Inspector Relationship Specialty Start [place] [address] [place] [phone] PCP - [facility] 01/04/18 Masonry Inspector Relationship Specialty Start Date End Date Anthony Mckinley MD [address] [place] [id number] PCP - [facility] 01/04/18 Masonry Inspector Relationship Specialty Start Date End Date Anthony Mckinley MD [address] [place] [address] [phone] PCP - [facility] 01/04/18 FOR RECORDS PERTAINING TO PATIENTS WHO ARE [...] BE BASED ON THE PRIMARY CLINICAL RECORDS. [facility] [facility]. provides no warranty or guarantee of the accuracy or completeness of information in this document.
== END 2024-09-17 10:36 | disposition home or self-care (01) ==
LOC: LAB 10:37
PROVIDERS: PCP Family Medicine; Visit Provider Thoracic Surgery (Cardiothoracic Vascular Surgery)
DX: N30.00 Acute cystitis without hematuria (principal)
CPT/HCPCS: 81003; 87086

== ENCOUNTER 2024-11-20 13:42 | Outpatient (OUT) | payer MEDICARE, SELFPAY ==
--- NOTE | 2024-11-20 13:57 | XR_ITS ---
[address] [address] Patient Name: DESTINEY TAN MRN: [id number] date: 1945 Sex: F Assigned Patient Location: LAB Current Patient Location: ED.MAIN Accession/Order Number: [id number] Exam Date: 11/20/2024 15:55 Report Date: 11/20/2024 15:56 At the request of: ANASTASIYA MACEDO Procedure: XR chest 2V Plain film chest 2 view HISTORY: Shortness of breath COMPARISON: 10/03/2024 FINDINGS: SUPPORT DEVICES: None POSTSURGICAL CHANGES: CABG HEART: Borderline cardiomegaly PULMONARY CONNIE: Within normal limits MEDIASTINUM: Unremarkable LUNGS AND PLEURA: No acute lung process, pleural effusion or pneumothorax identified. BONY STRUCTURES: Intact ADDITIONAL FINDINGS None XR/XR chest 2V IMPRESSION: No acute process. Similar borderline cardiomegaly Impression dictated by: Robert Hung M.D. 11/20/2024 3:56 PM Dictation Location: [place] [address] Electronically authenticated by: [id number] Y Date: 11/20/2024 15:56
[2024-11-20 15:01] LABS: Troponin I High Sensitivity 64.1 pg/mL (4.0-51.3)
== END 2024-11-20 13:43 | disposition home or self-care (01) ==
LOC: LAB 13:44
PROVIDERS: PCP Family Medicine; Visit Provider Internal Medicine Interventional Cardiology
DX: R07.89 Other chest pain (principal)
CPT/HCPCS: 36415; 71046; 84484

== ENCOUNTER 2024-11-20 15:49 | Emergency (ER) | payer MEDICARE, SELFPAY ==
--- OUTSIDE RECORDS SUMMARY | 2024-05-20 04:45 | XMS_ITS ---
Author Organization [facility] vices Address [address] [place], [place] [id number] Care Team Providers Care Vp Human Resources Name Role Phone Bailey Anderson Primary Care Provider [phone] Allergies No Known Allergies REASON FOR VISIT Wellness Medications Medication SIG (Take, Route, Frequency, Duration) Notes Start Date End Date Status traMADol HCl 50 MG 1 tablet Oral every 8 hours for 7 days as needed Not-Taking Eliquis 5 MG 1 tablet Orally Twice a day Not-Taking Omeprazole 20 MG Take 1 capsule by mouth once daily for 90 Active Estradiol 0.1 MG/GM Vaginal for 43 Days Not-Taking Metoprolol Tartrate 25 MG TAKE 1 TABLET BY MOUTH WITH FOOD TWICE DAILY FOR 90 DAYS for 90 Active Rosuvastatin Calcium 10 MG Take 1 tablet by mouth once daily for 30 days for 90 days Active Eliquis 5 MG 1 tablet Orally twice daily for 30 days 340b please until 06/2024. 03/21/2024 Active Lisinopril 10 MG Take 1 tablet by mouth once daily for 90 Active Multivitamin - 1 tablet Orally Once a day Active Aspirin 81 81 MG 1 tablet Orally Once a day Active Allergy (Cetirizine) 10 MG 1 tablet Orally Once a day for 30 day(s) 05/13/2024 Active Amoxicillin-Pot Clavulanate 875-125 MG 1 tablet Orally every 12 hrs for 5 days 05/13/2024 Active Zolpidem Tartrate 10 MG 1 tablet at bedtime if needed Orally Once a day for 30 days Do not fill before 05/15/2024. 05/13/2024 Active Social History Sex Assigned At : Social History Observation Description Sex Assigned At Female Encounters Encounter Location Date Provider Diagnosis [facility] [address] [facility] [place] [id number] 05/20/2024 Bailey Anderson Plan Of Treatment No Information Progress Notes * Gretchen TAN CDOB:1945 (79 yo F)Acc No.[id number]:05/20/2024 Medical Note Patient: Gretchen SERNA Provider: Devan Anderson MD :1945 A ge:78 Y S ex:Female Date:05/20/2024 Address:[address] [place] [address], [id number] Subjective: * Chief Complaints: * 1 . Wellness. * Medical History: A trophic vaginitis, CAD, Dyslipidemia, GERD (gastroesophageal reflux disease), Gross hematuria, Hypertension, Insomnia,, Arthritis, Obesity, Nicotine dependence, Recurrent UTI, Prediabetes, Hypercalcemia (resolved 10/30/2022), Encounter for immunization (resolved 10/30/2022), Atrial fibrillation - managed by [place] cardiology. * Surgical History: L eft thumb surgery 01/2010, Catheterization, Left Heart-Ventricular Puncture 2015, Colonoscopy 01/2018, lumbar surgery 10/18/2023. * Hospitalization/Major Diagno stic Procedure: s ee above . * Family History: F ather: . M other: , diagnosed with Diabetes. P aternal Grand Father: , diagnosed with Cancer. P aternal Grand Mother: , diagnosed with Cancer. M aternal Grand Father: . M aternal Grand Mother: . S ister: alive, 2 sisters total. * Medications: T aking Amoxicillin-Pot Clavulanate 875-125 MG Tablet 1 tablet Orally every 12 hrs , Taking Allergy (Cetirizine) 10 MG Tablet 1 tablet Orally Once a day , Taking Zolpidem Tartrate 10 MG Tablet 1 tablet at bedtime if needed Orally Once a day , Notes to Pharmacist: Do not fill before 05/15/2024., Taking Eliquis 5 MG Tablet 1 tablet Orally twice daily , Notes to Pharmacist: 340b please until 06/2024., Taking Rosuvastatin Calcium 10 MG Tablet Take 1 tablet by mouth once daily for 30 days , Taking Aspirin 81 81 MG Tablet Delayed Release 1 tablet Orally Once a day , Taking Multivitamin - Tablet 1 tablet Orally Once a day , Taking Lisinopril 10 MG Tablet Take 1 tablet by mouth once daily , Taking Metoprolol Tartrate 25 MG Tablet TAKE 1 TABLET BY MOUTH WITH FOOD TWICE DAILY FOR 90 DAYS , Taking Omeprazole 20 MG Capsule Delayed Release Take 1 capsule by mouth once daily , Not-Taking/PRN Eliquis 5 MG Tablet 1 tablet Orally Twice a day , Not-Taking/PRN traMADol HCl 50 MG Tablet 1 tablet Oral every 8 hours , Notes to Pharmacist: as needed, Not-Taking/PRN Estradiol 0.1 MG/GM Cream Vaginal * Allergies: N .K.D.A. Objective: * Vitals: * Examination: C QM Exceptions: Currently taking Aspirin: A spirin Use: Y es Assessment: Plan: * Treatment: * Billing Information: * Visit Code: * Procedure Codes: * Electronic signature of Kacy Anderson MD on 11/20/2024 at 03:56 PM EDT Sign off status: Pending * Provider: Devan Anderson MD Date: 07/20/2023 Generated for Jose Roberto mckinney/Julissa/Luz Marina on: 11/20/2024 03:56 PM EDT History and Physical Notes * Examination Category Sub-Category Detail Notes Category Not es CQM Exceptions Currently taking Aspirin: Aspirin Use:: Yes
--- OUTSIDE RECORDS SUMMARY | 2024-08-13 08:45 | XMS_ITS ---
Author Organization [facility] vices Address [address] [place], [place] [id number] Care Team Providers Care Computer Builder Name Role Phone Bailey Anderson Primary Care Provider REASON FOR VISIT 3 month Insomnia Social History Sex Assigned At : Social History Observation Description Sex Assigned At Female Encounters Encounter Location Date Provider Diagnosis Main [address] [place], [place] [id number] 08/13/2024 Bailey Anderson Plan Of Treatment No Information Progress Notes * BRITNEYNini Murciaa CDOB:1945 (79 yo F)Acc No.[id number]:08/13/2024 Patient: Gretchen SERNA Provider: Devan Anderson MD :1945 A ge:78 Y S ex:Female Date:08/13/2024 Address:[address] [place], [place] [id number] Subjective: * Chief Complaints: * 1 . 3 month Insomnia. * Medical History: Objective: * Vitals: Assessment: Plan: * Treatment: * Billing Information: * Visit Code: * Procedure Codes: * Electronic signature of Kacy Anderson MD on 11/20/2024 at 03:57 PM EDT Sign off status: Pending * Provider: Devan Anderson MD Date: 08/13/2024 Generated for Printi ng/Faabdig/eTransmitting on: 0 11/20/2024 03:57 PM EDT
--- OUTSIDE RECORDS SUMMARY | 2024-10-01 06:00 | XMS_ITS ---
Author Organization [facility] [place] Address [address] [place] [address] Care Team Providers Care Occasional Caregiver Name Role Phone Melissa SYKES, Mark Primary Care Provider Unavail Satish Flores Unavailable [phone] REASON FOR VISIT 1YEAR-COPD Encounters Encounter Location Date Provider Diagnosis Pulmonary Medicine [place] [address] [place] [address] 10/01/2024 Satish Roa Plan Of Treatment No Information Progress Notes * Gretchen TAN CDOB:1945 (79 yo F)Acc No.[id number]:10/01/2024 UNLOCKED PROGRESS NOTE Follow Up Patient: Gretchen SERNA Provider: Carol Roa DO :1945 A ge:78 Y S ex:Female Date:10/01/2024 Address:[address] [facility] Pcp:Mark Torres MD Subjective: * Chief Complaints: * 1 . 1YEAR-COPD. * Medical History: Objective: * Vitals: Assessment: Plan: * Treatment: * * Electronic signature of Anna Roa DO on 11/20/2024 at 01:35 PM EDT Sign off status: Pending Visit Status: R /S (Rescheduled) * Provider: Carol Roa DO Date: 0 10/01/2024 Generated for Joes Roberto mckinney/Julissa/Joshuaitting on: 0 11/20/2024 01:35 PM EDT
--- OUTSIDE RECORDS SUMMARY | 2024-10-28 09:12 | XMS_ITS ---
Author Organization The [facility] in [place] Address [address] [place] [address] Care Team Providers Care Office Clerk Name Role Phone Melissa SYKES, Mark Primary Care Provider Unavail able Satish Roa Unavailable [phone] REASON FOR VISIT LDCT Order Encounters Encounter Location Date Provider Diagnosis Pulmonary Medicine [place] [address] [place] [address] 10/28/2024 Satish Roa Plan Of Treatment No Information Progress Notes * Gretchen TAN CDOB:1945 (79 yo F)Acc No.[id number]:10/28/2024 Patient: Eda SERNAbhavna Alexander :1945 A ge:79 Y S ex:Female Address:[address] [place] [address], [phone] * true * Date: Generated for Printi ng/Faxing/eTransmitting on: 0 11/20/2024 03:56 PM EDT
--- OUTSIDE RECORDS SUMMARY | 2024-11-11 07:00 | XMS_ITS ---
Author Organization [facility] in [place] Address [address] [place] [address] Care Team Providers Care Jewelry Bench Molder Name Role Phone Mark Torres MD Primary Care Provider Unavail able Satish Roa Unavailable [phone] Allergies No Known Allergies REASON FOR VISIT 1YEAR-COPD Medications Medication SIG (Take, Route, Frequency, Duration) Notes Start Date End Date Status Albuterol Sulfate HFA 108 (90 Base) MCG/ACT INHALE 2 PUFFS BY MOUTH EVERY 4 HOURS NEEDED FOR 90 DAYS Inhalation for 17 Days Not-Taking Rosuvastatin Calcium 10 MG Oral for 90 Days Active Zolpidem Tartrate 10 MG TAKE 1 TABLET BY MOUTH ONCE DAILY AT BEDTIME NEEDED Oral for 30 Days Active Multi Vitamin - 1 tablet Orally Once a day Active Omeprazole 20 MG TAKE 1 CAPSULE BY [facility] ONCE DAILY Oral for 90 Days Active Klor-Con M20 20 MEQ Oral for 30 Days Active Metoprolol Tartrate 25 MG Oral for 90 Days Active Furosemide 40 MG Oral for 30 Days Active Aspirin 81 81 MG 1 tablet Orally Once a day Active Albuterol Sulfate (2.5 MG/3ML) 0.083% 3 mL as needed Inhalation every 6 hrs Active Clopidogrel Bisulfate 75 MG Oral for 30 Days Active Social History Tobacco Use: Social History Observation Description Date Details (start date - stop date) Former Smoker NA - NA Tobacco Control (Standard) Question Answer Notes Tobacco use: Former smoker How long has it been since y ou last smoked? 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) Active confirmed Vital Signs Weight 195.4 lbs 11/11/2024 Height 62 in 11/11/2024 Blood pressure systolic 113 mm Hg 11/12/19 25 Blood pressure diastolic 65 mm Hg 025 Temperature 96.8 degrees Fahrenheit 11/12/19 25 Heart Rate 61 /min 11/11/2024 Respiratory Rate 18 /min 11/11/2024 BMI 35.74 kg/m2 11/11/2024 Oximetry 95 % 11/11/2024 Encounters Encounter Location Date Provider Diagnosis Pulmonary Medicine [place] [address] [place] [address] 11/11/2024 Satish Roa Centrilobular emphys maryanne J43.2 ; Cigarette nicotine dependence with nicotine-induced disorder F17.219 ; Pleural effusion, not elsewhere classified J90 and Obesity, unspecified E66.9 Assessments Encounter Date Diagnosis (ICD Code) Assessment Notes Treatment Notes Treatment Clinical Notes Section Notes 11/11/2024 Centrilobular emphysema (ICD-10 - J43.2) Prior treatment: Trelegy & Stiolto - ineffective Patient complains of dyspnea since CABG 09/18/2024 with only slow improvement. Has not used albuterol. Previously tried maintenance inhalers without benefit. Unclear if dyspnea associated with cardiac or pulmonary. Discussed with patient to try albuterol to see if there is any benefit. If so, if she begins using albuterol often, may need to retry another maintenance inhaler. Otherwise, F/U PRN. 11/11/2024 Cigarette nicotine dependence with nicotine-induced disorder (ICD-10 - F17.219) Patient finally quit smoking - only took a CABG x3 to make it happen. Patient was counselled not to restart. LDCT was not done, but CT chest was on 09/22/2024 - no mention of nodule (though was previously stable). She is aging out of the program. 11/11/2024 Pleural effusion, not elsewhere classified (ICD-10 - J90) Post-op pleural effusions are common after CABG. They appear to have resolved on physical examination today. 11/11/2024 Obesity, unspecified (ICD-10 - E66.9) Weight loss indicated: Decrease calories, increase activity. 11/11/2024 Other Plan Of Treatment Treatment Notes Assessment Notes Centrilobular emphysema Prior treatment: Trelegy & Stiolto - ineffective Patient complains of dyspnea since CABG 09/18/2024 with only slow improvement. Has not used albuterol. Previously tried maintenance inhalers without benefit. Unclear if dyspnea associated with cardiac or pulmonary. Discussed with patient to try albuterol to see if there is any benefit. If so, if she begins using albuterol often, may need to retry another maintenance inhaler. Otherwise, F/U PRN. Cigarette nicotine dependenc e with nicotine-induced disorder Patient finally quit smoking - only took a CABG x3 to make it happen. Patient was counselled not to restart. LDCT was not done, but CT chest was on 09/22/2024 - no mention of nodule (though was previously stable). She is aging out of the program. Pleural effusion, not elsewhere classifi ed Post-op pleural effusions are common after CABG. They appear to have resolved on physical examination today. Obesity, unspecified Weight loss indicated: Decrease calories, increase activity. Procedure Notes * Category Sub-Category Detail Notes PFT Data: 09/16/2024 - [facility]- FEV1/FVC: 80%-FEV1: 90%-FVC: 83%-Bronchodilator response: None-RV: 100%-T%-DLCO: 86%07/27/2023 - [facility]-FEV1/FVC: 79%-FEV1: 83%-FVC: 79%-Bronchodilator response: None-RV: 98%-T%-DLCO: 79% Progress Notes * Gretchen TAN CDOB:1945 (79 yo F)Acc No.[id number]:11/11/2024 Follow Up Patient: Sruthi Gretchen BOYD Provider: Carol Roa DO :1945 A ge:79 Y S ex:Female Date:11/11/2024 Address:[address] [place], [place] [id number] Pcp:Mark Torres MD Check In:10:47 AM Berhane O ut:11:27 AM EST Subjective: * Chief Complaints: * 1 YEAR-COPD * HPI: G eneral: Reviewed history since patient was last seen. She was admitted to [facility] 09/09/2024 with unstable angina, [facility] 09/10/2024 showed severe triple vessel disease, and subsequently had CABG x3 09/18/2024. She developed R > L bilateral effusions postop, noted on CT chest 09/22/2024 (she never had the LDCT done which was due 06/2024). Since discharge from [facility], she has been slowly healing, albeit slower progress than the patient would like. Main complaint is ongoing LOPEZ - I asked her if she ever used albuterol to see if that helped, but she did not. Pre-op PFT was done 09/16/2024 and was actually slightly improved compared to prior testing from 2023. She stopped smoking at the time of her CABG and has not restarted. MA Intake Comments:. Patient presents for a follow-up for COPD. Patient recently underwent a CABG on 09/18/2024. CT Chest was performed at that time at [facility]. Patient stopped smoking on 09/18/2024. Patient complains of SOB with exertion & Cough. Patient reports using her nebulizer occasionally. Patient is under the care of [facility] Cardiology. * ROS: G eneral/Constitutional: Fever or sweats d enies. C hange of appetite d enies. C hills d enies. W eight Change d enies. H EENT: Dry mouth d enies. S ore throat d enies. O ral Ulcers d enies. P ost Nasal Drip D enies. H oarseness D enies. C ardiovascular: Tachycardia d enies. C hest pain a ssociated with sternotomy. P alpitations d enies. R espiratory: Dyspnea w ith activity. C ough d enies. H emoptysis d enies. W heezing d enies. G astrointestinal: Acid Reflux/GERD/Heartburn d enies. D ysphagia d enies. M usculoskeletal: Chronic Back Pain a dmits. A rthralgias/joint pain D enies. S kin: Easy bruising d enies. R chayo d enies. ? N eurologic: Seizures d enies. T remor d enies. H ematology: Abnormal Bleeding d enies. P sychiatric: Anxiety d enies. * Active Problem List J43.2 Centrilobular emphys maryanne Modified On:09/27/2023/U Status:confirmed R91.1 Solitary pulmonary n odule Modified On:11/11/2024/U Status:confirmed F17.211 Cigarette nicotine d ependence in remission Modified On:11/11/2024/U Status:confirmed E66.9 Obesity, unspecified Modified On:09/27/2023U Status:confirmed J44.9 Chronic obstructive pulmonary disease, unspecified Modified On:09/19/2024U Status:confirmed * Medical History: * Surgical History: C ardiac Catheterization CABG 09/18/2024yst removal Fusion Spine Lumbar Transforaminal Interbody with Navigation 10/18/2023 * Hospitalization/Major Diagno stic Procedure: D enies Past Hospitalization * Family History: M other: diagnosed with Diabetes mellitus without mention of complication, type II or unspecified type, not stated as uncontrolled. M ateingel Grandmother: diagnosed with Other malignant neoplasm of unspecified site. * Social History: T obacco Use: T obacco Control (Standard) T obacco use: F ormer smoker H ow long has it been since you last smoked??1-3 months A dditional Findings: Tobacco non-user E x-heavy cigarette smoker (20-30/day) Electronic Cigarette use C urrent user N o LM: Additional Tobacco Questions N umber of Years Pt Smoked: 6 0 N umber of Packs per Day: 1 When did you stop smokin09/18/2024. 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 D rugs/Alcohol: D rugs H ave you used drugs other than those for medical reasons in the past 12 months? N o D oes the Patient have a History of Drug Abuse in the Past? N o Caffeine I ntake: 1 -2 cups per day Iced Tea Do you drink alcohol?: No. Do you smoke marijuana?: Denies. * Medications: T akingAlbuterol Sulfate (2.5 MG/3ML) 0.083% Nebulization Solution 3 mL as needed Inhalation every 6 hrs Aspirin 81(Aspirin) 81 MG Tablet Delayed Release 1 tablet Orally Once a day Clopidogrel Bisulfate 75 MG Tablet Oral Furosemide 40 MG Tablet Oral Klor-Con M20(Potassium Chloride Falguni ER) 20 MEQ Tablet Extended Release Oral Metoprolol Tartrate 25 MG Tablet Oral Multi Vitamin - Tablet 1 tablet Orally Once a day Omeprazole 20 MG Capsule Delayed Release TAKE 1 CAPSULE BY MOUTH ONCE DAILY Oral Rosuvastatin Calcium 10 MG Tablet Oral Zolpidem Tartrate 10 MG Tablet TAKE 1 TABLET BY MOUTH ONCE DAILY AT BEDTIME NEEDED Oral Taking Albuterol Sulfate (2.5 MG/3ML) 0.083% Nebulization Solution 3 mL as needed Inhalation every 6 hrs Taking Aspirin 81(Aspirin) 81 MG Tablet Delayed Release 1 tablet Orally Once a day Taking Clopidogrel Bisulfate 75 MG Tablet Oral Taking Furosemide 40 MG Tablet Oral Taking Klor-Con M20(Potassium Chloride Falguni ER) 20 MEQ Tablet Extended Release Oral Taking Metoprolol Tartrate 25 MG Tablet Oral Taking Multi Vitamin - Tablet 1 tablet Orally Once a day Taking Omeprazole 20 MG Capsule Delayed Release TAKE 1 CAPSULE BY MOUTH ONCE DAILY Oral Taking Rosuvastatin Calcium 10 MG Tablet Oral Taking Zolpidem Tartrate 10 MG Tablet TAKE 1 TABLET BY MOUTH ONCE DAILY AT BEDTIME NEEDED Oral Not-Taking/PRNAlbuterol Sulfate HFA 108 (90 Base) MCG/ACT Aerosol Solution INHALE 2 PUFFS BY MOUTH EVERY 4 HOURS NEEDED FOR 90 DAYS Inhalation Not-Taking/PRN Albuterol Sulfate HFA 108 (90 Base) MCG/ACT Aerosol Solution INHALE 2 PUFFS BY MOUTH EVERY 4 HOURS NEEDED FOR 90 DAYS Inhalation DiscontinuedEliquis(Apixaban) 5 MG Tablet TAKE 1 TABLET BY MOUTH IN THE MORNING AND AT BEDTIME Oral Lisinopril 10 MG Tablet TAKE 1 TABLET BY MOUTH ONCE DAILY DIRECTED Oral Medication List reviewed and reconciled with the patientDiscontinued Eliquis(Apixaban) 5 MG Tablet TAKE 1 TABLET BY MOUTH IN THE MORNING AND AT BEDTIME Oral Discontinued Lisinopril 10 MG Tablet TAKE 1 TABLET BY MOUTH ONCE DAILY DIRECTED Oral Medication List reviewed and reconciled with the patient * Allergies: N .K.Dewey.Luli.no[Allergies Verified] Objective: * Vitals: W t:195.4lbs, Ht: 62 in, BP:sittin/65mm Hg, Temp:Forehead:96.8F, HR:61/min, RR:18/min, BMI:35.74Index, Oxygen sat %:Room Air:95%, Ht-cm: 157.48 cm, Wt-k.63 kg. * Examination: E xam: GENERAL APPEARANCE: A ppears stated age. Skin N ormal. Mouth P ink and moist. Upper dentures. Oropharynx M allampati Class IV. Trachea M idline. Chest W ell-healing sternotomy scar. Respiratory Normal M ovements, E ffort N ormal. Auscultation D iminished but clear breath sounds. No egophony or dullness to percussion. Cardiac I rregularly irregular. Gastrointestinal C entral adiposity. Vascular N o edema. Musculoskeletal N ormal posture. Neurological F ocal, intact. Psychiatric A lert and oriented x3. Mentation/Cognition N ormal. Assessment: * Assessment: 1. C entrilobular emphysema - J43.2 (Primary) 2 . C igarette nicotine dependence with nicotine-induced disorder - F17.219 3 . P leural effusion, not elsewhere classified - J90 4 . O besity, unspecified - E66.9 Plan: * Treatment: 2. C igarette nicotine dependence with nicotine-induced disorder Notes: Patient finally quit smoking - only took a CABG x3 to make it happen. Patient was counselled not to restart. LDCT was not done, but CT chest was on 09/22/2024 - no mention of nodule (though was previously stable). She is aging out of the program. 3. P leural effusion, not elsewhere classified Notes: Post-op pleural effusions are common after CABG. They appear to have resolved on physical examination today. 4. O besity, unspecified Notes: Weight loss indicated: Decrease calories, increase activity. * Procedures: P FT: Data: 09/16/2024 - [facility] -FEV1/FVC: 80% -FEV1: 90% -FVC: 83% -Bronchodilator response: None -RV: 100% -T% -DLCO: 86% 07/27/2023 - [facility] -FEV1/FVC: 79% -FEV1: 83% -FVC: 79% -Bronchodilator response: None -RV: 98% -T% -DLCO: 79%. * Procedure Codes: * Preventive Medicine: COVID Vaccination: H as patient had COVID Vaccination? COVID Vaccination Y es 03/07/2024 Immunization Status: P neumovacc P xncsno90-13/12/2022. I nfluenza 0 03/07/2024. Z ostivax 0 03/07/2024. B oostrix 1 06/26/2022. Screenings/Counseling: F ALL RISK SCREENING Fall Risk Assessment: N o falls in the past year Are you afraid of falling? N o T OBACCO ACTION PLAN Patient counselled on the dangers of tobacco use and urged to quit. 0 11/11/2024 Former Education on smoking effects provided?11/11/2024 Former B TX ACTION PLAN Above Normal BMI Follow-up D ietary management education, guidance, and counseling * * Sign off status: Completed Visit Status: C HK (Check Out) true * Provider: Carol Roa DO Date: 0 11/11/2024 Generated for Jose Roberto Thompson/Joshuaitting on: 0 11/20/2024 01:35 PM EDT History and Physical Notes * HPI (History of Present Illness) Category Sub-Category Detail Notes Category Not es General Patient present s for a follow-up for COPD. Patient recently underwent a CABG on 09/18/2024. CT Chest was performed at that time at [facility]. Patient stopped smoking on 09/18/2024. Patient complains of SOB with exertion & Cough. Patient reports using her nebulizer occasionally. Patient is under the care of [facility] Cardiology. Examination Category Sub-Category Detail Notes Category Not es Exam GENERAL APPEARANCE: Appears stated age Skin Normal Mouth [place] and moist. Uppe r dentures Trachea Midline Chest Well-healing sternot hung scar Respiratory Normal Movements, Ef fort Normal Auscultation Diminished but clear breath sounds. No egophony or dullness to percussion Cardiac Irregularly irregula r Gastrointestinal Central adiposity Vascular No edema Musculoskeletal Normal posture Neurological Focal, intact Psychiatric Alert and oriented x 3 Mentation/Cognition Normal Oropharynx Mallampati Class IV
[2024-11-20] VITALS (11 sets, daily range): BP systolic 119–154; BP diastolic 57–80; PULSE 58–72; TEMP 36.6; O2SAT 15–100; BMI 37.7
--- OUTSIDE RECORDS SUMMARY | 2024-11-20 15:56 | XMS_ITS | Encounter Summary ---
Author Organization [facility] Address [address] [place] [address] Care Team Providers Care Store Protection Specialist Name Role Phone Mark Torres MD Primary Care Provider [phone] Encounter Details Date Type Department Care Team (Late st Contact Info) Description 11/20/2024 Orders Only [facility] [address] [place] [address] [place], [place] Other chest pain Social History Tobacco Use Types Packs/Day Years Used Date Smoking Tobacco: Former Cigarettes Smokeless Tobacco: Never Alcohol Use Standard Drinks/Week Comments Yes 0 (1 standard drink = 0.6 oz pur e alcohol) occasional [facility] Utilities Answer Date Recorded In the past 12 months has e electric, gas, oil, or water company threatened to shut off services in your home? No 09/19/2024 Humiliation, Afraid, Rape, and Kick questionnair e Answer Date Recorded Within the last year, have y ou been afraid of your partner or ex-partner? No 09/19/2024 Emotionally Abused Not on file 09/19/2024 Physically Abused Not on file 09/19/2024 Sexually Abused Not on file 09/19/2024 Overall Financial Resource Strain (CARDIA) Answe r Date Recorded How hard is it for you to pa y for the very basics like food, housing, medical care, and heating? Not hard at all 09/19/2024 PHQ-2 Answer Date Recorded Patient Health Questionnaire-2 Score 0 10/03/2024 Transportation Answer Date Recorded In the past 12 months, has l ack of transportation kept you from medical appointments or from getting medications? No 09/19/2024 Lack of Transportation (Non-Medical) Not on file 09/19/2024 Housing Stability Vital Sign Answer Kulwant e Recorded In the last 12 months, was t here a time when you were not able to pay the mortgage or rent on time? No 09/19/2024 Number of Times Moved in the Last Year Not on fi le 09/19/2024 At any time in the past 12 m [facility], were you homeless or living in a jail (including now)? No 09/19/2024 Hunger Vital Sign Answer Date Recorded Within the past 12 months, y ou worried that your food would run out before you got the money to buy more. Never true 09/20/19 25 Ran Out of Food in the Last Year Not on file 09/19/2024 Sex and Gender Information Value Date Recorded Sex Assigned at Not on file Gender Identity Not on file Sexual Orientation Not on file documented as of this encounter Functional Status Functional Status Response Date of Assess ment Are you deaf or do you have serious difficulty h earing? No 09/12/2024 Are you blind or do you have serious difficulty seeing, even when wearing glasses? No 09/12/2024 Do you have serious difficul ty walking or climbing stairs? No 09/12/2024 Do you have serious difficulty dressing or bathi ng? No 09/12/2024 Because of a physical, menta l, or emotional condition, do you have serious difficulty doing errands alone such as visiting the doctor? No 09/12/2024 Cognitive Status Response Date of Assessm ent Because of a physical, menta l, or emotional condition, do you have serious difficulty concentrating, remembering, or making decisions? (5 years old or older) No 09/12/2024 documented as of this encounter Plan of Treatment Upcoming Encounters Date Type Department Care Team (Late st Contact Info) Description 01/13/2025 1:15 PM EDT Office Visit [facility] [address] [place] [address] Wilmer Landa MD [address] [facility] [place] [address] Scheduled Orders Name Type Priority Associated Diagnoses Orde r Schedule XR chest 2 views Imaging Routine Other chest pain Expected: 11/20/2024, Expires: 11/20/2025 High Sensitivity Troponin I Lab Routine Other chest pain Expected: 11/20/2024 (Approximate), Expires: 11/20/2025 documented as of this encounter Visit Diagnoses Diagnosis Other chest pain documented in this encounter Care Teams Store Protection Specialist Relationship Specialty Start Date End Date Mark Torres MD [address] [place] [address] PCP - General 09/09/24 documented as of this encounter
--- OUTSIDE RECORDS SUMMARY | 2024-11-20 15:56 | XMS_ITS | Encounter Summary ---
Author Organization [employer] s tem Address [id number] [address] [place] [address] Care Team Providers Care Sleeve Setter Safety Stitch Name Role Phone Natalya Mckinley MD Primary Care Provider [phone] Reason for Visit * Reason Onset Date Comments move appt 10/21/2020 Encounter Details Date Type Department Care Team (Late st Contact Info) Description 10/21/2020 Telephone [facility] Cardiology [address] [id number] Vilma Cochran RN move appt Social History Tobacco Use Types Packs/Day Years Used Date Smoking Tobacco: Every Day Cigarettes Smokeless Tobacco: Never Alcohol Use Standard Drinks/Week Comments Yes 0 (1 standard drink = 0.6 oz pur e alcohol) OCCASIONAL Childcare Answer Date Recorded Childcare Unknown 12/05/2018 Employment Answer Date Recorded Employment Unknown 12/05/2018 Purpose - Life Answer Date Recorded Purpose and direction in life Unknown Comments No Sex and Gender Information Value Date Recorded Sex Assigned at Not on file Legal Sex Female 11:44 AM EDT Gender Identity Not on file Sexual Orientation Not on file documented as of this encounter Miscellaneous Notes * Telephone Encounter - Vilma Cochran RN - 10/21/2020 4:[address] Mckinley calls office to request appt be moved up sooner as pt reported Chest pain-called pt and left message for her to call our office to move appt documented in this encounter Plan of Treatment Not on file documented as of this encounter Goals Goal Patient Goal Type Associated Problems Recent Progress Patient-Stated? Author safe transition from hospital to home General Yes Shalini Mcdonald, GRAIN ELEVATOR OPERATOR-SPEECH AND LANGUAGE SPECIALIST Note: Evaluation of progress towards goal: discharge home with spouse's support. documented as of this encounter Visit Diagnoses Not on filedocumented in this encounter Care Teams Sleeve Setter Safety Stitch Relationship Specialty Start Date End Date Natalya Mckinley MD [address] [place], [place] [id number] PCP - General Family Medicine 01/04/18 documented as of this encounter
--- OUTSIDE RECORDS SUMMARY | 2024-11-20 15:56 | XMS_ITS | Encounter Summary ---
Author Organization [employer] Address [id number] [address] [place] [address] Care Team Providers Care Travel Registered Nurse Pacu Name Role Phone Natalya Mckinley MD Primary Care Provider [phone] Encounter Details Date Type Department Care Team (Late st Contact Info) Description 04/03/2020 Orders Only [facility] [address] [place] [id number] External, Scanning Provider Social History Tobacco Use Types Packs/Day Years Used Date Smoking Tobacco: Every Day Cigarettes Smokeless Tobacco: Never Alcohol Use Standard Drinks/Week Comments Yes 0 (1 standard drink = 0.6 oz pur e alcohol) OCCASIONAL Childcare Answer Date Recorded Childcare Unknown 12/05/2018 Employment Answer Date Recorded Employment Unknown 12/05/2018 Comments No Sex and Gender Information Value Date Recorded Sex Assigned at Not on file Legal Sex Female 11:44 AM EDT Gender Identity Not on file Sexual Orientation Not on file documented as of this encounter Plan of Treatment Not on file documented as of this encounter Goals Goal Patient Goal Type Associated Problems Recent Progress Patient-Stated? Author safe transition from hospital to home General Yes Shalini Mcdonald, WIRE MACHINE OPERATOR-OIL LEASE BUYER Note: Evaluation of progress towards goal: discharge home with spouse's support. documented as of this encounter Procedures Procedure Name Priority Date/Time Associated Diagnosis Comments LIPID PROFILE Routine 02/12/2020 MULTIPLE LABS Routine 02/06/2020 documented in this encounter Results * Lipid profile (02/12/2020) External Cholesterol 172 MANUALLY TRANSCRIBED RESULTS External Cholesterol:Hdl 3.7 MANUALLY TRANSCRIBED RESULTS External Hdl Cholesterol 47 MANUALLY TRANSCRIBED RESULTS External Ldl (Calc) 92 MANUALLY TRANSCRIBED RESULTS External Triglycerides 167 MANUALLY TRANSCRIBED RESULTS External Very Low Lipoprotein 33 MANUALLY TRANSCRIBED RESULTS us Scanning Provider External LAB BLOOD ORDERABLES Edited Result - Final MANUALLY TRANSCRIBED RESULTS * Multiple labs (02/06/2020) us Scanning Provider External ID IMAGING Final Result MANUALLY TRANSCRIBED RESULTS documented in this encounter Visit Diagnoses Not on filedocumented in this encounter Care Teams Travel Registered Nurse Pacu Relationship Specialty Start Date End Date Natalya Mckinley MD [address] [place] [address] PCP - General Family Medicine 01/04/18 documented as of this encounter
--- OUTSIDE RECORDS SUMMARY | 2024-11-20 15:56 | XMS_ITS ---
Author Organization [facility] Address [address] [place] [address] Care Team Providers Care Nurseryman Assistant Name Role Phone Mark Torres MD Primary Care Provider [phone] Active Problems Problem Noted Date Diagnosed Date Chronic obstructive pulmonary disease, unspecifi ed 2024 Ectopic kidney 2024 Family history of malignant melanoma 2024 Hyperlipidemia 2024 Malignant melanoma of skin 2024 Postmenopausal 2024 Acute respiratory failure with hypoxia Postoperative anemia due to acute blood loss Atelectasis, bilateral 09/21/2024 Acute respiratory insufficiency, postoperative 0 09/21/2024 CAD in [place] artery 09/18/2024 Multi-vessel coronary artery stenosis 09/12/2024 Primary hypertension 09/10/2024 Assessment & Plan (09/11/2024 12:51 PM EDT): - Continue lisinopril 10 mg daily and Lopressor 25 twice daily Assessment & Plan (09/10/2024 3:19 PM EDT): - Continue lisinopril 10 mg daily - Hold metoprolol 25 BID as pressures are soft Unstable angina 09/09/2024 Assessment & Plan (09/11/2024 12:51 PM EDT): - TTE showed EF of 65% - A1c 5.8 -Cardiac cath was done on 09/10 and showed severe three-vessel disease with normal filling pressures -Thoracic surgery team were consulted for bypass -Continue heparin drip -CABG workup including CT abdomen and pelvis, CT chest, PFTs vascular Doppler ultrasound lower extremity and carotid Doppler ordered Assessment & Plan (09/10/2024 3:19 PM EDT): - Continue to trend trops - TTE showed EF of 65% - A1c 5.8 - NPO today for cath at 1800 Assessment & Plan (09/09/2024 5:29 PM EDT): - Trend trops/EKGS - heparin infusion - Follow up TTE - A1c/lipids pending - NPO at midnight for cath in AM Centrilobular emphysema 09/15/2023 09/15/19 24 Assessment & Plan (09/11/2024 12:51 PM EDT): - albuterol nebs as needed Assessment & Plan (09/10/2024 3:19 PM EDT): - albuterol nebs as needed Assessment & Plan (09/09/2024 5:29 PM EDT): - albuterol nebs as needed History of COVID-19 09/15/2023 09/15/2023 Nicotine dependence, cigaret will, with unspecified nicotine-induced disorders 09/15/2023 09/15/2023 Assessment & Plan (09/11/2024 12:51 PM EDT): - Continue nicotine patch Assessment & Plan (09/10/2024 3:19 PM EDT): - Continue nicotine patch Assessment & Plan (09/09/2024 5:29 PM EDT): - nicotine patch Solitary pulmonary nodule 09/15/20232023 Urinary incontinence in female 09/15/2023 0 09/15/2023 Pre-operative cardiovascular examination 023 Assessment & Plan (04/14/2023 11:19 AM EDT): RCRI= 1 points Class II Risk 6.0 % 30-day risk of , LA, or cardiac arrest From a cardiac perspective pt may proceed with epidural injection, she is a low to moderate risk for a low risk procedure. She may hold eliquis for 2-3 days prior and resume post op, with the knowledge that there is a risk for stroke with holding anticoagulation. Please monitor hemodynamics carefully and prevent any major fluid shifts. Spinal stenosis of lumbar re gion with neurogenic claudication 04/05/2023 04/14/2023 Lumbar spondylosis 03/08/2023 04/14/2023 Lumbosacral spondylosis without myelopathy 03/0804/14/2023 Arthritis 09/13/2021 CAD, multiple vessel 09/13/2021 Assessment & Plan (09/11/2024 12:51 PM EDT): - on aspirin, Lipitor, lisinopril Assessment & Plan (09/10/2024 3:19 PM EDT): - on aspirin/crestor 40mg Assessment & Plan (09/09/2024 5:29 PM EDT): - on aspirin/crestor 20mg Assessment & Plan (03/08/2024 11:52 AM EDT): Coronary artery disease is stable Continue GDMT [...] exercise as tolerated and continue all medications. Assessment & Plan (04/14/2023 11:24 AM EDT): Coronary artery disease is stable Continue GDMT- ASA, crestor, metoprolol andn lisinopril continue risk factor modifications- heart healthy diet, regular exercise as tolerated and continue all medications. Dyslipidemia 09/13/2021 Assessment & Plan (09/11/2024 12:51 PM EDT): - Elevated triglycerides of 260 and VLDL of 52 - Continue Lipitor Assessment & Plan (09/10/2024 3:19 PM EDT): - Elevated triglycerides of 260 and VLDL of 52 - Continue crestor Assessment & Plan (09/09/2024 5:29 PM EDT): - Continue crestor Assessment & Plan (03/08/2024 11:52 AM EDT): Continue Crestor 10 mg daily Staff to obtain recent labs from PCP hopefully there is liver function and lipid panel Dyspnea 09/13/2021 Gastroesophageal reflux disease 09/13/2021 Assessment & Plan (09/11/2024 12:51 PM EDT): - Continue protonix 40 mg daily Assessment & Plan (09/10/2024 3:19 PM EDT): - Continue protonix 40 mg daily Hypertensive disorder 09/13/2021 Assessment & Plan (03/08/2024 11:50 AM EDT): Hypertension is currently well-controlled 119/62 Continue metoprolol, lisinopril no concerning symptoms today. Renal function stable Assessment & Plan (04/14/2023 11:25 AM EDT): Hypertension is stable. Continue lisinopriil, metoprolol Insomnia 09/13/2021 Obesity 09/13/2021 Paroxysmal atrial fibrillation 09/13/2021 Assessment & Plan (09/11/2024 12:51 PM EDT): -Eliquis on hold continue heparin drip Assessment & Plan (09/10/2024 3:19 PM EDT): - On eliquis at home, heparin held for cath today Assessment & Plan (09/09/2024 5:29 PM EDT): - On eliquis at home, started on heparin infusion here Assessment & Plan (03/08/2024 11:49 AM EDT): [id number]= 5 Age, female, HTN, CAD Remains on Eliquis anticoagulation and denies any bleeding tendencies Per assessment she is in rhythm continue metoprolol 25 mg twice daily Assessment & Plan (04/14/2023 11:27 AM EDT): [id number]= 5 Age, female, HTN, CAD continue eliquis anticoagulation and metoprolol 25 mg bid. Monitor for s/s of bleeding Right bundle branch block 09/13/2021 Smoker 09/13/2021 Myxoid cyst 11/30/2009 Current Oncology Plans No current plan information found. Past Plans No past plan information found. Radiation Treatments * No radiation treatments are documented for this patient in [facility]. Treatments may have been administered in another system. Lifetime Dose Tracking * Chemical Lifetime Dose Automatic Entry Manual Entr y Fluoro Time 8.45 minutes 0 minutes 8.45 minutes Air Kerma 856.85 mGy 0 mGy 856.85 mGy
--- OUTSIDE RECORDS SUMMARY | 2024-11-20 15:56 | XMS_ITS | Encounter Summary ---
Author Organization [facility] Address [address] [place] [address] Care Team Providers Care Substitute School Nurse Name Role Phone Mark Torres MD Primary Care Provider [phone] Encounter Details Date Type Department Care Team (Late st Contact Info) Description 11/20/2024 Telephone [facility] [address] [place] [address] [place], [place], [place] Social History Tobacco Use Types Packs/Day Years Used Date Smoking Tobacco: Former Cigarettes Smokeless Tobacco: Never Alcohol Use Standard Drinks/Week Comments Yes 0 (1 standard drink = 0.6 oz pur e alcohol) occasional [facility] Utilities Answer Date Recorded In the past 12 months has th e electric, gas, oil, or water company [...] any time in the past 12 m [facility], were you homeless or living in a senior living (including now)? No 09/19/2024 Hunger Vital Sign [...] No 09/12/2024 documented as of this encounter Miscellaneous Notes * Telephone Encounter - Annabella Mota MA - 11/20/2024 3:24 PM EDT Kajal from [facility] made me aware today that patient has been c/o chest pain, radiating down her arm. Per Kajal, patient told her she's been getting very SOB at night when she sits down in herchair. Kajal asked patient if she's been taking it easy s/p CABG on 09/18/2024. Per Kajal - patient does not seem to be compliant with aftercare. I advised Kajal to send patient to the ED. Kajal spoke with patient and she did not wish to go to the ED, so I then offered her outpatient orders of troponin and CXR. [facility] called to report a critical troponin of 64.1. At time of call, no result of CXR. I then LM on Gretchen's VM letting her know of abnormal lab value and advised her to go to the ED. I wasn't able to contact her spouse, and he had no VM set up. I then was able to speak with patient's daughter and asked her to relay all this to her mother. documented in this encounter Plan of Treatment Upcoming Encounters Date Type Department Care Team (Late st Contact Info) Description 01/13/2025 1:15 PM EDT Office Visit [facility] [address] [place] [address] Wilmer Landa MD [address] [facility] [address] [facility] [place] [phone] documented as of this encounter Visit Diagnoses Not on filedocumented in this encounter Care Teams Substitute School Nurse Relationship Specialty Start Date End Date Mark Torres MD [address] [place] [address] PCP - General 09/09/24 documented as of this encounter
--- OUTSIDE RECORDS SUMMARY | 2024-11-20 15:56 | XMS_ITS | Encounter Summary ---
Author Organization [facility] Address [address] [place] [address] Care Team Providers Care Clam Grower Name Role Phone Mark Torres MD Primary Care Provider [phone] Reason for Visit * Reason Comments Med Refill Encounter Details Date Type Department Care Team (Late st Contact Info) Description 11/08/2024 Refill [facility] [address] [place] [address] Gloria Mccormack MD [address] [facility] [address] [place] [address] Benign hypertensive heart disease with heart failure (CMS/HCC) Social History Tobacco Use Types Packs/Day Years Used Date Smoking Tobacco: Former Cigarettes Smokeless Tobacco: Never Alcohol Use Standard Drinks/Week Comments Yes 0 (1 standard drink = 0.6 oz pur e alcohol) occasional [facility] Utilities Answer Date Recorded In the past 12 months has [employer], gas, oil, or water [employer] threatened to shut off services in your [...] any time in the past 12 m [facility], were you homeless or living in a alf (including now)? No 09/19/2024 Hunger Vital Sign [...] Description 01/13/2025 1:15 PM EDT Office Visit [facility] [address] [place] [address] Wilmer Landa MD [address] [facility] [address] [facility] [place] [address] documented as of this encounter Visit Diagnoses Diagnosis Benign hypertensive heart disease with heart failure (CMS/HCC) documented in this encounter Care Teams Clam Grower Relationship Specialty Start Date End Date Mark Torres MD [address] [place] [address] PCP - General 09/09/24 documented as of this encounter
--- OUTSIDE RECORDS SUMMARY | 2024-11-20 15:56 | XMS_ITS | Encounter Summary ---
Author Organization [employer] Address [id number] [address] [place] [address] Care Team Providers Care Trust Vault Custodian Name Role Phone Natalya Mckinley MD Primary Care Provider [phone] Encounter Details Date Type Department Care Team (Late st Contact Info) Description 04/08/2020 Orders Only [facility] [address] [place] [phone] External, Scanning Provider Social History Tobacco Use [...] hospital to home General Yes Shalini Mcdonald, LARRY OPERATOR-RUM PROCESSING OPERATOR Note: Evaluation of progress towards goal: discharge home with spouse's support. documented as of this encounter Procedures Procedure Name Priority Date/Time Associated Diagnosis Comments MULTIPLE LABS Routine 02/06/2020 LIPID PROFILE Routine 02/06/2020 documented in this encounter Results * Lipid profile (02/06/2020) External Cholesterol 3.7 MANUALLY TRANSCRIBED RESULTS External Hdl Cholesterol 47 MANUALLY TRANSCRIBED RESULTS External Ldl (Calc) 92 MANUALLY TRANSCRIBED RESULTS External Triglycerides 167 MANUALLY TRANSCRIBED RESULTS External Very Low Lipoprotein 33 MANUALLY TRANSCRIBED RESULTS us Scanning Provider External LAB BLOOD ORDERABLES Edited Result - Final Performing Organization Address City/[facility]/ZIP Co de Phone Number MANUALLY TRANSCRIBED RESULTS * Multiple labs (02/06/2020) us Scanning Provider External [place] IMAGING Final Result MANUALLY TRANSCRIBED RESULTS documented in this encounter Visit Diagnoses Not on filedocumented in this encounter Care Teams Trust Vault Custodian Relationship Specialty Start Date End Date Natalya Mckinley MD [address] [place] [address] PCP - General Family Medicine 01/04/18 documented as of this encounter
--- OUTSIDE RECORDS SUMMARY | 2024-11-20 15:56 | XMS_ITS | Encounter Summary ---
[facility] Address [id number] [address] [place] [address] Care Team Providers Care Preparole Counseling Aide Name Role Phone Natalya Mckinley MD Primary Care Provider [phone] Reason for Visit * Reason Onset Date Comments missed appt 04/06/2020 Encounter Details Date Type Department Care Team (Late st Contact Info) Description 04/06/2020 [facility] [address] [phone] Vilma Cochran RN missed appt Social History Tobacco Use Types Packs/Day [...] Telephone Encounter - Vilma Cochran RN - 04/06/2020 3:17 PM EDT Pt calls to report prefers not to sched appt at this time -doing well and cannot afford co-pay Vilma Cochran RN 04/06/20 1518 documented in this encounter Plan of Treatment Not on file documented as of this encounter Goals Goal Patient Goal Type Associated Problems Recent Progress Patient-Stated? Author safe transition from hospital to home General Yes Shalini Mcdonald, ECONOMETRICIAN-ASSEMBLER PRODUCT Note: Evaluation of progress towards goal: discharge home with spouse's support. documented as of this encounter Visit Diagnoses Not on filedocumented in this encounter Care Teams Preparole Counseling Aide Relationship Specialty Start Date End Date Natalya Mckinley MD [address] [place] [address] PCP - General Family Medicine 01/04/18 documented as of this encounter
--- OUTSIDE RECORDS SUMMARY | 2024-11-20 15:57 | XMS_ITS | Encounter Summary ---
Author Organization [facility] Address [address] [place] [address] Care Team Providers Care Pin Sorter And Bagger Name Role Phone Mark Torres MD Primary Care Provider [phone] Encounter Details Date Type Department Care Team (Late st Contact Info) Description 09/30/2024 Lab Requisition [facility] Lab [address] [place] [id number] Barron Starr MD [address] [place] [address] Social History Tobacco Use Types Packs/Day Years Used Date Smoking Tobacco: Former Cigarettes Smokeless Tobacco: Never Alcohol Use Standard Drinks/Week Comments Yes 0 (1 standard drink = 0.6 oz pur e alcohol) occasional [facility] Utilities Answer Date Recorded In the past 12 months has [facility] Application Experts, gas, oil, or water [facility] threatened to shut off services in your [...] any time in the past 12 m [facility], were you homeless or living in a fpc (including now)? No 09/19/2024 Hunger Vital Sign [...] Description 01/13/2025 1:15 PM EDT Office Visit [facility] [address] [place] [address] Wilmer Landa MD [address] [place] [phone] documented as of this encounter Procedures Procedure Name Priority Date/Time Associated Diagnosis Comments CBC WITH AUTO DIFFERENTIAL Routine 09/30/2024 4:17 AM EDT CBC AND DIFFERENTIAL Routine 09/30/2024 4:17 AM EDT COMPREHENSIVE METABOLIC PANEL Routine 09/30/2024 4:17 AM EDT documented in this encounter Results * (ABNORMAL) CBC auto differential (09/30/2024 4:17 AM EDT) Auto WBC 11.34(H) 4.00 - 10.60 10*3/uL 09/30/2024 5:15 AM EDT [facility] ([facility]) RBC 2.88(L) 3.80 - 5.00 10*6/uL 09/30/2024 5:15 AM EDT [facility] ([facility]) Hemoglobin 8.8(L) 12.0 - 15.0 g/dL 09/30/2024 5:15 AM EDT [facility] ([facility]) Hematocrit 27.9(L) 36.0 - 45.0 % 09/30/2024 5:15 AM EDT [facility] ([facility]) MCV 96.9 82.0 - 98.0 fL 09/30/2024 5:15 AM EDT [facility] ([facility]) MCH 30.6 27.0 - 33.0 pg 09/30/2024 5:15 AM EDT [facility] ([facility]) MCHC 31.5(L) 32.0 - 35.0 g/dL 09/30/2024 5:15 AM EDT [facility] ([facility]) RDW 16.0(H) 11.5 - 15.0 % 09/30/2024 5:15 AM EDT [facility] ([facility]) Neutrophils % 65.1 40.0 - 72.0 % 09/30/2024 5:15 AM EDT [facility] ([facility]) Lymphocytes % 20.2 20.0 - 45.0 % 09/30/2024 5:15 AM T [facility] ([facility]) Monocytes % 12.5(H) 5.0 - 12.0 % 09/30/2024 5:15 AM T [facility] ([facility]) Eosinophils % 1.4 0.0 - 6.0 % 09/30/2024 5:15 AM T [facility] ([facility]) Basophils % 0.3 0.0 - 1.0 % 09/30/2024 5:15 AM [facility] ([facility]) Neutrophils Absolute 7.38 1.60 - 7.60 10*3/uL 09/30/2024 5:15 AM T [facility] ([facility]) Lymphocytes Absolute 2.29 1.20 - 4.00 10*3/uL 09/30/2024 5:15 AM [facility] ([facility]) Monocytes Absolute 1.42(H) 0.10 - 1.00 10*3/uL 09/30/2024 5:15 AM [facility] ([facility]) Eosinophils Absolute 0.16 0.00 - 0.50 10*3/uL 09/30/2024 5:15 AM T [facility] ([facility]) Basophils Absolute 0.03 0.00 - 0.20 10*3/uL 09/30/2024 5:15 AM [facility] ([facility]) Platelets 403(H) 150 - 400 10*3/uL 09/30/2024 5:15 AM [facility] ([facility]) nRBC % 0.0 0 % 09/30/2024 5:15 AM [facility] ([facility]) Immature Granulocytes % 0.5 0.0 - 1.0 % 09/30/2024 5:15 AM [facility] ([facility]) Immature Granulocytes Absolute 0.06 0.00 - 0.20 10*3/uL 09/30/2024 5:15 AM [facility] ([facility]) Blood Venous blood specimen / Unknown Venipuncture / Unknown 09/30/2024 4:17 AM EDT 09/30/2024 4:51 AM EDT Barron Starr MD LAB BLOOD ORDERABLES [facility] ([facility]) [address] [place] [address] * (ABNORMAL) Comprehensive metabolic panel (09/30/2024 4:17 AM EDT) Sodium 134(L) 136 - 145 mmol/L 09/30/2024 5:47 AM EDT [facility] ([facility]) Potassium 3.8 3.5 - 5.1 mmol/L 09/30/2024 5:47 AM EDT [facility] ([facility]) Chloride 101 98 - 107 mmol/L 09/30/2024 5:47 AM EDT [facility] ([facility]) CO2 27 21 - 31 mmol/L 09/30/2024 5:47 AM EDT [facility] ([facility]) Anion Gap 10 7 - 20 mmol/L 09/30/2024 5:47 AM EDT [facility] ([facility]) BUN 9 7 - 25 mg/dL 09/30/2024 5:47 AM EDT [facility] ([facility]) Creatinine 0.66 0.60 - 1.20 mg/dL 09/30/2024 5:47 AM EDT [facility] ([facility]) BUN/Creatinine Ratio 13.6 12/2024 5:47 AM EDT [facility] ([facility]) Glucose 102(H) 70 - 100 mg/dL 09/30/2024 5:47 AM EDT [facility] ([facility]) Calcium 8.8 8.6 - 10.3 mg/dL 09/30/2024 5:47 AM EDT [facility] ([facility]) AST 11(L) 13 - 39 U/L 09/30/2024 5:47 AM EDT [facility] ([facility]) ALT (SGPT) 6(L) 7 - 52 U/L 09/30/2024 5:47 AM EDT [facility] ([facility]) Alkaline Phosphatase 65 34 - 104 U/L 09/30/2024 5:47 AM EDT [facility] ([facility]) Total Protein 5.7(L) 6.0 - 8.3 g/dL 09/30/2024 5:47 AM EDT [facility] ([facility]) Albumin 3.3(L) 3.5 - 5.7 g/dL 09/30/2024 5:47 AM EDT [facility] ([facility]) Total Bilirubin 0.5 0.3 - 1.0 mg/dL 09/30/2024 5:47 AM EDT [facility] ([facility]) eGFR 90.9 >60.0 mL/min/1. 73m*2 09/30/2024 5:47 AM EDT [facility] ([facility]) Comment:The [facility] s estimated glomerular filtration rate (eGFR) will no longer include consideration of race in its calculation. The [employer] s eGFR Task Force developed new recommendations for [...] disproportionately affect any one group of individuals. Blood Venous blood specimen / Unknown Venipuncture / Unknown 09/30/2024 4:17 AM EDT 09/30/2024 4:51 AM EDT Barron Starr MD LAB BLOOD ORDERABLES [facility] ([facility]) [address] [place], [place] [id number] documented in this encounter Visit Diagnoses Not on filedocumented in this encounter Care Teams Pin Sorter And Bagger Relationship Specialty Start Date End Date Mark Torres MD [address] [place] [address] PCP - General 09/09/24 documented as of this encounter
--- OUTSIDE RECORDS SUMMARY | 2024-11-20 15:57 | XMS_ITS | Patient Health Record ---
Author Organization [facility] [place] Address [address] [place] [address] Care Team Providers Care Client Relationship Manager Name Role Phone Mark Torres MD Primary Care Provider Unavail able Satish Roa Unavailable [phone] Allergies No Known Allergies Results Component Value Reference Range Notes ITP Reviewed date:10/28/2024 05:08:13 PM Interpretation: Performing Lab: Notes/Report: Source Facility: [facility] [address] [place] [address] Cardiac Rehab Report Signed Patient: GRETCHEN TAN MR#: [id number] : 1945 Acct:[id number] Age/Sex: 79 / F ADM Date: 10/28/24 Loc: CR Attending Dr: ANASTASIYA MACEDO Ordering Physician: Satish Roa D.O. Date of Service: 10/23/24 Procedure(s): ITP Accession Number(s): [id number] cc: [facility] Test Date: 2024-10-23 Pat Name: GRETCHEN TAN Department: Room: - Gender: Female Business Development Sales Executive: : 1945 Requested By: Satish Roa Order Number: [id number] Jesus MD: Satish Roa Interpretive Statements Okay to proceed with outlined treatment plan. Electronically Signed On 10-28-2024 16:56:22 EDT by Satish Roa Dictated By: Satish Roa D.O. Signed By: 10/28/24165510/28/241655 DD/ 51 TD/TT: Trial Judge: [place] [address] Cardiac Rehab Report Signed Patient: GRETCHEN TAN MR#: [id number] : 1945 Acct:[id number] Age/Sex: 79 / F ADM Date: 10/28/24 Loc: CR Attending Dr: ANASTASIYA MACEDO Ordering Physician: Satish Roa D.O. Date of Service: 10/23/24 Procedure(s): ITP Accession Number(s): [id number] cc: [facility] Test Date: 2024-10-23 Pat Name: GRETCHEN TAN Department: Room: - Gender: Female Business Development Sales Executive: : 1945 Req uested By: Satish Roa Order Number: [id number] Reading MD: Satish Roa Interpretive Statements Okay to proceed with outlined treatment plan. Electronically Maryanne d On 10-28-2024 16:56:22 EDT by Satish Roa Dictated By: Satish Roa D.O. Signed By: 10/28/24165510/28/241655 DD/ 51 TD/TT: Trial Judge: Reason For Referral No Information Medications Medication SIG (Take, Route, Frequency, Duration) Notes Start Date End Date Status Aspirin 81 81 MG 1 tablet Orally Once a day Active Albuterol Sulfate HFA 108 (90 Base) MCG/ACT INHALE 2 PUFFS BY MOUTH EVERY 4 HOURS NEEDED FOR 90 DAYS Inhalation for 17 Days Not-Taking Albuterol Sulfate (2.5 MG/3ML) 0.083% 3 mL as needed Inhalation every 6 hrs Active Rosuvastatin Calcium 10 MG Oral for 90 Days Active Zolpidem Tartrate 10 MG TAKE 1 TABLET BY MOUTH ONCE DAILY AT BEDTIME NEEDED Oral for 30 Days Active Multi Vitamin - 1 tablet Orally Once a day Active Omeprazole 20 MG TAKE 1 CAPSULE BY [facility] ONCE DAILY Oral for 90 Days Active Klor-Con M20 20 MEQ Oral for 30 Days Active Metoprolol Tartrate 25 MG Oral for 90 Days Active Clopidogrel Bisulfate 75 MG Oral for 30 Days Active Furosemide 40 MG Oral for 30 Days Active Immunizations Vaccine Route Administration Date Status Comme nts Olman Pfizer Syringe Pre -Filled 30 mcg/0.3 mL Unknown 03/07/2024 Administered Flu, Fluad (29071) 65 yrs + High Dose Seasonal (0426-0164) Unknown 03/07/2024 Administered Flu, Fluzone High-Dose (2022 -2023) (55354) 65 yrs+ Unknown 04/26/2023 Administered Pneumococcal (Pneumovax 23) Unknown 02/12/2020 Administ ered Pneumococcal (Prevnar 20) Unknown 04/06/2022 Administer ed SARS-COV-2 (COVID 19) bivale nt 30 mcg/0.3 ml dose Unknown 03/31/2022 Administered Tdap (Boostrix) Unknown 04/26/2023 Administered ZOSTER (SHINGLES) VACCINE (HZV) Unknown 04/26/2023 Admi nistered ZOSTER (SHINGLES) VACCINE (HZV) Unknown 03/07/2024 Admi nistered Social History Tobacco Use: Social History Observation [...] Problem Status W/U Status Risk Notes Problem 656486357 Chronic obstructive pulmonary disease, unspecified (J44.9) Active confirmed Problem 479571914 Obesity, unspecified (E66.9) Active confirmed Problem Centrilobular emphysema (23570099) Centrilobular emphysema (J43.2) Active confirmed Problem Solitary pulmonary nodule (439706594) Solitary pulmonary nodule (R91.1) Active confirmed Problem 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) Active confirmed Vital Signs Heart Rate 61 /min 11/11/2024 Temperature 96.8 degrees Fahrenheit 11/11/2024 Respiratory Rate 18 /min 11/11/2024 Oximetry 95 % 11/11/2024 Blood pressure diastolic 65 mm Hg 11/11/2024 Height 62 in 11/11/2024 Blood pressure systolic 113 mm Hg 11/11/2024 Weight 195.4 lbs 11/11/2024 BMI 35.74 kg/m2 11/11/2024 Encounters Encounter Location Date Provider Diagnosis [facility] [place] [address] [place] [address] 07/10/2024 [facility] [place] [address] [place] [address] 09/16/2024 [facility] [place] [address] [place] [place] [address] 09/30/2024 [facility] [place] [address] [place] [address] 10/28/2024 [facility] [place] [address] [place] [place] [address] 11/11/2024 [facility] Centrilobular emphys maryanne J43.2 ; Cigarette nicotine [...] increase activity. 11/11/2024 Other Plan Of Treatment Future Test Test Name Order Date CT Chest Low Dose for Screening* 025 Insurance Providers Payer Name Payer Address Payer Phone Subscriber Number Group Number Insured Name Patient Relationship to Insured Coverage Start Date Coverage End Date [employer]AN [address] [place] [phone] [id number] Gretchen Tan Self - patient is the insured 4 Medical (General) History Medical History History ICD Code Centrilobular emphysema J43.2 Solitary pulmonary nodule R91.1 HTN (hypertension) I10 CAD (coronary artery disease) I25.10 PAF (paroxysmal atrial fibrillation) I48 .0 Hypercholesterolemia E78.00 History of COVID-19 Z86.16 [facility] F17.211 Surgical History Surgery Date(Month/Year) Cardiac Catheterization CABG 09/18/2024 cyst removal Fusion Spine Lumbar Transforaminal Inter body with Navigation 10/18/2023
--- OUTSIDE RECORDS SUMMARY | 2024-11-20 15:57 | XMS_ITS | Clinical Summary ---
Author Organization [facility] Healthcare Address [address] [place] [address] Care Team Providers Care Reinforced Concrete Inspector Name Role Phone Mark Torres MD Primary Care Provider [phone] Allergies Active Allergy Reactions Criticality Noted Date Comments Nickel Rash Low 06/03/2024 Medications aspirin 81 MG EC tablet Take 81 mg by mouth Daily Active metoprolol tartrate (Lopressor) 25 MG tablet Take 25 mg by mouth in the morning and 25 mg before bedtime. Active rosuvastatin (Crestor) 10 MG tabletIndication s:Dyslipidemia (CMS/HCC) Take 1 tablet (10 mg) by mouth in the evening 90 tablet 08/13/19 25 Active albuterol (2.5 MG/3ML) 0.083% nebulizer solutionIndicati ons:Chronic obstructive pulmonary disease with acute exacerbation (CMS/HCC) Take 3 mL by nebulization every 4 (four) hours if needed for wheezing 450 mL 08/28/19 25 Active lidocaine (Lidoderm) 5 % patch Apply 3 patches topically Daily 09/30/19 25 Active magnesium oxide (Mag-Ox) 400 MG tablet Take 400 mg by mouth in the morning and 400 mg in the evening. 09/30/19 25 Active potassium chloride CR (Klor-Con M20) 20 MEQ ER tablet Take 20 mEq by mouth in the morning and 20 mEq in the evening. 09/30/19 25 Active acetaminophen (Tylenol) 500 MG tablet Take 500 mg by mouth every 6 (six) hours if needed 09/30/19 25 Active clopidogrel (Plavix) 75 MG tablet Take 75 mg by mouth in the morning. 09/30/19 25 Active furosemide (Lasix) 40 MG tablet Take 40 mg by mouth in the morning and 40 mg in the evening. Take before meals. 09/30/19 25 Active zolpidem (Ambien) 10 MG tabletIndication s:Primary insomnia Take 0.5 tablets (5 mg) by mouth 1 (one) time each day at the same time 10/02/19 25 025 Active apixaban (Eliquis) 5 MG tablet Take 5 mg by mouth in the morning and 5 mg in the evening. Active docusate sodium (Colace) 100 MG capsule Take 100 mg by mouth in the morning and 100 mg before bedtime. Active omeprazole (PriLOSEC) [address] capsuleIndicatio ns:Gastroesophag eal reflux disease, unspecified whether esophagitis present Take 1 capsule (20 mg) by mouth in the morning. Take before meals. 90 capsule 1 11/05/19 25 025 Active omeprazole (PriLOSEC) [address] capsule Take 20 mg by mouth in the morning. Take before meals. 025 Discontinu ed(Reorder ) ferrous sulfate 325 (65 Fe) MG tablet Take 325 mg by mouth in the morning and 325 mg in the evening. Take with meals. 09/30/19 25 Active Problems Problem Noted Date Diagnosed Date Centrilobular emphysema 09/15/2023 Solitary pulmonary nodule 09/15/2023 Urinary incontinence in female 09/15/2023 Spinal stenosis of lumbar re gion with neurogenic claudication 04/05/2023 Lumbar spondylosis 03/08/2023 Lumbosacral spondylosis without myelopathy 03/08 Dyspnea 09/13/2021 Paroxysmal atrial fibrillation 09/13/2021 Right bundle branch block 09/13/2021 Cigarette smoker 09/13/2021 Arteriosclerosis of coronary artery 01/15/2018 Dyslipidemia 01/15/2018 Gastroesophageal reflux disease 01/15/2018 Hypertension 01/15/2018 Insomnia 01/15/2018 Encounters Date Type Department Care Team Description 11/20/2024 Clinisync Result Encounter [facility] External Department Unsolicited Provider, Generic External Data 11/04/2024 Telephone [facility] [address] [facility] [address] [place] [address] Mark Torres MD 10/24/2024 Clinisync Result Encounter N[facility] External Department Unsolicited Provider, Generic External Data 10/23/2024 Clinisync Result Encounter [facility] External Department Unsolicited Provider, Generic External Data 10/22/2024 Abstract [facility] [address] [facility] [address] [place] [address] Mark Torres MD 10/16/2024 2:30 PM EDT Office Visit [facility] [address] [facility] [address] [place] [address] Mark Torres MD Coronary artery disease involving other coronary artery bypass graft without angina pectoris (Primary Dx); Right bundle branch block; Paroxysmal atrial fibrillation (CMS/HCC); Simple chronic bronchitis (CMS/HCC); Acute respiratory failure with hypoxia (CMS/HCC); Acute blood loss anemia; Transition of care; Cigarette smoker 10/16/2024 Bamboo flowsheet [facility] [address] [place] [address] [place] [address] Mark Torres MD 10/16/2024 Travel 10/01/2024 Patient Outreach [facility] [address] [place] [address] Sonia Bob LPN 10/01/2024 Telephone [facility] [address] [facility] [address] [place] [address] Shahrzad Murray [place] Care Coordination 09/17/2024 Clinisync Result Encounter [facility] External Department Unsolicited Provider, Generic External Data 09/16/2024 Clinisync Result Encounter [facility] External Department Unsolicited Provider, Generic External Data 09/16/2024 Clinisync Result Encounter [facility] External Department Unsolicited Provider, Generic External Data 08/29/2024 11:30 AM EST Office Visit [facility] [address] [facility] [address] [place] [address] Mark Torres MD Acute exacerbation of COPD with asthma (CMS/HCC) (Primary Dx); Cigarette smoker 08/29/2024 Bamboo flowsheet [facility] [address] [facility] [address] [place] [address] Mark Torres MD 08/29/2024 Travel 08/27/2024 11:45 AM EST Office Visit [facility] [address] [facility] [address] [place] [address] Mark Torres MD Chronic obstructive pulmonary disease with acute exacerbation (CMS/HCC) (Primary Dx); Centrilobular emphysema (CMS/HCC) ; Arteriosclerosis of coronary artery (CMS/HCC) ; Cigarette smoker 08/27/2024 Bamboo flowsheet [facility] [address] [facility] [address] [place] [address] Mark Torres MD 08/27/2024 Travel from Last 3 Months Immunizations Immunization Administration Dates Next Due Influenza, High Dose Seasona l, Preservative Free 03/07/2024 Influenza, High-dose Seasona l, Quadrivalent, Preservative Free 04/26/2023,04/06/2022,05/12/2021 Influenza, recombinant, quad rivalent, injectable, preservative free 04/01/2020 Pneumococcal Conjugate PCV 20 04/06/2022 Pneumococcal Polysaccharide PPSV23 02/12/2020 Tdap 04/26/2023 Zoster, Recombinant 03/07/2024,04/26/2023 Family History Medical History Relation Name Comments No Known Problems Daughter No Known Problems Son 1 No Known Problems Son 2 Relation Name Status Comments Daughter Alive Father Mother Son 1 Alive Son 2 Alive Social History Tobacco Use Types Packs/Day Years Used Date Smoking Tobacco: Former Cigarettes 0.5 40 Smokeless Tobacco: Never Tobacco Cessation:Counseling Given: Yes Alcohol Use Standard Drinks/Week Comments Not Currently 0 (1 standard drink = 0.6 oz pur e alcohol) PHQ-2 Answer Date Recorded Patient Health Questionnaire-2 Score 0 08/28/2024 Comments No Sex and Gender Information Value Date Recorded Sex Assigned at Not on file Legal Sex Female 8:24 PM EDT Gender Identity Not on file Sexual Orientation Not on file Last Filed Vital Signs Vital Sign Reading Time Taken Comments Blood Pressure 130/78 10/16/2024 2:31 PM EDT Pulse 94 10/16/2024 2:31 PM EDT Temperature - - Respiratory Rate - - Oxygen Saturation 96% 10/16/2024 2:31 PM EDT Inhaled Oxygen Concentration - - Weight 87.5 kg (193 lb) 10/16/2024 2:31 PM EDT Height 154.9 cm (5' 1 ) 10/16/2024 2:31 PM EDT Body Mass Index 36.47 10/16/2024 2:31 PM EDT Plan of Treatment Health Maintenance Due Date Last Done Comments Medicare Annual Wellness (AWV) 06/04/2025 06/04/2024 Pneumococcal Vaccine: 65+ Years Completed , 02/12/2020 Influenza Vaccine Completed 03/07/2024, , 04/06/2022, Additional history exists Procedures Procedure Name Priority Date/Time Associated Diagnosis Comments [facility] TROPONIN I HIGH SENSITIVITY Routine 11/20/2024 1:54 PM EDT ITP 10/24/2024 1:48 PM EDT ITP 10/23/2024 2:52 PM EDT URINE CULTURE - [facility] Routine 09/17/2024 10:39 AM EDT ALL URINALYSIS Routine 09/17/2024 10:39 AM EDT RT PULMONARY FUNCTION TEST 09/16/2024 1:55 PM EDT ALL ARTERIAL BLOOD GAS Routine 09/16/2024 1:40 PM EDT ALL HEMOGLOBIN Routine 09/16/2024 1:32 PM EDT from Last 3 Months Results * (ABNORMAL) [facility] TROPONIN I HIGH SENSITIVITY (11/20/2024 1:54 PM EDT) [facility] TROPONIN I HIGH SENSITIVITY 64.1(HH) 4.0 - 51.3 pg/mL [facility] Comment: RESULTS CALLED TO JANETT SAMS CUT-OFF POINTS HAVE BEEN ESTABLISHED BASED ON THE FOURTH UNIVERSAL DEFINITION OF MYOCARDIAL INFARCTION. THE UPPER REFERENCE LIMIT (URL) OF TROPONIN, DEFINED THE 99TH PERCENTILE OF cTnI DISTRIBUTION IN A REFERENCE POPULATION, HAS BEEN CONFIRMED THE DECISION THRESHOLD FOR [place] DIAGNOSIS. 99TH PERCENTILE = 51.4 PG/ML NOTE: HIGH-SENSITIVITY TROPONIN ASSAY IS NOT INTENDED TO BE USED IN ISOLATION BUT SHOULD BE INTERPRETED IN CONJUNCTION WITH OTHER DIAGNOSTIC AND CLINICAL INFORMATION. 11/20/2024 1:54 PM EDT 11/20/2024 1:55 PM EDT Narrative CLIN[facility]NC - 11/20/2024 3:01 PM EDT us Generic External Data Provider CLINISYKATH F inal Result [facility] * ITP (10/24/2024 1:48 PM EDT) Only the most recent of2 resultswithin the time period is included. Anatomical Region Laterality Modality Other 10/24/2024 1:48 PM EDT Narrative 10/28/2024 4:56 [place] [address] Cardiac Rehab Report Signed Patient: GRETCHEN TAN MR#: [id number] : 1945 Acct:[id number] Age/Sex: 79 / F ADM Date: 10/28/24 Loc: CR Attending Dr: ANASTASIYA MACEDO Ordering Physician: ANASTASIYA MACEDO Date of Service: 10/24/24 Procedure(s): ITP Accession Number(s): [id number] cc: [facility] Test Date: 2024-10-24 Pat Name: GRETCHEN TAN Department: Room: - Gender: Female Pricing/Signage Team Member: : 1945 Requested By: ANASTASIYA MACEDO M.D. Order Number: [id number] Reading MD: Satish Roa Interpretive Statements Okay to proceed with outlined treatment plan. Electronically Signed On 10-28-2024 16:56:37 EDT by Satish Roa Dictated By: Satish Roa D.O. Signed By: 10/28/24 1656 10/28/24 1656 DD/ 1348 TD/TT: Administrative Tech: Procedure Note Radiology, Radiologist, MD - 10/28/2024 [facility] [place] [id number] Cardiac Rehab Report Signed Patient: LINDA TAN#: [id number] : 8Acct:[id number] Age/Sex: 79 / FADM Date: 10/28/24 Loc: CR Attending Dr: ANASTASIYA MACEDO Ordering Physician: ANASTASIYA MACEDO Date of Service: 10/24/24 Procedure(s): ITP Accession Number(s): [id number] cc: [facility] Test Date: 2024-10-24 Pat Name: GRETCHEN TAN Department: Room: - Gender: Female Pricing/Signage Team Member: : 1945 Requested By: ANASTASIYA MACEDO M.D. Order Number: [id number] Reading MD: Satish Roa Interpretive Statements Okay to proceed with outlined treatment plan. Electronically Signed On 10-28-2024 16:56:37 EDT by Satish Roa Dictated By: Satish Roa D.O. Signed By:10/28/24 1656 10/28/24 1656 DD/ 1348 TD/TT: Administrative Tech: [facility] External Data Provider [facility] IMAG[facility] Final Result * (ABNORMAL) URINE CULTURE - [facility] (09/17/2024 10:39 AM EDT) [facility] URINE CULTURE - FR Urine Culture - FR Sent to [facility] for ID/KENZIE [facility] - [facility] Based on resistance to oxacillin this isolate would be [facility] URINE CULTURE - FR resistant to all currently available beta-lactam [facility] URINE CULTURE - [facility] antimicrobial agents, with the exception of the newer [facility] URINE CULTURE - FR cephalosporins with anti-MRSA activity, such as Ceftaroline [facility] - FR Testing performed at [facility] URINE CULTURE - [place] [address] [place] [address] [facility] URINE CULTURE - FR O:STAHAE Isolated [facility] URINE CULTURE - FR Urine Culture - FR [place] Count [facility] URINE CULTURE - FR >100,000 CFU/ml [facility] URINE CULTURE - FR Organism: 1.1 Antibiotic Interpretation KENZIE Status TB URINE CULTURE - FR Erythromycin R F(R) TB URINE CULTURE - FR Gentamicin S F(S) TB URINE CULTURE - FR Levofloxacin R F(R) TB URINE CULTURE - FR Linezolid S F(S) TB URINE CULTURE - FR Moxifloxacin R F(R) TB URINE CULTURE - FR Oxacillin Kenzie R F(R) TB URINE CULTURE - FR Penicillin R F(R) TB URINE CULTURE - FR Rifampin S F(S) TB URINE CULTURE - FR Tetracycline S F(S) TB URINE CULTURE - FR Vancomycin S F(S) TB URINE CULTURE - FR Ciprofloxacin R F(R) TB URINE CULTURE - FR Clindamycin R F(R) TB URINE CULTURE - FR Trimethoprim/Sulfa S F(S) TB 09/17/2024 10:3 9 AM EDT 09/17/2024 10:42 AM EDT Narrative CLINISYNC - 09/30/2024 3:28 PM EDT us Generic External Data Provider LAB BLOOD ORDERAB LES Final Result [facility] * (ABNORMAL) ALL URINALYSIS (09/17/2024 10:39 AM EDT) COLOR URINE YELLOW YELLOW [facility] CLARITY URINE CLEAR CLEAR [facility] SPECIFIC GRAVITY URINE 1.020 1.005 - 1.025 TB[facility] PH URINE 6.0 5.0 - 9.0 TB[facility] PROTEIN URINE TRACE NEG/TRACE mg/dL TB[facility] GLUCOSE URINE UA NEGATIVE NEGATIVE mg/dL [facility] BILIRUBIN URINE NEGATIVE NEGATIVE TBH KETONES URINE NEGATIVE NEGATIVE mg/dL TB[facility] BLOOD URINE SMALL(A) NEGATIVE TBH NITRITE URINE NEGATIVE NEGATIVE TBH UROBILINOGEN URINE 0.2 0.2 - 1.0 EU/dL [facility] LEUKOCYTE ESTERASE URINE NEGATIVE NEGATIVE TB 09/17/2024 10:3 9 AM EDT 09/17/2024 10:42 AM EDT Narrative SHEBA - 09/17/2024 10:55 AM EDT us Generic External Data Provider BLANKAMOISÉSKATH F inal Result [facility] * RT PULMONARY FUNCTION TEST (09/16/2024 1:55 PM EDT) Anatomical Region Laterality Modality Other 09/16/2024 1:55 PM EDT Narrative 09/17/2024 8:49 [place] [address] Respiratory Report Signed Patient: GRETCHEN TAN MR#: [id number] : 1945 Acct:[id number] Age/Sex: 78 / F ADM Date: 09/16/24 Loc: CARD Attending Dr: Andrea Loera TYPEWRITER ASSEMBLER Ordering Physician: Andrea Loera NP Date of Service: 09/16/24 Procedure(s): RT pulmonary function test Accession Number(s): [id number] cc: [facility] Test Date: 2024-09-16 Pat Name: GRETCHEN TAN Department: Room: - Gender: Female Pricing/Signage Team Member: Alan Neff RRT : 1945 Requested By: [id number] Order Number: [id number] Reading MD: Satish Roa Interpretive Statements Pulmonary function testing was completed according to ATS criteria. Findings were considered accurate and reproducible. Both pre- and post-bronchodilator values utilized for spirometry. Spirometry (based on pre-bronchodilator values): -FEV1/FVC: Normal @ 80% -FEV1: Normal @ 90% -FVC: Normal @ 83% -There is no significant bronchodilator response. Lung volumes by plethysmography: -RV: Normal @ 100% -TLC: Normal @ 97% Diffusion capacity: -DLCO: Normal @ 86% when corrected for Hb 12.5g/dL Impressions: -Essentially normal PFT. Clinical correlation required. Electronically Signed On 09-17-2024 8:49:49 EDT by Satish Roa Dictated By: Satish Roa D.O. Signed By: 09/17/24 0849 DD/ 54 TD/TT: Administrative Tech: Procedure Note Radiology, Radiologist, MD - 09/17/2024 [place] [address] Respiratory Report Signed Patient: LINDA TAN#: [id number] : 8Acct:[id number] Age/Sex: 78 / FADM Date: 09/16/24 Loc: CARD Attending Dr: Andrea Loera TYPEWRITER ASSEMBLER Ordering Physician: Andrea Loera NP Date of Service: 09/16/24 Procedure(s): RT pulmonary function test Accession Number(s): [id number] cc: [facility] Test Date: 2024-09-16 Pat Name: GRETCHEN TAN Department: Room: - Gender: Female Pricing/Signage Team Member: Alan Neff RRT : 1945 Requested By: [id number] Order Number: [id number] Reading MD: Satish Roa Interpretive Statements Pulmonary function testing was completed according to ATS criteria.Findings were considered accurate and reproducible. Both pre- andpost-bronchodilator values utilized for spirometry. Spirometry (based on pre-bronchodilator values): -FEV1/FVC: Normal @ 80% -FEV1: Normal @ 90% -FVC: Normal @ 83% -There is no significant bronchodilator response. Lung volumes by plethysmography: -RV: Normal @ 100% -TLC: Normal @ 97% Diffusion capacity: -DLCO: Normal @ 86% when corrected for Hb 12.5g/dL Impressions: -Essentially normal PFT. Clinical correlation required. Electronically Signed On 09-17-2024 8:49:49 EDT by Satish Roa Dictated By: Satish Roa D.O. Signed By:09/17/24 0849 DD/ 54 TD/TT: Administrative Tech: us Generic External Data Provider [facility] IMAG[facility] Final Result * (ABNORMAL) ALL ARTERIAL BLOOD GAS (09/16/2024 1:40 PM EDT) PH ABG 7.411 7.350 - 7.450 TBH ABG PCO2 42.6 35.0 - 45.0 mmHg TBH PO2 ABG 70.7(L) 80.0 - 100.0 mmHg TBH HCO3 ABG 27.0(H) 22.0 - 26.0 mmol/L TBH BASE EXCESS ABG 2.4(H) -2.0 - 2.0 mmol/L TBH OXYGEN SATURATION ABG 95.3 % TBH ILDEFONSO TEST POSITIVE POSITIVE TBH O2 MODE RA TBH TBH FIO2 21 % TBH PUNCTURE SITE RR TBH 09/16/2024 1:40 PM EDT 09/16/2024 1:49 PM EDT Narrative CLIN[facility]YNC - 09/16/2024 1:52 PM EDT Generic External Data Provider CLINISYNC F inal Result Performing Organization Address [facility]/ZIP Co de Phone Number [facility] * ALL HEMOGLOBIN (09/16/2024 1:32 PM EDT) Pathologist [facility] HGB 12.5 12.0 - 16.0 g/dL TB 09/16/2024 1:32 PM EDT 09/16/2024 1:33 PM EDT Narrative CLINISYNC - 09/16/2024 1:41 PM EDT Generic External Data Provider CLINISYNC F inal Result Performing Organization Address City/[facility]/ZIP Co de Phone Number [facility] Last 3 Months Insurance [facility] [employer] Advance Directives Documents on File Type Date Recorded Patient Lotteries Agent Expl anation Power of Cinema Operator 08/05/2024 11:49 AM 2024 Power Of Cinema Operator Care Teams Reinforced Concrete Inspector Relationship Specialty Start Date End Date Mark Torres MD [address] [facility] [address] [place], [place] [id number] PCP - General Family Medicine 10/01/24
--- OUTSIDE RECORDS SUMMARY | 2024-11-20 15:57 | XMS_ITS | Patient Health Record ---
Author Organization [facility] Address [address] [place], [place] [id number] Care Team Providers Care Mobile Application Development Lead Name Role Phone Bailey Anderson Primary Care Provider Natalya Mckinley Unavailable [phone] Allergies No Known Allergies Results Component Value Reference Range Notes ZOLPIDEM URINE REFLEX QUANT Reviewed date:02/01/2024 06:25:02 PM Interpretation: Performing Lab: Notes/Report: ZOLPIDEM, URN, SCREEN SEE NOTE Cutoff 20 ng/mL PresumptivePOS If the screen is PresumptivePos, then confirmation testing by mass spectrometry will be added. Additional charges will apply. SCREEN, URINE INTERPRETATION See Note INTERPRETIVE INFORMATION: The absence of expected drug(s) and/or drug metabolite(s) may indicate non-compliance, inappropriate timing of specimen collection relative to drug administration, poor drug absorption, diluted/adulterated urine, or limitations of testing. The concentration at which the screening test can detect a drug or metabolite varies. Specimens for which drugs or drug classes are detected by the screen are reflexed to a second, more specific technology (GC/MS and/or LC-MS/MS). The concentration value must be greater than or equal to the cutoff to be reported as positive. Interpretive questions should be directed to the laboratory. For medical purposes only; not valid for forensic use. Performed By: [employer] [address] [place] [address] Licensed Acupuncturist: Federico Rice MD, PhD CLIA Number: [id number] Pathology [employer] [address] [place] [address] CLIA No. [id number] CAP Accreditation No. [id number] Licensed Acupuncturist: Talia Dai M.D. HEMOGLOBIN A1C Reviewed date:02/01/2024 06:25:55 PM Interpretation: Performing Lab: Notes/Report: HEMOGLOBIN A1C 5.7 4.2-5.6 % CITIZEN OF [employer] GUIDELINES FOR HGB A1C: PREDIABETES/INCREASED RISK . . . . . . . 5.7-6.4% DIAGNOSIS OF DIABETES . . . . . . . . . >=6.5% WITH CONFIRMATION OR APPROPRIATE SYMPTOMS NOTE: ASSAY MAY BE AFFECTED BY HEMOGLOBINOPATHIES (SICKLE CELL ANEMIA, S-C DISEASE, OTHERS) OR ARTIFICIALLY LOWERED BY DECREASED RED CELL SURVIVAL (HEMOLYTIC ANEMIAS, BLOOD LOSS, ETC.). CONSIDER ALTERNATE TESTING OR LABORATORY CONSULTATION. AVERAGE WHOLE BLOOD GLUCOSE 117 <117 mg/dL TSH WITH FT4 REFLEX Reviewed date:02/01/2024 06:26:03 PM Interpretation: Performing Lab: Notes/Report: TSH 1.140 0.400-4.100 uIu/mL CBC NO DIFF Reviewed date:02/01/2024 06:25:48 PM Interpretation: Performing Lab: Notes/Report: WBC 8.4 3.5-11.0 K/uL RBC 4.51 3.80-5.40 M/uL HGB 13.6 11.5-15.5 g/dL HCT 42.7 34.0-45.0 % MCV 94.7 80.0-99.0 fL MCH 30.2 25.0-33.0 pg MCHC 31.9 31.0-36.0 g/dL RDW 12.8 11.5-15.0 % PLATELET 242 130-400 K/uL MPV 9.9 9.3-13.0 fL COMPREHENSIVE METABOLIC PANE L WITH GFR Reviewed date:02/01/2024 06:25:30 PM Interpretation: Performing Lab: Notes/Report: GLUCOSE 97 70-99 mg/dL BUN 7 8-23 mg/dL CREATININE, BLOOD 0.81 0.60-1.30 mg/dL eGFR (2020 CKD-EPI) 75 >60 mL/min/1.73 CALCIUM 9.7 8.5-10.5 mg/dL SODIUM 143 133-146 meq/L POTASSIUM 4.7 3.5-5.4 meq/L CHLORIDE 104 95-107 meq/L CO2 28 19-31 meq/L ANION GAP 11.0 7.0-16.0 meq/L T. BILIRUBIN 0.3 <=1.2 mg/dL ALK PHOS 89 40-142 U/L AST-SGOT 14 9-40 U/L ALT-SGPT 10 5-40 U/L T. PROTEIN 6.3 6.1-8.3 g/dL ALBUMIN 4.2 3.5-5.2 g/dL DRUG SCREEN - PAIN MANAGEMEN T Reviewed date:02/01/2024 06:25:20 PM Interpretation: Performing Lab: Notes/Report: AMPHETAMINES Negative BARBITURATES Negative BENZODIAZEPINE Negative BUPRENORPHINE Negative COCAINE Negative METHADONE Negative OPIATES Negative The opiate screen interpretation result includes immunoassay screen tests for both general opiates and oxycodone. PHENCYCLIDINE Negative PROPOXYPHENE Negative THC (CANNABIS) Negative ETHANOL Negative FENTANYL Negative FENTANYL CONFIRM SEE NOTE TEST NOT PE RFORMED NORFENTANYL CONFIRM SEE NOTE TEST NOT PERFORMED MEPERIDINE Negative MEPERIDINE CONFIRM SEE NOTE TEST NOT PERFORMED NORMEPERIDINE CONFIRM SEE NOTE TEST N OT PERFORMED TRAMADOL Negative TRAMADOL CONFIRM SEE NOTE TEST NOT PE RFORMED O-DESMETHYL TRAM CONFIRM SEE NOTE EMELY T NOT PERFORMED CREATININE, RANDOM 28 ADULTERANTS Negative COMMENTS: See Below Decision Limits Screen Cutoff Conc. Confirm Cutoff Conc. Amphetamine 500 ng/mL (GC/MS) 100 ng/mL Barbiturates 200 ng/mL (GC/MS) * ng/mL Benzodiazepines 100 ng/mL (LC/MS/MS) * ng/mL Buprenorphine 5 ng/mL (LC/MS/MS) 5 ng/mL Cocaine 150 ng/mL (GC/MS) 30 ng/mL Ethanol 20 mg/dL (GC/FID) 20 mg/dL Fentanyl 2 ng/mL (LC/MS/MS) 1 ng/mL Meperidine 200 ng/mL (LC/MS/MS) 5 ng/mL Methadone 150 ng/mL (GC/MS) 100 ng/mL Opiates 300 ng/mL (LC/MS/MS) 25 ng/mL Oxycodone 100 ng/mL (LC/MS/MS) 25 ng/mL Phencyclidine 25 ng/mL (GC/MS) 5 ng/mL Propoxyphene 300 ng/mL (GC/MS) 60 ng/mL THC (Cannabis) 25 ng/mL (GC/MS) 3 ng/mL Tramadol 200 ng/mL (LC/MS/MS) 5 ng/mL * Decision limit depends on drug detected. Adulterant Decision Limit: General Oxidants 200 ug/mL The adulterant assay tests for General Oxidants, including Chromates and Nitrites. Adulterants are substances either ingested or added directly to a urine specimen to prevent the detection of drug use. If applicable, any drug confirmatory testing by LCMSMS/GCMS and the benzodiazepine screening were developed at [facility]. While the performance characteristics have been fully evaluated and validated using appropriate protocols, this benzodiazepine screening test and all confirmatory tests have not been cleared or approved by the FDA. [facility] is regulated under CLIA as qualified to perform high complexity testing. These tests is for patient testing and should not be interpreted for investigation or research purposes. Test performed at [facility], [facility] [place] [address] Martha Schultz MD, PhD - Corporation Lawyer Test performed at [facility] [address] [place] [address] CLIA Number [id number] MICROALBUMIN RANDOM SPEC Reviewed date:02/01/2024 06:25:40 PM Interpretation: Performing Lab: Notes/Report: UNABLE TO CALCULATE CREATININE,UR 30.3 NOT ESTABLISHED mg/dL MICROALBUMIN <1.2 NOT ESTABLISHED mg/dL MICROALB/CREAT RATIO SEE NOTE <30 mg/g LIPID PANEL WITH REFLEX TO D IRECT LDL Reviewed date:02/01/2024 06:26:12 PM Interpretation: Performing Lab: Notes/Report: CHOLESTEROL 153 <200 mg/dL TRIGLYCERIDES 152 <149 mg/dL HDL-CHOL 54 >39 mg/dL LDL-CHOL, CALCULATED 69 <100 mg/dL VLDL-CHOL, CALCULATED 30 <30 mg/dL LDL/HDL 1.3 <3.22 RATIO CHOL/HDL 2.8 <4.44 RATIO Reason For Referral No Information Medications Medication SIG (Take, Route, Frequency, Duration) Notes Start Date End Date Status Allergy (Cetirizine) 10 MG 1 tablet Orally Once a day for 30 day(s) 05/13/2024 Active Amoxicillin-Pot Clavulanate 875-125 MG 1 tablet Orally every 12 hrs for 5 days 05/13/2024 Active traMADol HCl 50 MG 1 tablet Oral every 8 hours for 7 days as needed Not-Taking Metoprolol Tartrate 25 MG TAKE 1 TABLET BY MOUTH WITH FOOD TWICE DAILY FOR 90 DAYS Orally Twice a day for 90 days Active Eliquis 5 MG 1 tablet Orally Twice a day Not-Taking Diflucan 150 MG 1 tablet Orally once for 1 days can repeat after 72 hours one more dose if symptoms doesnot improve Active Rosuvastatin Calcium 10 MG Take 1 tablet by mouth once daily for 30 days for 90 days Active Eliquis 5 MG 1 tablet Orally twice daily for 30 days 340b please until 06/2024. 03/21/2024 Active Zolpidem Tartrate 10 MG 1 tablet at bedtime if needed Orally Once a day for 30 days Do not fill before 05/15/2024. 05/13/2024 Active Estradiol 0.1 MG/GM Vaginal for 43 Days Not-Taking Lisinopril 10 MG Take 1 tablet by mouth once daily for 90 Active Multivitamin - 1 tablet Orally Once a day Active Omeprazole 20 MG Take 1 capsule by mouth once daily Orally Once a day for 90 days Active Aspirin 81 81 MG 1 tablet Orally Once a day Active Immunizations Vaccine Route Administration Date Status Comme nts Tetanus toxoid, adsorbed OTH Other/Miscellaneous 06/26/1989 Administered Status:Comple te ,Reason:Given or N/A *Pneumococcal polysaccharide [id number] IM Intramuscular 02/12/2020 Administered Status:Comple te ,Reason:Given or N/A Social History Tobacco Use: Social History Observation Description Date Details (start date - stop date) Current Smoker [birth year]01/1955 - NA Sex Assigned At : Social History Observation Description Sex Assigned At Female Household Question Answer Notes Number of adults in household: 3 Tobacco Use/Smoking Question Answer Notes Tobacco use: current smoker patient enter ed data When did you start smoking? 12/01/1955 p atient entered data How often do you smoke cigarettes? every day patient entered data How many cigarettes a day do you smoke? 11-20 patient entered data How soon after you wake up d o you smoke your first cigarette? after 60 minutes patient entered antoinette a Are you interested in quitting? Thinking about q uitting patient entered data Additional Findings: Tobacco User Light cigarette smoker ((1-9 cigs/day) Additional Findings: Tobacco Non-User Does not use moist powdered tobacco CAGE-AID Questionnaire (2018 Edition) Question Answer Notes Have you ever felt that you ought to cut down on your drinking or drug use? No patient entered data Have people annoyed you by c riticizing your drinking or drug use? No patient entered data Have you ever felt bad or gu ilty about your drinking or drug use? No patient entered data Have you ever had a drink or used drugs first thing in the morning to steady your nerves or to get rid of a hangover? No patient entered data CAGE-AID Score 0 Interpretation Negative PRAPARE Question Answer Notes Date Completed/Updated: 07/04/2023 hosea nt entered data What is your current housing situation? I have housing patient entered data Are you worried about losing your housing? No patient entered data What is the highest level of school that you have finished? More than high school patient entered data What is your current work situation? Otherwise unemployed but not seeking work (ex. 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 No How often do you see or talk to people that you care about and feel close to? (For example: talking to friends on the phone, visiting friends or family, going to latter day or club meetings) 1 or 2 times a week patient entered data How stressed are you? Stress is when someone feels tense, nervous, anxious, or can't sleep at night because their mind is troubled A little bit patient entered data In the past year have you sp ent more than 2 nights in a row in a half-way, [place] health care facility, fdc center, or juvenile correctional facility? No patient entered data Are you a refugee? No patient en tered data What country are you from? [place] entered data Do you feel physically and emotionally safe where you currently live? Yes patient entered data In the past year, have you b een afraid of your partner or ex-partner? No patient entered data PRAPARE Score: 5 Problems Problem Type SNOMED Code ICD Code Onset Dates Problem Status W/U Status Risk Notes Problem Paroxysmal atrial fibrillation (984943757) Paroxysmal atrial fibrillation (I48.0) Active confirmed Problem Insomnia (249323630) Insomnia, unspecified type (G47.00) Active confirmed Problem Obesity (872349337) Obesity (BMI 30-39.9) (E66.9) Active confirmed Problem 962857709 Urinary incontinence in female (R32) Active confirmed Problem 99843727 Hyperlipidemia, unspecified hyperlipidemia type (E78.5) Active confirmed Problem 64610002 Primary hypertension (I10) Active confirmed Problem Essential hypertension (96528901) Essential (primary) hypertension (I10) 2002 Active confirmed Comment:BP is stable well control on current meds. 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 Problem Insomnia (262630176) Insomnia (G47.00) Active confirmed Problem Hypertension (26547240) Hypertension (I10) Active confirmed Problem Malignant melanoma of skin (95639165) Familial melanoma (C43.9) Active confirmed Problem Tobacco user (048067625) Nicotine addiction (F17.200) Active confirmed Problem Postmenopausal (15352242) Postmenopausal (Z78.0) Active confirmed Comment:Prior order with error. New order., Problem COPD - Chronic obstructive pulmonary disease (60657294) COPD (chronic obstructive pulmonary disease) (J44.9) Active confirmed Comment:Pt's in office today. Requests RX for nebulizer for pt. Pt recently discharged from [facility] with [facility] RX for nebulizer but does not have machine. Requests [facility] in [place]. Pt with 30+ pk/yr smoking hx. Has not smoked since in hospital. Both are trying to quit now., Problem Family history of malignant melanoma (215886434) Family history of melanoma (Z80.8) Active confirmed Comment:[place] in her 60's., Problem Atrial fibrillation (02534406) Atrial fibrillation (I48.91) Active confirmed Comment:At end of visit, pt asked for cardiology contact info. given to her. Concerns about her a fib as above. States not having sx during visit. Will call today to discuss with them, schedule appt. ED prn., Problem Insomnia (991170743) Insomnia, unspecified (780.52) (G47.00) Active confirmed Comment:-[facility] understanding -Keep f/u appt with Dr. 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) Active confirmed Comment:expla ined the CT findings to her - gave a copy of the report to her to give to the urologist in addition to the 2 recent UTI findings FU as needed, Problem Insomnia (550167206) Insomnia, persistent (G47.00) Active confirmed Problem Hypercalcemia (74256646) Hypercalcemia (E83.52) Problem resolved confirmed Vital Signs Heart Rate 58 /min 05/13/2024, [facility] 05/13/2024 12:51:05 PM EST > Temperature 98.6 degrees Fahrenheit 05/13/2024 [facility] 05/13/2024 12:51:05 PM EST > Respiratory Rate 18 /min 05/13/2024, [facility] 05/13/2024 12:51:05 PM EST > Blood pressure diastolic 56 mm Hg 05/13/2024 [facility] 05/13/2024 12:51:05 PM EST > Oximetry 97 % 05/13/2024, [facility] 05/13/2024 12:51:05 PM EST > Height-cm 156.21 cm 05/13/2024, [facility] 05/13/2024 12:51:05 PM EST > Weight-kg 93.39 kg 05/13/2024, [facility] 05/13/2024 12:51:05 PM EST > Height 61.50 in 05/13/2024, [facility] 05/13/2024 12:51:05 PM EST > Blood pressure systolic 130 mm Hg 05/13/2024 [facility] 05/13/2024 12:51:05 PM EST > Weight 205.9 lbs 05/13/2024, [facility] 05/13/2024 12:51:05 PM EST > BMI 38.27 kg/m2 05/13/2024, [facility] 05/13/2024 12:51:05 PM EST > Encounters Encounter Location Date Provider Diagnosis Main [address] [place] , [place] [id number] 02/07/2024 Natalya Mckinley Insomnia, unspecifie d type G47.00 ; High risk medication use Z79.899 ; Hyperlipidemia, unspecified hyperlipidemia type E78.5 and Prediabetes R73.[address] [place] , [place] [id number] 03/21/2024 Natalya Mckinley Insomnia, unspecifie d type G47.00 ; High risk medication use Z79.899 and Paroxysmal atrial fibrillation I48.[address] [place] , [place] [id number] 05/13/2024 Bailey Justin Insomnia G47.00 ; UR TI (acute upper respiratory infection) J06.9 ; Dietary counseling Z71.3 ; Exercise counseling Z71.82 and Obesity (BMI 30-39.9) E66.[address] [place], [place] [id number] 12/08/2023 Natalya Mckinley Main [address] [place] , [place] [id number] 12/25/2023 Natalya Mckinley Hyperlipidemia, unsp ecified hyperlipidemia type E78.5 ; Prediabetes R73.03 ; Primary hypertension I10 and High risk medication use Z79.[address] [place], [place] [id number] 12/29/2023 Natalya Mckinley Main [address] [place], [place] [id number] 01/22/2024 Natalya Mckinley Main [address] [place], [place] [id number] 02/08/2024 Natalya Mckinley Main [address] [place], [place] [id number] 02/19/2024 Natalya Mckinley Main [address] [place], [place] [id number] 03/21/2024 Natalya Mckinley Main [address] [place], [place] [id number] 03/21/2024 Natalya Mckinley Paroxysmal atrial fibrillation I48.[address] [place], [place] [id number] 06/03/2024 Bailey Justin Candidiasis B37.[address] [place], [place] [id number] 06/10/2024 Bailey Justin [facility] [address] [place], [place] [id number] 06/20/2024 Bailey Justin Main [address] [place], [place] [id number] 09/17/2024 Bailey Justin Assessments Encounter Date Diagnosis (ICD Code) Assessment Notes Treatment Notes Treatment Clinical Notes Section Notes 12/25/2023 Prediabetes (ICD-10 - R73.03) 02/07/2024 Insomnia, unspecified type (ICD-10 - G47.00) Pt's sx well controlled with detention use current medication. Has tried other medications in past w/o good effect. Aware of counseling services at [facility]. Declines at this time. Will continue current medication. Pt would like to follow up end of Feb so I can d/w Dr. Anderson. Will be period before she starts seeing pts due to credentialling. 02/07/2024 High risk medication use (ICD-10 - Z79.899) OARRS reviewed. UDS 01/2024. Controlled Substance Agreement UTD (10/2023). 03/21/2024 Insomnia, unspecified type (ICD-10 - G47.00) Pt's sx well controlled with detention use current medication. Has tried other medications in past w/o good effect. Aware of counseling services at [facility]. Declines at this time. Will continue current medication. RF given (with prior RX) for total 5mos with transition to a new [facility] provider. Aware that I can recommend that pt continue Ambien and I do believe she benefits from it. However, I cannot obligate another provider. 03/21/2024 High risk medication use (ICD-10 - Z79.899) OARRS reviewed. UDS 01/2024. Controlled Substance Agreement UTD (10/2023). 03/21/2024 Paroxysmal atrial fibrillation (ICD-10 - I48.0) 12/25/2023 Hyperlipidemia, unspecified hyperlipidemia type (ICD-10 - E78.5) 05/13/2024 Insomnia (ICD-10 - G47.00) Pt has been on Zolpidem for a long time. I disucssed in detail risk are more than benefits given her age and continuing it detention wont be a safe practice. I gave her option of decreasing dose slowly and trying to add trazodone but pt states trazodone did not help. Also gave her option of seeing sleep medicine to which pt refuse as she dont want to pay extra copay for another specialist. PT will wait and see if she can find another doctor who can help, I will refill for this time as I dont want her to go in withdrawal and re evaluate in 3 months and can discuss further to taper it down. I will start controlled substance protocol today. The pain contract will be reassessed every 3 months and renewed every 6 months as per [facility] policy. OARRS was reviewed and no suspicious activity related to controlled substances was noted today. I will be ordering urine tox F/up in 3months 05/13/2024 URTI (acute upper respiratory infection) (ICD-10 - J06.9) I suspect that patient is suffering from bacterial infection at this point. I will start antibiotics today (Augmentin 875mg BID x 7 days). Also giveing Cetrizine to help with congestion. Pt was advised to drink plenty of fluids, rest as much as possible, and gargle with warm water atleast twice daily and take tylenol/ibuprofe n to help with pain. Pain was advised to use steam / humidifier to help with breathing. If symptoms worsen or fail to improve on the regimen, pt was advised to call the office or head to the ER and PVU 06/03/2024 Candidiasis (ICD-10 - B37.9) 05/13/2024 Dietary counseling (ICD-10 - Z71.3) 12/25/2023 Primary hypertension (ICD-10 - I10) 02/07/2024 Hyperlipidemia, unspecified hyperlipidemia type (ICD-10 - E78.5) Labs reviewed with pt as above. Working on behavior mod. Continue current medication. 03/21/2024 Paroxysmal atrial fibrillation (ICD-10 - I48.0) [facility] has few Eliquis left. Now in donut hole with Medicare and cost prohibitive. [facility] cardboard inserter does not have samples currently. D/w Estrellita Mane, [facility]- will send through 340b. Pt will let us know if not able to get. 12/25/2023 High risk medication use (ICD-10 - Z79.899) 05/13/2024 Exercise counseling (ICD-10 - Z71.82) 02/07/2024 Prediabetes (ICD-10 - R73.03) Behavior mod. 05/13/2024 Obesity (BMI 30-39.9) (ICD-10 - E66.9) 02/07/2024 Other 03/21/2024 Other Plan Of Treatment Pending Test Test Name Order Date URINALYSIS, REFLEX TO A CULTURE ([id number]) 04/04/2018 URINALYSIS, REFLEX TO A CULTURE ([id number]) 12/25/2017 UDS Mammogram 02/26/2020 Insurance Providers Payer Name Payer Address Payer Phone Subscriber Number Group Number Insured Name Patient Relationship to Insured Coverage Start Date Coverage End Date [employer]age [address] [place] [phone] [id number] [facility] Gretchen Carrion Self - patient is the insured 8 Medical (General) History Medical History History ICD Code Atrophic vaginitis CAD Dyslipidemia GERD (gastroesophageal reflux disease) Gross hematuria Hypertension Insomnia, Arthritis obesity Nicotine dependence Recurrent UTI Prediabetes R73.03 Hypercalcemia (resolved 10/30/2022) unde fined Encounter for immunization (resolved 12/2022) Atrial fibrillation - managed by [facility] cardiology Surgical History Surgery Date(Month/Year) Left thumb surgery 01/2010 Catheterization, Left Heart-Ventricular Puncture 2015 Colonoscopy 01/2018 lumbar surgery 10/18/2023 Hospitalization History Reason Date(Month/Year) see above
--- OUTSIDE RECORDS SUMMARY | 2024-11-20 15:57 | XMS_ITS | Encounter Summary ---
Author Organization [facility] Address [address] [place] [address] Care Team Providers Care Data Processing Equipment Repairer Name Role Phone Mark Torres MD Primary Care Provider + [phone] Encounter Details Date Type Department Care Team ([facility] Contact Info) Description 11/20/2024 Clinisync Result Encounter [facility] External Department Unsolicited Provider, Generic External Data Social History Tobacco Use Types Packs/Day Years Used Date Smoking Tobacco: Former Cigarettes 0.5 40 Smokeless Tobacco: Never Alcohol Use Standard Drinks/Week Comments Not Currently [...] on file documented as of this encounter Procedures Procedure Name Priority Date/Time Associated Diagnosis Comments [facility] TROPONIN I HIGH SENSITIVITY Routine 11/20/2024 1:54 PM EDT documented in this encounter Results * (ABNORMAL) [facility] TROPONIN I HIGH SENSITIVITY (11/20/2024 1:54 PM EDT) Pathologist [facility] TROPONIN I HIGH SENSITIVITY 64.1(HH) 4.0 - 51.3 pg/mL [facility] Comment: RESULTS CALLED TO JANETT SAMS CUT-OFF POINTS HAVE BEEN ESTABLISHED BASED ON THE FOURTH UNIVERSAL DEFINITION OF MYOCARDIAL INFARCTION. THE UPPER REFERENCE LIMIT (URL) OF TROPONIN, DEFINED THE 99TH PERCENTILE OF cTnI DISTRIBUTION IN A REFERENCE POPULATION, HAS BEEN CONFIRMED THE DECISION THRESHOLD FOR PR DIAGNOSIS. 99TH PERCENTILE = 51.4 PG/ML NOTE: HIGH-SENSITIVITY TROPONIN ASSAY IS NOT INTENDED TO BE USED IN ISOLATION BUT SHOULD BE INTERPRETED IN CONJUNCTION WITH OTHER DIAGNOSTIC AND CLINICAL INFORMATION. 11/20/2024 1:54 PM EDT 11/20/2024 1:55 PM EDT Narrative [facility] - 11/20/2024 3:01 PM EDT us Generic External Data Provider SHEBA F inal Result [facility] documented in this encounter Visit Diagnoses Not on filedocumented in this encounter Additional Health Concerns Assessment Noted Time PHQ-9 Depression Total Score: 8 06/04/20 24 11:00 AM EST documented as of this encounter Care Teams Data Processing Equipment Repairer Relationship Specialty Start Date End Date Mark Torres MD [address] [address] PCP - General Family Medicine 10/01/24 documented as of this encounter
--- OUTSIDE RECORDS SUMMARY | 2024-11-20 15:57 | XMS_ITS | Clinical Summary ---
Author Organization [facility] Address [address] [place] [address] Phone Care Team Providers Care Receiver Dispatcher Name Role Phone Unavailable Primary Care Provider Unavailabl e Social History Tobacco Use Types Packs/Day Years Used Date Smoking Tobacco: Never Assessed Comments Unknown Sex and Gender Information Value Date Recorded Sex Assigned at Not on file Legal Sex Female 1:19 AM EST Gender Identity Not on file Sexual Orientation Not on file Plan of Treatment Not on file
--- OUTSIDE RECORDS SUMMARY | 2024-11-20 15:57 | XMS_ITS | Encounter Summary ---
Author Organization [facility] Address [address] [place] [address] Care Team Providers Care Summer Intern Name Role Phone Mark Torres MD Primary Care Provider [phone] Encounter Details Date Type Department Care Team ([facility] Contact Info) Description 10/22/2024 Abstract [facility] [address] [place] [address] Mark Torres MD [address] [place] [address] (Fax) Social History Tobacco Use Types Packs/Day Years [...] on file documented as of this encounter Visit Diagnoses Not on filedocumented in this encounter Additional Health Concerns Assessment Noted Time PHQ-9 Depression Total Score: 8 06/04/20 24 11:00 AM EST documented as of this encounter Care Teams Summer Intern Relationship Specialty Start Date End Date Mark Torres MD [address] [facility] [address] [place] [address] (Fax) PCP - General Family Medicine 10/01/24 documented as of this encounter
--- OUTSIDE RECORDS SUMMARY | 2024-11-20 15:57 | XMS_ITS | Referral Summary ---
Author Organization [facility] Address [address] [place] [address] Care Team Providers Care Communication Consultant Name Role Phone Mark Torres MD Primary Care Provider [phone] Encounters Date Type Department Care Team Description 11/20/[address] [address] Annabella Mota MA 11/20/2024 Orders Only [address] [place] [phone] Annabella Mota MA Other chest pain 11/08/[address] [place] [phone] Gloria Mccormack MD Benign hypertensive heart disease with heart failure (CMS/HCC) 10/23/2024 Refill [facility] [address] [place] [phone] Annabella Mota MA CAD in klamath artery; CAD, multiple vessel 2024 9:00 AM EDT Office Visit [address] [address] Wilmer Landa MD Coronary artery disease involving klamath coronary artery of klamath heart without angina pectoris (Primary Dx); S/P CABG (coronary artery bypass graft); Paroxysmal atrial fibrillation ([facility]/HCC); Primary hypertension; Status post ligation of left atrial appendage; S/P Maze operation for atrial fibrillation 10/10/2024 1:30 PM EDT Telemedicine [facility] Heart [facility] Vascular Cardiothoracic Surgery [facility] [address] [place] [phone] Nikolas Ingram CNP CAD, multiple vessel (Primary Dx); Nausea 10/04/2024 Telephone [facility] Heart [facility] Vascular Cardiothoracic Surgery [facility] [address] [facility] [place] [address] Alee Wilson RN Follow up 10/03/2024 2:59 PM EDT - 10/03/2024 11:59 PM EDT Hospital Encounter [facility] Heart [facility] Vascular [facility] [address] [facility] [place] [phone] Discharge Disposition: Home or Self Care () 10/03/2024 2:05 PM EDT - 10/03/2024 2:58 PM EDT Hospital Encounter [facility] X-Ray Imaging [address] [place], [place] [address] [place] [address] S/P CABG (coronary artery bypass graft) Discharge Disposition: Home or Self Care () 10/03/2024 1:30 PM EDT - 10/03/2024 2:04 PM EDT Hospital Encounter [facility] X-Ray Imaging [address] [place], [place] [address] [address] Discharge Disposition: Home or Self Care () 10/03/2024 1:50 PM EDT Lab [facility] Outpatient Draw Station [address] [facility] [place] [phone] Acute cystitis without hematuria; Low hemoglobin; S/P CABG (coronary artery bypass graft) 10/03/2024 2:30 PM EDT Office Visit [facility] Heart [facility] Vascular Cardiothoracic Surgery [facility] [address] [facility] [place] [phone] Nikolas Ingram CNP CAD, multiple vessel (Primary Dx); Low back pain, unspecified back pain laterality, unspecified chronicity, unspecified whether sciatica present 10/02/2024 Telephone [facility] Heart [facility] Vascular Cardiothoracic Surgery [facility] [address] [place] [address] Alee Wilson, RN Appointment reminder 09/30/2024 Lab Requisition [facility] Hospital Lab [address] [place] [place] [phone] Barron Starr MD 09/18/2024 6:20 AM EDT - 09/29/2024 3:30 PM EDT Hospital Encounter [facility] [address] [place] [place] [phone] Sadie Waterman MD Gupta, Sameer, MD CAD in klamath artery (Primary Dx); Multi-vessel coronary artery stenosis; Acute cystitis without hematuria; Chronic obstructive pulmonary disease, unspecified COPD type (CMS/HCC); CAD, multiple vessel Discharge Disposition: Inpatient Rehab Hospital () 09/27/2024 Orders Only [facility] Heart [facility] Vascular Cardiothoracic Surgery [facility] [address] [place] [address] Alee Wilson, ELSI Low hemoglobin; S/P CABG (coronary artery bypass graft); S/P Maze operation for atrial fibrillation 09/18/2024 Travel 09/18/2024 8:30 AM EDT - 09/18/2024 3:45 PM EDT Surgery [facility] Main Operating Room [address] [place] [address] Sadie Waterman MD CABG 3 Vessels with Cardiopulumonary Bypass 09/18/2024 8:55 AM EDT Anesthesia Event [facility] Main Operating Room [address] [place] [address] Lety Phillips MD 09/16/2024 Orders Only [facility] Respiratory Therapy [address] [place] [address] Dottie Arellano, COMMUTATOR OPERATOR 09/16/2024 Telephone [facility] Heart [facility] Vascular Cardiothoracic Surgery [facility] [address] [place] [address] Alee Wilson, ELSI Pre-op Instructions 09/16/2024 Orders Only [facility] Heart [facility] Vascular Cardiothoracic Surgery [facility] [address] [place] [phone] Alee Wilson, production support supervisor cystitis without hematuria 09/16/2024 Orders Only [facility] Heart [facility] Vascular Cardiothoracic Surgery [facility] [address] [place] [phone] Alee Wilson, ELSI Pre-op testing 09/16/2024 Abstract [facility] Vascular Cardiothoracic Surgery [facility] [address] [place] [phone] Alee Wilson RN 09/16/2024 Telephone [facility] Heart [facility] Vascular Cardiothoracic Surgery [facility] [address] [place] [phone] Alee Wilson, ELSI Hold Lisinopril 09/13/2024 Abstract [facility] Vascular Cardiothoracic Surgery [facility] [address] [place] [phone] Alee Wilson RN 09/13/2024 Telephone [facility] Vascular Cardiothoracic Surgery [facility] [address] [place] [address] Alee Wilson, ELSI PFT appointment and CHG wipe case picker 09/13/2024 Orders Only [facility] Heart [facility] Vascular Cardiothoracic Surgery [facility] [address] [place] [phone] Alee Wilson RN 09/13/2024 10:18 AM EDT - 09/13/2024 11:59 PM EDT Hospital Encounter [facility] Heart and Vascular Center Heart Station [address] [facility] [place] [address] Multi-vessel coronary artery stenosis; Abnormal findings diagnostic imaging of heart and coronary circulation Discharge Disposition: Home or Self Care (01) 09/13/2024 Orders Only [facility] Heart [facility] Vascular Cardiothoracic Surgery [facility] [address] [place] [address] Alee Wilson RN Multi-vessel coronary artery stenosis; Abnormal findings diagnostic imaging of heart and coronary circulation 09/13/2024 Orders Only [facility] Surgical Intensive Care [address] [facility] [place] [address] Luz MariaAndrea, COMMISSION SALES ASSOCIATE Chronic obstructive pulmonary disease, unspecified COPD type (CMS/HCC) (Primary Dx); Acute cystitis without hematuria; Shortness of breath 09/12/2024 Orders Only [facility] Heart and Vascular Cardiothoracic Surgery Center [address] [place] [address] Alee Wilson RN Multi-vessel coronary artery stenosis 09/09/2024 1:49 PM EDT - 09/12/2024 4:47 PM EDT Hospital Encounter [facility] [address] [place] [address] Jorge White MD Unstable angina (CMS/HCC) (Primary Dx); CAD, multiple vessel Discharge Disposition: Home or Self Care w/Planned Readmission (81) 09/10/2024 6:00 PM EDT - 09/10/2024 7:00 PM EDT Surgery [facility] Heart [facility] Vascular [facility] [address] [place] [address] Wilmer Landa MD Coronary angiography [[id number]] 09/09/2024 Travel 09/09/2024 10:30 AM EDT Office Visit [address] [address] Wilmer Landa MD Coronary artery disease involving klamath coronary artery of klamath heart with unstable angina pectoris (CMS/HCC) (Primary Dx); Other chest pain; PAF (paroxysmal atrial fibrillation) (CMS/HCC); Primary hypertension 08/30/[address] [address] Richelle Kemp MA Paroxysmal atrial fibrillation (CMS/HCC) from Last 3 Months Allergies Active Allergy Reactions Criticality Noted Date Comments Nickel Rash Low 06/03/2024 Medications Medication Sig Dispensed Refills Start Date End Date Status omeprazole (PriLOSEC) [address] capsule Take 1 capsule by mouth in the morning. Active rosuvastatin (Crestor) 10 mg tablet Take 10 mg by mouth at bedtime. Active zolpidem (Ambien) 10 mg tablet TAKE 1 TABLET BY MOUTH ONCE DAILY AT BEDTIME NEEDED Active albuterol 2.5 mg /3 mL (0.083 %) nebulizer solution 3 mL every 4 (four) hours if needed. 08/27/2024 Active acetaminophen (Tylenol) 500 mg tabletIndications :CAD, multiple vessel Take 1 tablet (500 mg) by mouth every 6 (six) hours if needed for mild pain (1-3 pain score) for up to 266 doses. 09/29/2024 Active furosemide (Lasix) 40 mg tabletIndications :CAD, multiple vessel Take 1 tablet (40 mg) by mouth before breakfast and before evening meal. 09/29/2024 Active Additional Information Patient taking differently:40 mg oralDaily, Reported on 2024 apixaban (Eliquis) 5 mg tablet Take 5 mg by mouth two times daily. Active cetirizine (ZyrTEC) 10 mg tablet Take 10 mg by mouth in the morning. 05/13/2024 Active estradiol (Estrace) 0.01 % (0.1 mg/gram) vaginal cream Insert 2 g into the vagina in the morning. Active traMADol (Ultram) 50 mg tablet Take 50 mg by mouth every 6 (six) hours if needed. Active metoprolol tartrate (Lopressor) 25 mg tabletIndications :CAD in klamath artery Take 1 tablet (25 mg) by mouth two times daily. 180 tablet 3 10/23/2024 6 Active clopidogrel (Plavix) 75 mg tabletIndications :CAD, multiple vessel Take 1 tablet (75 mg) by mouth once daily as directed. 90 tablet 10/23/2024 5 Active lisinopril 10 mg tabletIndications :Benign hypertensive heart disease with heart failure (CMS/HCC) TAKE 1 TABLET BY MOUTH ONCE DAILY DIRECTED 90 tablet 11/08/2024 Active aspirin 81 mg EC tabletIndications :CAD, multiple vessel Take 1 tablet (81 mg) by mouth in the morning. 09/29/2024 clopidogrel (Plavix) 75 mg tabletIndications :CAD, multiple vessel Take 1 tablet (75 mg) by mouth in the morning. 09/29/2024 Discontinued (Reorder) docusate sodium (Colace) 100 mg capsuleIndication s:CAD, multiple vessel Take 2 capsules (200 mg) by mouth if needed in the morning and at bedtime (constipation). 09/29/2024 Additional Information Patient not taking.Reported on 2024 ferrous sulfate 325 (65 Fe) MG tabletIndications :CAD, multiple vessel Take 1 tablet (325 mg) by mouth with breakfast and with evening meal. 09/29/2024 metoprolol tartrate (Lopressor) 25 mg tabletIndications :CAD in klamath artery Take 1 tablet (25 mg) by mouth two times daily. 09/29/2024 Discontinued (Reorder) potassium chloride CR (Klor-Con M20) 20 mEq ER tabletIndications :CAD, multiple vessel Take 1 tablet (20 mEq) by mouth in the morning. Do not crush or chew. 10/03/2024 magnesium oxide (Mag-Ox) 400 mg (241.3 mg magnesium) tabletIndications :CAD, multiple vessel Take 1 tablet (400 mg) by mouth in the morning. 10/03/2024 Additional Information Patient not taking.Reported on 2024 lidocaine (Lidoderm) 5 % patchIndications: Low back pain, unspecified back pain laterality, unspecified chronicity, unspecified whether sciatica present Apply 1 patch topically every 12 (twelve) hours. Remove & discard patch within 12 hours or as directed by MD. Apply to back. 1 patch 10/03/2024 Active Problems Problem Noted Date Diagnosed Date Chronic obstructive pulmonary disease, unspecifi ed 2024 Ectopic kidney 2024 Family history of malignant melanoma 2024 Hyperlipidemia 2024 Malignant melanoma of skin 2024 Postmenopausal 2024 Acute respiratory failure with hypoxia Postoperative anemia due to acute blood loss Atelectasis, bilateral 09/21/2024 Acute respiratory insufficiency, postoperative 0 09/21/2024 CAD in klamath artery 09/18/2024 Multi-vessel coronary artery stenosis 09/12/2024 [...] Assessment & Plan (03/08/2024 11:49 AM EDT): [id number]= 5 Age, female, HTN, CAD Remains on Eliquis anticoagulation and denies any bleeding tendencies Per assessment she is in rhythm continue metoprolol 25 mg twice daily Assessment & Plan (04/14/2023 11:27 AM EDT): [id number]= 5 Age, female, HTN, CAD continue eliquis anticoagulation and metoprolol 25 mg bid. Monitor for s/s of bleeding Right bundle branch block 09/13/2021 Smoker 09/13/2021 Myxoid cyst 11/30/2009 Social History Tobacco Use Types Packs/Day Years Used Date Smoking Tobacco: Former Cigarettes Smokeless Tobacco: Never Tobacco Cessation:Counseling Given: Not Answered Alcohol Use Standard Drinks/Week Comments Yes 0 (1 standard drink = 0.6 oz pur e alcohol) occasional [facility] Utilities Answer Date Recorded In the past 12 months has e [employer], gas, oil, or water [employer] threatened to shut off services in your [...] any time in the past 12 m [facility], were you homeless or living in a correction (including now)? No 09/19/2024 Hunger Vital Sign [...] Sign Reading Time Taken Comments Blood Pressure 108/64 2024 9:02 AM EDT Pulse 84 2024 9:02 AM EDT Temperature 37 C (98.6 F) 09/29/2024 12:00 PM EDT Respiratory Rate 18 09/29/2024 12:00 PM EDT Oxygen Saturation 96% 2024 9:02 AM EDT Inhaled Oxygen Concentration - - Weight 87.5 kg (193 lb) 2024 9:02 AM EDT Height 152.4 cm (5') 2024 9:02 AM EDT Body Mass Index 37.69 2024 9:02 AM EDT Functional Status Functional Status Response Date of [...] (5 years old or older) No 09/12/2024 Plan of Treatment Upcoming Encounters Date Type Department Care Team (Late st Contact Info) Description 01/13/2025 1:15 PM EDT Office Visit [facility] Heart at [facility] [address] [place] [address] Wilmer Landa MD [address] [facility] [address] [facility] [place] [address] Procedures Procedure Name Priority Date/Time Associated Diagnosis Comments ECG 12-LEAD Routine 10/03/2024 3:54 PM EDT S/P Maze operation for atrial fibrillation XR CHEST 2 VIEWS Routine 10/03/2024 2:09 PM EDT S/P CABG (coronary artery bypass graft) CBC WITH AUTO DIFFERENTIAL Routine 10/03/2024 1:58 PM EDT Low hemoglobin COMPREHENSIVE METABOLIC PANEL Routine 10/03/2024 1:58 PM EDT S/P CABG (coronary artery bypass graft) MAGNESIUM Routine 10/03/2024 1:58 PM EDT S/P CABG (coronary artery bypass graft) CBC AND DIFFERENTIAL Routine 10/03/2024 1:58 PM EDT Low hemoglobin URINALYSIS Routine 10/03/2024 1:58 PM EDT Acute cystitis without hematuria URINE CULTURE Routine 10/03/2024 1:58 PM EDT Acute cystitis without hematuria CBC WITH AUTO DIFFERENTIAL Routine 09/30/2024 4:17 AM EDT CBC AND DIFFERENTIAL Routine 09/30/2024 4:17 AM EDT COMPREHENSIVE METABOLIC PANEL Routine 09/30/2024 4:17 AM EDT POCT GLUCOSE METER UNSOLICITED RESULTS Routine 09/29/2024 10:50 AM EDT XR CHEST 1 VIEW Routine 09/29/2024 8:06 AM EDT POCT GLUCOSE METER UNSOLICITED RESULTS Routine 09/29/2024 7:16 AM EDT MAGNESIUM Pending Discharge 09/29/2024 3:18 AM EDT CBC Pending Discharge 09/29/2024 3:18 AM EDT BASIC METABOLIC PANEL Pending Discharge 09/29/2024 3:18 AM EDT POCT GLUCOSE METER UNSOLICITED RESULTS Routine 09/28/2024 8:48 PM EDT LUNG EXPANSION Routine 09/28/2024 8:00 PM EDT POCT GLUCOSE METER UNSOLICITED RESULTS Routine 09/28/2024 4:38 PM EDT CHEST PHYSIOTHERAPY Routine 09/28/2024 2 :00 PM EDT POCT GLUCOSE METER UNSOLICITED RESULTS Routine 09/28/2024 11:57 AM EDT CHEST PHYSIOTHERAPY Routine 09/28/2024 8 :00 AM EDT LUNG EXPANSION Routine 09/28/2024 8:00 AM EDT RESPIRATORY ASSESS AND TREAT PROTOCOL Routine 09/28/2024 8:00 AM EDT RESPIRATORY ASSESS AND TREAT PROTOCOL Routine 09/28/2024 8:00 AM EDT POCT GLUCOSE METER UNSOLICITED RESULTS Routine 09/28/2024 7:33 AM EDT XR CHEST 1 VIEW Routine 09/28/2024 7:00 AM EDT MAGNESIUM Pending Discharge 09/28/2024 3:14 AM EDT CBC Pending Discharge 09/28/2024 3:14 AM EDT BASIC METABOLIC PANEL Pending Discharge 09/28/2024 3:14 AM EDT CHEST PHYSIOTHERAPY Routine 09/27/2024 8 :00 PM EDT LUNG EXPANSION Routine 09/27/2024 8:00 PM EDT POCT GLUCOSE METER UNSOLICITED RESULTS Routine 09/27/2024 7:53 PM EDT POCT GLUCOSE METER UNSOLICITED RESULTS Routine 09/27/2024 4:39 PM EDT POCT GLUCOSE METER UNSOLICITED RESULTS Routine 09/27/2024 11:18 AM EDT CHEST PHYSIOTHERAPY Routine 09/27/2024 8 :00 AM EDT LUNG EXPANSION Routine 09/27/2024 8:00 AM EDT POCT GLUCOSE METER UNSOLICITED RESULTS Routine 09/27/2024 6:57 AM EDT XR CHEST 1 VIEW Routine 09/27/2024 6:35 AM EDT MAGNESIUM Pending Discharge 09/27/2024 4:44 AM EDT BASIC METABOLIC PANEL Pending Discharge 09/27/2024 4:44 AM EDT CBC Pending Discharge 09/27/2024 4:44 AM EDT MAGNESIUM STAT 09/26/2024 9:12 PM EDT POTASSIUM STAT 09/26/2024 9:12 PM EDT POCT GLUCOSE METER UNSOLICITED RESULTS Routine 09/26/2024 8:36 PM EDT CHEST PHYSIOTHERAPY Routine 09/26/2024 8 :00 PM EDT LUNG EXPANSION Routine 09/26/2024 8:00 PM EDT POCT GLUCOSE METER UNSOLICITED RESULTS Routine 09/26/2024 4:11 PM EDT CHEST PHYSIOTHERAPY Routine 09/26/2024 2 :36 PM EDT CHEST PHYSIOTHERAPY Routine 09/26/2024 2 :36 PM EDT CHEST PHYSIOTHERAPY Routine 09/26/2024 2 :36 PM EDT LUNG EXPANSION Routine 09/26/2024 2:36 PM EDT LUNG EXPANSION Routine 09/26/2024 2:36 PM EDT LUNG EXPANSION Routine 09/26/2024 2:36 PM EDT POCT GLUCOSE METER UNSOLICITED RESULTS Routine 09/26/2024 12:14 PM EDT RESPIRATORY ASSESS AND TREAT PROTOCOL Routine 09/26/2024 8:00 AM EDT RESPIRATORY ASSESS AND TREAT PROTOCOL Routine 09/26/2024 8:00 AM EDT POCT GLUCOSE METER UNSOLICITED RESULTS Routine 09/26/2024 7:39 AM EDT XR CHEST 1 VIEW Routine 09/26/2024 6:30 AM EDT MAGNESIUM Pending Discharge 09/26/2024 3:57 AM EDT BASIC METABOLIC PANEL Pending Discharge 09/26/2024 3:57 AM EDT CBC Pending Discharge 09/26/2024 3:57 AM EDT POCT GLUCOSE METER UNSOLICITED RESULTS Routine 09/25/2024 9:06 PM EDT BASIC METABOLIC PANEL Pending Discharge 09/25/2024 4:44 PM EDT MAGNESIUM Pending Discharge 09/25/2024 4:44 PM EDT POCT GLUCOSE METER UNSOLICITED RESULTS Routine 09/25/2024 4:32 PM EDT POCT GLUCOSE METER UNSOLICITED RESULTS Routine 09/25/2024 11:50 AM EDT POCT GLUCOSE METER UNSOLICITED RESULTS Routine 09/25/2024 8:19 AM EDT LUNG EXPANSION Routine 09/25/2024 8:00 AM EDT CHEST PHYSIOTHERAPY Routine 09/25/2024 8 :00 AM EDT RESPIRATORY ASSESS AND TREAT PROTOCOL Routine 09/25/2024 8:00 AM EDT RESPIRATORY ASSESS AND TREAT PROTOCOL Routine 09/25/2024 8:00 AM EDT PHOSPHORUS Add-On 09/25/2024 3:58 AM EDT MAGNESIUM Pending Discharge 09/25/2024 3:58 AM EDT BASIC METABOLIC PANEL Pending Discharge 09/25/2024 3:58 AM EDT CBC Pending Discharge 09/25/2024 3:58 AM EDT XR CHEST 1 VIEW Routine 09/25/2024 3:23 AM EDT POCT GLUCOSE METER UNSOLICITED RESULTS Routine 09/24/2024 9:15 PM EDT LUNG EXPANSION Routine 09/24/2024 8:00 PM EDT CHEST PHYSIOTHERAPY Routine 09/24/2024 8 :00 PM EDT MAGNESIUM Pending Discharge 09/24/2024 6:11 PM EDT BASIC METABOLIC PANEL Pending Discharge 09/24/2024 6:11 PM EDT POCT GLUCOSE METER UNSOLICITED RESULTS Routine 09/24/2024 5:32 PM EDT LUNG EXPANSION Routine 09/24/2024 4:00 PM EDT CHEST PHYSIOTHERAPY Routine 09/24/2024 4 :00 PM EDT POCT GLUCOSE METER UNSOLICITED RESULTS Routine 09/24/2024 2:52 PM EDT LUNG EXPANSION Routine 09/24/2024 12:00 PM EDT CHEST PHYSIOTHERAPY Routine 09/24/2024 12:00 PM EDT LUNG EXPANSION Routine 09/24/2024 9:03 AM EDT LUNG EXPANSION Routine 09/24/2024 9:03 AM EDT LUNG EXPANSION Routine 09/24/2024 9:03 AM EDT LUNG EXPANSION Routine 09/24/2024 9:03 AM EDT CHEST PHYSIOTHERAPY Routine 09/24/2024 9 :03 AM EDT CHEST PHYSIOTHERAPY Routine 09/24/2024 9 :03 AM EDT CHEST PHYSIOTHERAPY Routine 09/24/2024 9 :03 AM EDT CHEST PHYSIOTHERAPY Routine 09/24/2024 9 :03 AM EDT CHEST PHYSIOTHERAPY Routine 09/24/2024 9 :03 AM EDT POCT GLUCOSE METER UNSOLICITED RESULTS Routine 09/24/2024 8:34 AM EDT RESPIRATORY ASSESS AND TREAT PROTOCOL Routine 09/24/2024 8:00 AM EDT RESPIRATORY ASSESS AND TREAT PROTOCOL Routine 09/24/2024 8:00 AM EDT LUNG EXPANSION Routine 09/24/2024 7:51 AM EDT LUNG EXPANSION Routine 09/24/2024 7:51 AM EDT CHEST PHYSIOTHERAPY Routine 09/24/2024 7 :51 AM EDT CHEST PHYSIOTHERAPY Routine 09/24/2024 7 :51 AM EDT MAGNESIUM Pending Discharge 09/24/2024 4:03 AM EDT BASIC METABOLIC PANEL Pending Discharge 09/24/2024 4:03 AM EDT CBC Pending Discharge 09/24/2024 4:03 AM EDT XR CHEST 1 VIEW Routine 09/24/2024 3:04 AM EDT POCT GLUCOSE METER UNSOLICITED RESULTS Routine 09/23/2024 9:24 PM EDT POCT GLUCOSE METER UNSOLICITED RESULTS Routine 09/23/2024 6:04 PM EDT BASIC METABOLIC PANEL Pending Discharge 09/23/2024 3:26 PM EDT PHOSPHORUS Pending Discharge 09/23/2024 3:26 PM EDT MAGNESIUM Pending Discharge 09/23/2024 3:26 PM EDT POCT GLUCOSE METER UNSOLICITED RESULTS Routine 09/23/2024 11:17 AM EDT POCT GLUCOSE METER UNSOLICITED RESULTS Routine 09/23/2024 8:16 AM EDT RESPIRATORY ASSESS AND TREAT PROTOCOL Routine 09/23/2024 8:12 AM EDT RESPIRATORY ASSESS AND TREAT PROTOCOL Routine 09/23/2024 8:12 AM EDT CHEST PHYSIOTHERAPY Routine 09/23/2024 8 :12 AM EDT CHEST PHYSIOTHERAPY Routine 09/23/2024 8 :12 AM EDT CHEST PHYSIOTHERAPY Routine 09/23/2024 8 :12 AM EDT CHEST PHYSIOTHERAPY Routine 09/23/2024 8 :12 AM EDT CHEST PHYSIOTHERAPY Routine 09/23/2024 8 :12 AM EDT RESPIRATORY ASSESS AND TREAT PROTOCOL Routine 09/23/2024 8:00 AM EDT LUNG EXPANSION Routine 09/23/2024 8:00 AM EDT RESPIRATORY ASSESS AND TREAT PROTOCOL Routine 09/23/2024 8:00 AM EDT MAGNESIUM Pending Discharge 09/23/2024 6:02 AM EDT BASIC METABOLIC PANEL Pending Discharge 09/23/2024 6:02 AM EDT CBC Pending Discharge 09/23/2024 6:02 AM EDT ARTERIAL BLOOD GAS WITH IONIZED CALCIUM Timed 09/23/2024 4:04 AM EDT XR CHEST 1 VIEW STAT 09/23/2024 3:03 AM EDT POCT GLUCOSE METER UNSOLICITED RESULTS Routine 09/22/2024 9:39 PM EDT LUNG EXPANSION Routine 09/22/2024 8:00 PM EDT POCT GLUCOSE METER UNSOLICITED RESULTS Routine 09/22/2024 5:04 PM EDT LUNG EXPANSION Routine 09/22/2024 4:00 PM EDT LUNG EXPANSION Routine 09/22/2024 12:00 PM EDT POCT GLUCOSE METER UNSOLICITED RESULTS Routine 09/22/2024 11:[address] CHEST W IV CONTRAST STAT 09/22/2024 10:39 AM EDT ARTERIAL BLOOD GAS WITH IONIZED CALCIUM Timed 09/22/2024 9:53 AM EDT PHOSPHORUS Routine 09/22/2024 9:37 AM EDT MAGNESIUM Routine 09/22/2024 9:37 AM EDT BASIC METABOLIC PANEL Routine 09/22/2024 9:37 AM EDT POCT GLUCOSE METER UNSOLICITED RESULTS Routine 09/22/2024 8:24 AM EDT RESPIRATORY ASSESS AND TREAT PROTOCOL Routine 09/22/2024 8:00 AM EDT LUNG EXPANSION Routine 09/22/2024 8:00 AM EDT RESPIRATORY ASSESS AND TREAT PROTOCOL Routine 09/22/2024 8:00 AM EDT XR CHEST 1 VIEW STAT 09/22/2024 3:24 AM EDT PHOSPHORUS Timed 09/22/2024 3:24 AM EDT MAGNESIUM Routine 09/22/2024 3:24 AM EDT BASIC METABOLIC PANEL Routine 09/22/2024 3:24 AM EDT CBC Routine 09/22/2024 3:24 AM EDT ARTERIAL BLOOD GAS WITH IONIZED CALCIUM Timed 09/22/2024 3:24 AM EDT POCT GLUCOSE METER UNSOLICITED RESULTS Routine 09/21/2024 10:09 PM EDT LUNG EXPANSION Routine 09/21/2024 8:00 PM EDT LUNG EXPANSION Routine 09/21/2024 4:00 PM EDT MAGNESIUM Routine 09/21/2024 3:34 PM EDT CALCIUM, IONIZED Routine 09/21/2024 3:34 PM EDT BASIC METABOLIC PANEL Routine 09/21/2024 3:34 PM EDT LUNG EXPANSION Routine 09/21/2024 12:00 PM EDT POCT GLUCOSE METER UNSOLICITED RESULTS Routine 09/21/2024 11:59 AM EDT RESPIRATORY ASSESS AND TREAT PROTOCOL Routine 09/21/2024 8:00 AM EDT LUNG EXPANSION Routine 09/21/2024 8:00 AM EDT RESPIRATORY ASSESS AND TREAT PROTOCOL Routine 09/21/2024 8:00 AM EDT POCT GLUCOSE METER UNSOLICITED RESULTS Routine 09/21/2024 7:43 AM EDT MAGNESIUM Routine 09/21/2024 3:49 AM EDT BASIC METABOLIC PANEL Routine 09/21/2024 3:49 AM EDT CBC Routine 09/21/2024 3:49 AM EDT XR CHEST 1 VIEW Routine 09/21/2024 2:34 AM EDT PHOSPHORUS STAT 09/20/2024 9:14 PM EDT POTASSIUM STAT 09/20/2024 9:14 PM EDT MAGNESIUM STAT 09/20/2024 9:14 PM EDT POCT GLUCOSE METER UNSOLICITED RESULTS Routine 09/20/2024 9:12 PM EDT LUNG EXPANSION Routine 09/20/2024 8:00 PM EDT LUNG EXPANSION Routine 09/20/2024 4:00 PM EDT POCT GLUCOSE METER UNSOLICITED RESULTS Routine 09/20/2024 3:58 PM EDT XR CHEST 1 VIEW STAT 09/20/2024 3:08 PM EDT ARTERIAL BLOOD GAS WITH IONIZED CALCIUM Timed 09/20/2024 12:25 PM EDT HEMOGLOBIN AND HEMATOCRIT, BLOOD STAT 09/20/2024 12:08 PM EDT BASIC METABOLIC PANEL STAT 09/20/2024 12:08 PM EDT LUNG EXPANSION Routine 09/20/2024 12:00 PM EDT POCT GLUCOSE METER UNSOLICITED RESULTS Routine 09/20/2024 11:38 AM EDT LIMITED ECHO (TTE) W/ LIMITED DOPPLER, COLOR FLOW AND IMAGING AGENT Routine 09/20/2024 10:35 AM EDT RESPIRATORY ASSESS AND TREAT PROTOCOL Routine 09/20/2024 8:00 AM EDT LUNG EXPANSION Routine 09/20/2024 8:00 AM EDT RESPIRATORY ASSESS AND TREAT PROTOCOL Routine 09/20/2024 8:00 AM EDT XR CHEST 1 VIEW Routine 09/20/2024 7:19 AM EDT HEPATIC FUNCTION PANEL Add-On 09/20/2024 3:16 AM EDT LACTIC ACID WITH 4 HOUR REFLEX Routine 09/20/2024 3:16 AM EDT PHOSPHORUS Timed 09/20/2024 3:16 AM EDT MAGNESIUM Routine 09/20/2024 3:16 AM EDT BASIC METABOLIC PANEL Routine 09/20/2024 3:16 AM EDT CBC Routine 09/20/2024 3:16 AM EDT XR CHEST 1 VIEW Routine 09/20/2024 2:54 AM EDT ARTERIAL BLOOD GAS WITH IONIZED CALCIUM Timed 09/20/2024 2:25 AM EDT POCT GLUCOSE METER UNSOLICITED RESULTS Routine 09/19/2024 8:58 PM EDT LUNG EXPANSION Routine 09/19/2024 8:00 PM EDT ARTERIAL BLOOD GAS WITH IONIZED CALCIUM Timed 09/19/2024 4:53 PM EDT POCT GLUCOSE METER UNSOLICITED RESULTS Routine 09/19/2024 4:32 PM EDT LACTIC ACID WITH 4 HOUR REFLEX Timed 09/19/2024 4:28 PM EDT LUNG EXPANSION Routine 09/19/2024 4:00 PM EDT POTASSIUM, WHOLE BLOOD Routine 09/19/2024 12:57 PM EDT Acute cystitis without hematuria Chronic obstructive pulmonary disease, unspecified COPD type (CMS/HCC) SODIUM, WHOLE BLOOD Routine 09/19/2024 12:57 PM EDT Acute cystitis without hematuria Chronic obstructive pulmonary disease, unspecified COPD type (CMS/HCC) CALCIUM, IONIZED Routine 09/19/2024 12:57 PM EDT Acute cystitis without hematuria Chronic obstructive pulmonary disease, unspecified COPD type (CMS/HCC) ARTERIAL BLOOD GAS WITH CO-OXIMETRY Routine 09/19/2024 12:57 PM EDT Acute cystitis without hematuria Chronic obstructive pulmonary disease, unspecified COPD type (CMS/HCC) COMPLETE ARTERIAL BLOOD GAS PANEL Routine 09/19/2024 12:57 PM EDT Acute cystitis without hematuria Chronic obstructive pulmonary disease, unspecified COPD type (CMS/HCC) BASIC METABOLIC PANEL Add-On 09/19/2024 12:02 PM EDT CBC Routine 09/19/2024 12:02 PM EDT HEPATIC FUNCTION PANEL Routine 09/19/2024 12:02 PM EDT LACTIC ACID WITH 4 HOUR REFLEX Routine 09/19/2024 12:02 PM EDT POCT GLUCOSE METER UNSOLICITED RESULTS Routine 09/19/2024 12:01 PM EDT LUNG EXPANSION Routine 09/19/2024 12:00 PM EDT RESPIRATORY ASSESS AND TREAT PROTOCOL Routine 09/19/2024 8:44 AM EDT RESPIRATORY ASSESS AND TREAT PROTOCOL Routine 09/19/2024 8:44 AM EDT LUNG EXPANSION Routine 09/19/2024 8:44 AM EDT LUNG EXPANSION Routine 09/19/2024 8:44 AM EDT LUNG EXPANSION Routine 09/19/2024 8:44 AM EDT LUNG EXPANSION Routine 09/19/2024 8:44 AM EDT LUNG EXPANSION Routine 09/19/2024 8:44 AM EDT TRANSFUSE RED BLOOD CELLS Routine 09/19/2024 8:33 AM EDT LACTIC ACID WITH 4 HOUR REFLEX Timed 09/19/2024 8:13 AM EDT POCT GLUCOSE METER UNSOLICITED RESULTS Routine 09/19/2024 8:12 AM EDT RESPIRATORY ASSESS AND TREAT PROTOCOL Routine 09/19/2024 8:00 AM EDT POCT GLUCOSE METER UNSOLICITED RESULTS Routine 09/19/2024 6:59 AM EDT POCT GLUCOSE METER UNSOLICITED RESULTS Routine 09/19/2024 5:59 AM EDT ARTERIAL BLOOD GAS WITH IONIZED CALCIUM Timed 09/19/2024 5:48 AM EDT POCT GLUCOSE METER UNSOLICITED RESULTS Routine 09/19/2024 5:01 AM EDT LACTIC ACID WITH 4 HOUR REFLEX Routine 09/19/2024 4:02 AM EDT APTT Routine 09/19/2024 4:02 AM EDT PROTIME-INR Routine 09/19/2024 4:02 AM EDT PHOSPHORUS Routine 09/19/2024 4:02 AM EDT MAGNESIUM Routine 09/19/2024 4:02 AM EDT BASIC METABOLIC PANEL Routine 09/19/2024 4:02 AM EDT CBC Routine 09/19/2024 4:02 AM EDT POCT GLUCOSE METER UNSOLICITED RESULTS Routine 09/19/2024 4:00 AM EDT POCT GLUCOSE METER UNSOLICITED RESULTS Routine 09/19/2024 2:59 AM EDT XR CHEST 1 VIEW Routine 09/19/2024 2:54 AM EDT POCT GLUCOSE METER UNSOLICITED RESULTS Routine 09/19/2024 1:59 AM EDT PREPARE PLATELET PHERESIS Routine 09/19/2024 1:00 AM EDT POCT GLUCOSE METER UNSOLICITED RESULTS Routine 09/19/2024 12:58 AM EDT POCT GLUCOSE METER UNSOLICITED RESULTS Routine 09/19/2024 12:03 AM EDT LACTIC ACID WITH 4 HOUR REFLEX Timed 09/19/2024 12:03 AM EDT POCT GLUCOSE METER UNSOLICITED RESULTS Routine 09/18/2024 10:59 PM EDT POCT GLUCOSE METER UNSOLICITED RESULTS Routine 09/18/2024 10:01 PM EDT POCT GLUCOSE METER UNSOLICITED RESULTS Routine 09/18/2024 8:59 PM EDT POTASSIUM, WHOLE BLOOD Routine 09/18/2024 8:04 PM EDT SODIUM, WHOLE BLOOD Routine 09/18/2024 8 :04 PM EDT CALCIUM, IONIZED Routine 09/18/2024 8:04 PM EDT ARTERIAL BLOOD GAS WITH CO-OXIMETRY Routine 09/18/2024 8:04 PM EDT COMPLETE ARTERIAL BLOOD GAS PANEL Routine 09/18/2024 8:04 PM EDT LACTIC ACID WITH 4 HOUR REFLEX Routine 09/18/2024 8:02 PM EDT APTT Routine 09/18/2024 8:02 PM EDT PROTIME-INR Routine 09/18/2024 8:02 PM EDT CBC Routine 09/18/2024 8:02 PM EDT PHOSPHORUS Routine 09/18/2024 8:02 PM EDT MAGNESIUM Routine 09/18/2024 8:02 PM EDT BASIC METABOLIC PANEL Routine 09/18/2024 8:02 PM EDT POCT GLUCOSE METER UNSOLICITED RESULTS Routine 09/18/2024 8:00 PM EDT FIBTEM C Routine 09/18/2024 7:45 PM EDT EXTEM C Routine 09/18/2024 7:45 PM EDT INTEM C Routine 09/18/2024 7:43 PM EDT HEPTEM C Routine 09/18/2024 7:40 PM EDT POCT GLUCOSE METER UNSOLICITED RESULTS Routine 09/18/2024 7:00 PM EDT POTASSIUM, WHOLE BLOOD Routine 09/18/2024 6:13 PM EDT SODIUM, WHOLE BLOOD Routine 09/18/2024 6 :13 PM EDT CALCIUM, IONIZED Routine 09/18/2024 6:13 PM EDT ARTERIAL BLOOD GAS WITH CO-OXIMETRY Routine 09/18/2024 6:13 PM EDT COMPLETE ARTERIAL BLOOD GAS PANEL Routine 09/18/2024 6:13 PM EDT POCT GLUCOSE METER UNSOLICITED RESULTS Routine 09/18/2024 6:10 PM EDT TRANSFUSE RED BLOOD CELLS Routine 09/18/2024 5:26 PM EDT EXTUBATION Routine 09/18/2024 4:54 PM EDT POCT GLUCOSE METER UNSOLICITED RESULTS Routine 09/18/2024 4:53 PM EDT POTASSIUM, WHOLE BLOOD Routine 09/18/2024 4:49 PM EDT SODIUM, WHOLE BLOOD Routine 09/18/2024 4 :49 PM EDT CALCIUM, IONIZED Routine 09/18/2024 4:49 PM EDT ARTERIAL BLOOD GAS WITH CO-OXIMETRY Routine 09/18/2024 4:49 PM EDT COMPLETE ARTERIAL BLOOD GAS PANEL Routine 09/18/2024 4:49 PM EDT ECG 12-LEAD STAT 09/18/2024 4:02 PM EDT XR CHEST 1 VIEW STAT 09/18/2024 3:48 PM EDT POCT GLUCOSE METER UNSOLICITED RESULTS Routine 09/18/2024 3:41 PM EDT ARTERIAL BLOOD GAS WITH IONIZED CALCIUM Timed 09/18/2024 3:32 PM EDT FIBRINOGEN STAT 09/18/2024 3:31 PM EDT CBC STAT 09/18/2024 3:31 PM EDT APTT STAT 09/18/2024 3:31 PM EDT PROTIME-INR STAT 09/18/2024 3:31 PM EDT PHOSPHORUS STAT 09/18/2024 3:31 PM EDT MAGNESIUM STAT 09/18/2024 3:31 PM EDT LACTIC ACID, PLASMA STAT 09/18/2024 3 :31 PM EDT BASIC METABOLIC PANEL STAT 09/18/2024 3:31 PM EDT CO-OXIMETRY Routine 09/18/2024 3:30 PM EDT XR CHEST 1 VIEW Routine 09/18/2024 3:20 PM EDT LEFT ATRIAL APPENDAGE CLOSURE (TRANSVENOUS) Routine 09/18/2024 3:14 PM EDT Multi-vessel coronary artery stenosis POCT ACTIVATED CLOTTING TIME UNSOLICITED RESULTS Routine 09/18/2024 2:46 PM EDT POCT PERFUSION PANEL UNSOLICITED RESULTS Routine 09/18/2024 2:45 PM EDT PREPARE FRESH FROZEN PLASMA Routine 09/18/2024 2:23 PM EDT TRANSFUSE FRESH FROZEN PLASMA Routine 09/18/2024 2:23 PM EDT TRANSFUSE FRESH FROZEN PLASMA Routine 09/18/2024 2:17 PM EDT RESPIRATORY ASSESS AND TREAT PROTOCOL Routine 09/18/2024 1:41 PM EDT RESPIRATORY ASSESS AND TREAT PROTOCOL Routine 09/18/2024 1:41 PM EDT POCT ACTIVATED CLOTTING TIME UNSOLICITED RESULTS Routine 09/18/2024 1:26 PM EDT POCT PERFUSION PANEL UNSOLICITED RESULTS Routine 09/18/2024 1:26 PM EDT POCT ACTIVATED CLOTTING TIME UNSOLICITED RESULTS Routine 09/18/2024 1:06 PM EDT POCT PERFUSION PANEL UNSOLICITED RESULTS Routine 09/18/2024 1:02 PM EDT POCT ACTIVATED CLOTTING TIME UNSOLICITED RESULTS Routine 09/18/2024 12:21 PM EDT POCT PERFUSION PANEL UNSOLICITED RESULTS Routine 09/18/2024 12:14 PM EDT POCT ACTIVATED CLOTTING TIME UNSOLICITED RESULTS Routine 09/18/2024 11:44 AM EDT POCT PERFUSION PANEL UNSOLICITED RESULTS Routine 09/18/2024 11:37 AM EDT POCT ACTIVATED CLOTTING TIME UNSOLICITED RESULTS Routine 09/18/2024 10:49 AM EDT POCT PERFUSION PANEL UNSOLICITED RESULTS Routine 09/18/2024 10:45 AM EDT POCT ACTIVATED CLOTTING TIME UNSOLICITED RESULTS Routine 09/18/2024 9:48 AM EDT POCT PERFUSION PANEL UNSOLICITED RESULTS Routine 09/18/2024 9:48 AM EDT HI INSJ NON-TUNNELED CENTRAL VENOUS CATH AGE 7 YR/> Routine 09/18/2024 9:28 AM EDT CHG US VASC ACCESS SITS VSL PATENCY NDL ENTRY Routine 09/18/2024 9:28 AM EDT HI AN CENTRAL LINE TRIPLE LUMEN Routine 09/18/2024 9:28 AM EDT HISTOLOGY - TISSUE EXAM Routine 09/18/2024 9:18 AM EDT Multi-vessel coronary artery stenosis HI AN ELECTIVE ENDOTRACHEAL AIRWAY Routine 09/18/2024 9:03 AM EDT MAZE PROCEDURE, USING CRYOABLATION 09/18/2024 8:55 AM EDT Multi-vessel coronary artery stenosis HI NDSC SURG W/VIDEO-ASSISTED HARVEST VEIN CABG 09/18/2024 8:55 AM EDT Multi-vessel coronary artery stenosis CABG, TWO VESSELS 09/18/2024 8:5 5 AM EDT Multi-vessel coronary artery stenosis FIBTEM C Routine 09/18/2024 8:40 AM EDT EXTEM C Routine 09/18/2024 8:36 AM EDT INTEM C Routine 09/18/2024 8:31 AM EDT HEPTEM C Routine 09/18/2024 8:27 AM EDT ANESTHESIA ARTERIAL LINE PLACEMENT Routine 09/18/2024 8:00 AM EDT POCT GLUCOSE METER UNSOLICITED RESULTS Routine 09/18/2024 6:57 AM EDT PREPARE RBC Routine 09/18/2024 6:45 AM EDT PREPARE RBC Routine 09/18/2024 6:45 AM EDT PREPARE RBC Routine 09/18/2024 6:45 AM EDT TYPE AND SCREEN Routine 09/18/2024 6:45 AM EDT HI ECHO TRANSESOPHAG R-T 2D W/PRB IMG ACQUISJ I&R Routine 09/13/2024 10:18 AM EDT Multi-vessel coronary artery stenosis Abnormal findings diagnostic imaging of heart and coronary circulation HIGH SENSITIVITY TROPONIN I Pending Discharge 09/12/2024 10:46 AM EDT ANTI-FACTOR XA Pending Discharge 09/12/2024 10:[address] ABDOMEN PELVIS W IV CONTRAST Routine 09/12/2024 9:[address] CHEST W IV CONTRAST Routine 09/12/2024 9:34 AM EDT CBC Pending Discharge 09/12/2024 3:56 AM EDT ANTI-FACTOR XA Routine 09/12/2024 3:56 AM EDT HIGH SENSITIVITY TROPONIN I Routine 09/12/2024 3:56 AM EDT URINALYSIS MICROSCOPIC Routine 09/11/2024 10:50 PM EDT URINALYSIS Routine 09/11/2024 10:50 PM EDT URINE CULTURE Add-On 09/11/2024 10:50 PM EDT HIGH SENSITIVITY TROPONIN I Routine 09/11/2024 8:11 PM EDT ANTI-FACTOR XA Routine 09/11/2024 8:11 PM EDT RED TOP Routine 09/11/2024 1:28 PM EDT EXTRA TUBES Routine 09/11/2024 1:28 PM EDT APTT STAT 09/11/2024 1:28 PM EDT PULMONARY FUNCTION TESTING Routine 09/11/2024 12:02 PM EDT HC ASSAY OF TROPONIN, QUANT - TROPONIN I Pending Discharge 09/11/2024 11:24 AM EDT [facility] US LOWER EXTREMITY VEIN MAPPING BILATERAL Routine 09/11/2024 11:04 AM EDT [facility] US CAROTID ARTERY DUPLEX BILATERAL Routine 09/11/2024 10:45 AM EDT XR CHEST 1 VIEW Routine 09/11/2024 9:17 AM EDT LAVENDER TOP Routine 09/11/2024 4:36 AM EDT EXTRA TUBES Routine 09/11/2024 4:36 AM EDT HC ASSAY OF TROPONIN, QUANT - TROPONIN I Pending Discharge 09/11/2024 4:36 AM EDT HC ASSAY OF TROPONIN, QUANT - TROPONIN I Pending Discharge 09/11/2024 12:00 AM EDT HC ASSAY OF TROPONIN, QUANT - TROPONIN I Pending Discharge 09/10/2024 5:22 PM EDT INSTANT WAVE FREE RATIO (IFR) Routine 09/10/2024 4:40 PM EDT Unstable angina (CMS/HCC) LEFT HEART CATH Routine 09/10/2024 4:40 PM EDT Unstable angina (CMS/HCC) CORONARY ANGIOGRAPHY Routine 09/10/2024 4:40 PM EDT Unstable angina (CMS/HCC) POCT ACT Routine 09/10/2024 4:28 PM EDT HC ASSAY OF TROPONIN, QUANT - TROPONIN I Pending Discharge 09/10/2024 12:02 PM EDT HC ASSAY OF TROPONIN, QUANT - TROPONIN I Pending Discharge 09/10/2024 4:14 AM EDT CBC Pending Discharge 09/10/2024 4:14 AM EDT BASIC METABOLIC PANEL Pending Discharge 09/10/2024 4:14 AM EDT HC ASSAY OF TROPONIN, QUANT - TROPONIN I Timed 09/09/2024 10:56 PM EDT HC ASSAY OF TROPONIN, QUANT - TROPONIN I Timed 09/09/2024 5:51 PM EDT COMPLETE ECHO (TTE) Routine 09/09/2024 3 :34 PM EDT LIPID PANEL Routine 09/09/2024 3:06 PM EDT HEMOGLOBIN A1C Routine 09/09/2024 3:06 PM EDT CBC WITH AUTO DIFFERENTIAL STAT 09/09/2024 3:06 PM EDT MAGNESIUM STAT 09/09/2024 3:06 PM EDT CBC AND DIFFERENTIAL STAT 09/09/2024 3:06 PM EDT BASIC METABOLIC PANEL STAT 09/09/2024 3:06 PM EDT HC ASSAY OF TROPONIN, QUANT - TROPONIN I STAT 09/09/2024 3:06 PM EDT ECG 12-LEAD STAT 09/09/2024 3:01 PM EDT ECG 12 LEAD UNIT PERFORMED Routine 09/09/2024 11:23 AM EDT Other chest pain from Last 3 Months Results * ECG 12 lead (10/03/2024 3:54 PM EDT) Only the most recent of3 resultswithin the time period is included. Ventricular Rate 76 BPM GE MUSE Atrial Rate 76 BPM GE MUSE HI Interval 164 ms GE MUSE QRS DURATION 110 ms GE MUSE QT Interval 396 ms GE MUSE QTC CALCULATION(BAZE TT) 445 ms GE MUSE P Turney 49 degrees GE MUSE R-Turney -24 degrees GE MUSE T Wave Turney 55 degrees GE MUSE 10/03/2024 3:24 PM EDT 10/03/2024 10:38 PM EDT Impressions GE MUSE - 10/03/2024 10:38 PM EDT Sinus rhythm with marked sinus arrythmia Incomplete right bundle branch block Minimal voltage criteria for LVH, may be normal variant ( Brockwell product ) Nonspecific T wave abnormality Abnormal ECG When compared with ECG of 18-SEP-2024 15:40, ST elevation now present in Inferior lead ST no longer elevated in Lateral Nonspecific T wave abnormality now evident in Anterior leads Confirmed by Wagner BUENO, FRANSISCO Morales ([id number]) on 10/03/2024 10:38:40 PM Narrative Procedure Note Fransisco Bueno MD - 10/03/2024 IMPRESSION: Sinus rhythm with marked sinus arrythmia Incomplete right bundle branch block Minimal voltage criteria for LVH, may be normal variant ( Brockwell product ) Nonspecific T wave abnormality Abnormal ECG When compared with ECG of 18-SEP-2024 15:40, ST elevation now present in Inferior lead ST no longer elevated in Lateral Nonspecific T wave abnormality now evident in Anterior leads Confirmed by Wagner BUENO SAMER J. ([id number]) on 10/03/2024 10:38:40 PM Sadie Waterman MD ECG ORDERABLES GE MUSE * XR chest 2 views (10/03/2024 2:09 PM EDT) Anatomical Region Laterality Modality Chest Computed Radiogr aphy 10/03/2024 2:42 PM EDT Impressions 10/03/2024 2:46 PM EDT Impression: Small pleural effusions. Electronically signed: Luis Morales. Narrative 10/03/2024 2:46 PM EDT Clinical history:Coronary bypass. Follow-up. PA and lateral chest: Comparison:09/29/2024 Findings: Sternotomy. Stable cardiac silhouette and pulmonary vessels. No pneumothorax. Small pleural effusions. No infiltrates. Procedure Note Luis Morales MD - 10/03/2024 Clinical history:Coronary bypass. Follow-up. PA and lateral chest: Comparison:09/29/2024 Findings: Sternotomy. Stable cardiac silhouette and pulmonary vessels. Nopneumothorax. Small pleural effusions. No infiltrates. IMPRESSION: Impression: Small pleural effusions. Electronically signed: Luis Morales. Sadie Waterman MD IMG XR PROCEDURES * (ABNORMAL) CBC auto differential (10/03/2024 1:58 PM EDT) Only the most recent of3 resultswithin the time period is included. Auto WBC 8.16 4.00 - 10.60 10*3/uL 10/03/2024 2:55 PM EDT [facility] ([facility]) RBC 3.08(L) 3.80 - 5.00 10*6/uL 10/03/2024 2:55 PM EDT [facility] ([facility]) Hemoglobin 9.5(L) 12.0 - 15.0 g/dL 10/03/2024 2:55 PM EDT [facility] ([facility]) Hematocrit 30.9(L) 36.0 - 45.0 % 10/03/2024 2:55 PM EDT [facility] ([facility]) MCV 100.3(H) 82.0 - 98.0 fL 10/03/2024 2:55 PM EDT [facility] ([facility]) MCH 30.8 27.0 - 33.0 pg 10/03/2024 2:55 PM EDT [facility] ([facility]) MCHC 30.7(L) 32.0 - 35.0 g/dL 10/03/2024 2:55 PM EDT [facility] ([facility]) RDW 16.0(H) 11.5 - 15.0 % 10/03/2024 2:55 PM EDT [facility] ([facility]) Neutrophils % 55.6 40.0 - 72.0 % 10/03/2024 2:55 PM EDT [facility] ([facility]) Lymphocytes % 24.9 20.0 - 45.0 % 10/03/2024 2:55 PM T [facility] ([facility]) Monocytes % 16.9(H) 5.0 - 12.0 % 10/03/2024 2:55 PM T [facility] ([facility]) Eosinophils % 2.0 0.0 - 6.0 % 10/03/2024 2:55 PM T [facility] ([facility]) Basophils % 0.2 0.0 - 1.0 % 10/03/2024 2:55 PM T [facility] ([facility]) Neutrophils Absolute 4.54 1.60 - 7.60 10*3/uL 10/03/2024 2:55 PM T [facility] ([facility]) Lymphocytes Absolute 2.03 1.20 - 4.00 10*3/uL 10/03/2024 2:55 PM T [facility] ([facility]) Monocytes Absolute 1.38(H) 0.10 - 1.00 10*3/uL 10/03/2024 2:55 PM T [facility] ([facility]) Eosinophils Absolute 0.16 0.00 - 0.50 10*3/uL 10/03/2024 2:55 PM T [facility] ([facility]) Basophils Absolute 0.02 0.00 - 0.20 10*3/uL 10/03/2024 2:55 PM [facility] ([facility]) Platelets 384 150 - 400 10*3/uL 10/03/2024 2:55 PM [facility] ([facility]) nRBC % 0.0 0 % 10/03/2024 2:55 PM [facility] ([facility]) Immature Granulocytes % 0.4 0.0 - 1.0 % 10/03/2024 2:55 PM [facility] ([facility]) Immature Granulocytes Absolute 0.03 0.00 - 0.20 10*3/uL 10/03/2024 2:55 PM [facility] ([facility]) Blood Venous blood specimen / Unknown Venipuncture / Unknown 10/03/2024 1:58 PM EDT 10/03/2024 2:38 PM EDT Sadie Waterman MD LAB BLOOD ORDERABLES [facility] ([facility]) [address] [place], [place] [id number] * Urinalysis (10/03/2024 1:58 PM EDT) Only the most recent of2 resultswithin the time period is included. Color, Urine Light-Yellow Colorless, Yellow, Light-Yellow 10/03/2024 3:08 PM EDT [facility] ([facility]) Clarity, Urine Clear Clear 10/03/2024 3:08 PM EDT [facility] ([facility]) pH, Urine 5.5 5.0 - 8.0 pH 10/03/2024 3:08 PM EDT [facility] ([facility]) Leukocytes, Urine Negative Negative 10/03/2024 3:08 PM EDT [facility] ([facility]) Nitrite, Urine Negative Negative 10/03/2024 3:08 PM EDT [facility] ([facility]) Protein, Urine Negative Negative mg/dL 10/03/2024 3:08 PM EDT [facility] ([facility]) Glucose, Urine Normal Normal mg/dL 10/03/2024 3:08 PM EDT [facility] ([facility]) Bilirubin, Urine Negative Negative 10/03/2024 3:08 PM EDT [facility] ([facility]) Specific Marvell, Urine 1.017 1.010 - 1.030 10/03/2024 3:08 PM EDT [facility] ([facility]) Ketones, Urine Negative Negative mg/dL 10/03/2024 3:08 PM EDT [facility] ([facility]) Blood, Urine Negative Negative 10/03/2024 3:08 PM EDT [facility] ([facility]) Urobilinogen, Urine Normal Normal mg/dL 10/03/2024 3:08 PM EDT [facility] ([facility]) Urine Urine specimen obtained by clean catch procedure / Unknown Non-blood Collection / Unknown 10/03/2024 1:58 PM EDT 10/03/2024 2:40 PM EDT Narrative [facility] ([facility]) - 10/03/2024 3:08 PM EDT Microscopics not performed on urines with negative chemical reactions unless requested on original order. Sadie Waterman MD LAB URINE ORDERABLES Performing Organization Address City/[facility]/ZIP Co de Phone Number [facility]) [address] [place] [address] * Urine culture, routine (10/03/2024 1:58 PM EDT) Only the most recent of2 resultswithin the time period is included. Urine Culture <10,000 CFU/ML No Significant Growth KENZIE 10/05/2024 6:33 AM EDT [facility] ([facility]) Urine Urine specimen obtained by clean catch procedure / Unknown Non-blood Collection / Unknown 10/03/2024 1:58 PM EDT 10/03/2024 2:40 PM EDT Sadie Waterman MD LAB MICROBIOLOGY - G ENERAL ORDERABLES Performing Organization Address [facility] Co de Phone Number [facility]) [address] [place] [address] * Magnesium (10/03/2024 1:58 PM EDT) Only the most recent of22 resultswithin the time period is included. Magnesium 1.9 1.9 - 2.7 mg/dL 10/03/2024 3:16 PM EDT [facility] ([facility]) Blood Venous blood specimen / Unknown Venipuncture / Unknown 10/03/2024 1:58 PM EDT 10/03/2024 2:37 PM EDT Sadie Waterman MD LAB BLOOD ORDERABLES [facility] ([facility]) [address] [place], [place] [id number] * (ABNORMAL) Comprehensive metabolic panel (10/03/2024 1:58 PM EDT) Only the most recent of2 resultswithin the time period is included. Sodium 137 136 - 145 mmol/L 10/03/2024 3:16 PM EDT [facility] ([facility]) Potassium 3.8 3.5 - 5.1 mmol/L 10/03/2024 3:16 PM EDT [facility] ([facility]) Chloride 101 98 - 107 mmol/L 10/03/2024 3:16 PM EDT [facility] ([facility]) CO2 28 21 - 31 mmol/L 10/03/2024 3:16 PM EDT [facility] ([facility]) Anion Gap 12 7 - 20 mmol/L 10/03/2024 3:16 PM EDT [facility] ([facility]) BUN 7 7 - 25 mg/dL 10/03/2024 3:16 PM EDT [facility] ([facility]) Creatinine 0.72 0.60 - 1.20 mg/dL 10/03/2024 3:16 PM EDT [facility] ([facility]) BUN/Creatinine Ratio 9.7 09/24 3:16 PM EDT [facility] ([facility]) Glucose 110(H) 70 - 100 mg/dL 10/03/2024 3:16 PM EDT [facility] ([facility]) Calcium 8.8 8.6 - 10.3 mg/dL 10/03/2024 3:16 PM EDT [facility] ([facility]) AST 12(L) 13 - 39 U/L 10/03/2024 3:16 PM EDT [facility] ([facility]) ALT (SGPT) 6(L) 7 - 52 U/L 10/03/2024 3:16 PM EDT [facility] ([facility]) Alkaline Phosphatase 70 34 - 104 U/L 10/03/2024 3:16 PM EDT [facility] ([facility]) Total Protein 6.0 6.0 - 8.3 g/dL 10/03/2024 3:16 PM EDT [facility] ([facility]) Albumin 3.4(L) 3.5 - 5.7 g/dL 10/03/2024 3:16 PM EDT [facility] ([facility]) Total Bilirubin 0.3 0.3 - 1.0 mg/dL 10/03/2024 3:16 PM EDT [facility] ([facility]) eGFR 86.6 >60.0 mL/min/1. 73m*2 10/03/2024 3:16 PM EDT [facility] ([facility]) Comment:[facility] s estimated glomerular filtration rate (eGFR) [...] blood specimen / Unknown Venipuncture / Unknown 10/03/2024 1:58 PM EDT 10/03/2024 2:37 PM EDT Sadie Waterman MD LAB BLOOD ORDERABLES [facility] ([facility]) [address] [place] [address] * (ABNORMAL) POCT glucose meter (09/29/2024 10:50 AM EDT) Only the most recent of57 resultswithin the time period is included. Glucose POC 192(H) 70 - 105 mg/dL 09/29/2024 11:08 AM EDT [facility] ([facility]) Comment:[email or web address] Blood Capillary blood specimen / Unknown 09/29/2024 10:50 AM EDT 09/29/2024 11:08 AM EDT Narrative [facility] ([facility]) - 09/29/2024 11:08 AM EDT Waived Testing in the ED is performed under the ED CLIA certificate #[id number]. Sadie Waterman MD LAB BLOOD ORDERABLES [facility] ([facility]) [address] [place] [address] * XR chest 1 view (09/29/2024 8:06 AM EDT) Only the most recent of16 resultswithin the time period is included. Anatomical Region Laterality Modality Chest Computed Radiogr aphy 09/29/2024 8:22 AM EDT Impressions 09/29/2024 8:22 AM EDT Impression: Decreasing right midlung atelectasis. Otherwise, stable chest. Electronically signed: Mathew Luna. Narrative 09/29/2024 8:22 AM EDT Single view chest History: Difficulty breathing, shortness of breath Comparison: 09/28/2024 Findings: Single portable view of the chest. Stable cardiomediastinal silhouette with bilateral lower lung atelectasis. Small bilateral pleural effusions. Decreasing right midlung atelectasis. Procedure Note Mathew Luna MD - 09/29/2024 Single view chest History: Difficulty breathing, shortness of breath Comparison: 09/28/2024 Findings: Single portable view of the chest. Stable cardiomediastinal silhouettewith bilateral lower lung atelectasis. Small bilateral pleural effusions.Decreasing right midlung atelectasis. IMPRESSION: Impression: Decreasing right midlung atelectasis. Otherwise, stable chest. Electronically signed: Mathew Luna. Luz Maria [employer] IMG XR PROCEDURES * (ABNORMAL) CBC (09/29/2024 3:18 AM EDT) Only the most recent of16 resultswithin the time period is included. Auto WBC 11.12(H) 4.00 - 10.60 10*3/uL 09/29/2024 4:20 AM EDT [facility] ([facility]) RBC 2.92(L) 3.80 - 5.00 10*6/uL 09/29/2024 4:20 AM EDT [facility] ([facility]) Hemoglobin 9.0(L) 12.0 - 15.0 g/dL 09/29/2024 4:20 AM EDT [facility] ([facility]) Hematocrit 28.6(L) 36.0 - 45.0 % 09/29/2024 4:20 AM EDT [facility] ([facility]) MCV 97.9 82.0 - 98.0 fL 09/29/2024 4:20 AM EDT [facility] ([facility]) MCH 30.8 27.0 - 33.0 pg 09/29/2024 4:20 AM EDT [facility] ([facility]) MCHC 31.5(L) 32.0 - 35.0 g/dL 09/29/2024 4:20 AM EDT [facility] ([facility]) RDW 16.4(H) 11.5 - 15.0 % 09/29/2024 4:20 AM EDT [facility] ([facility]) Platelets 368 150 - 400 10*3/uL 09/29/2024 4:20 AM EDT [facility] ([facility]) Blood Venous blood specimen / Unknown Arterial Line / Unknown 09/29/2024 3:18 AM EDT 09/29/2024 4:07 AM EDT Andrea Loera [facility] LAB BLOOD ORDERABLES [facility] ([facility]) [address], [place] [id number] * (ABNORMAL) Basic metabolic panel (09/29/2024 3:18 AM EDT) Only the most recent of22 resultswithin the time period is included. Sodium 135(L) 136 - 145 mmol/L 09/29/2024 4:41 AM EDT [facility] ([facility]) Potassium 4.0 3.5 - 5.1 mmol/L 09/29/2024 4:41 AM EDT [facility] ([facility]) Chloride 102 98 - 107 mmol/L 09/29/2024 4:41 AM EDT [facility] ([facility]) CO2 26 21 - 31 mmol/L 09/29/2024 4:41 AM EDT [facility] ([facility]) BUN 9 7 - 25 mg/dL 09/29/2024 4:41 AM EDT [facility] ([facility]) Creatinine 0.70 0.60 - 1.20 mg/dL 09/29/2024 4:41 AM EDT [facility] ([facility]) Glucose 102(H) 70 - 100 mg/dL 09/29/2024 4:41 AM EDT [facility] ([facility]) Calcium 8.8 8.6 - 10.3 mg/dL 09/29/2024 4:41 AM EDT [facility] ([facility]) Anion Gap 11 7 - 20 mmol/L 09/29/2024 4:41 AM EDT [facility] ([facility]) eGFR 89.6 >60.0 mL/min/1. 73m*2 09/29/2024 4:41 AM EDT [facility] ([facility]) Comment:[facility] s estimated glomerular filtration rate (eGFR) [...] disproportionately affect any one group of individuals. BUN/Creatinine Ratio 12.9 11/2024 4:41 AM EDT [facility] ([facility]) Blood Venous blood specimen / Unknown Arterial Line / Unknown 09/29/2024 3:18 AM EDT 09/29/2024 4:07 AM EDT Andrea Loera [employer] LAB BLOOD ORDERABLES [facility] ([facility]) [address] [place] [address] * (ABNORMAL) Potassium (09/26/2024 9:12 PM EDT) Only the most recent of2 resultswithin the time period is included. Potassium 3.4(L) 3.5 - 5.1 mmol/L 09/26/2024 10:14 PM EDT [facility] ([facility]) Blood Venous blood specimen / Unknown Existing Catheter / Unknown 09/26/2024 9:12 PM EDT 09/26/2024 9:51 PM EDT Luz Maria [employer] LAB BLOOD ORDERABLES [facility]) [address] [place] [address] * Phosphorus (09/25/2024 3:58 AM EDT) Only the most recent of9 resultswithin the time period is included. Phosphorus 2.8 2.5 - 5.0 mg/dL 09/25/2024 8:29 AM EDT [facility] ([facility]) Blood Venous blood specimen / Unknown Existing Catheter / Unknown 09/25/2024 3:58 AM EDT 09/25/2024 4:35 AM EDT Nikolas Ingram [facility] LAB BLOOD ORDER [place] Performing Organization Address City/[facility]/ZIP Co de Phone Number [facility]) [address] [place] [address] * (ABNORMAL) Arterial blood gas with ionized calcium (09/23/2024 4:04 AM EDT) Only the most recent of8 resultswithin the time period is included. pH, Arterial 7.44 7.35 - 7.45 pH 09/23/2024 4:07 AM EDT [facility] pCO2, Arterial 39 35 - 48 mmHg 09/23/2024 4:07 AM EDT [facility] pO2, Arterial 85 83 - 100 mmHg 09/23/2024 4:07 AM EDT [facility] HCO3, Arterial 26.5 21.0 - 28.0 mEq/L 09/23/2024 4:07 AM EDT [facility] Calcium, Ion 1.22 1.15 - 1.33 mmol/L 09/23/2024 4:07 AM EDT [facility] O2 Sat, Arterial 99.2(H) 94.0 - 98.0 % 09/23/2024 4:07 AM EDT [facility] Base Excess, Arterial 2.3 -2.0 - 3.0 mmol/L 09/23/2024 4:07 AM EDT [facility] Source Of Oxygen SALTER 09/23/2024 4:07 AM EDT [facility] LPM 8 09/23/2024 4:07 AM EDT [facility] Blood Arterial blood specimen / Unknown Existing Catheter / Unknown 09/23/2024 4:04 AM EDT 09/23/2024 4:04 AM EDT Nikolas Ingram [employer] LAB BLOOD ORDER [place]EN[place]ON [facility] [address] [place] [address], [place] * CT chest w IV contrast (09/22/2024 10:39 AM EDT) Only the most recent of2 resultswithin the time period is included. Anatomical Region Laterality Modality Body, Chest Computed Tomogra phy 09/22/2024 10:4 3 AM EDT Impressions 09/22/2024 10:55 AM EDT Haziness and mild fluid accumulation consistent with recent sternotomy and coronary artery bypass graft There are small right greater than left pleural effusions and basilar volume loss and consolidation with a few other scattered granular and confluent opacities likely postoperative edema and atelectasis the midline There is no visible pneumothorax or pneumomediastinum, central bronchial obstruction, lobar collapse otherwise There is dilatation of the pulmonary outflow tract and main pulmonary arteries presumably related to underlying pulmonary artery hypertension or chronic shunt physiology Distended gallbladder without visible ductal dilatation, perihepatic or peripancreatic fluid . . All CT scans at this facility use dose modulation, iterative reconstruction, and/or weight based dosing when appropriate to reduce radiation dose to as low as reasonably achievable. Electronically signed: Federico Garcia. Narrative 09/22/2024 10:55 AM EDT HISTORY and Tech Notes: pleural effusion Short of breath Recent coronary artery bypass graft PROCEDURE: CT chest Routine protocol with IV contrast Automated exposure control was utilized COMPARISON: September 12, preop FINDINGS: CHEST There is been interval sternotomy and coronary artery bypass graft There is a small amount of fluid in the retrosternal area and some mild haziness throughout the mediastinum Mild right greater than left pleural effusion. Small pericardial effusion There is calcification of the [place] coronary arteries There is prominence of the pulmonary outflow tract which may relate to pulmonary hypertension There is moderate calcification, ectasia and tortuosity of the aorta No visible dissection. There is a prominent thyroid with some asymmetric fullness along the deep portion of the left thyroid lobe, possible dominant nodule mass measuring up to around 25 mm. Correlate for abnormal labs. Consider thyroid ultrasound surveillance within a few months. There is no visible pneumothorax There is no pneumomediastinum There is right greater than left lower lobe volume loss and consolidation There are some scattered granular opacities otherwise. No suspicious adrenal mass No splenomegaly Haziness in the subxiphoid region likely related to recent surgery There is distention of the gallbladder Degenerative changes and kyphosis without compression deformity or discitis or lytic destructive process Procedure Note Federico Garcia MD - 09/22/2024 HISTORY and Tech Notes: pleural effusion Short of breath Recent coronary artery bypass graft PROCEDURE: CT chest Routine protocol with IV contrast Automated exposure control was utilized COMPARISON: September 12 preop FINDINGS: CHEST There is been interval sternotomy and coronary artery bypass graft There is a small amount of fluid in the retrosternal area and some mildhaziness throughout the mediastinum Mild right greater than left pleural effusion. Small pericardial effusion There is calcification of the [place] coronary arteries There is prominence of the pulmonary outflow tract which may relate topulmonary hypertension There is moderate calcification, ectasia and tortuosity of the aorta No visible dissection. There is a prominent thyroid with some asymmetric fullness along thedeep portion of the left thyroid lobe, possible dominant nodule mass measuringup to around 25 mm. Correlate for abnormal labs. Consider thyroid ultrasound surveillance within a few months. There is no visible pneumothorax There is no pneumomediastinum There is right greater than left lower lobe volume loss andconsolidation There are some scattered granular opacities otherwise. No suspicious adrenal mass No splenomegaly Haziness in the subxiphoid region likely related to recent surgery There is distention of the gallbladder Degenerative changes and kyphosis without compression deformity ordiscitis or lytic destructive process IMPRESSION: Haziness and mild fluid accumulation consistent with recent sternotomyand coronary artery bypass graft There are small right greater than left pleural effusions and basilarvolume loss and consolidation with a few other scattered granular and confluent opacities likely postoperative edema and atelectasis the midline There is no visible pneumothorax or pneumomediastinum, central bronchial obstruction, lobar collapse otherwise There is dilatation of the pulmonary outflow tract and main pulmonaryarteries presumably related to underlying pulmonary artery hypertension or chronicshunt physiology Distended gallbladder without visible ductal dilatation, perihepatic or peripancreatic fluid . . All CT scans at this facility use dose modulation, iterativereconstruction, and/or weight based dosing when appropriate to reduce radiation dose to aslow as reasonably achievable. Electronically signed: Federico Garcia. Arun Alejandra PA-C [facility] CT PROCEDURES * (ABNORMAL) Calcium, ionized (09/21/2024 3:34 PM EDT) Pathologist [facility] [place] Calcium, Ion 1.14(L) 1.15 - 1.33 mmol/L 09/21/2024 3:40 PM EDT [facility] Blood Arterial blood specimen / Unknown Existing Catheter / Unknown 09/21/2024 3:34 PM EDT 09/21/2024 3:38 PM EDT Sadie Waterman MD LAB BLOOD ORDERABLES [facility] [address] [place] [address], * (ABNORMAL) Hemoglobin and hematocrit, blood (09/20/2024 12:08 PM EDT) Hemoglobin 8.9(L) 12.0 - 15.0 g/dL 09/20/2024 12:27 PM EDT [facility] ([facility]) Hematocrit 26.8(L) 36.0 - 45.0 % 09/20/2024 12:27 PM EDT [facility] ([facility]) Blood Arterial blood specimen / Unknown Arterial Line / Unknown 09/20/2024 12:08 PM EDT 09/20/2024 12:17 PM EDT Andrea Loera [facility] LAB BLOOD ORDERABLES [facility] ([facility]) [address] [place] [address] * LIMITED ECHO (TTE) W/ LIMITED DOPPLER, COLOR FLOW AND IMAGING AGENT (09/20/2024 10:35 AM EDT) Anatomical Region Laterality Modality Other 09/20/2024 10:1 3 AM EDT Narrative 09/20/2024 11:05 AM EDT 1 1 [facility] Heart Station [address] [place] [address] [phone] (fax) Echocardiogram-[facility] Name: GRETCHEN TAN Study Date: 09/20/2024 10:13 AM B/P: 129 mmHg/51 mmHg HR: 79 bpm Date of : 1945 Location: [facility] Height: 62 in. Age: 78 year(s) Patient Room: 2229 Weight: 216 lb. Gender: Female Patient Status: InPt BSA: 1.98 m2 Indication: CAD, CABG 09/18/24 Examination: Limited Echo/Limited Doppler, Color flow imaging, Lumason Contrast Image Quality: Fair Patient Consent: Procedure explained to patient Conclusions Left Ventricle: The left ventricle is normal size. Global left ventricular systolic function is hyperdynamic. The calculated Biplane EF is 77 %. Left ventricular wall thickness is at upper normal limits. Right Ventricle: The right ventricle appears enlarged. Right ventricular systolic function appears reduced. Doppler studies suggest normal right sided pressures. Left Atrium: The left atrium appears normal in size. Overall Conclusions: Due to suboptimal imaging Lumason contrast was administered for opacification and better delineation of endocardial borders. No subcostal window due to bandges. Measurements Left Ventricle Label Value Normal Value LVOT VTI 21.8 cm (18cm - 22cm) LVOT PGmax 8 mmHg LVDd, 2D 4.08 cm (3.9cm - 5.3cm) LVDs, 2D 2.29 cm (2.1cm - 4cm) IVSd, 2D 0.78 cm (0.6cm - 1.1cm) LVPWd, 2D 1.07 cm (0.6cm - 0.9cm) LVEF, BP 77 % (55% - 65%) LV Mass, 2D ASE 117.59 g LV Mass Index, 2D ASE 59.4 g/m?? (44g/m?? - 88.4g/m??) RWT, MM 0.52 (0 - 0.42) LVSVI, 2D 28.3 ml/m2 LVOT PGmean 4 mmHg Tricuspid Valve Label Value Normal Value RA Pressure 3 mmHg RVSP 31 mmHg TR Vmax 2.65 m/s Aorta Label Value Normal Value AoRoot, 2D 3.2 cm (1.4cm - 3.8cm) Valvular Assessment LVOT 0.7 - 1.1 m/sec Aortic Valve 1.0 - 1.7 m/sec Mitral Valve 0.6 - 1.3 m/sec Tricuspid Valve 0.3 - 0.7 m/sec Pulmonic Valve 0.6 - 0.9 m/sec Regurgitation No Trivial Mild No Stenosis No Max Velocity 1.42 m/sec Findings Left Ventricle: The left ventricle is normal size. Global left ventricular systolic function is hyperdynamic. The calculated Biplane EF is 77 %. Left ventricular wall thickness is at upper normal limits. Right Ventricle: The right ventricle appears enlarged. Right ventricular systolic function appears reduced. Doppler studies suggest normal right sided pressures. Left Atrium: The left atrium appears normal in size. Right Atrium: The right atrium appears enlarged. Mitral Valve: The mitral valve is normal in mobility and thickness. Trivial mitral regurgitation. Aortic Valve: The aortic valve is normal. No aortic valve regurgitation. Tricuspid Valve: Normal tricuspid valve. Mild tricuspid regurgitation. No tricuspid valve stenosis. Pulmonic Valve: Normal pulmonary valve. No pulmonary regurgitation. Aorta: The aortic root exhibits normal size. Pericardium: No pericardial effusion. Procedure Staff Reading Group: [facility] [employer] Machine Try Out Setter: ROXY Solomon, RDCS Ordering Physician: SUKH CRUZ Procedure Note Isreal Keller MD - 09/20/2024 1 1 [facility] Heart Station [address] [place] [address] [phone] (fax) Echocardiogram-[facility] Name: GRETCHEN TAN Study Date: 09/20/2024 10:13 AM B/P: 129 mmHg/51 mmHg HR: 79 bpm Date of : 1945 Location: [facility] Height: 62 in. Age: 78 year(s) Patient Room: 2229 Weight: 216 lb. Gender: Female Patient Status: InPt BSA: 1.98 m2 Indication: CAD, CABG 09/18/24 Examination: Limited Echo/Limited Doppler, Color flow imaging, Lumason Contrast Image Quality: Fair Patient Consent: Procedure explained to patient Conclusions Left Ventricle: The left ventricle is normal size. Global left ventricular systolic function is hyperdynamic. The calculated Biplane EF is 77 %. Left ventricular wall thickness is at upper normal limits. Right Ventricle: The right ventricle appears enlarged. Right ventricular systolic function appears reduced. Doppler studies suggest normal right sided pressures. Left Atrium: The left atrium appears normal in size. Overall Conclusions: Due to suboptimal imaging Lumason contrast was administered for opacification and better delineation of endocardial borders. No subcostal window due to bandges. Measurements Left Ventricle Label Value Normal Value LVOT VTI 21.8 cm (18cm - 22cm) LVOT PGmax 8 mmHg LVDd, 2D 4.08 cm (3.9cm - 5.3cm) LVDs, 2D 2.29 cm (2.1cm - 4cm) IVSd, 2D 0.78 cm (0.6cm - 1.1cm) LVPWd, 2D 1.07 cm (0.6cm - 0.9cm) LVEF, BP 77 % (55% - 65%) LV Mass, 2D ASE 117.59 g LV Mass Index, 2D ASE 59.4 g/m?? (44g/m?? - 88.4g/m??) RWT, MM 0.52 (0 - 0.42) LVSVI, 2D 28.3 ml/m2 LVOT PGmean 4 mmHg Tricuspid Valve Label Value Normal Value RA Pressure 3 mmHg RVSP 31 mmHg TR Vmax 2.65 m/s Aorta Label Value Normal Value AoRoot, 2D 3.2 cm (1.4cm - 3.8cm) Valvular Assessment LVOT 0.7 - 1.1 m/sec Aortic Valve 1.0 - 1.7 m/sec Mitral Valve 0.6 - 1.3 m/sec Tricuspid Valve 0.3 - 0.7 m/sec Pulmonic Valve 0.6 - 0.9 m/sec Regurgitation No Trivial Mild No Stenosis No Max Velocity 1.42 m/sec Findings Left Ventricle: The left ventricle is normal size. Global left ventricular systolic function is hyperdynamic. The calculated Biplane EF is 77 %. Left ventricular wall thickness is at upper normal limits. Right Ventricle: The right ventricle appears enlarged. Right ventricular systolic function appears reduced. Doppler studies suggest normal right sided pressures. Left Atrium: The left atrium appears normal in size. Right Atrium: The right atrium appears enlarged. Mitral Valve: The mitral valve is normal in mobility and thickness. Trivial mitral regurgitation. Aortic Valve: The aortic valve is normal. No aortic valve regurgitation. Tricuspid Valve: Normal tricuspid valve. Mild tricuspid regurgitation. No tricuspid valve stenosis. Pulmonic Valve: Normal pulmonary valve. No pulmonary regurgitation. Aorta: The aortic root exhibits normal size. Pericardium: No pericardial effusion. Procedure Staff Reading Group: [facility] Honing Machine Try Out Setter: ROXY Solomon, RDCS Ordering Physician: SUKH CRUZ Sukh Cruz MD CV ECHO PROCEDURES * Lactic acid with 4 hour reflex (09/20/2024 3:16 AM EDT) Only the most recent of7 resultswithin the time period is included. Lactate 1.9 0.5 - 2.2 mmol/L 09/20/2024 4:11 AM EDT [facility] ([facility]) Blood Venous blood specimen / Unknown Arterial Line / Unknown 09/20/2024 3:16 AM EDT 09/20/2024 3:44 AM EDT Sadie Waterman MD LAB BLOOD ORDERABLES [facility] ([facility]) [address] [place] [address] * (ABNORMAL) Hepatic function panel (09/20/2024 3:16 AM EDT) Only the most recent of2 resultswithin the time period is included. Total Bilirubin 0.5 0.3 - 1.0 mg/dL 09/20/2024 5:19 AM EDT [facility] ([facility]) Bilirubin, Direct 0.1 0 - 0.2 mg/dL 09/20/2024 5:19 AM EDT [facility]) Alkaline Phosphatase 49 34 - 104 U/L 09/20/2024 5:19 AM EDT [facility]) AST 50(H) 13 - 39 U/L 09/20/2024 5:19 AM EDT [facility]) ALT (SGPT) 11 7 - 52 U/L 09/20/2024 5:19 AM EDT [facility] ([facility]) Total Protein 5.1(L) 6.0 - 8.3 g/dL 09/20/2024 5:19 AM EDT [facility]) Albumin 3.1(L) 3.5 - 5.7 g/dL 09/20/2024 5:19 AM EDT [facility] ([facility]) Blood Venous blood specimen / Unknown Arterial Line / Unknown 09/20/2024 3:16 AM EDT 09/20/2024 3:48 AM EDT Sadie Waterman MD LAB BLOOD ORDERABLES [facility] ([facility]) [address] [place] [address] * Potassium, whole blood (09/19/2024 12:57 PM EDT) Only the most recent of4 resultswithin the time period is included. Potassium, Whole Blood 4.6 3.5 - 5.1 mmol/L 09/19/2024 12:59 PM EDT [facility] Blood Arterial blood specimen / Unknown Arterial Line / Unknown 09/19/2024 12:57 PM EDT 09/19/2024 12:57 PM EDT Andrea Ortizck [facility] LAB BLOOD ORDERABLES Performing Organization Address City/[facility] Co de Phone Number [facility]AP[facility] [address] [place] [address], [place] * (ABNORMAL) Sodium, whole blood (09/19/2024 12:57 PM EDT) Only the most recent of4 resultswithin the time period is included. Sodium, Whole Blood 131(L) 136 - 145 09/19/2024 12:59 PM EDT [facility] Blood Arterial blood specimen / Unknown Arterial Line / Unknown 09/19/2024 12:57 PM EDT 09/19/2024 12:57 PM EDT Andrea Ortizck [facility] LAB BLOOD ORDERABLES Performing Organization Address [facility] de Phone Number [facility]AP[facility] [address] [place] [address], [place] * Calcium, ionized (09/19/2024 12:57 PM EDT) Only the most recent of4 resultswithin the time period is included. Calcium, Ion 1.20 1.15 - 1.33 mmol/L 09/19/2024 1:00 PM EDT [facility] Blood Arterial blood specimen / Unknown Arterial Line / Unknown 09/19/2024 12:57 PM EDT 09/19/2024 12:57 PM EDT Andrea Ortizck [employer] LAB BLOOD ORDERABLES Performing Organization Address City/[facility] Co de Phone Number [facility] [address] [place] [address], [place] * (ABNORMAL) Arterial blood gas with co-oximetry (09/19/2024 12:57 PM EDT) Only the most recent of4 resultswithin the time period is included. pH, Arterial 7.33(L) 7.35 - 7.45 pH 09/19/2024 1:00 PM EDT [facility] pCO2, Arterial 30(L) 35 - 48 mmHg 09/19/2024 1:00 PM EDT [facility] pO2, Arterial 60(L) 83 - 100 mmHg 09/19/2024 1:00 PM EDT [facility] HCO3, Arterial 15.8(L) 21.0 - 28.0 mEq/L 09/19/2024 1:00 PM EDT [facility] Total Hemoglobin 9.8(L) 11.7 - 17.4 g/dL 09/19/2024 1:00 PM EDT [facility] O2 Sat, Arterial 92.6(L) 94.0 - 98.0 % 09/19/2024 1:00 PM EDT [facility] Carboxyhemoglobin 1.8 0.0 - 3.0 % 09/19/2024 1:00 PM EDT [facility] Methemoglobin 0.8 0.0 - 1.5 % 09/19/2024 1:00 PM EDT [facility] Deoxyhemoglobin 7.2(HH) 1 - 5 % 1:00 PM EDT [facility] Base Excess, Arterial -9.1(L) -2.0 - 3.0 mmol/L 09/19/2024 1:00 PM EDT [facility] RESPIRATORY THERAPY [employer] Nasal cannula 09/19/2024 1:00 PM EDT [facility] RESPIRATORY THERAPY LPM 6 09/19/2024 1:00 PM EDT [facility] RESPIRATORY [facility] Oxyhemoglobin 90.3 90.0 - 95.0 % 09/19/2024 1:00 PM EDT [facility] RESPIRATORY THERAPY Blood Arterial blood specimen / Unknown Arterial Line / Unknown 09/19/2024 12:57 PM EDT 09/19/2024 12:57 PM EDT Andrea Loera [employer] LAB BLOOD ORDERABLES Performing Organization Address City/[facility] Co de Phone Number [facility] RESPIRATORY THERAPY [address] [place] [address], [place] * Transfuse RBC (09/19/2024 10:07 AM EDT) Only the most recent of2 resultswithin the time period is included. Sadie Waterman MD BLOOD TRANSFUSION OR DERABLES * APTT (09/19/2024 4:02 AM EDT) Only the most recent of4 resultswithin the time period is included. aPTT 31.5 25.0 - 35.0 Seconds 09/19/2024 4:37 AM EDT [facility] ([facility]) Comment:Clinical significanc e of the APTT is questionable in the presence of heparin. Blood Venous blood specimen / Unknown Arterial Line / Unknown 09/19/2024 4:02 AM EDT 09/19/2024 4:07 AM EDT Nikolas Ingram [facility] LAB BLOOD ORDER KENYON Performing Organization Address City/[facility] Co de Phone Number [facility] ([facility]) [address] [place] [address] * (ABNORMAL) Protime-INR (09/19/2024 4:02 AM EDT) Only the most recent of3 resultswithin the time period is included. Protime 15.4(H) 12.3 - 14.8 Seconds 09/19/2024 4:37 AM EDT [facility] ([facility]) INR 1.23(H) 0.90 - 1.10 09/19/2024 4:37 AM EDT [facility] ([facility]) Comment: [facility] RECOMMENDED INR FOR [facility] THERAPY CONDITION INR PROPHYLAXIS OF VENOUS THROMBOSIS 2-3 (HIGH-RISK SURGERY) TREATMENT OF VENOUS THROMBOSIS 2-3 TREATMENT OF PULMONARY EMBOLISM 2-3 PREVENTION OF SYSTEMIC EMBOLISM: 2-3 ACUTE MYOCARDIAL INFARCTION TISSUE HEART VALVES VALVULAR HEART DISEASE ATRIAL FIBRILLATION RECURRENT SYSTEMIC EMBOLISM MECHANICAL HEART VALVE 2.5-3.5 FROM: ORAL ANTICOAGULANTS. MECHANISM OF ACTION, CLINICAL EFFECTIVENESS, AND OPTIMAL THERAPEUTIC RANGE. CHEST 1995;108:231S-246S. Blood Venous blood specimen / Unknown Arterial Line / Unknown 09/19/2024 4:02 AM EDT 09/19/2024 4:07 AM EDT Nikolas Ingram [employer] LAB BLOOD ORDER KENYON [facility] HOSPITAL LAB ([facility]) [address] [place] [address] * Prepare platelet pheresis: (09/19/2024 1:00 AM EDT) PRODUCT CODE [id number] [facility] BL OOD BANK Unit Number [id number] [facility] BLOOD BANK Unit ABO B [facility] BLOOD BANK Unit Rh POS [facility] BLOOD BANK Dispense Status RE [facility] BLOOD BANK Blood Expiration Date [id number] [facility] BLOOD BANK Product Blood Type 7300 [facility] BLOOD BANK Unit Volume 250 ML [facility] BLO OD BANK Sadie Waterman MD BLOOD BANK PRODUCT O RDERABLES [facility] BLOOD BANK * FIBTEM C (09/18/2024 7:45 PM EDT) Only the most recent of2 resultswithin the time period is included. FIBTEM C AMPLITUDE 5 MIN 10 5 - 16 mm 09/18/2024 7:46 PM EDT [facility] RESPIRATORY THERAPY FIBTEM C AMPLITUDE 10 MIN 11 6 - 17 mm 09/18/2024 7:46 PM EDT [facility] RESPIRATORY THERAPY FIBTEM C AMPLITUDE 20 MIN 12 6 - 18 mm 09/18/2024 7:46 PM EDT [facility] RESPIRATORY THERAPY FIBTEM C MAXIMUM CLOT FIRMNESS 13 6 - 19 mm 09/18/2024 7:46 PM EDT [facility] RESPIRATORY THERAPY Blood 09/18/2024 7:45 PM EDT 09/18/2024 7:46 PM EDT Sadie Waterman MD LAB BLOOD ORDERABLES Performing Organization Address [facility] Co de Phone Number [facility] RESPIRATORY THERAPY [address] [place] [address], [place] * (ABNORMAL) EXTEM C (09/18/2024 7:45 PM EDT) Only the most recent of2 resultswithin the time period is included. EXTEM C CLOTTING TIME 67 51 - 73 s 09/18/2024 7:46 PM EDT [facility] RESPIRATORY THERAPY EXTEM C AMPLITUDE 5 MIN 43 33 - 52 mm 09/18/2024 7:46 PM EDT [facility] RESPIRATORY THERAPY EXTEM C AMPLITUDE 10 MIN 53 45 - 62 mm 09/18/2024 7:46 PM EDT [facility] RESPIRATORY THERAPY EXTEM C AMPLITUDE 20 MIN 60 54 - 69 mm 09/18/2024 7:46 PM EDT [facility] RESPIRATORY THERAPY EXTEM C MAXIMUM CLOT FIRMNESS 61 57 - 72 mm 09/18/2024 7:46 PM EDT [facility] RESPIRATORY THERAPY EXTEM C LYSIS INDEX 60 MIN 98 94 - 100 % 09/18/2024 7:46 PM EDT [facility] RESPIRATORY THERAPY EXTEM C MAXIMUM LYSIS 7(H) 0 - 6 % 09/18/2024 7:46 PM EDT [facility] RESPIRATORY THERAPY Comment:HI^Preliminary Resul t Blood 09/18/2024 7:45 PM EDT 09/18/2024 7:46 PM EDT Sadie Waterman MD LAB BLOOD ORDERABLES Performing Organization Address [facility] Co de Phone Number [facility] RESPIRATORY THERAPY [address] [place] [address], [place] * INTEM C (09/18/2024 7:43 PM EDT) Only the most recent of2 resultswithin the time period is included. INTEM C CLOTTING TIME 196 139 - 205 s 09/18/2024 7:43 PM EDT [facility] RESPIRATORY THERAPY INTEM C AMPLITUDE 5 MIN 40 36 - 54 mm 09/18/2024 7:43 PM EDT [facility] RESPIRATORY THERAPY INTEM C AMPLITUDE 10 MIN 50 46 - 63 mm 09/18/2024 7:43 PM EDT [facility] RESPIRATORY THERAPY INTEM C AMPLITUDE 20 MIN 56 53 - 68 mm 09/18/2024 7:43 PM EDT [facility] RESPIRATORY THERAPY INTEM C MAXIMUM CLOT FIRMNESS 57 55 - 70 mm 09/18/2024 7:43 PM EDT [facility] RESPIRATORY THERAPY INTEM C LYSIS INDEX 60 MIN 98 93 - 100 % 09/18/2024 7:43 PM EDT [facility] RESPIRATORY THERAPY INTEM C MAXIMUM LYSIS 5 0 - 7 % 09/18/2024 7:43 PM EDT [facility] RESPIRATORY THERAPY Comment:HI^Preliminary Resul t Blood 09/18/2024 7:43 PM EDT 09/18/2024 7:43 PM EDT Sadie Waterman MD LAB BLOOD ORDERABLES [facility] RESPIRATORY THERAPY [address] [place] [address], * HEPTEM C (09/18/2024 7:40 PM EDT) Only the most recent of2 resultswithin the time period is included. HEPTEM C CLOTTING TIME 187 141 - 215 s 09/18/2024 7:40 PM EDT [facility] RESPIRATORY THERAPY HEPTEM C AMPLITUDE 5 MIN 39 33 - 51 mm 09/18/2024 7:40 PM EDT [facility] RESPIRATORY THERAPY HEPTEM C AMPLITUDE 10 MIN 49 44 - 61 mm 09/18/2024 7:40 PM EDT [facility] RESPIRATORY THERAPY HEPTEM C AMPLITUDE 20 MIN 55 52 - 67 mm 09/18/2024 7:40 PM EDT [facility] RESPIRATORY THERAPY HEPTEM C MAXIMUM CLOT FIRMNESS 56 54 - 69 mm 09/18/2024 7:40 PM EDT [facility] RESPIRATORY THERAPY Blood 09/18/2024 7:40 PM EDT 09/18/2024 7:40 PM EDT Sadie Waterman MD LAB BLOOD ORDERABLES Performing Organization Address City/[facility]/ZIP Co de Phone Number [facility] RESPIRATORY THERAPY [address] [place] [address], * Fibrinogen (09/18/2024 3:31 PM EDT) Fibrinogen 247 150 - 425 mg/dL 09/18/2024 4:03 PM EDT [facility] ([facility]) Blood Venous blood specimen / Unknown Existing Catheter / Unknown 09/18/2024 3:31 PM EDT 09/18/2024 3:36 PM EDT Nikolas Ingram [facility] LAB BLOOD ORDER KENYON Performing Organization Address City/[facility]/ZIP Co de Phone Number [facility] ([facility]) [address] [place] [address] * (ABNORMAL) Lactic acid, plasma (09/18/2024 3:31 PM EDT) Lactate 3.6(HH) 0.5 - 2.2 mmol/L 09/18/2024 4:00 PM EDT [facility] ([facility]) Blood Venous blood specimen / Unknown Existing Catheter / Unknown 09/18/2024 3:31 PM EDT 09/18/2024 3:36 PM EDT Nikolas Ingram [facility] LAB BLOOD ORDER KENYON [facility] ([facility]) [address] [place] [address] * Co-oximetry (09/18/2024 3:30 PM EDT) Carboxyhemoglobin 1.1 % 025 3:31 PM EDT [facility] RESPIRATORY THERAPY Methemoglobin 1.3 0.0 - 1.5 % 09/18/2024 3:31 PM EDT [facility] RESPIRATORY THERAPY Oxyhemoglobin 68.9 % 09/18/2024 3:31 PM EDT [facility] RESPIRATORY THERAPY Total Hemoglobin 8.6 g/dL 09/19/19 3:31 PM EDT [facility] RESPIRATORY THERAPY O2 Sat 70.6 % 09/18/2024 3:31 PM EDT [facility] RESPIRATORY THERAPY Blood Mixed venous blood specimen / Unknown Existing Catheter / Unknown 09/18/2024 3:30 PM EDT 09/18/2024 3:30 PM EDT Sukh Cruz MD LAB BLOOD ORDERABLES Performing Organization Address City/[facility]/ZIP Co de Phone Number [facility] RESPIRATORY THERAPY [address] [place] [address], [place] * POCT activated clotting time (09/18/2024 2:46 PM EDT) Only the most recent of7 resultswithin the time period is included. Activated Clotting Time POC 119 82 - 152 sec 09/18/2024 3:05 PM EDT [facility] ([facility]) Blood Venous blood specimen / Unknown 09/18/2024 2:46 PM EDT 09/18/2024 3:04 PM EDT Bernardo Hollins MD LAB POINT OF CARE TE ST DOCKED DEVICE UNSOLICITED RESULTS Performing Organization Address City/[facility]/ZIP Co de Phone Number [facility] ([facility]) [address] [place] [address] * (ABNORMAL) POCT perfusion panel (09/18/2024 2:45 PM EDT) Only the most recent of7 resultswithin the time period is included. SO2 POC 99(H) 95 - 98 % 09/18/2024 3:05 PM EDT [facility] ([facility]) Sodium POC 142 138.0 - 146.0 mmol/L 09/18/2024 3:05 PM EDT [facility] ([facility]) Potassium POC 3.3(L) 3.5 - 4.9 mmol/L 09/18/2024 3:05 PM EDT [facility] ([facility]) PO2 POC 156(H) 80 - 105 mmHg 09/18/2024 3:05 PM EDT [facility] ([facility]) pH POC 7.29(L) 7.31 - 7.41 09/18/2024 3:05 PM EDT [facility] ([facility]) TCO2 POC 24.0 21.0 - 29.0 mmol/L 09/18/2024 3:05 PM EDT [facility] ([facility]) Ionized Calcium POC 0.99(L) 1.12 - 1.32 mmol/L 09/18/2024 3:05 PM EDT [facility] ([facility]) Hematocrit POC 22(L) 38 - 51 % 09/18/2024 3:05 PM EDT [facility] ([facility]) Hemoglobin POC 7.5(L) 12.0 - 17.0 g/dL 09/18/2024 3:05 PM EDT [facility] ([facility]) Base Excess POC -4.0(L) -2.0 - 3.0 mmol/L 09/18/2024 3:05 PM EDT [facility] ([facility]) Glucose POC 185(H) 70 - 105 mg/dL 09/18/2024 3:05 PM T [facility] ([facility]) HCO3 POC 22.2(L) 23.0 - 28.0 mmol/L 09/18/2024 3:05 PM EDT [facility] ([facility]) PCO2 POC 46.3 41.0 - 51.0 mmHg 09/18/2024 3:05 PM T [facility] ([facility]) Blood Venous blood specimen / Unknown 09/18/2024 2:45 PM EDT 09/18/2024 3:04 PM EDT Bernardo Hollins MD LAB POINT OF CARE TE ST DOCKED DEVICE UNSOLICITED RESULTS [facility] ([facility]) [address] [place] [address] * Prepare fresh frozen plasma (09/18/2024 2:23 PM EDT) PRODUCT CODE [id number] [facility] BL OOD BANK Unit Number [id number] [facility] BLOOD BANK Unit ABO AB [facility] BLOOD BANK Unit Rh POS [facility] BLOOD BANK Dispense Status TR [facility] BLOOD BANK Blood Expiration Date [facility] BLOOD BANK Product Blood Type 8400 [facility] BLOOD BANK Unit Volume 250 mL [facility] BLO OD BANK PRODUCT CODE [id number] [facility] BL OOD BANK Unit Number [id number] [facility] BLOOD BANK Unit ABO AB [facility] BLOOD BANK Unit Rh POS [facility] BLOOD BANK Dispense Status TR [facility] BLOOD BANK Blood Expiration Date [facility] BLOOD BANK Product Blood Type 8400 [facility] BLOOD BANK Sukh Cruz MD BLOOD BANK PRODUCT O RDERABLES [facility] BLOOD BANK * Transfuse fresh frozen plasma (09/18/2024 2:23 PM EDT) Only the most recent of2 resultswithin the time period is included. Lety Phillips MD BLOOD TRANSFUSION OR DERABLES * HI AN CENTRAL LINE TRIPLE LUMEN, CHG US VASC ACCESS SITS VSL PATENCY NDL ENTRY, HI INSJ NON-TUNNELED CENTRAL VENOUS CATH AGE 7 YR/> (09/18/2024 9:28 AM EDT) Narrative Lety Phillips MD - 09/18/2024 9:28 AM EDT Sekou Salgado MD 09/18/2024 9:48 AM Central Venous Line: Date/Time: 09/18/2024 9:28 AM A central venous line was placed in the OR for the following indication(s): central venous access and CVP monitoring. Sterility preparation included the following: provider hand hygiene performed prior to central venous catheter insertion, all 5 sterile barriers used (gloves, gown, cap, mask, large sterile drape) during central venous catheter insertion, antiseptic used during central venous catheter insertion and skin prep agent completely dried prior to procedure. The patient was placed in Trendelenburg position. Right internal jugular vein was prepped. The site was prepped with Chlorhexidine. Size: 9 Fr Length: 11.5 Catheter type: introducer Number of Lumens: triple lumen This catheter was an oximetric catheter. During the procedure, the following specific steps were taken: target vein identified, needle advanced into vein and blood aspirated and guidewire advanced into vein. Seldinger technique used Procedure performed using ultrasound guidance. Sterile gel and probe cover used in ultrasound-guided central venous catheter insertion. Intravenous verification was obtained by ultrasound, venous blood return and YOLY. Post insertion care included: all ports aspirated, all ports flushed easily, guidewire removed intact, Biopatch applied, line sutured in place and dressing applied. During the procedure the patient experienced: patient tolerated procedure well with no complications. Additional notes: Placed 49 cm at hub of cordis Staffing Performed: resident/OFFICE SERVICES COORDINATOR/CAA Anesthesiologist: Lety Phillips MD Resident/OFFICE SERVICES COORDINATOR: Sekou Salgado MD Performed by: Sekou Salgado MD Authorized by: Lety Phillips MD Lety Phillips MD ANESTHESIA ORDERABLE S * Histology - tissue exam (09/18/2024 9:18 AM EDT) Case Report Surgical Pathology Case: [id number] Authorizing Provider: Sadie Waterman MD Collected: 09/18/2024 0918 Ordering Location: [facility] Main Operating Room Received: 09/18/2024 1521 Pathologist: Shelley Vega MD Specimen: Heart, LEFT ATRIAL APPENDAGE AMPUTATION 09/30/2024 5:17 PM EDT [facility] ([facility]) Final Diagnosis A. Heart, left atrial appendage, excision: - Unremarkable atrial appendage consistent with surgical procedure. 09/30/2024 5:17 PM EDT [facility] ([facility]) Clinical Information Post-Op Diagnoses I25.10 - Multi-vessel coronary artery stenosis [ICD-10-CM] 09/30/2024 5:17 PM EDT [facility] ([facility]) Gross Description A. Heart. The specimen is received in formalin labeled Gretchen Victoria and heart, left atrial appendage amputation . It consists of a 4.9 x 2.8 x 1.6 cm atrial appendage with anderson-brown muscular tissue and yellow-anderson lobulated attached epicardial fat. [employer] sections are submitted in 2 cassettes. Juliette Wolfe, Pathologists' Professor Of Languages student Melissa Solares, Pathologists' Professor Of Languages 09/30/2024 5:17 PM EDT [facility] ([facility]) Microscopic Description Microscopic examination performed. 09/30/2024 5:17 PM EDT [facility] ([facility]) Tissue Heart structure / Unknown 09/18/2024 9:18 AM EDT 09/18/2024 3:21 PM EDT Comment:Pre-op diagnosis: Multi-vessel coronary artery stenosis [I25.10] Sadie Waterman MD LAB PATHOLOGY ORDERA [place]ER[place] [facility] ([facility]) [address] [place], [place] [id number] * HI AN ELECTIVE ENDOTRACHEAL AIRWAY (09/18/2024 9:03 AM EDT) Narrative Lety Phillips MD - 09/18/2024 9:03 AM EDT Sekou Salgado MD 09/18/2024 9:46 AM Airway Date/Time: 09/18/2024 9:03 AM Urgency: elective General Information and Staff Patient location during procedure: OR Anesthesiologist: Lety Phillips MD Resident/OFFICE SERVICES COORDINATOR/CAA: Sekou Salgado MD Performed: resident/OFFICE SERVICES COORDINATOR/CAA Indications and Patient Condition Indications for airway management: anesthesia Spontaneous Ventilation: absent Sedation level: deep Preoxygenated: yes Mask difficulty assessment: 1 - vent by mask Final Airway Details Final airway type: endotracheal airway Successful airway: ETT Cuffed: yes Successful intubation technique: video laryngoscopy Facilitating devices/methods: intubating stylet Endotracheal tube insertion site: oral Blade: Koch Blade size: #3 ETT size (mm): 8.0 Cormack-Lehane Classification: grade I - full view of glottis Placement verified by: chest auscultation and capnometry Measured from: lips ETT to lips (cm): 22 Number of attempts at approach: 1 Number of other approaches attempted: 0 Lety Phillips MD ANESTHESIA ORDERABLE S * ANESTHESIA ARTERIAL LINE PLACEMENT (09/18/2024 8:00 AM EDT) Narrative Lety Phillips MD - 09/18/2024 8:00 AM EDT Sekou Salgado MD 09/18/2024 8:57 AM Arterial Line: Date/Time: 09/18/2024 8:00 AM An arterial line was placed in the pre-op for the following indication(s): continuous blood pressure monitoring, blood sampling needed and unable to use non-invasive cuff. A 20 gauge (size), 1 and 3/4 inch (length), Arrow (type) catheter was placed, Seldinger technique used , into the Left radial artery, secured by Tegaderm (and biodesc). Events: patient tolerated procedure well with no complications. Staffing Performed: resident/OFFICE SERVICES COORDINATOR/CAA Anesthesiologist: Lety Phillips MD Resident/OFFICE SERVICES COORDINATOR: Sekou Salgado MD Performed by: Sekou Salgado MD Authorized by: Lety Phillips MD Lety Phillips MD ANESTHESIA ORDERABLE S * Prepare RBC: 1 Units (09/18/2024 6:45 AM EDT) Only the most recent of3 resultswithin the time period is included. PRODUCT CODE [id number] [facility] BL OOD BANK Unit Number [id number] [facility] BLOOD BANK Unit ABO AB [facility] BLOOD [facility]ANK Unit Rh POS [facility] BLOOD BANK Crossmatch Interpretation COMP [facility] BLOOD BANK Dispense Status IS [facility] BLOOD BANK Blood Expiration Date [id number] [facility] BLOOD BANK Product Blood Type 8400 [facility] BLOOD BANK Unit Volume 300 ML [facility] BLO OD BANK Other 09/18/2024 6:45 AM EDT Sadie Waterman MD BLOOD BANK PRODUCT O RDERABLES [facility] BLOOD BANK * Type and screen (09/18/2024 6:45 AM EDT) ABO Grouping AB 09/18/2024 7:52 AM EDT [facility] BLOOD BANK Rh Type POS 09/18/2024 7:52 AM EDT [facility] BLOOD BANK Ab Scrn NEG 09/18/2024 7:52 AM EDT [facility] BLOOD BANK Blood Venous blood specimen / Unknown Venipuncture / Unknown 09/18/2024 6:45 AM EDT 09/18/2024 7:03 AM EDT Andrea Loera [employer] LAB BLOOD BANK TEST ORDERABLES [facility] BLOOD BANK * HI ECHO TRANSESOPHAG R-T 2D W/PRB IMG ACQUISJ I&R (09/13/2024 10:18 AM EDT) Anatomical Region Laterality Modality Echocardiography 09/18/2024 6:55 AM EDT Narrative 10/22/2024 5:29 PM EDT [facility] Heart Station [address] [place] [address] [phone] (fax) Transesophageal Echocardiogram-[facility] Name: GRETCHEN TAN Study Date: 09/18/2024 06:55 AM B/P: / HR: Date of : 1945 Location: [facility] Height: 62 in. Age: 78 year(s) Patient Room: 3102 Weight: 200.19 lb. Gender: Female Patient Status: InPt BSA: 1.91 m2 Indication: CAD, CABG Examination: YOLY (Transesophageal Echo / CFI), 3D images Image Quality: Good Conclusions Left Ventricle: The left ventricle is normal size. The EF is 60 % visually. Right Ventricle: The right ventricle is at upper normal limits in size. Left Atrium: The left atrium is severely enlarged. Overall Conclusions: POST OP the visual estimation of the left ventricular ejection fraction is 60%. All other baseline findings remain the same. The echo findings were disussed with the surgeon. Measurements Left Ventricle Label Value Normal Value LVEF visual 60 % Valvular Assessment LVOT 0.7 - 1.1 m/sec Aortic Valve 1.0 - 1.7 m/sec Mitral Valve 0.6 - 1.3 m/sec Tricuspid Valve 0.3 - 0.7 m/sec Pulmonic Valve 0.6 - 0.9 m/sec Regurgitation No Mild Mild Stenosis No Findings Left Ventricle: The left ventricle is normal size. The EF is 60 % visually. Right Ventricle: The right ventricle is at upper normal limits in size. Left Atrium: The left atrium is severely enlarged. Right Atrium: The right atrium is moderately enlarged. Mitral Valve: Mild mitral regurgitation. Aortic Valve: No aortic valve regurgitation. No aortic valve stenosis. Tricuspid Valve: Mild tricuspid regurgitation. Aorta: The aortic root exhibits normal size. Pericardium: No pericardial effusion. No pleural effusion. Procedure Staff Reading Group: [employer] Referring Physician: Lety Phillips MD Ordering Physician: SADIE WATERMAN Procedure Note Lety Phillips MD - 10/22/2024 [facility] Heart Station [address] [place] [address] [phone] (fax) Transesophageal Echocardiogram-[facility] Name: GRETCHEN TAN Study Date: 09/18/2024 06:55 AM B/P: / HR: Date of : 1945 Location: [facility] Height: 62 in. Age: 78 year(s) Patient Room: 3102 Weight: 200.19 lb. Gender: Female Patient Status: InPt BSA: 1.91 m2 Indication: CAD, CABG Examination: YOLY (Transesophageal Echo / CFI), 3D images Image Quality: Good Conclusions Left Ventricle: The left ventricle is normal size. The EF is 60 % visually. Right Ventricle: The right ventricle is at upper normal limits in size. Left Atrium: The left atrium is severely enlarged. Overall Conclusions: POST OP the visual estimation of the left ventricular ejection fraction is 60%. All other baseline findings remain the same. The echo findings were disussed with the surgeon. Measurements Left Ventricle Label Value Normal Value LVEF visual 60 % Valvular Assessment LVOT 0.7 - 1.1 m/sec Aortic Valve 1.0 - 1.7 m/sec Mitral Valve 0.6 - 1.3 m/sec Tricuspid Valve 0.3 - 0.7 m/sec Pulmonic Valve 0.6 - 0.9 m/sec Regurgitation No Mild Mild Stenosis No Findings Left Ventricle: The left ventricle is normal size. The EF is 60 % visually. Right Ventricle: The right ventricle is at upper normal limits in size. Left Atrium: The left atrium is severely enlarged. Right Atrium: The right atrium is moderately enlarged. Mitral Valve: Mild mitral regurgitation. Aortic Valve: No aortic valve regurgitation. No aortic valve stenosis. Tricuspid Valve: Mild tricuspid regurgitation. Aorta: The aortic root exhibits normal size. Pericardium: No pericardial effusion. No pleural effusion. Procedure Staff Reading Group: [facility] Referring Physician: Lety Phillips MD Ordering Physician: SADIE WATERMAN Sadie Waterman MD ANESTHESIA ORDERABLE S * High Sensitivity Troponin I (09/12/2024 10:46 AM EDT) Only the most recent of3 resultswithin the time period is included. High Sensitivity Troponin I 10 <15 ng/L 09/12/2024 11:52 AM EDT [facility] ([facility]) Blood Venous blood specimen / Unknown Venipuncture / Unknown 09/12/2024 10:46 AM EDT 09/12/2024 11:07 AM EDT Jorge White MD LAB BLOOD ORDERABLES Performing Organization Address City/[facility] Co de Phone Number [facility] [address] [place] [address] * Anti-Xa (Heparin Level) (09/12/2024 10:46 AM EDT) Only the most recent of3 resultswithin the time period is included. Anti-Xa (Heparin) 0.70 0.3 - 0.7 IU/mL 09/12/2024 11:27 AM EDT [facility] ([facility]) Comment:Rivaroxaban and Apix aban will interfere with the anti Xa assay used to monitor UFH and LMWH. Blood Venous blood specimen / Unknown Venipuncture / Unknown 09/12/2024 10:46 AM EDT 09/12/2024 10:59 AM EDT Jorge White MD LAB BLOOD ORDERABLES Performing Organization Address City/[facility]/ZIP Co de Phone Number [facility] [address] [place] [address] * CT abdomen pelvis w IV contrast (09/12/2024 9:34 AM EDT) Anatomical Region Laterality Modality Body, Pelvis, Abdomen Computed T omography 09/12/2024 10:2 1 AM EDT Impressions 09/12/2024 10:24 AM EDT 1. Diffuse atherosclerotic disease of the abdominal aorta, iliac arteries and mesenteric vessels. 2. Infrarenal abdominal aortic aneurysm measuring 3.3 cm. 3. Moderate narrowing of the SMA origin. Electronically signed: SAYRA DORSEY MD. Narrative 09/12/2024 10:[address] of the abdomen and pelvis with contrast INDICATION: Coronary artery disease, [...] the celiac artery. The ANSELMO is patent. Procedure Note Sayra Dorsey MD - 09/12/2024 CT of the abdomen and pelvis with contrast INDICATION: Coronary artery disease, preop evaluation for coronary arterybypass graft, 78-year-old. PROCEDURE:: Automatic radiation exposure lowering techniques wereutilized. All CT scans in this facility use dose modulation, iterative reconstruction,and/or weight based dosing when appropriate to reduce radiation dose to as lowas reasonably achievable. Following the intravenous injection of 100 mL of Omnipaque 350, a CT of the abdomen and pelvis and sagittal and coronalreformats obtained. FINDINGS: No comparisons available. No focal lesion seen in the liver,spleen, adrenal glands, pancreas, or gallbladder. Slightly malrotated kidneyswithout hydronephrosis. Atherosclerotic disease of the abdominal aorta and iliac arteries, with mild aneurysmal dilatation of the infrarenal aortameasuring 3.3 cm. Diverticulosis of the sigmoid. No free fluid or dilated bowel loops. Postsurgical changes in the lower lumbar spine. There is moderatenarrowing at the origin of the SMA and mild narrowing at the origin of the celiacartery. The ANSELMO is patent. IMPRESSION: 1. Diffuse atherosclerotic disease of the abdominal aorta, iliac arteriesand mesenteric vessels. 2. Infrarenal abdominal aortic aneurysm measuring 3.3 cm. 3. Moderate narrowing of the SMA origin. Electronically signed: SAYRA DORSEY MD. Nikolas Ingram [facility] CT PROCEDUR ES * (ABNORMAL) Urinalysis microscopic (09/11/2024 10:50 PM EDT) RBC, Urine 0-2 None Seen, 0-2 /HPF 09/11/2024 11:39 PM EDT [facility] ([facility]) WBC, Urine >50(A) None Seen, 0-2 /HPF 09/11/2024 11:39 PM EDT [facility] ([facility]) Squamous Epithelial, Urine None Seen None Seen, Occasional , Few /LPF 09/11/2024 11:39 PM EDT [facility] ([facility]) Urine Urine specimen obtained by clean catch procedure / Unknown Non-blood Collection / Unknown 09/11/2024 10:50 PM EDT 09/11/2024 11:06 PM EDT Jorge White MD LAB URINE ORDERABLES [facility] ([facility]) [address] [place] [address] * Red Top (09/11/2024 1:28 PM EDT) Extra Tube Hold for add-ons. 09/11/2024 3:01 PM EDT [facility] ([facility]) Comment:Auto resulted. Blood Venous blood specimen / Unknown 09/11/2024 1:28 PM EDT 09/11/2024 1:45 PM EDT Jorge White MD LAB BLOOD ORDERABLES [facility] ([facility]) [address] [place] [address] * Pulmonary function testing (09/11/2024 12:02 PM EDT) Anatomical Region Laterality Modality Other Narrative 09/11/2024 12:02 PM EDT Marline Vaughan, COMMUTATOR OPERATOR 09/11/2024 12:02 PM Bedside Spirometry uploaded into [employer]. Nikolas Ingram CNP PFT ORDERABLES * Troponin I (09/11/2024 11:24 AM EDT) Only the most recent of9 resultswithin the time period is included. Troponin I 0.01 0.00 - 0.04 ng/mL 09/11/2024 12:18 PM EDT [facility] ([facility]) Blood Venous blood specimen / Unknown Arterial Line / Unknown 09/11/2024 11:24 AM EDT 09/11/2024 11:54 AM EDT Wilmer Landa MD LAB BLOOD ORDERABLES Performing Organization Address City/[facility]/ZIP Co de Phone Number [facility] ([facility]) [address] [place] [address] * Vascular US lower extremity vein mapping bilateral (09/11/2024 11:04 AM EDT) Anatomical Region Laterality Modality Lower Extremities Ultrasound 09/11/2024 10:4 4 AM EDT Impressions 09/11/2024 4:57 PM EDT Bilateral: Right: Superficial veins compressed and presented with no wall thickenesses. Great and small saphenous vein appeared greater than 0.20 cm - 0.25 cm of entire leg. Left: Superficial veins compressed and presented with no wall thickenesses. Great and small saphenous vein appeared greater than 0.20 cm - 0.25 cm of entire leg. Bilateral: Right: Superficial veins compressed and presented with no wall thickenesses. Great and small saphenous vein appeared greater than 0.20 cm - 0.25 cm of entire leg. Left: Superficial veins compressed and presented with no wall thickenesses. Great and small saphenous vein appeared greater than 0.20 cm - 0.25 cm of entire leg. Conclusions: No evidence of thrombosis of both legs. Sizes of the veins as above. Narrative 09/11/2024 4:57 PM EDT Procedure: The greater saphenous vein and small saphenous vein was evaluated in its entirety. It was examined for compressibility and measured in the transverse view. Procedure: The greater saphenous vein and small saphenous vein was evaluated in its entirety. It was examined for compressibility and measured in the transverse view. Procedure Note Suzy Vaughan MD - 09/11/2024 Procedure: The greater saphenous vein and small saphenous vein wasevaluated in its entirety. It was examined for compressibility andmeasured in the transverse view. Procedure: The greater saphenous vein and small saphenous vein wasevaluated in its entirety. It was examined for compressibility andmeasured in the transverse view. IMPRESSION: Bilateral: Right: Superficial veins compressed and presented with no wallthickenesses. Great and small saphenous vein appeared greater than 0.20cm - 0.25 cm of entire leg. Left: Superficial veins compressed and presented with no wallthickenesses. Great and small saphenous vein appeared greater than 0.20cm - 0.25 cm of entire leg. Bilateral: Right: Superficial veins compressed and presented with no wallthickenesses. Great and small saphenous vein appeared greater than 0.20cm - 0.25 cm of entire leg. Left: Superficial veins compressed and presented with no wallthickenesses. Great and small saphenous vein appeared greater than 0.20cm - 0.25 cm of entire leg. Conclusions: No evidence of thrombosis of both legs. Sizes of the veins as above. Nikolas Ingram COMMISSION SALES ASSOCIATE [facility] CV VASCULAR PROCEDURES * Vascular US carotid artery duplex bilateral (09/11/2024 10:45 AM EDT) Anatomical Region Laterality Modality Neck Ultrasound 09/11/2024 10:3 7 AM EDT Impressions 09/11/2024 4:53 PM EDT Right: Calcified irregular plaque in ICA 152/54 cm/sec consistent with 50-69% diameter reduction. Antegrade vertebral artery flow. Left: Calcified irregular plaque in ICA 180/57 cm/sec consistent with 50-69% diameter reduction. Antegrade vertebral artery flow. Right: Calcified irregular plaque in ICA 152/54 cm/sec consistent with 50-69% diameter reduction. Antegrade vertebral artery flow. Left: Calcified irregular plaque in ICA 180/57 cm/sec consistent with 50-69% diameter reduction. Antegrade vertebral artery flow. Conclusions: Antegrade flow of bilateral vertebral arteries. 50-69% stenosis in right internal carotid artery. 50-69% stenosis in left internal carotid artery Narrative 09/11/2024 4:53 PM EDT Procedure: The carotid arteries, including common carotid, internal and external carotid artery were evaluated bilaterally. This was done using real-time imaging with velocity measurement, color Doppler, and spectral analysis. The vertebral arteries were evaluated bilaterally using color ultrasound and velocity measurement. Procedure: The carotid arteries, including common carotid, internal and external carotid artery were evaluated bilaterally. This was done using real-time imaging with velocity measurement, color Doppler, and spectral analysis. The vertebral arteries were evaluated bilaterally using color ultrasound and velocity measurement. Procedure Note Suzy Vaughan MD - 09/11/2024 Procedure: The carotid arteries, including common carotid, internal andexternal carotid artery were evaluated bilaterally. This was done usingreal-time imaging with velocity measurement, color Doppler, and spectralanalysis. The vertebral arteries were evaluated bilaterally using colorultrasound and velocity measurement. Procedure: The carotid arteries, including common carotid, internal andexternal carotid artery were evaluated bilaterally. This was done usingreal-time imaging with velocity measurement, color Doppler, and spectralanalysis. The vertebral arteries were evaluated bilaterally using colorultrasound and velocity measurement. IMPRESSION: Right: Calcified irregular plaque in ICA 152/54 cm/sec consistent [id number]% diameter reduction. Antegrade vertebral artery flow. Left: Calcified irregular plaque in ICA 180/57 cm/sec consistent kwvt81-31% diameter reduction. Antegrade vertebral artery flow. Right: Calcified irregular plaque in ICA 152/54 cm/sec consistent udmx30-92% diameter reduction. Antegrade vertebral artery flow. Left: Calcified irregular plaque in ICA 180/57 cm/sec consistent edzp08-04% diameter reduction. Antegrade vertebral artery flow. Conclusions: Antegrade flow of bilateral vertebral arteries. 50-69% stenosis in right internal carotid artery. 50-69% stenosis in left internal carotid artery Nikolas Ingram COMMISSION SALES ASSOCIATE [facility] CV VASCULAR PROCEDURES * Lavender Top (09/11/2024 4:36 AM EDT) Extra Tube Hold for add-ons. 09/11/2024 6:01 AM EDT [facility] ([facility]) Comment:Auto resulted. Blood Venous blood specimen / Unknown 09/11/2024 4:36 AM EDT 09/11/2024 4:44 AM EDT Jorge White MD LAB BLOOD ORDERABLES [facility] ([facility]) [address] [place] [address] * CORONARY ANGIOGRAPHY, LEFT HEART CATH, INSTANT WAVE FREE RATIO (IFR) (09/10/2024 4:40 PM EDT) Anatomical Region Laterality Modality Other Narrative 09/10/2024 5:18 PM EDT PROCEDURE PHYSICIAN: Wilmer Landa MD . Indications: Gretchen Tan is a 78 y.o. female was evaluated in cardiology clinic because of unstable angina. She was referred for admission to the hospital and brought today for cardiac catheterization. Assistants: Dr Collin Velázquez. Procedure Performed: Bilateral selective coronary angiogram. Left heart catheterization. IFR assessment of the LAD. Administration of intracoronary nitroglycerin. Methods: Procedure was explained to the patient with risks and benefits; she signed informed consent. she was brought to the dental laboratory manager in a fasting state. The left wrist area was prepped and draped in usual fashion. Micropuncture technique was used for access in the left radial artery. A 6-Tanzanian x 11 cm sheath was placed. Verapamil was given through the sheath, and heparin was administered intravenously. The 6-Tanzanian JR4 catheter was navigated across the aortic valve over a wire and used to perform left heart catheterization with measurement of pressures. Pullback across the aortic valve was performed with measurement of pressures. Bilateral selective coronary angiography was then performed using 6-Tanzanian JL4 and JR4 diagnostic catheters. Catheters were removed. Heparin was administered intravenously and therapeutic ACT was confirmed during the rest of the procedure. A 6-Tanzanian XB 3.5 guiding catheter was advanced and used to engage the left coronary ostium. A [employer] Omni pressure wire was advanced and equalization of pressures made outside of the guiding catheter. The wire was then advanced into the distal LAD. Intracoronary nitroglycerin 100 micrograms was administered followed by performance of IFR measurement which was 0.76 indicating a hemodynamically significant stenosis. Pull-back across the LAD was performed with measurement of IFR. The guiding catheter and wire were removed. Hemostasis was achieved by TR band in the radial artery. she tolerated the procedure well and was transferred back to the hospital room. Hemodynamic Data: LV: 139, 8 AO: 134/80 (84) Coronary angiography: This is a left-dominant circulation. [...] rest of the vessel has mildly calcified disease. Impression/Findings: Severe 3 vessel coronary artery disease. Normal left filling pressures. No aortic valve stenosis. Plan: Aspirin 81 mg daily for life. Statin therapy for life. Consult Cardiothoracic Surgery team. Further recommendations per inpatient Cardiology service. 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 Age: 78 year(s) Patient Room: 3123 Weight: 207 lb. Gender: Female Patient Status: OutPt BSA: 1.94 m2 Indication: Unstable angina pectoris Examination: Echocardiogram (Complete) Image Quality: Technically Difficult study Patient Consent: Procedure explained to patient Conclusions Left Ventricle: The left ventricle is normal size. Global left ventricular systolic function is normal. The EF is 65 % visually. Left ventricular wall thickness is normal. No regional wall motion abnormality. Diastolic dysfunction was indeterminate. Right Ventricle: The right ventricle appears normal in size. Right ventricular systolic function appears normal. Unable to assess right sided pressures due to lack of measurable tricuspid regurgitation. Left Atrium: The left atrium is mildly enlarged. Measurements Left Ventricle Label Value Normal Value LVOT VTI 25.9 cm (18cm - 22cm) LVOT PGmax 5 mmHg LVEF visual 65 % LVDd, 2D 4.95 cm (3.9cm - 5.3cm) LVDs, 2D 3.62 cm (2.1cm - 4cm) IVSd, 2D 0.93 cm (0.6cm - 1.1cm) LVPWd, 2D 0.98 cm (0.6cm - 0.9cm) LV Mass, 2D ASE 168.28 g LV Mass Index, 2D ASE 86.7 g/m?? (44g/m?? - 88.4g/m??) RWT, MM 0.4 (0 - 0.42) LVSVI, 2D 31.4 ml/m2 LVOT PGmean 2 mmHg Aortic Valve Label Value Normal Value AV DVI 0.74 AV VTI 35.3 cm Mitral Valve Label Value Normal Value MV E Vmax 0.77 m/s MV A Vmax 0.73 m/s MV E/A 1.05 MV E/E' lateral 7.9 MV E' lateral 0.1 m/s Aorta Label Value Normal Value AoRoot, 2D 3.3 cm (1.4cm - 3.8cm) Valvular Assessment LVOT 0.7 - 1.1 m/sec Aortic Valve 1.0 - 1.7 m/sec Mitral Valve 0.6 - 1.3 m/sec Tricuspid Valve 0.3 - 0.7 m/sec Pulmonic Valve 0.6 - 0.9 m/sec Regurgitation No No No No Stenosis No No No No Max Velocity 1.09 m/sec 1.48 m/s 0.77 m/sec 1.27 m/s Max Gradient 9.00 mmHg 6.00 mmHg Mean Gradient 5.00 mmHg Findings Left Ventricle: The left ventricle is normal size. Global left ventricular systolic function is normal. The EF is 65 % visually. Left ventricular wall thickness is normal. No regional wall motion abnormality. Diastolic dysfunction was indeterminate. Right Ventricle: The right ventricle appears normal in size. Right ventricular systolic function appears normal. Unable to assess right sided pressures due to lack of measurable tricuspid regurgitation. Left Atrium: The left atrium is mildly enlarged. Right Atrium: The right atrium appears normal in size. Mitral Valve: Mitral valve appears normal. Mild mitral annular calcification. No mitral regurgitation. No mitral valve stenosis. Aortic Valve: Aortic valve appears normal. No aortic valve regurgitation. No aortic valve stenosis. Tricuspid Valve: Normal tricuspid valve. No tricuspid regurgitation. No tricuspid valve stenosis. Pulmonic Valve: Normal pulmonary valve. No pulmonary regurgitation. No pulmonic valve stenosis. Aorta: The aortic root exhibits normal size. Great Vessels: IVC: The inferior vena cava is poorly visualized. Pericardium: No pericardial effusion. Procedure Staff Reading Group: [facility] Honing Machine Try Out Setter: Cindy Young RDCS Ordering Physician: YUSEF BROWN Procedure Note Susie Lima MD - 09/09/2024 1 1 [facility] Heart Station [address] [place] [address] [phone] (fax) Echocardiogram-[facility] Name: GRETCHEN TAN Study Date: 09/09/2024 03:22 PM B/P: 150 mmHg/57 mmHg HR: Date of : 1945 Location: [facility] Height: 62 in. Age: 78 year(s) Patient Room: 3123 Weight: 207 lb. Gender: Female Patient Status: OutPt BSA: 1.94 m2 Indication: Unstable angina pectoris Examination: Echocardiogram (Complete) Image Quality: Technically Difficult study Patient Consent: Procedure explained to patient Conclusions Left Ventricle: The left ventricle is normal size. Global left ventricular systolic function is normal. The EF is 65 % visually. Left ventricular wall thickness is normal. No regional wall motion abnormality. Diastolic dysfunction was indeterminate. Right Ventricle: The right ventricle appears normal in size. Right ventricular systolic function appears normal. Unable to assess right sided pressures due to lack of measurable tricuspid regurgitation. Left Atrium: The left atrium is mildly enlarged. Measurements Left Ventricle Label Value Normal Value LVOT VTI 25.9 cm (18cm - 22cm) LVOT PGmax 5 mmHg LVEF visual 65 % LVDd, 2D 4.95 cm (3.9cm - 5.3cm) LVDs, 2D 3.62 cm (2.1cm - 4cm) IVSd, 2D 0.93 cm (0.6cm - 1.1cm) LVPWd, 2D 0.98 cm (0.6cm - 0.9cm) LV Mass, 2D ASE 168.28 g LV Mass Index, 2D ASE 86.7 g/m?? (44g/m?? - 88.4g/m??) RWT, MM 0.4 (0 - 0.42) LVSVI, 2D 31.4 ml/m2 LVOT PGmean 2 mmHg Aortic Valve Label Value Normal Value AV DVI 0.74 AV VTI 35.3 cm Mitral Valve Label Value Normal Value MV E Vmax 0.77 m/s MV A Vmax 0.73 m/s MV E/A 1.05 MV E/E' lateral 7.9 MV E' lateral 0.1 m/s Aorta Label Value Normal Value AoRoot, 2D 3.3 cm (1.4cm - 3.8cm) Valvular Assessment LVOT 0.7 - 1.1 m/sec Aortic Valve 1.0 - 1.7 m/sec Mitral Valve 0.6 - 1.3 m/sec Tricuspid Valve 0.3 - 0.7 m/sec Pulmonic Valve 0.6 - 0.9 m/sec Regurgitation No No No No Stenosis No No No No Max Velocity 1.09 m/sec 1.48 m/s 0.77 m/sec 1.27 m/s Max Gradient 9.00 mmHg 6.00 mmHg Mean Gradient 5.00 mmHg Findings Left Ventricle: The left ventricle is normal size. Global left ventricular systolic function is normal. The EF is 65 % visually. Left ventricular wall thickness is normal. No regional wall motion abnormality. Diastolic dysfunction was indeterminate. Right Ventricle: The right ventricle appears normal in size. Right ventricular systolic function appears normal. Unable to assess right sided pressures due to lack of measurable tricuspid regurgitation. Left Atrium: The left atrium is mildly enlarged. Right Atrium: The right atrium appears normal in size. Mitral Valve: Mitral valve appears normal. Mild mitral annular calcification. No mitral regurgitation. No mitral valve stenosis. Aortic Valve: Aortic valve appears normal. No aortic valve regurgitation. No aortic valve stenosis. Tricuspid Valve: Normal tricuspid valve. No tricuspid regurgitation. No tricuspid valve stenosis. Pulmonic Valve: Normal pulmonary valve. No pulmonary regurgitation. No pulmonic valve stenosis. Aorta: The aortic root exhibits normal size. Great Vessels: IVC: The inferior vena cava is poorly visualized. Pericardium: No pericardial effusion. Procedure Staff Reading Group: [facility] Honing Machine Try Out Setter: Cindy Young RDCS Ordering Physician: YUSEF BROWN Ysuef Brown MD CV ECHO PROCEDURES * Hemoglobin A1c (09/09/2024 3:06 PM EDT) Pathologist [facility] Hemoglobin A1C 5.8 4.0 - 6.0 % 09/10/2024 8:42 AM EDT [facility] ([facility]) Estimated Average Glucose 120 mg/dL 09/10/2024 8:42 AM EDT [facility] ([facility]) Blood Venous blood specimen / Unknown Arterial Line / Unknown 09/09/2024 3:06 PM EDT 09/09/2024 4:33 PM EDT Yusef Brown MD LAB BLOOD ORDERABLES [facility] ([facility]) [address] [place] [address] * (ABNORMAL) Lipid panel (09/09/2024 3:06 PM EDT) [facility] Triglycerides 260(H) <150 mg/dL 09/09/2024 5:34 PM EDT [facility] ([facility]) Comment: TRIGLYCERIDE REFERENCE RANGE: 20 YEARS AND OLDER CARDIOVASCULAR RISK LESS THAN 150 mg/dL LOW RISK 150 TO 199 mg/dL BORDERLINE RISK 200 mg/dL AND GREATER HIGH RISK Cholesterol 170 120 - 200 mg/dL 09/09/2024 5:34 PM EDT [facility] ([facility]) LDL Calculated 62 0 - 160 mg/dL 09/09/2024 5:34 PM EDT [facility] ([facility]) HDL 56 23 - 92 mg/dL 09/09/2024 5:34 PM EDT [facility] ([facility]) Non HDL Cholesterol 114 09/09/2024 5:34 PM EDT [facility] ([facility]) Total VLDL-C 52(H) 0 - 40 mg/dL 09/09/2024 5:34 PM EDT [facility] ([facility]) Cholesterol/HDL Ratio 3.0 mg/dL 09/09/2024 5:34 PM EDT [facility] ([facility]) Blood Venous blood specimen / Unknown Arterial Line / Unknown 09/09/2024 3:06 PM EDT 09/09/2024 5:21 PM EDT Yusef Brown MD LAB BLOOD ORDERABLES [facility] ([facility]) [address] [place] [address] * ECG 12 lead unit performed (09/09/2024 11:23 AM EDT) Wilmer Landa MD ECG ORDERABLES from Last 3 Months Advance Directives * Full Code (Latest Code Status on File) Date Activated Date Inactivated Comments 09/18/2024 1:41 PM 09/29/2024 5:30 PM * Full Code Date Activated Date Inactivated Comments 09/09/2024 2:36 PM 09/12/2024 6:48 PM Care Teams Communication Consultant Relationship Specialty Start Date End Date Mark Torres MD [address] [place] [address] PCP - General 09/09/24
--- NOTE | 2024-11-20 16:19 | ED_ITS ---
HPI - Chest Pain General Chief Complaint: Chest Pain Stated Complaint: BURNING IN INCISION FROM HEART SURGERY Time Seen by Provider: 11/20/24 16:02 Source: patient and family Mode of arrival: walk-in Limitations: no limitations History of Present Illness HPI narrative: 79 year old female presents to the ED. Reports she has been having intermittent episodes of chest tightness, left arm discomfort, and SOB. Onset was August,. She had cardiac bypass surgery in August at [facility]. She was at physical therapy today and brought up the continued symptoms. She had an outpatient chest x-ray and troponin completed today. Her troponin was elevated and she was advised to come to the ED for evaluation. Denies fever, chills, dizziness, cough, abd pain, back pain. Related Data Allergies Allergy/AdvReac Type Severity Reaction Status Date / Time No Known Drug Allergies Allergy Verified 11/20/24 16:01 Review of Systems ROS Constitutional Denies: fever, chills or fatigue Ears, nose, mouth, and throat Denies: throat pain or neck pain Cardiovascular Reports: chest pain; Denies: palpitations, swelling of feet/ankles or lightheadedness Respiratory Reports: shortness of breath; Denies: cough or wheezing Gastrointestinal Denies: abdominal pain, nausea, vomiting or diarrhea Musculoskeletal Denies: back pain or neck pain Integumentary/Breast Denies: rash Neurological Denies: headache or dizziness PFSH PFSH Social History Little interest or pleasure in doing things: not at all Feeling down, depressed, or hopeless: not at all Exam Constitutional Vital Signs, click to edit/add: Last Vital Signs Temp 97.8 F 11/20/24 16:01 Pulse 71 11/20/24 16:01 Resp 18 11/20/24 16:01 BP 154/80 H 11/20/24 16:01 Pulse Ox 97 11/20/24 16:01 O2 Del Method Room Air 11/20/24 16:01 Common normals: no apparent distress and oriented x3 General appearance: cooperative HENMT Common normals: moist oral mucous membranes Eye Common normals: conjunctivae normal and no scleral icterus Neck & C-Spine Common normals: supple, no meningeal signs and no JVD Chest Chest: symmetrical chest wall rise Respiratory Common normals: normal respiratory effort and clear to auscultation bilaterally Effort & inspection: able to speak in complete sentences and symmetric chest movement Cardio Common normals: regular rate and regular rhythm Neuro Common normals: oriented x3 and moves all extremities Sensorium/orientation: awake and alert Speech: speech normal Course Vital Signs Vital signs: Vital Signs Temperature 97.8 F 11/20/24 16:01 Pulse Rate 71 11/20/24 16:01 Respiratory Rate 18 11/20/24 16:01 Blood Pressure 154/80 H 11/20/24 16:01 Pulse Oximetry 97 11/20/24 16:01 Oxygen Delivery Method Room Air 11/20/24 16:01 Temperature 97.8 F 11/20/24 16:01 Pulse Rate 71 11/20/24 16:01 Respiratory Rate 18 11/20/24 16:01 Blood Pressure 154/80 H 11/20/24 16:01 Pulse Oximetry 97 11/20/24 16:01 Oxygen Delivery Method Room Air 11/20/24 16:01 MDM - Chest Pain MDM Narrative Medical decision making narrative: The patient reported her symptoms have been intermittent, ongoing since before her quadruple bypass surgery in August,. Her troponin was repeated here in the ED with no change. Findings were discussed. She was encouraged to follow up with her metal mockup maker and pcp for a recheck, further evaluation and treatment. Return precautions were discussed. Differential Diagnosis Differential diagnosis: Likely stable angina, atypical chest pain and chest pain Medical Records Data Attestation: I reviewed the patient's medical records. Lab Data Attestation: I reviewed the patient's lab results. Labs: Lab Results 11/20/24 Range/Units 16:41 WBC 10.5 (4.0-11.0) 10^3/uL RBC 4.26 (4.20-5.40) 10^6/uL Hgb 12.9 (12.0-16.0) g/dL Hct 40.1 (36.0-48.0) % MCV 94.1 (81.0-99.0) fL MCH 30.3 (26.7-34.0) pg MCHC 32.2 (29.9-35.2) g/dL RDW 12.9 (11.0-15.0) % Plt Count 264 (150-450) 10^3/uL MPV 9.9 (9.5-13.5) fL Neut % (Auto) 51.3 (43.0-75.0) % Lymph % (Auto) 36.2 (20.5-60.0) % Wirt % (Auto) 10.8 (1.7-12.0) % Eos % (Auto) 1.1 (0.9-7.0) % Baso % (Auto) 0.3 (0.2-2.0) % Neut # (Auto) 5.4 (1.4-6.5) 10^3/uL Lymph # (Auto) 3.8 (1.2-3.8) 10^3/uL Wirt # (Auto) 1.1 H (0.3-0.8) 10^3/uL Eos # (Auto) 0.1 (0.0-0.7) 10^3/uL Baso # (Auto) 0.0 (0.0-0.1) 10^3/uL Abs Immat Gran (auto) 0.03 (0.00-0.03) 10^3/uL Imm/Tot Granulo (auto) 0.3 (0.0-0.5) % Sodium 142 (136-145) mmol/L Potassium 3.5 (3.5-5.1) mmol/L Chloride 104 (98-107) mmol/L Carbon Dioxide 29.8 (21.0-32.0) mmol/L Anion Gap 11.7 BUN 12.0 (7.0-18.0) mg/dL Creatinine 0.86 (0.55-1.02) mg/dL Est GFR ( Amer) >60 (>=60 mL/min/1.73m^2) Est GFR (Non-Af Amer) >60 (>=60 mL/min/1.73m^2) BUN/Creatinine Ratio 14.0 Glucose 128 H (74-106) mg/dL Calcium 9.4 (8.5-10.1) mg/dL Total Bilirubin 0.2 (0.2-1.0) mg/dL AST 10 L (15-37) U/L ALT 9 L (14-59) U/L Alkaline Phosphatase 102 (46-116) U/L Troponin I High Sens 64.6 H* (4.0-51.3) pg/mL Total Protein 7.0 (6.4-8.2) g/dL Albumin 3.2 L (3.4-5.0) g/dL Globulin 3.8 g/dL Albumin/Globulin Ratio 0.8 Imaging Data Chest x-ray: Attestation: I have reviewed the pertinent imaging results. Radiologist's impression: The [address] [address] XRay Report Signed Patient: DESTINEY TAN MR#: [id number] : 1945 Acct:[id number] Age/Sex: 79 / F ADM Date: 11/20/24 Loc: LAB Attending Dr: ANASTASIYA MACEDO Ordering Physician: ANASTASIYA MACEDO Date of Service: 11/20/24 Procedure(s): XR chest 2V Accession Number(s): [id number] cc: LEOLA KAHN ; ANASTASIYA MACEDO~ The [address] [address] Patient Name: DESTINEY TAN MRN: [facility]:[id number] date: 1945 Sex: F Assigned Patient Location: LAB Current Patient Location: .[facility] Accession/Order Number: [id number] Exam Date: 11/20/2024 15:55 Report Date: 11/20/2024 15:56 At the request of: ANASTASIYA MACEDO Procedure: XR chest 2V Plain film chest 2 view HISTORY: Shortness of breath COMPARISON: 10/03/2024 FINDINGS: SUPPORT DEVICES: None POSTSURGICAL CHANGES: CABG HEART: Borderline cardiomegaly PULMONARY CONNIE: Within normal limits MEDIASTINUM: Unremarkable LUNGS AND PLEURA: No acute lung process, pleural effusion or pneumothorax identified. BONY STRUCTURES: Intact ADDITIONAL FINDINGS None XR/XR chest 2V IMPRESSION: No acute process. Similar borderline cardiomegaly Impression dictated by: Robert Hung M.D. 11/20/2024 3:56 PM Dictation Location: [place] [address] Electronically authenticated by: [id number] Y Date: 11/20/2024 15:56 Dictated By: Robert Hung D.O. Signed By: 11/20/24 1558 ECG Data Attestation: ?I have reviewed the pertinent ECG results. (EKG was reviewed by the attending physician. It showed sinus rhythm at a rate of 63. No STEMI. RBBB) Interpretation: Measurements Intervals Norman Rate: 63 P: 60 NV: 170 QRS: -24 QRSD: 112 T: 62 QT: 420 QTc: 428 Interpretive Statements 1100 Sinus rhythm 2440 Incomplete right bundle branch block [address] elevation 7202 Moderate left axis deviation 8102 Low QRS voltage in chest leads 9130 borderline ECG No previous ECG available for comparison Heart Score History: Slightly/Non-Suspicious ECG: Normal Age: >65 years Risk Factors: 1 or 2 Risk Factors Troponin: >3X Normal Limit Total Heart Score Recommendations & Risks:: 5 Discharge Plan Discharge Chief Complaint: Chest Pain Clinical Impression: Atypical chest pain Patient Disposition: Home, Self-Care Time of Disposition Decision: 17:35 Condition: Good Mode of Transportation: Private Vehicle Print Language: Indonesian Instructions: Chest Pain (ED) Additional Instructions: Follow up with your metal mockup maker for a recheck, further evaluation and treatment. Return to the ER if your condition worsens. Referrals: LEOLA KAHN [Primary Care Provider, Family Practice] - 1 week
--- NOTE | 2024-11-20 16:19 | ECG_ITS ---
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 Measurements Intervals [place] Rate: 63 P: 60 KS: 170 QRS: -24 QRSD: 112 T: 62 QT: 420 QTc: 428 Interpretive Statements 1100 Sinus rhythm 2440 Incomplete right bundle branch block [address] elevation 7202 Moderate left axis deviation 8102 Low QRS voltage in chest leads Abnormal ECG No previous ECG available for comparison Electronically Signed On 11-20-2024 18:09:06 EDT by ANASTASIYA MACEDO M.D.
[2024-11-20 17:03] LABS: Basophils Percent Auto 0.3 % (0.2-2.0); Eosinophils Absolute Auto 0.1 10^3/uL (0.0-0.7); Eosinophils Percent Auto 1.1 % (0.9-7.0); Hematocrit 40.1 % (36.0-48.0); Hemoglobin 12.9 g/dL (12.0-16.0); Immature Granulocytes Abs Auto 0.03 10^3/uL (0.00-0.03); Immature Granulocytes Pct Auto 0.3 % (0.0-0.5); Lymphocytes Absolute Auto 3.8 10^3/uL (1.2-3.8); Lymphocytes Percent Auto 36.2 % (20.5-60.0); Mean Corpuscular HGB Conc 32.2 g/dL (29.9-35.2); Mean Corpuscular Hemoglobin 30.3 pg (26.7-34.0); Mean Corpuscular Volume 94.1 fL (81.0-99.0); Mean Platelet Volume 9.9 fL (9.5-13.5); Monocytes Absolute Auto 1.1 10^3/uL (0.3-0.8); Monocytes Percent Auto 10.8 % (1.7-12.0); Neutrophils Absolute Auto 5.4 10^3/uL (1.4-6.5); Neutrophils Percent Auto 51.3 % (43.0-75.0); Platelet Count 264 10^3/uL (150-450); Red Blood Count 4.26 10^6/uL (4.20-5.40); Red Cell Distribution Width 12.9 % (11.0-15.0); White Blood Count 10.5 10^3/uL (4.0-11.0)
[2024-11-20 17:15] LABS: Alanine Aminotransferase 9 U/L (14-59); Albumin Globulin Ratio 0.8; Albumin Level 3.2 g/dL (3.4-5.0); Alkaline Phosphatase 102 U/L (46-116); Anion Gap 11.7; Aspartate Amino Transferase 10 U/L (15-37); Bilirubin Total 0.2 mg/dL (0.2-1.0); Calcium 9.4 mg/dL (8.5-10.1); Carbon Dioxide 29.8 mmol/L (21.0-32.0); Chloride 104 mmol/L (98-107); Estimated GFR (African America >60 (>=60 mL/min/1.73m^2); Estimated GFR (Non-African Ame >60 (>=60 mL/min/1.73m^2); Globulin 3.8 g/dL; Glucose 128 mg/dL (74-106); Potassium 3.5 mmol/L (3.5-5.1); Sodium 142 mmol/L (136-145)
[2024-11-20 17:19] LABS: Troponin I High Sensitivity 64.6 pg/mL (4.0-51.3)
== END 2024-11-20 18:01 | disposition home or self-care (01) ==
PROVIDERS: Nurse Practitioner Family; Emergency Provider Emergency Medicine; PCP Family Medicine
DX: R07.89 Other chest pain (principal); R06.02 Shortness of breath; Z95.1 Presence of aortocoronary bypass graft
CPT/HCPCS: 36415; 71046; 80053; 84484; 85025; 93005; 99284

== ENCOUNTER 2024-11-27 07:12 | Outpatient (RCR) | payer MEDICARE, SELFPAY ==
--- NOTE | 2024-10-23 07:41 | CR1_ITS ---
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 Electronically Signed On 10-28-2024 16:56:22 EDT by Satish Roa
--- NOTE | 2024-10-24 13:46 | CR1_ITS ---
[facility] Test Date: 2024-10-24 Pat Name: DESTINEY TAN Department: Room: - Gender: Female Building Attendant: : 1945 Requested By: ANASTASIYA MACEDO M.D. Order Number: [id number] Reading MD: Satish Roa Interpretive Statements Okay to proceed with outlined treatment plan. Electronically Signed On 10-28-2024 16:56:37 EDT by Satish Roa
--- NOTE | 2024-11-20 08:14 | CR1_ITS ---
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 Patient is encouraged to be more compliant with her home regimen. Electronically Signed On 11-21-2024 10:05:04 EDT by Satish Roa
--- NOTE | 2024-11-27 14:42 | CR1_ITS ---
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 Patient is strongly encouraged to participate with phase 3 in order to continue building on top of her progress. Electronically Signed On 11-27-2024 16:45:39 EDT by Satish Roa
== END 2024-11-27 13:56 | disposition home or self-care (01) ==
LOC: CR 07:12
PROVIDERS: PCP Family Medicine; Visit Provider Internal Medicine Interventional Cardiology
DX: I49.9 Cardiac arrhythmia, unspecified (principal); Z95.1 Presence of aortocoronary bypass graft; I25.10 Atherosclerotic heart disease of native coronary artery without angina pectoris; I10 Essential (primary) hypertension
CPT/HCPCS: 93798

== ENCOUNTER 2025-01-13 13:27 | Outpatient (OUT) | payer MEDICARE, SELFPAY ==
--- NOTE | 2025-01-13 13:53 | CA_ITS ---
Patient Name: DESTINEY TAN MR#: [id number] : 1945 Exam Date: 01/13/2025 Ordering Doctor: DR ANASTASIYA LANDA M.D. ECHOCARDIOGRAM REPORT PROCEDURE: CA ECHO DOPPLER COMPLETE INDICATIONS: Paroxysmal atrial fibrillation, Chest pain COMPARISON: None. DESCRIPTION: COMPLETE ECHOCARDIOGRAM Real-time transthoracic echocardiography with 2D, M-mode, spectral and color flow Doppler performed. QUALITY: Technical quality was good. LEFT VENTRICLE: Normal chamber size. Moderate concentric left ventricular hypertrophy. Global left ventricular systolic function is normal. LV EF: Estimated left ventricular ejection fraction is 65%. DIASTOLIC: Diastolic function is indeterminate. ATRIAL SEPTUM: LEFT ATRIUM: Moderate dilatation. RIGHT ATRIUM: Severe dilatation. RIGHT VENTRICLE: Moderate dilatation. Decreased right ventricular systolic function. TRICUSPID VALVE: Normal mobility and thickness. No stenosis with mild to moderate regurgitation. Mild pulmonary hypertension. RVSP 40 mmHg MITRAL VALVE: Normal mobility and thickness. No evidence of mitral valve stenosis. Mild mitral annular calcification. Trivial mitral regurgitation. AORTIC VALVE: Normal trileaflet appearance. Thickened aortic valve. Normal leaflet mobility. No evidence of aortic valve stenosis. Trivial aortic regurgitation. AORTIC ROOT: Normal diameter and appearance, measuring 3.4 cm. The ascending aorta is normal in size measuring 3.2 cm. PULMONIC VALVE: Normal thickness and mobility. No stenosis. Mild regurgitation. PERICARDIUM: No evidence of pericardial effusion. IVC: Collapses with inspiration. Mildly dilated measuring 2.3 cm. PLEURA: CONCLUSION: 1. Moderate concentric left ventricular hypertrophy with normal systolic function. Estimated LVEF is 65%. 2. Moderately dilated right ventricle with reduced systolic function. 3. Moderate to severe biatrial dilatation. 4. Mild to moderate tricuspid regurgitation. 5. Mildly elevated right-sided pressures. RVSP is 40 mmHg. Adult Echocardiography Procedure Report Left Ventricle LVEDD (3.7 - 5.6 cm): 4.27 cm LVESD (2.2 - 4.0 cm): 2.80 cm LVIVS thickness (0.6 - 1.2 cm): 1.41 cm LVPW thickness (0.5 - 1.0 cm): 1.32 cm e': 0.13 m/s E - e': 4.78 LVOT Max Gradient: 4.05 mm[Hg], 3.33 mm[Hg] LVOT Area (cm2): 0.96 m/s Peak Velocity (LVOT): 1.01 m/s, 0.91 m/s Mean Velocity (LVOT): 0.62 m/s LVOT Diameter 2.03 cm Left Ventricular Ejection Fraction: 65 % Left Atrium LA Volume Index (2D A2C): 51.89 ml/m2 Left Atrium Systolic Dimension: 4.13 cm Mitral Valve MV E to A Ratio: 1.26 Mitral Valve A-Wave Peak Velocity: 0.48 m/s Mitral Valve E-Wave Peak Velocity: 0.60 m/s Right Ventricle RV Internal Diastolic Dimension: 5.02 cm Aorta AO Root Diam: 3.43 cm Ascending Ao Diam: 3.21 cm Aortic Valve AoV Area (Peak Kaleb): 3.17 cm2, 3.47 cm2, 2.88 cm2 AoV Area (VTI): 3.05 cm2, 3.52 cm2, 2.66 cm2 Peak Velocity(Antegrade Flow): 0.94 m/s, 1.02 m/s Peak Gradient(Antegrade Flow): 3.50 mm[Hg], 4.17 mm[Hg] Mean Velocity(Antegrade Flow): 0.68 m/s, 0.72 m/s Mean Gradient(Antegrade Flow): 2.02 mm[Hg], 2.42 mm[Hg] Velocity Time Integral: 21.46 cm, 25.76 cm Tricuspid Valve Peak Velocity (Regurgitant Flow): 2.05 m/s, 2.17 m/s, 2.84 m/s Pulmonic Valve Mean Gradient: 2.58 mm[Hg], 2.44 mm[Hg], 2.40 mm[Hg] Mean Velocity: 0.75 m/s, 0.73 m/s, 0.72 m/s Peak Velocity: 1.11 m/s Peak Gradient: 5.11 mm[Hg], 5.11 mm[Hg], 4.71 mm[Hg] Right Atrium Right Atrium Systolic Pressure: 137.47 ml, 137.47 ml Dictated by: Anastasiya Landa M.D. on 01/13/2025 at 18:49 Approved by: Anastasiya Landa M.D. on 01/13/2025 at 18:57
== END 2025-01-13 13:28 | disposition home or self-care (01) ==
LOC: CARD 13:27
PROVIDERS: PCP Family Medicine; Visit Provider Internal Medicine Interventional Cardiology
DX: I48.0 Paroxysmal atrial fibrillation (principal); R07.89 Other chest pain
CPT/HCPCS: 93306